=== PATIENT | male | born 1965 | race Caucasian/White ===

== ENCOUNTER 2017-11-20 10:41 | Inpatient (IN) | payer MEDICAID ==
[~2017-11-20] VITALS: Ht 170.2 cm; Wt 71.8 kg
[2017-11-20] MEDS ORDERED: DILTIAZEM HCL 25 MG/5 ML VIAL IV ONE ×2 (10:51→11:15)
[2017-11-20] MEDS ORDERED: SODIUM CHLORIDE 0.9% 1,000 ML IV ONE ×2 (11:17)
[2017-11-20] MEDS ORDERED: LORazepam 2MG/ML-1ML VIAL IV ONE (11:30)
[2017-11-20] MEDS ORDERED: THIAMINE HCL 100 MG/ML 2ML VIAL IV ONE (11:30)
[2017-11-20 11:38] LABS: Basophils # (auto) 0.1 uL; Basophils % (auto) 1.2 % (0.0-2.0); Eosinophils # (auto) 0.1 uL; Eosinophils % (auto) 2.3 % (0.0-7.0); Hematocrit 51.7 % (41.0-53.0); Hemoglobin 17.6 g/dL (13.5-17.5); Lymphocytes # (auto) 0.9 uL; Lymphocytes % (auto) 17.2 % (10.0-50.0); Mean Corpuscular Hemoglobin 33.9 pg (28.0-32.0); Mean Corpuscular Hgb Conc. 34.1 g/dL (32.0-36.0); Mean Corpuscular Volume 99.4 fL (80.0-100.0); Monocytes # (auto) 0.5 uL; Monocytes % (auto) 8.5 % (0.0-12.0); Neutrophils # (auto) 3.9 uL; Neutrophils % (auto) 70.8 % (37.0-80.0); Nucleated Red Blood Cells % 0.1 %; Platelet Count (auto) 300 10^3/uL (140-450); Red Blood Cells 5.21 10^6/uL (4.5-5.90); Red Cell Distribution Width 13.1 % (11.8-14.3); White Blood Cell 5.5 10^3/uL (4.4-10.8)
[2017-11-20 11:53] LABS: Albumin 3.7 g/dL (3.4-5.0); Bilirubin, Total 0.7 mg/dL (0.2-1.0); Magnesium 1.8 mg/dL (1.6-2.6); Potassium 4.3 mmol/L (3.5-5.1); Total Protein 8.5 g/dL (6.4-8.2)
[2017-11-20 14:20] LABS: Amphetamine Screen, Urine POSITIVE (NEGATIVE); Barbiturate Scree,Urine NEGATIVE (NEGATIVE); Benzodiazephine Screen, Urine NEGATIVE (NEGATIVE); Cannabinoid Screen, Urine NEGATIVE (NEGATIVE); Cocaine Screen, Urine NEGATIVE (NEGATIVE); Opiate Scree,Urine NEGATIVE (NEGATIVE); Phencyclidine Screen, Urine NEGATIVE (NEGATIVE)
[2017-11-20] MEDS ORDERED: MORPHINE SULFATE 10 MG/ML INJ 1ML SDV IV PRN (20:30)
[2017-11-20] MEDS ORDERED: NITROGLYCERIN 0.4 MG SL TAB SL PRN (20:30)
[2017-11-20 22:00] VITALS: BP 150/94
[2017-11-20 22:43] VITALS: BP 150/94
[2017-11-21 05:00] VITALS: BP 140/80
[2017-11-21 07:13] LABS: Basophils # (auto) 0.1 uL; Eosinophils # (auto) 0.2 uL; Hemoglobin 15.8 g/dL (13.5-17.5); Lymphocytes # (auto) 1.1 uL; Monocytes # (auto) 0.5 uL; Neutrophils # (auto) 3.3 uL; White Blood Cell 5.3 10^3/uL (4.4-10.8)
[2017-11-21 07:16] LABS: Basophils % (auto) 1.2 % (0.0-2.0); Eosinophils % (auto) 4.3 % (0.0-7.0); Hematocrit 45.8 % (41.0-53.0); Lymphocytes % (auto) 21.1 % (10.0-50.0); Mean Corpuscular Hemoglobin 34.6 pg (28.0-32.0); Mean Corpuscular Hgb Conc. 34.5 g/dL (32.0-36.0); Mean Corpuscular Volume 100.4 fL (80.0-100.0); Monocytes % (auto) 10.4 % (0.0-12.0); Nucleated Red Blood Cells % 0.2 %; Platelet Count (auto) 284 10^3/uL (140-450); Red Blood Cells 4.57 10^6/uL (4.5-5.90)
[2017-11-21 07:31] LABS: Albumin 3.2 g/dL (3.4-5.0); Calcium 8.7 mg/dL (8.5-10.1); Potassium 3.9 mmol/L (3.5-5.1)
[2017-11-21 07:36] LABS: BUN/Creatinine Ratio 21.9; Bilirubin, Total 0.7 mg/dL (0.2-1.0); Total Protein 7.4 g/dL (6.4-8.2)
[2017-11-21 09:00] VITALS: BP 154/103
[2017-11-21 13:00] VITALS: BP 138/106
[2017-11-21 17:00] VITALS: BP 148/82
[2017-11-21 22:00] VITALS: BP 145/99
[2017-11-22 05:00] VITALS: BP 148/97
[2017-11-22 08:13] LABS: Eosinophils # (auto) 0.2 uL; Monocytes # (auto) 0.6 uL; Nucleated Red Blood Cells % 0.1 %
[2017-11-22 08:15] LABS: Basophils # (auto) 0 uL; Eosinophils % (auto) 4.6 % (0.0-7.0); Hematocrit 46.4 % (41.0-53.0); Hemoglobin 15.9 g/dL (13.5-17.5); Lymphocytes # (auto) 1.2 uL; Lymphocytes % (auto) 23.8 % (10.0-50.0); Mean Corpuscular Hemoglobin 34.4 pg (28.0-32.0); Mean Corpuscular Hgb Conc. 34.3 g/dL (32.0-36.0); Mean Corpuscular Volume 100.2 fL (80.0-100.0); Neutrophils % (auto) 59.6 % (37.0-80.0); Platelet Count (auto) 279 10^3/uL (140-450); Red Blood Cells 4.63 10^6/uL (4.5-5.90); White Blood Cell 5.1 10^3/uL (4.4-10.8)
[2017-11-22 08:33] LABS: Albumin 3.1 g/dL (3.4-5.0); Bilirubin, Total 0.7 mg/dL (0.2-1.0); Calcium 8.4 mg/dL (8.5-10.1); Potassium 3.9 mmol/L (3.5-5.1); Total Protein 7.2 g/dL (6.4-8.2)
[2017-11-22 09:00] VITALS: BP 147/95
[2017-11-22] MEDS ORDERED: PROPRANOLOL HCL 20 MG TAB PO SCH (10:00)
[2017-11-22] MEDS ORDERED: PROPRANOLOL HCL 20 MG TAB ONE (10:11)
[2017-11-22 11:35] VITALS: BP 147/95
[2017-11-22 13:00] VITALS: BP 144/104
== END 2017-11-22 13:00 | disposition home or self-care (01) | DRG 812 ==
LOC: ER 10:41 → TELE 10:42 → TELE-WESTW 22:10
PROVIDERS: ADMIT Nurse Practitioner Family; ATTEND Internal Medicine
DX: T43.621A Poisoning by amphetamines, accidental (unintentional), initial encounter (principal); E44.0 Moderate protein-calorie malnutrition; I47.1 Supraventricular tachycardia; E88.09 Other disorders of plasma-protein metabolism, not elsewhere classified; I10 Essential (primary) hypertension; F19.10 Other psychoactive substance abuse, uncomplicated; F17.210 Nicotine dependence, cigarettes, uncomplicated; F15.10 Other stimulant abuse, uncomplicated; Z59.0 Homelessness; Z68.24 Body mass index [BMI] 24.0-24.9, adult
CPT/HCPCS: 36415; 71045; 80053; 80307; 80320; 82962; 83735; 84484; 85025; 93005; 94761; 96361; 96374; 96375

== ENCOUNTER 2018-04-03 01:47 | Emergency (ER) | payer MEDICAID, OTHER ==
[~2018-04-03] VITALS: Ht 167.6 cm; Wt 81.6 kg
[2018-04-03] MEDS ORDERED: ADENOSINE 6 MG/2 ML INJ IV ONE ×4 (01:53→02:15)
[2018-04-03 02:14] LABS: Basophils # (auto) 0.1 uL; Eosinophils # (auto) 0.1 uL; Eosinophils % (auto) 0.5 % (0.0-7.0); Monocytes # (auto) 1.1 uL; Neutrophils # (auto) 7.8 uL
[2018-04-03 02:15] LABS: Basophils % (auto) 0.7 % (0.0-2.0); Hematocrit 46.1 % (41.0-53.0); Lymphocytes # (auto) 1.2 uL; Lymphocytes % (auto) 11.9 % (10.0-50.0); Mean Corpuscular Hemoglobin 34.8 pg (28.0-32.0); Mean Corpuscular Hgb Conc. 34.8 g/dL (32.0-36.0); Mean Corpuscular Volume 100.1 fL (80.0-100.0); Monocytes % (auto) 10.6 % (0.0-12.0); Neutrophils % (auto) 76.3 % (37.0-80.0); Platelet Count (auto) 208 10^3/uL (140-450); Red Blood Cells 4.61 10^6/uL (4.5-5.90); Red Cell Distribution Width 13.7 % (11.8-14.3); White Blood Cell 10.2 10^3/uL (4.4-10.8)
[2018-04-03] MEDS ORDERED: SODIUM CHLORIDE 0.9% 1,000 ML IV ONE (02:30)
[2018-04-03] MEDS ORDERED: DILTIAZEM HCL 25 MG/5 ML VIAL IV ONE ×2 (02:32→02:45)
[2018-04-03 02:35] LABS: INR 0.94 (0.9-1.15); Partial Thromboplastin Time 23.3 sec (23.78-33.04); Prothrombin Time 10.1 sec (9.27-12.13)
[2018-04-03 02:39] LABS: Albumin 3.3 g/dL (3.4-5.0); BUN/Creatinine Ratio 18.9; Calcium 7.8 mg/dL (8.5-10.1); Magnesium 1.7 mg/dL (1.6-2.6); Potassium 3.1 mmol/L (3.5-5.1)
[2018-04-03 02:46] LABS: Total Protein 8.5 g/dL (6.4-8.2)
[2018-04-03 05:30] VITALS: BP 114/76
== END 2018-04-03 06:10 | disposition home or self-care (01) ==
LOC: ER 01:49
DX: I47.1 Supraventricular tachycardia (principal); E87.6 Hypokalemia; I50.9 Heart failure, unspecified; N28.9 Disorder of kidney and ureter, unspecified; F15.10 Other stimulant abuse, uncomplicated; F12.10 Cannabis abuse, uncomplicated; F17.210 Nicotine dependence, cigarettes, uncomplicated; Z59.0 Homelessness
CPT/HCPCS: 36415; 71045; 80053; 83735; 83880; 84443; 84484; 85025; 85610; 85730; 93005; 96374; 96375; 99285; J0153

== ENCOUNTER 2018-08-20 20:32 | Emergency (ER) | payer MEDICAID, OTHER ==
[~2018-08-20] VITALS: Ht 170.2 cm; Wt 81.6 kg
[2018-08-20 20:56] VITALS: BP 169/109
[2018-08-20 23:08] LABS: Urine Bacteria NONE SEEN /hpf (None Seen); Urine Blood 1+ /uL (Negative); Urine Hyaline Cast FEW /lpf (0 - 2); Urine Mucus FEW (None Seen); Urine Specific Gravity 1.015 (1.001-1.035); Urine Sperm PRESENT /hpf (None Seen); Urine WBC 5 /hpf (0 - 3)
[2018-08-20 23:25] LABS: Basophils # (auto) 0 uL; Basophils % (auto) 0.7 % (0.0-2.0); Eosinophils # (auto) 0 uL; Hematocrit 43.5 % (41.0-53.0); Hemoglobin 14.9 g/dL (13.5-17.5); Lymphocytes # (auto) 0.3 uL; Mean Corpuscular Hemoglobin 35.5 pg (28.0-32.0); Mean Corpuscular Hgb Conc. 34.1 g/dL (32.0-36.0); Mean Corpuscular Volume 103.9 fL (80.0-100.0); Monocytes # (auto) 0.4 uL; Monocytes % (auto) 6.9 % (0.0-12.0); Neutrophils # (auto) 4.9 uL; Neutrophils % (auto) 86.4 % (37.0-80.0); Platelet Count (auto) 185 10^3/uL (140-450); Red Blood Cells 4.18 10^6/uL (4.5-5.90); Red Cell Distribution Width 12.4 % (11.8-14.3); White Blood Cell 5.7 10^3/uL (4.4-10.8)
[2018-08-20 23:39] LABS: INR 1.08 (0.9-1.15); Partial Thromboplastin Time 27.6 sec (23.78-33.04); Prothrombin Time 11.5 sec (9.27-12.13)
[2018-08-20 23:42] LABS: Albumin 3.8 g/dL (3.4-5.0); BUN/Creatinine Ratio 18.5; Calcium 8.2 mg/dL (8.5-10.1); Magnesium 1.4 mg/dL (1.6-2.6); Potassium 3.8 mmol/L (3.5-5.1)
[2018-08-20 23:47] LABS: Bilirubin, Total 1.7 mg/dL (0.2-1.0)
== END 2018-08-21 05:15 | disposition left against medical advice (07) ==
LOC: ER 20:32
DX: R11.2 Nausea with vomiting, unspecified (principal); R42 Dizziness and giddiness; Z53.21 Procedure and treatment not carried out due to patient leaving prior to being seen by health care provider
CPT/HCPCS: 36415; 71046; 80053; 81001; 83690; 83735; 83880; 84443; 84484; 85025; 85610; 85730

== ENCOUNTER 2019-06-18 11:40 | Inpatient (IN) | payer SELFPAY ==
[~2019-06-18] VITALS: Ht 167.6 cm; Wt 84.3 kg
[2019-06-18] MEDS ORDERED: DILTIAZEM HCL 25 MG/5 ML VIAL IV ONE ×2 (11:44→12:00)
[2019-06-18] MEDS ORDERED: PROMETHAZINE HCL 25 MG/ML 1ML ONE (11:50)
[2019-06-18] MEDS ORDERED: ADENOSINE 6 MG/2 ML INJ IV ONE ×2 (11:50→11:55)
[2019-06-18] MEDS ORDERED: PROMETHAZINE HCL 25 MG/ML 1ML IV ONE (11:50)
[2019-06-18 12:25] LABS: Basophils # (auto) 0.1 uL; Basophils % (auto) 0.9 % (0.0-2.0); Eosinophils # (auto) 0 uL; Eosinophils % (auto) 0.3 % (0.0-7.0); Hematocrit 47.3 % (41.0-53.0); Hemoglobin 16.6 g/dL (13.5-17.5); Lymphocytes # (auto) 1.3 uL; Lymphocytes % (auto) 17.3 % (10.0-50.0); Mean Corpuscular Hemoglobin 36.2 pg (28.0-32.0); Mean Corpuscular Volume 103.4 fL (80.0-100.0); Monocytes # (auto) 0.7 uL; Monocytes % (auto) 9.3 % (0.0-12.0); Neutrophils # (auto) 5.6 uL; Neutrophils % (auto) 72.2 % (37.0-80.0); Nucleated Red Blood Cells % 0.1 %; Platelet Count (auto) 239 10^3/uL (140-450); Red Blood Cells 4.58 10^6/uL (4.5-5.90); Red Cell Distribution Width 12.6 % (11.8-14.3); White Blood Cell 7.7 10^3/uL (4.4-10.8)
[2019-06-18] MEDS ORDERED: DILTIAZEM 125mg/125ml BAG KIT 125 ML IV ONE (12:30)
[2019-06-18 12:41] LABS: Albumin 3.7 g/dL (3.4-5.0); Anion Gap 14 (5-15); Blood Urea Nitrogen 11 mg/dL (7-18); Calcium 8.9 mg/dL (8.5-10.1); Carbon Dioxide 22 mmol/L (21-32); Chloride 105 mmol/L (98-107); Glucose 115 mg/dL (74-106); Magnesium 1.5 mg/dL (1.6-2.6); Potassium 3.2 mmol/L (3.5-5.1); Sodium 141 mmol/L (136-145)
[2019-06-18] MEDS ORDERED: ASPirin 81 mg TAB PO ONE (12:45)
[2019-06-18] MEDS ORDERED: NITROGLYCERIN 0.4 MG SL TAB SL PRN (12:45)
[2019-06-18] MEDS ORDERED: LORazepam 2MG/ML-1ML VIAL IV PRN (12:45)
[2019-06-18] MEDS ORDERED: IPRATROPIUM BROM 0.5 MG/2.5ML INH SOL NEB PRN (12:45)
[2019-06-18] MEDS ORDERED: HYDROcodone-ACET 5/325MG TAB PO PRN (12:45)
[2019-06-18] MEDS ORDERED: MORPHINE SULF INJ 2 MG/ML SYRINGE 1ML IV PRN ×2 (12:45)
[2019-06-18] MEDS ORDERED: ONDANSETRON HCL 4 MG/2 ML VIAL IV PRN (12:45)
[2019-06-18] MEDS ORDERED: ACETAMINOPHEN 500 MG TAB PO PRN (12:45)
[2019-06-18 12:47] LABS: Alanine Aminotransferase 102 U/L (16-61); Alkaline Phosphatase 96 U/L (45-117); Aspartate Aminotransferase 153 U/L (15-37); BUN/Creatinine Ratio 9.6; Bilirubin, Total 1.1 mg/dL (0.2-1.0); GFR African American 87 mL/min; GFR Non-African American 72 mL/min; Total Protein 9.4 g/dL (6.4-8.2)
[2019-06-18] MEDS: METOPROLOL TARTRATE 25 MG TAB PO SCH ×2 (13:03→21:28)
[2019-06-18] MEDS ORDERED: POTASSIUM EFFERVESENT TAB 25 MEQ PO ONE (13:30)
[2019-06-18] MEDS: FOLIC ACID 1 MG, MULTIPLE VITAMIN 10 ML, MAGNESIUM SULF SDV 50% 8 MEQ, THIAMINE INJ 100... INJ SCH ×5 (13:31)
[2019-06-18 15:54] LABS: Alcohol, Urine < 3.0 mg/dL (0-5); Amphetamine Screen, Urine POSITIVE (NEGATIVE); Barbiturate Scree,Urine NEGATIVE (NEGATIVE); Benzodiazephine Screen, Urine NEGATIVE (NEGATIVE); Cannabinoid Screen, Urine NEGATIVE (NEGATIVE); Cocaine Screen, Urine NEGATIVE (NEGATIVE); Opiate Scree,Urine NEGATIVE (NEGATIVE); Phencyclidine Screen, Urine NEGATIVE (NEGATIVE)
[2019-06-18] MEDS ORDERED: MILK OF MAGNESIA 30ML SUSP PO ONE (16:15)
--- NOTE | 2019-06-18 17:55 | NUR ---
PT ASSESSED FOR PRN MED NEB TX, PT SITTING UPRIGHT AND EDGE OF BED DRINKING WATER WITH NO DISTRESS NOTED. BS DECREASED. PT ON ROOM AIR SPO2 96% HR 92, RR 18. PT NOTIFIED TO HAVE RT PAGED IF SOB OCCURS.
[2019-06-18 18:57] VITALS: BP 129/90
--- NOTE | 2019-06-18 22:00 | NUR ---
OPENING NOTE RECEIVED REPORT FROM DAYSHIFT RN. ASSUMING ROLE OF CARE OF PATIENT AT THIS TIME. PATIENT SHOWING NO SIGN OF DISTRESS, SHORTNESS OF BREATH, AND PATIENT DENIES ANY PAIN AT THIS TIME. PATIENT EDUCATED ON PLAN OF CARE FOR THE NIGHT AND PATIENT VERBALIZED UNDERSTANDING. BED LOWERED, CALL LIGHT WITHIN REACH, AND PATIENT WILL BE ROUNDED ON EVERY HOUR AND NEEDED.
--- NOTE | 2019-06-18 22:00 | NUR ---
IV removal IV TO RIGHT HAND DC'd with clean sterile technique, catheter fully intact. Pressure dressing applied to site. Patient tolerated well.
[2019-06-18 23:24] VITALS: BP 126/89
--- NOTE | 2019-06-19 06:50 | NUR ---
Respiratory note: HR 83, RR 14, SPO2 95% RA, BS CLEAR. PRN MED NEB TX NOT INDICATED AT THIS TIME.NO RESPIRATORY DISTRESS NOTED. PT INFORMED TO HIT CALL BUTTON IF FEELING SOB OR WHEEZING.
[2019-06-19 06:56] LABS: Potassium 3.4 mmol/L (3.5-5.1)
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
[2019-06-19 08:56] VITALS: BP 141/94
[2019-06-19] MEDS: ASPirin 81 mg TAB PO SCH (10:40)
[2019-06-19] MEDS: METOPROLOL TARTRATE 25 MG TAB PO SCH ×2 (10:41→21:19)
[2019-06-19 11:27] LABS: Basophils # (auto) 0 uL; Basophils % (auto) 0.8 % (0.0-2.0); Eosinophils # (auto) 0.1 uL; Eosinophils % (auto) 2.6 % (0.0-7.0); Hematocrit 40.7 % (41.0-53.0); Hemoglobin 14.1 g/dL (13.5-17.5); Lymphocytes # (auto) 1.1 uL; Lymphocytes % (auto) 24.2 % (10.0-50.0); Mean Corpuscular Hemoglobin 35.7 pg (28.0-32.0); Mean Corpuscular Hgb Conc. 34.6 g/dL (32.0-36.0); Mean Corpuscular Volume 103.1 fL (80.0-100.0); Monocytes # (auto) 0.4 uL; Monocytes % (auto) 8.9 % (0.0-12.0); Neutrophils # (auto) 2.9 uL; Neutrophils % (auto) 63.5 % (37.0-80.0); Nucleated Red Blood Cells % 0.1 %; Platelet Count (auto) 178 10^3/uL (140-450); Red Blood Cells 3.95 10^6/uL (4.5-5.90); Red Cell Distribution Width 12.5 % (11.8-14.3); White Blood Cell 4.6 10^3/uL (4.4-10.8)
[2019-06-19] MEDS: FOLIC ACID 1 MG, MULTIPLE VITAMIN 10 ML, MAGNESIUM SULF SDV 50% 8 MEQ, THIAMINE INJ 100... INJ SCH ×5 (12:06)
[2019-06-19 12:30] VITALS: BP 136/96
--- NOTE | 2019-06-19 14:11 | NUR ---
Received referral to see pt f
--- NOTE | 2019-06-19 14:13 | NUR ---
Received referral to see pt as he has a substance abuse issue and he is homeless. Pt was alert and oriented. Pt states he has been homeless for about 5 yrs. Pt has no income but has food stamps. Inquired of pt if he would like group social worker to find a place for him to go post discharge. Pt stated no. He does not want the homeless group home or any other facility. He further stated that he would like to return to his current living condition which is on [address]. Gave pt resources for drug rehabs. Pt signed the homeless waiver and it was placed in his chart. .
[2019-06-19 17:26] VITALS: BP 131/86
--- NOTE | 2019-06-19 19:29 | NUR ---
Respiratory note: NO PRN TX GIVEN AT THIS TIME, NOT INDICATED. PT AWAKE AND ALERT, DENIES ANY NEEDS. SPO2 97% ON R/A, HR 86, RR 16.
--- NOTE | 2019-06-19 20:00 | NUR ---
OPENING NOTE RECEIVED REPORT FROM DAYSHIFT RN. ASSUMING ROLE OF CARE OF PATIENT AT THIS TIME. PATIENT EDUCATED ON PLAN OF CARE FOR THE NIGHT AND PATIENT VERBALIZED UNDERSTANDING. PATIENT SHOWING NO SIGN OF DISTRESS, SHORTNESS OF BREATH, AND PATIENT DENIES ANY PAIN AT THIS TIME. BED LOWERED, CALL LIGHT WITHIN REACH, AND PATIENT WILL BE ROUNDED ON EVERY HOUR AND NEEDED. PATIENT REQUESTING HETAL CRACKERS AND JUICE AND WILL BE PROVIDED WHEN AVAILABLE.
[2019-06-19 22:00] VITALS: BP 122/77
[2019-06-20 04:51] VITALS: BP 137/77
--- NOTE | 2019-06-20 07:30 | NUR ---
OPENING NOTES ASSUMED CARE OF PT. ALERT AND ORIENTED. NO SIGNS OF SOB/DISTRESS NOTED. DENIES ANY PAIN. BED SET TO LOWEST POSITION/LOCKED. BEDSIDE RAILS UP X2. CALL LIGHT WITHIN REACH. INSTRUCTED PT TO CALL FOR ASSISTANCE. DISCUSSED POC. WILL CONTINUE TO MONITOR Q1HR AND PRN.
[2019-06-20 09:00] VITALS: BP 127/87
[2019-06-20] MEDS: METOPROLOL TARTRATE 25 MG TAB PO SCH ×2 (09:38→22:38)
[2019-06-20] MEDS: LISINOPRIL 5 MG TAB PO SCH (09:38)
[2019-06-20] MEDS: ASPirin 81 mg TAB PO SCH (09:38)
[2019-06-20] MEDS: FOLIC ACID 1 MG, MULTIPLE VITAMIN 10 ML, MAGNESIUM SULF SDV 50% 8 MEQ, THIAMINE INJ 100... INJ SCH ×5 (12:41)
[2019-06-20 13:00] VITALS: BP 131/90
[2019-06-20 13:20] LABS: Cholesterol 126 mg/dL (< 200); Triglycerides 109 mg/dL (< 150)
[2019-06-20 13:23] LABS: HDL Cholesterol 40 mg/dL (40-59); LDL Cholesterol 73 mg/dL (< 100)
--- NOTE | 2019-06-20 13:30 | NUR ---
LIDIA VINES states they want to leave the floor Against Medical Advice (AMA) to go outside and smoke. Patient encouraged to stay on floor and not smoke. Dr. Brown notified of patient's wishes. Patient advised of the risks and benefits of leaving AMA. Patient verbalized understanding and signed required AMA form.
--- NOTE | 2019-06-20 14:00 | NUR ---
ASSESSED PT FOR PRN MED NEB BREATHING TX. PT ON RA WITH SPO2 96%, HR 81, RR 15 WITH CLEAR BS. NO, SOB NO RESPIRATORY DISTRESS NOTED. WILL CONTINUE TO MONITOR.
[2019-06-20] MEDS ORDERED: POTASSIUM CHL 20 Meq TABLET PO ONE (15:00)
--- NOTE | 2019-06-20 16:24 | NUR ---
assessment Patient is a 54 year old male who is alert and oriented. Prior to admission patient was home less. Patient informed me he doesnt need any help and wants to return to homeless on discharge. Patient has clothes. Patient refused any other help with clothing. Patient refused placement and shelters. Patient refused resources for homeless and inpatient and outpatient substance abuse facilities. patient will be given a sack lunch on discharge. Addendum: 06/21/19 at 1626 by Ann-Marie ELIAS Amended: Links added.
[2019-06-20 17:03] VITALS: BP 132/89
[2019-06-20 21:30] VITALS: BP 126/85
[2019-06-21 05:00] VITALS: BP 130/84
--- NOTE | 2019-06-21 07:23 | NUR ---
PT W/O ACUTE DISTRESS NOTED, NO COMPLAINTS VOICED, REPORT GIVEN TO DENA GUNDERSON Addendum: 06/21/19 at 24 by Reg 2 RN Amended: Links added.
[2019-06-21 09:00] VITALS: BP 117/90
[2019-06-21] MEDS: LISINOPRIL 5 MG TAB PO SCH (09:32)
[2019-06-21] MEDS: METOPROLOL TARTRATE 25 MG TAB PO SCH (09:32)
[2019-06-21] MEDS: ASPirin 81 mg TAB PO SCH (09:32)
[2019-06-21 11:08] VITALS: BP 117/90
--- NOTE | 2019-06-21 12:40 | NUR ---
Discharge instructions given as ordered. Encourage to follow up with PMD as instructed. All questions and concerns addressed. Patient verbalized understanding. IV removed with catheter intact, pressure dressing applied. Telemetry unit returned to ICU.
--- NOTE | 2019-06-21 13:03 | NUR ---
Patient ambulated with all personal belongings, accompanied by staff and family member. No distress noted at time of departure.
== END 2019-06-21 13:03 | disposition home or self-care (01) | DRG 310 ==
LOC: ER 11:40 → EDUNIT# 11:40 → EDBD 11:40 → TELE 11:41 → TELE-CENTR 20:16
PROVIDERS: ADMIT Nurse Practitioner Acute Care; ATTEND Family Medicine
DX: I47.1 Supraventricular tachycardia (principal); F15.10 Other stimulant abuse, uncomplicated; F17.210 Nicotine dependence, cigarettes, uncomplicated; F10.10 Alcohol abuse, uncomplicated; Z59.0 Homelessness; Z79.899 Other long term (current) drug therapy; Z79.82 Long term (current) use of aspirin; Y90.7 Blood alcohol level of 200-239 mg/100 ml
CPT/HCPCS: 36415; 71045; 80048; 80053; 80061; 80307; 83735; 83880; 84484; 85025; 93306; 96374; 96375; 96376; 99291; G0378; J0153

== ENCOUNTER 2019-08-28 02:09 | Emergency (ER) | payer MEDICAID ==
[~2019-08-28] VITALS: Ht 167.6 cm; Wt 81.6 kg
[2019-08-28] MEDS ORDERED: SODIUM CHLORIDE 0.9% 1,000 ML IV ONE (02:30)
[2019-08-28] MEDS ORDERED: LORazepam 2MG/ML-1ML VIAL IV ONE (02:30)
[2019-08-28 02:53] LABS: Basophils # (auto) 0.1 uL; Eosinophils # (auto) 0.1 uL; Lymphocytes # (auto) 0.9 uL; Mean Corpuscular Volume 104.3 fL (80.0-100.0); Monocytes # (auto) 0.7 uL
[2019-08-28 02:55] LABS: Basophils % (auto) 1.2 % (0.0-2.0); Eosinophils % (auto) 1.6 % (0.0-7.0); Hematocrit 39.3 % (41.0-53.0); Hemoglobin 13.8 g/dL (13.5-17.5); Lymphocytes % (auto) 13.2 % (10.0-50.0); Mean Corpuscular Hemoglobin 36.5 pg (28.0-32.0); Monocytes % (auto) 10.8 % (0.0-12.0); Neutrophils # (auto) 4.9 uL; Neutrophils % (auto) 73.2 % (37.0-80.0); Platelet Count (auto) 220 10^3/uL (140-450); Red Blood Cells 3.77 10^6/uL (4.5-5.90); Red Cell Distribution Width 12.3 % (11.8-14.3); White Blood Cell 6.6 10^3/uL (4.4-10.8)
[2019-08-28 03:05] LABS: Urine Bacteria FEW /hpf (None Seen); Urine Blood Negative /uL (Negative); Urine Hyaline Cast MANY /lpf (0 - 2); Urine Mucus FEW (None Seen); Urine Specific Gravity 1.021 (1.001-1.035); Urine WBC 1 /hpf (0 - 3)
[2019-08-28 03:11] LABS: Albumin 3.1 g/dL (3.4-5.0); BUN/Creatinine Ratio 21.2; Potassium 3.4 mmol/L (3.5-5.1)
[2019-08-28 03:16] LABS: Bilirubin, Total 1.2 mg/dL (0.2-1.0); Total Protein 7.6 g/dL (6.4-8.2)
[2019-08-28 03:18] LABS: Amphetamine Screen, Urine POSITIVE (NEGATIVE); Barbiturate Scree,Urine NEGATIVE (NEGATIVE); Benzodiazephine Screen, Urine NEGATIVE (NEGATIVE); Cannabinoid Screen, Urine NEGATIVE (NEGATIVE); Cocaine Screen, Urine NEGATIVE (NEGATIVE); Opiate Scree,Urine NEGATIVE (NEGATIVE); Phencyclidine Screen, Urine NEGATIVE (NEGATIVE)
[2019-08-28 06:02] VITALS: BP 115/75
== END 2019-08-28 06:04 | disposition home or self-care (01) ==
LOC: EDBD 02:09 → ER 02:16
DX: R00.2 Palpitations (principal); T43.625A Adverse effect of amphetamines, initial encounter; F17.210 Nicotine dependence, cigarettes, uncomplicated; Z59.0 Homelessness; Y92.89 Other specified places as the place of occurrence of the external cause
CPT/HCPCS: 36415; 71045; 80053; 80307; 81001; 83880; 84484; 85025; 93005; 96374; 99284; J2060; J7030

== ENCOUNTER 2019-10-13 02:25 | Emergency (ER) | payer MEDICAID ==
[~2019-10-13] VITALS: Ht 177.8 cm; Wt 90.7 kg
[2019-10-13 03:23] LABS: Basophils # (auto) 0.1 uL; Eosinophils # (auto) 0.1 uL; Lymphocytes # (auto) 0.8 uL; Monocytes # (auto) 0.4 uL; Neutrophils # (auto) 3.9 uL; Nucleated Red Blood Cells % 0.1 %
[2019-10-13 03:25] LABS: Basophils % (auto) 1.2 % (0.0-2.0); Eosinophils % (auto) 1.2 % (0.0-7.0); Hematocrit 44.8 % (41.0-53.0); Hemoglobin 15.5 g/dL (13.5-17.5); Lymphocytes % (auto) 15.7 % (10.0-50.0); Mean Corpuscular Hemoglobin 35.2 pg (28.0-32.0); Mean Corpuscular Hgb Conc. 34.7 g/dL (32.0-36.0); Mean Corpuscular Volume 101.5 fL (80.0-100.0); Monocytes % (auto) 7.1 % (0.0-12.0); Neutrophils % (auto) 74.8 % (37.0-80.0); Platelet Count (auto) 203 10^3/uL (140-450); Red Blood Cells 4.41 10^6/uL (4.5-5.90); White Blood Cell 5.2 10^3/uL (4.4-10.8)
[2019-10-13 03:43] LABS: Albumin 3.1 g/dL (3.4-5.0); BUN/Creatinine Ratio 16.7; Calcium 8.6 mg/dL (8.5-10.1); Potassium 3.2 mmol/L (3.5-5.1)
[2019-10-13 03:53] LABS: Bilirubin, Total 0.8 mg/dL (0.2-1.0); Total Protein 8.5 g/dL (6.4-8.2)
[2019-10-13] MEDS ORDERED: POTASSIUM EFFERVESENT TAB 25 MEQ PO ONE (08:45)
[2019-10-13 09:05] LABS: Urine Bacteria NONE SEEN /hpf (None Seen); Urine Blood TRACE /uL (Negative); Urine Mucus FEW (None Seen); Urine Specific Gravity 1.016 (1.001-1.035); Urine Sperm PRESENT /hpf (None Seen); Urine WBC 5 /hpf (0 - 3)
[2019-10-13 09:09] LABS: Alcohol, Urine < 3.0 mg/dL (0-5); Amphetamine Screen, Urine POSITIVE (NEGATIVE); Barbiturate Scree,Urine NEGATIVE (NEGATIVE); Benzodiazephine Screen, Urine NEGATIVE (NEGATIVE); Cannabinoid Screen, Urine NEGATIVE (NEGATIVE); Cocaine Screen, Urine NEGATIVE (NEGATIVE); Opiate Scree,Urine NEGATIVE (NEGATIVE); Phencyclidine Screen, Urine NEGATIVE (NEGATIVE)
[2019-10-13 10:36] VITALS: BP 162/84
== END 2019-10-13 09:57 | disposition left against medical advice (07) ==
LOC: EDUNIT# 02:25 → EDBD 02:25 → ER 02:29
DX: R07.89 Other chest pain (principal); E87.6 Hypokalemia; F15.10 Other stimulant abuse, uncomplicated; E44.1 Mild protein-calorie malnutrition; Z68.28 Body mass index [BMI] 28.0-28.9, adult
CPT/HCPCS: 36415; 71045; 80053; 80307; 81001; 83880; 84443; 84484; 85025; 93005

== ENCOUNTER 2019-11-25 06:58 | Emergency (ER) | payer MEDICAID ==
[~2019-11-25] VITALS: Ht 167.6 cm; Wt 81.6 kg
[2019-11-25 07:44] LABS: Basophils # (auto) 0.1 uL; Eosinophils # (auto) 0.2 uL; Platelet Count (auto) 243 10^3/uL (140-450)
[2019-11-25 07:46] LABS: Basophils % (auto) 1.2 % (0.0-2.0); Eosinophils % (auto) 5.1 % (0.0-7.0); Hematocrit 44.7 % (41.0-53.0); Hemoglobin 15.7 g/dL (13.5-17.5); Lymphocytes # (auto) 0.8 uL; Lymphocytes % (auto) 20.2 % (10.0-50.0); Mean Corpuscular Hemoglobin 35.4 pg (28.0-32.0); Mean Corpuscular Hgb Conc. 35.1 g/dL (32.0-36.0); Mean Corpuscular Volume 100.7 fL (80.0-100.0); Monocytes # (auto) 0.4 uL; Monocytes % (auto) 8.7 % (0.0-12.0); Neutrophils # (auto) 2.7 uL; Neutrophils % (auto) 64.8 % (37.0-80.0); Nucleated Red Blood Cells % 0.1 %; Red Blood Cells 4.44 10^6/uL (4.5-5.90); Red Cell Distribution Width 12.6 % (11.8-14.3); White Blood Cell 4.2 10^3/uL (4.4-10.8)
[2019-11-25 08:02] LABS: Alanine Aminotransferase 121 U/L (16-61); Albumin 3.2 g/dL (3.4-5.0); Anion Gap 8 (5-15); Aspartate Aminotransferase 123 U/L (15-37); BUN/Creatinine Ratio 16.9; Blood Urea Nitrogen 11 mg/dL (7-18); Calcium 8.5 mg/dL (8.5-10.1); Carbon Dioxide 30 mmol/L (21-32); Chloride 103 mmol/L (98-107); GFR African American 166 mL/min; GFR Non-African American 137 mL/min; Glucose 126 mg/dL (74-106); Potassium 4.1 mmol/L (3.5-5.1); Sodium 141 mmol/L (136-145)
[2019-11-25 08:07] LABS: Alkaline Phosphatase 121 U/L (45-117); Bilirubin, Total 0.4 mg/dL (0.2-1.0); Total Protein 8.7 g/dL (6.4-8.2)
[2019-11-25] MEDS ORDERED: SODIUM CHLORIDE 0.9% 1,000 ML IV ONE (10:04)
[2019-11-25] MEDS ORDERED: LORazepam 2MG/ML-1ML VIAL IV ONE (11:15)
[2019-11-25 11:46] LABS: Urine WBC None Seen /hpf (0 - 3)
[2019-11-25 11:51] LABS: Urine Bacteria NONE SEEN /hpf (None Seen); Urine Blood Negative /uL (Negative)
[2019-11-25 12:21] LABS: Alcohol, Urine < 3.0 mg/dL (0-5); Amphetamine Screen, Urine POSITIVE (NEGATIVE); Barbiturate Scree,Urine NEGATIVE (NEGATIVE); Benzodiazephine Screen, Urine NEGATIVE (NEGATIVE); Cannabinoid Screen, Urine NEGATIVE (NEGATIVE); Cocaine Screen, Urine NEGATIVE (NEGATIVE); Opiate Scree,Urine NEGATIVE (NEGATIVE); Phencyclidine Screen, Urine NEGATIVE (NEGATIVE)
[2019-11-25 16:24] VITALS: BP 142/106
== END 2019-11-25 17:16 | disposition home or self-care (01) ==
LOC: ER 06:58
DX: F15.10 Other stimulant abuse, uncomplicated (principal); I10 Essential (primary) hypertension; F10.10 Alcohol abuse, uncomplicated; D75.89 Other specified diseases of blood and blood-forming organs; R74.8 Abnormal levels of other serum enzymes; E46 Unspecified protein-calorie malnutrition; F17.210 Nicotine dependence, cigarettes, uncomplicated; Z68.29 Body mass index [BMI] 29.0-29.9, adult; Z59.0 Homelessness
CPT/HCPCS: 36415; 71046; 80053; 80307; 81001; 83735; 84443; 84484; 85025; 93005; 96374; 99284; J2060; J7030

== ENCOUNTER 2019-12-06 05:23 | Emergency (ER) | payer MEDICAID ==
[~2019-12-06] VITALS: Ht 167.6 cm; Wt 81.6 kg
[2019-12-06 06:18] VITALS: BP 161/102
== END 2019-12-06 07:20 | disposition left against medical advice (07) ==
LOC: ER 05:23
DX: M54.9 Dorsalgia, unspecified (principal); Z53.21 Procedure and treatment not carried out due to patient leaving prior to being seen by health care provider

== ENCOUNTER 2021-09-22 05:06 | Emergency (ER) | payer MEDICAID ==
[~2021-09-22] VITALS: Ht 167.6 cm; Wt 81.6 kg
[2021-09-22] MEDS ORDERED: ADENOSINE 6 MG/2 ML INJ IV ONE ×5 (05:13→05:27)
[2021-09-22 05:45] LABS: Eosinophils # (auto) 0.2 10 ^3/uL (0-0.8); Hemoglobin 16.5 g/dL (13.5-17.5); Monocytes # (auto) 0.6 10 ^3/uL (0-1.3); Neutrophils # (auto) 3.9 10 ^3/uL (1.6-8.6); Nucleated Red Blood Cells % 0.2 %
[2021-09-22 05:47] LABS: Basophils # (auto) 0.1 10 ^3/uL (0-0.2); Eosinophils % (auto) 2.8 % (0.0-7.0); Hematocrit 48.4 % (41.0-53.0); Lymphocytes # (auto) 1.4 10 ^3/uL (0.4-5.4); Lymphocytes % (auto) 22.7 % (10.0-50.0); Mean Corpuscular Hemoglobin 34.7 pg (28.0-32.0); Mean Corpuscular Hgb Conc. 34.1 g/dL (32.0-36.0); Mean Corpuscular Volume 101.8 fL (80.0-100.0); Monocytes % (auto) 9.6 % (0.0-12.0); Neutrophils % (auto) 63.9 % (37.0-80.0); Red Blood Cells 4.75 10^6/uL (4.5-5.90); Red Cell Distribution Width 12.5 % (11.8-14.3); White Blood Cell 6.1 10^3/uL (4.4-10.8)
[2021-09-22 05:51] LABS: Urine WBC None Seen /hpf (0 - 3)
[2021-09-22 06:03] LABS: Urine Bacteria NONE SEEN /hpf (None Seen); Urine Blood Negative /uL (Negative); Urine Hyaline Cast FEW /lpf (0 - 2); Urine Specific Gravity 1.009 (1.001-1.035)
[2021-09-22 06:08] LABS: Albumin 3.2 g/dL (3.4-5.0); Calcium 8.5 mg/dL (8.5-10.1); Potassium 3.9 mmol/L (3.5-5.1)
[2021-09-22 06:16] LABS: BUN/Creatinine Ratio 16.4; Bilirubin, Total 0.4 mg/dL (0.2-1.0); Total Protein 8.9 g/dL (6.4-8.2)
[2021-09-22 08:06] VITALS: BP 143/95
== END 2021-09-22 08:08 | disposition admitted as inpatient to this hospital (09) ==
LOC: ER 05:06
DX: I47.1 Supraventricular tachycardia (principal); F17.210 Nicotine dependence, cigarettes, uncomplicated; Z59.00 Homelessness unspecified; Z20.822 Contact with and (suspected) exposure to COVID-19
CPT/HCPCS: 36415; 71045; 80053; 81001; 83735; 83880; 84484; 85025; 87426; 93005; 96374; 99285; J0153

== ENCOUNTER 2023-02-25 13:07 | Emergency (ER) | payer SELFPAY ==
[~2023-02-25] VITALS: Ht 167.6 cm; Wt 93.8 kg
[~2023-02-25 13:07] MED LIST: INDO50CA82 PO
[2023-02-25] MEDS ORDERED: METH750T22 PO (17:14)
[2023-02-25] MEDS ORDERED: IBUP800T27 PO (17:14)
[2023-02-25] MEDS ORDERED: KETOROLAC TROMETH 60MG/2ML VIAL IM ONE (17:15)
[2023-02-25 17:25] VITALS: BP 118/93
== END 2023-02-25 17:31 | disposition home or self-care (01) ==
LOC: ER 13:07
DX: S23.41XA Sprain of ribs, initial encounter (principal); F17.210 Nicotine dependence, cigarettes, uncomplicated; F15.90 Other stimulant use, unspecified, uncomplicated; Z79.899 Other long term (current) drug therapy; Z59.00 Homelessness unspecified; W18.39XA Other fall on same level, initial encounter; Y93.89 Activity, other specified; Y92.89 Other specified places as the place of occurrence of the external cause; Y99.8 Other external cause status
CPT/HCPCS: 71101; 96372; 99283; J1885

== ENCOUNTER 2023-05-18 13:01 | Emergency (ER) | payer SELFPAY ==
[~2023-05-18] VITALS: Ht 165.1 cm; Wt 105.0 kg
[~2023-05-18 13:01] MED LIST changes: +IBUP-1456 PO; +METH-1182 PO
[2023-05-18 13:15] VITALS: BP 145/99; RESP 20; O2SAT 100
[2023-05-18 14:08] LABS: Basophils # (auto) 0.1 10 ^3/uL (0-0.2); Eosinophils # (auto) 0 10 ^3/uL (0-0.8); Hematocrit 43.2 % (41.0-53.0); Hemoglobin 14.9 g/dL (13.5-17.5); Lymphocytes # (auto) 0.9 10 ^3/uL (0.4-5.4); Lymphocytes % (auto) 7.6 % (10.0-50.0); Mean Corpuscular Hemoglobin 34.6 pg (28.0-32.0); Mean Corpuscular Hgb Conc. 34.5 g/dL (32.0-36.0); Mean Corpuscular Volume 100.5 fL (80.0-100.0); Monocytes # (auto) 0.8 10 ^3/uL (0-1.3); Monocytes % (auto) 6.8 % (0.0-12.0); Neutrophils # (auto) 9.8 10 ^3/uL (1.6-8.6); Neutrophils % (auto) 84.6 % (37.0-80.0); Nucleated Red Blood Cells % 0.1 %; Red Cell Distribution Width 13.5 % (11.8-14.3); White Blood Cell 11.6 10^3/uL (4.4-10.8)
[2023-05-18] MEDS ORDERED: SODIUM CHLORIDE 0.9% 1,000 ML IV ONE ×2 (14:15→14:30)
[2023-05-18 14:40] VITALS: PULSE 125
[2023-05-18] MEDS ORDERED: MAGNESIUM SULFATE 1GM/100ML 100 ML IV ONE ×2 (15:30)
[2023-05-18] MEDS ORDERED: PIPERACILLIN-TAZOB 3.375GM 100 ML IV ONE (16:00)
[2023-05-18 16:12] LABS: Albumin 3.3 g/dL (3.4-5.0); BUN/Creatinine Ratio 11.3 (10.0-20.0); Calcium 8.2 mg/dL (8.5-10.1); Potassium 4.3 mmol/L (3.5-5.1)
[2023-05-18 16:16] LABS: Bilirubin, Total 0.8 mg/dL (0.2-1.0); Total Protein 7.6 g/dL (6.4-8.2)
[2023-05-18] MEDS ORDERED: IOHEXOL 350 MG/ML 100ML IJ ONE (16:19)
== END 2023-05-18 18:03 | disposition left against medical advice (07) ==
LOC: EDBD 13:01 → ER 13:01
DX: E83.42 Hypomagnesemia (principal); R07.89 Other chest pain; F12.90 Cannabis use, unspecified, uncomplicated; F17.210 Nicotine dependence, cigarettes, uncomplicated; Z79.899 Other long term (current) drug therapy
CPT/HCPCS: 36415; 71045; 80053; 82550; 83605; 83690; 83735; 83880; 84484; 85025; 85379; 93005; 99285; Q9967

== ENCOUNTER 2023-05-19 03:18 | Inpatient (IN) | payer MEDICAID, OTHER ==
[~2023-05-19] VITALS: Ht 167.6 cm; Wt 101.6 kg
[2023-05-19] VITALS (19 sets, daily range): BP systolic 78–164; BP diastolic 51–108; PULSE 108–148; RESP 17–36; TEMP 98.9–102.7; O2SAT 89–100
[2023-05-19] MEDS ORDERED: MORPHINE SULFATE INJ 2 MG/ml SYRG IV ONE (04:00)
[2023-05-19 04:30] LABS: Mean Corpuscular Hemoglobin 35.2 pg (28.0-32.0)
[2023-05-19 04:32] LABS: Basophils # (auto) 0.1 10 ^3/uL (0-0.2); Basophils % (auto) 0.7 % (0.0-2.0); Eosinophils # (auto) 0 10 ^3/uL (0-0.8); Hematocrit 45.2 % (41.0-53.0); Hemoglobin 15.4 g/dL (13.5-17.5); Lymphocytes # (auto) 0.6 10 ^3/uL (0.4-5.4); Mean Corpuscular Hgb Conc. 34.1 g/dL (32.0-36.0); Monocytes # (auto) 0.6 10 ^3/uL (0-1.3); Monocytes % (auto) 6.2 % (0.0-12.0); Neutrophils # (auto) 8.4 10 ^3/uL (1.6-8.6); Neutrophils % (auto) 87.1 % (37.0-80.0); Nucleated Red Blood Cells % 0.1 %; Red Blood Cells 4.39 10^6/uL (4.5-5.90); Red Cell Distribution Width 13.6 % (11.8-14.3); White Blood Cell 9.6 10^3/uL (4.4-10.8)
[2023-05-19 04:43] LABS: Calcium 7.9 mg/dL (8.5-10.1); Magnesium 1.1 mg/dL (1.6-2.6); Potassium 3.7 mmol/L (3.5-5.1)
[2023-05-19 04:47] LABS: BUN/Creatinine Ratio 15.8 (10.0-20.0)
[2023-05-19] MEDS ORDERED: IOHEXOL 350 MG/ML 100ML IJ ONE (05:13)
[2023-05-19] MEDS ORDERED: ASPirin 325 MG TAB PO ONE (06:00)
[2023-05-19] MEDS ORDERED: cefTRIAXone 1GM/50ML D5W 50 ML IV ONE (06:00)
[2023-05-19] MEDS ORDERED: AZITHROMYCIN 500MG/ 250ML 250 ML IV ONE (06:00)
[2023-05-19] MEDS ORDERED: ALBUTEROL SULF 2.5 MG/0.5ML(0.5%) NEB SOLN NEB ONE (06:00)
[2023-05-19] MEDS ORDERED: DexAMETHasone SOD PHOS 10MG/1ML VIAL INJ IV ONE (06:00)
[2023-05-19] MEDS ORDERED: LACTATED RINGER'S 1,000 ML IV ONE (06:15)
[2023-05-19] MEDS: MAGNESIUM SULFATE 1GM/100ML 100 ML IV SCH ×4 (06:38→13:00)
[2023-05-19] MEDS ORDERED: SODIUM CHLORIDE 0.9% 1,000 ML IV SCH (11:15)
[2023-05-19] MEDS ORDERED: MORPHINE SULFATE INJ 2 MG/ml SYRG IV PRN (11:15)
[2023-05-19] MEDS ORDERED: ONDANSETRON HCL 4 MG/2 ML VIAL IV PRN (11:15)
[2023-05-19] MEDS ORDERED: DEXTROSE (50%) 50ML SYRG IV PRN (11:15)
[2023-05-19] MEDS ORDERED: LORazepam 2MG/ML-1ML VIAL IV PRN ×2 (11:15→17:15)
[2023-05-19] MEDS: InsuLIN REG 1unit/0.01ml Soln (100units/ml) SC SCH ×3 (11:30→22:00)
[2023-05-19] MEDS: ACCU-CHEK COMFORT CURVE STRIP VI SCH ×3 (11:30→23:29)
[2023-05-19] MEDS ORDERED: FOLIC ACID 1 MG, MULTIPLE VITAMIN 10 ML, MAGNESIUM SULF SDV 50% 8 MEQ, THIAMINE INJ 100... INJ SCH ×5 (12:00)
[2023-05-19 12:06] LABS: Base Excess -3.9 mmol/L (-2.0-2.0)
[2023-05-19] MEDS: DexAMETHasone SOD PHOS 4 MG/1ML SDV INJ IV SCH ×3 (12:08→23:51)
[2023-05-19 12:27] LABS: COVID19 ANTIGEN SOFIA FIA NEGATIVE (NEGATIVE)
[2023-05-19] MEDS: IPRATROPIUM BROM 0.5 MG/2.5ML INH SOL NEB SCH ×2 (12:44→18:00)
[2023-05-19] MEDS: ALBUTEROL SULF 2.5 MG/0.5ML(0.5%) NEB SOLN NEB SCH ×2 (12:44→18:00)
[2023-05-19] MEDS ORDERED: IPRATROPIUM BROM 0.5 MG/2.5ML INH SOL NEB SCH (14:00)
[2023-05-19 15:22] LABS: INR 1.27 (0.9-1.15); Partial Thromboplastin Time 29.4 SEC (24.5-34.5); Prothrombin Time 13.1 sec (9.3-11.8)
[2023-05-19 16:23] LABS: Urine Bacteria NONE SEEN /hpf (None Seen); Urine Blood Negative /uL (Negative); Urine Clarity Clear (Clear); Urine Color Yellow (Yellow); Urine Hyaline Cast MANY /lpf (0 - 2); Urine Mucus FEW (None Seen); Urine Protein, UAD 2+ (Negative); Urine WBC 3 /hpf (0 - 3); Urine pH 5.5 (5.0-8.0)
[2023-05-19] MEDS ORDERED: LORazepam 2MG/ML-1ML VIAL IV ONE ×2 (16:45→17:15)
[2023-05-19 17:02] LABS: Base Excess -5.6 mmol/L (-2.0-2.0)
[2023-05-19] MEDS ORDERED: ETOMIDATE (2MG/ML) 20ML VIAL IV ONE ×2 (17:46→18:00)
[2023-05-19] MEDS ORDERED: MIDAZOLAM DRIP 50 mg/50mL 50 ML IV ONE (17:46)
[2023-05-19] MEDS ORDERED: SUCCINYLCHOLINE CHLORIDE 20 MG/ML 10ML VIAL IV ONE ×2 (17:47→18:00)
[2023-05-19] MEDS: PROPOFOL 100 ML IV SCH (18:00)
[2023-05-19] MEDS ORDERED: VANCOMYCIN PER PHARMACY 0 MG IV SCH (18:00)
[2023-05-19] MEDS: fentaNYL Drip 2500mCg/250mlNS 250 ML IV SCH (18:12)
[2023-05-19] MEDS: MIDAZOLAM DRIP 50 mg/50mL 50 ML IV SCH ×2 (18:14→23:45)
[2023-05-19] MEDS ORDERED: NOREPINEPHRINE 8 MG/250ML KIT 250 ML IV ONE (19:05)
[2023-05-19] MEDS: NOREPINEPHRINE 8 MG/250ML KIT 250 ML IV SCH (19:15)
[2023-05-19 19:19] LABS: Lactic Acid w/Reflex 4.8 mmol/L (0.4-2.0)
[2023-05-19] MEDS: VANCOMYCIN 1GM/250ML 250 ML IV SCH (20:52)
[2023-05-19] MEDS: SODIUM CHLORIDE 0.9% 1,000 ML IV SCH (20:53)
[2023-05-19] MEDS: ACETAMINOPHEN 650 MG RECT SUPP PR PRN (21:35)
[2023-05-19] MEDS: CEFEPIME 2GM/50ML NS 50 ML IV SCH (23:42)
[2023-05-19] MEDS: ATORVASTATIN 20 MG TAB PO SCH (23:43)
[2023-05-20] VITALS (105 sets, daily range): BP systolic 75–141; BP diastolic 41–89; PULSE 99–128; RESP 13–29; TEMP 99–102.2; O2SAT 88–99
[2023-05-20] MEDS: NOREPINEPHRINE 8 MG/250ML KIT 250 ML IV SCH ×2 (00:59→05:53)
[2023-05-20] MEDS: ACETAMINOPHEN 650 MG RECT SUPP PR PRN ×2 (02:38→17:39)
[2023-05-20] MEDS: MIDAZOLAM DRIP 50 mg/50mL 50 ML IV SCH ×6 (04:10→22:21)
[2023-05-20 04:23] LABS: BUN/Creatinine Ratio 13.8 (10.0-20.0); Calcium 6.9 mg/dL (8.5-10.1); Magnesium 1.9 mg/dL (1.6-2.6)
[2023-05-20 04:33] LABS: Hemoglobin 13.5 g/dL (13.5-17.5)
[2023-05-20 04:35] LABS: Hematocrit 40.3 % (41.0-53.0); Mean Corpuscular Hemoglobin 35.5 pg (28.0-32.0); Mean Corpuscular Hgb Conc. 33.5 g/dL (32.0-36.0); Mean Corpuscular Volume 105.8 fL (80.0-100.0); Red Blood Cells 3.81 10^6/uL (4.5-5.90); Red Cell Distribution Width 13.6 % (11.8-14.3)
[2023-05-20 04:40] LABS: Basophils % (manual) 0 (0.0-2.0); Blast Cells 0; Eosinophils % (manual) 0 (0-7); Promyelocytes % 0; Reactive Lymphocytes 0
[2023-05-20] MEDS: SODIUM CHLORIDE 0.9% 1,000 ML IV SCH (05:51)
[2023-05-20] MEDS: IPRATROPIUM BROM 0.5 MG/2.5ML INH SOL NEB SCH ×3 (06:09→12:00)
[2023-05-20] MEDS: ALBUTEROL SULF 2.5 MG/0.5ML(0.5%) NEB SOLN NEB SCH ×4 (06:09→18:19)
[2023-05-20] MEDS: DexAMETHasone SOD PHOS 4 MG/1ML SDV INJ IV SCH (06:16)
[2023-05-20 06:36] LABS: Base Excess -10.7 mmol/L (-2.0-2.0)
[2023-05-20] MEDS: ACCU-CHEK COMFORT CURVE STRIP VI SCH ×4 (06:41→22:10)
[2023-05-20] MEDS: InsuLIN REG 1unit/0.01ml Soln (100units/ml) SC SCH ×4 (06:44→22:20)
[2023-05-20] MEDS: CEFEPIME 2GM/50ML NS 50 ML IV SCH ×3 (07:04→23:45)
[2023-05-20] MEDS: VANCOMYCIN 1GM/250ML 250 ML IV SCH (08:46)
[2023-05-20] MEDS ORDERED: cefTRIAXone 1GM/50ML D5W 50 ML IV SCH (09:00)
[2023-05-20] MEDS ORDERED: EPINEPHrine HCL 250 ML IV SCH (09:30)
[2023-05-20 09:37] LABS: Band Neutrophils % (manual) 25; Lymphocytes % (manual) 7 (10.0-50.0); Metamyelocytes % 9; Monocytes % (manual) 18 (0-12); Myelocytes % 2
[2023-05-20 09:38] LABS: Macrocytosis Moderate; Platelet Estimate Adequate
[2023-05-20] MEDS ORDERED: LISINOPRIL 5 MG TAB PO SCH (10:00)
[2023-05-20] MEDS ORDERED: AZITHROMYCIN 500MG/ 250ML 250 ML IV SCH (10:00)
[2023-05-20] MEDS: VASOPRESSIN 20 UNITS in SODIUM CHL 0.9% 99 ML IV SCH ×2 (10:13→19:51)
[2023-05-20 11:13] LABS: Calcium 6.9 mg/dL (8.5-10.1); Potassium 4.5 mmol/L (3.5-5.1)
[2023-05-20] MEDS: fentaNYL Drip 2500mCg/250mlNS 250 ML IV SCH (11:13)
[2023-05-20] MEDS: SODIUM BICARBONATE 50ML VIAL 100 ML in D5W 5% 1,000 ML IV SCH ×2 (11:13→22:01)
[2023-05-20 11:17] LABS: BUN/Creatinine Ratio 14.5 (10.0-20.0)
[2023-05-20] MEDS: PHENYLEPHRINE INJ 80 MG in SODIUM CHL 0.9% 242 ML IV SCH ×2 (11:30→15:58)
[2023-05-20] MEDS: EPINEPHrine HCL INJECTION 16 MG in D5W 5% 234 ML IV SCH (11:30)
[2023-05-20] MEDS: ACETYLCYSTEINE 10 %(100MG/ML) SOL 4ML NEB SCH ×2 (12:00→18:19)
[2023-05-20] MEDS: methylPREDNISolone SOD SUCC 40 MG/ML VL IV SCH ×4 (12:03→22:02)
[2023-05-20] MEDS: ASPirin 81 mg TAB PO SCH (12:04)
[2023-05-20] MEDS: THIAMINE 100mg/ml INJ (200mg/2ml VIAL) IV SCH (12:04)
[2023-05-20] MEDS: MULTIPLE VITAMIN TAB PO SCH (12:04)
[2023-05-20] MEDS: LINEZOLID 600MG/300ML 300 ML IV SCH ×2 (12:05→22:02)
[2023-05-20] MEDS ORDERED: HEPARIN SODIUM (PORCINE) 5000 UNITS/ML 1ML VIAL SC ONE (12:15)
[2023-05-20] MEDS ORDERED: DOBUTamine 1000MCG/ML 250 ML IV SCH (12:15)
[2023-05-20] MEDS ORDERED: NOREPINEPHRINE 8 MG/250ML KIT 250 ML IV ONE (12:23)
[2023-05-20] MEDS: FUROSEMIDE 100 MG/10ML VIAL IV SCH ×2 (12:48→16:46)
[2023-05-20] MEDS: NOREPINEPHRINE BITARTRATE 32 MG in SODIUM CHL 0.9% 218 ML IV SCH (14:36)
[2023-05-20 16:50] LABS: Alcohol, Urine < 3.0 mg/dL (0-10); Barbiturate Scree,Urine NEGATIVE (NEGATIVE); Benzodiazephine Screen, Urine POSITIVE (NEGATIVE); Cannabinoid Screen, Urine NEGATIVE (NEGATIVE); Cocaine Screen, Urine NEGATIVE (NEGATIVE); Opiate Scree,Urine POSITIVE (NEGATIVE)
[2023-05-20 16:59] LABS: Amphetamine Screen, Urine NEGATIVE (NEGATIVE); Phencyclidine Screen, Urine NEGATIVE (NEGATIVE)
[2023-05-20] MEDS: PROPOFOL 100 ML IV SCH (18:00)
[2023-05-20] MEDS ORDERED: metOLazone 5 MG TAB PO ONE (18:30)
[2023-05-20] MEDS ORDERED: FUROSEMIDE 100 MG/10ML VIAL IV SCH (18:30)
[2023-05-20 19:35] LABS: Magnesium 2.2 mg/dL (1.6-2.6); Potassium 4.5 mmol/L (3.5-5.1)
[2023-05-20] MEDS: ATORVASTATIN 20 MG TAB PO SCH (22:02)
[2023-05-20] MEDS: HEPARIN SODIUM (PORCINE) 5000 UNITS/ML 1ML VIAL SC SCH (22:20)
[2023-05-21] VITALS (106 sets, daily range): BP systolic 90–130; BP diastolic 51–85; PULSE 98–129; RESP 17–25; TEMP 98.2–99.5; O2SAT 90–100
[2023-05-21] MEDS: IPRATROPIUM BROM 0.5 MG/2.5ML INH SOL NEB SCH ×6 (00:13→23:59)
[2023-05-21] MEDS: ALBUTEROL SULF 2.5 MG/0.5ML(0.5%) NEB SOLN NEB SCH ×5 (00:13→23:59)
[2023-05-21] MEDS: ACETYLCYSTEINE 10 %(100MG/ML) SOL 4ML NEB SCH ×5 (00:14→23:59)
[2023-05-21] MEDS: MIDAZOLAM DRIP 50 mg/50mL 50 ML IV SCH ×6 (02:15→22:03)
[2023-05-21] MEDS: NOREPINEPHRINE BITARTRATE 32 MG in SODIUM CHL 0.9% 218 ML IV SCH ×2 (04:26→20:18)
[2023-05-21 04:47] LABS: BUN/Creatinine Ratio 14.8 (10.0-20.0); Calcium 7.2 mg/dL (8.5-10.1); Potassium 4.5 mmol/L (3.5-5.1)
[2023-05-21 04:55] LABS: Mean Corpuscular Volume 108.2 fL (80.0-100.0)
[2023-05-21 04:56] LABS: Hematocrit 45.2 % (41.0-53.0); Hemoglobin 14.9 g/dL (13.5-17.5); Mean Corpuscular Hemoglobin 35.6 pg (28.0-32.0); Mean Corpuscular Hgb Conc. 32.9 g/dL (32.0-36.0); Red Blood Cells 4.18 10^6/uL (4.5-5.90); Red Cell Distribution Width 14.2 % (11.8-14.3); White Blood Cell 17.7 10^3/uL (4.4-10.8)
[2023-05-21 05:09] LABS: Basophils % (manual) 0 (0.0-2.0); Blast Cells 0; Eosinophils % (manual) 0 (0-7); Promyelocytes % 0; Reactive Lymphocytes 0
[2023-05-21] MEDS: VASOPRESSIN 20 UNITS in SODIUM CHL 0.9% 99 ML IV SCH ×2 (05:56→18:36)
[2023-05-21] MEDS: CEFEPIME 2GM/50ML NS 50 ML IV SCH ×3 (05:56→23:00)
[2023-05-21] MEDS: SODIUM BICARBONATE 50ML VIAL 100 ML in D5W 5% 1,000 ML IV SCH (06:00)
[2023-05-21] MEDS: ACCU-CHEK COMFORT CURVE STRIP VI SCH ×2 (06:07→11:36)
[2023-05-21] MEDS: InsuLIN REG 1unit/0.01ml Soln (100units/ml) SC SCH ×5 (06:08→23:30)
[2023-05-21 07:12] LABS: Base Excess -9.3 mmol/L (-2.0-2.0)
[2023-05-21 07:23] LABS: Band Neutrophils % (manual) 55; Lymphocytes % (manual) 11 (10.0-50.0); Metamyelocytes % 2; Monocytes % (manual) 8 (0-12); Myelocytes % 0
[2023-05-21 07:24] LABS: Anisocytosis Slight; Macrocytosis Slight; Platelet Estimate Adequate; Polychromasia Slight
[2023-05-21 08:16] LABS: Cholesterol 71 mg/dL (< 200); Triglycerides 112 mg/dL (< 150)
[2023-05-21 08:19] LABS: HDL Cholesterol 14 mg/dL (40-59); LDL Cholesterol 35 mg/dL (< 100)
[2023-05-21] MEDS: LINEZOLID 600MG/300ML 300 ML IV SCH ×2 (08:52→21:02)
[2023-05-21] MEDS: FUROSEMIDE INJECTION 100 MG in SODIUM CHL 0.9% 100 ML IV SCH ×5 (08:53→21:13)
[2023-05-21] MEDS: THIAMINE 100mg/ml INJ (200mg/2ml VIAL) IV SCH (08:53)
[2023-05-21] MEDS: methylPREDNISolone SOD SUCC 40 MG/ML VL IV SCH ×3 (08:54→21:12)
[2023-05-21] MEDS: MULTIPLE VITAMIN TAB PO SCH (08:55)
[2023-05-21] MEDS: HEPARIN SODIUM (PORCINE) 5000 UNITS/ML 1ML VIAL SC SCH ×2 (09:12→21:27)
[2023-05-21] MEDS: metOLazone 5 MG TAB PO SCH (09:54)
[2023-05-21] MEDS: ASPirin 81 mg TAB PO SCH (09:54)
[2023-05-21] MEDS: EPINEPHrine HCL INJECTION 16 MG in D5W 5% 234 ML IV SCH (11:30)
[2023-05-21] MEDS: PROPOFOL 100 ML IV SCH (18:00)
[2023-05-21] MEDS: fentaNYL Drip 2500mCg/250mlNS 250 ML IV SCH (18:22)
[2023-05-21] MEDS ORDERED: SODIUM BICARBONATE 50ML VIAL 100 ML in D5W 5% 1,000 ML IV ONE (19:30)
[2023-05-21] MEDS ORDERED: SODIUM BICARBONATE 8.4 % INJ 50ML VIAL IV ONE (19:37)
[2023-05-21 19:59] LABS: BUN/Creatinine Ratio 14.6 (10.0-20.0); Calcium 6.7 mg/dL (8.5-10.1); Potassium 5.2 mmol/L (3.5-5.1)
[2023-05-21] MEDS ORDERED: CLINIMIX PER PHARMACY 0 ML IV SCH (20:00)
[2023-05-21] MEDS: AMINO ACID INFUSION IN D10W 1,000 ML IV NR (20:57)
[2023-05-21] MEDS: ATORVASTATIN 20 MG TAB PO SCH (21:02)
[2023-05-21] MEDS ORDERED: CALCIUM GLUC 1,000mg/50ml-NS 50 ML IV ONE (22:15)
[2023-05-21] MEDS ORDERED: ALBUTEROL SULF 2.5 MG/0.5ML(0.5%) NEB SOLN NEB ONE (22:15)
[2023-05-21] MEDS ORDERED: DEXTROSE (50%) 50ML SYRG IV ONE (22:15)
[2023-05-21] MEDS ORDERED: InsuLIN REG 1unit/0.01ml Soln (100units/ml) IV ONE (22:15)
[2023-05-21] MEDS: SODIUM ZIRCONIUM CYCL 10 GM PAK PO SCH (23:13)
[2023-05-22] VITALS (101 sets, daily range): BP systolic 93–166; BP diastolic 50–115; PULSE 79–110; RESP 14–36; TEMP 98.1–99.1; O2SAT 87–100
[2023-05-22] MEDS ORDERED: DEXTROSE (50%) 50ML SYRG IV SCH
[2023-05-22] MEDS: ACCU-CHEK COMFORT CURVE STRIP VI SCH ×5 (00:29→23:55)
[2023-05-22] MEDS: MIDAZOLAM DRIP 50 mg/50mL 50 ML IV SCH ×8 (00:31→23:53)
[2023-05-22] MEDS: FUROSEMIDE INJECTION 100 MG in SODIUM CHL 0.9% 100 ML IV SCH ×7 (03:03→22:35)
[2023-05-22] MEDS: InsuLIN REG 1unit/0.01ml Soln (100units/ml) SC SCH ×3 (05:38→17:40)
[2023-05-22] MEDS: VASOPRESSIN 20 UNITS in SODIUM CHL 0.9% 99 ML IV SCH ×2 (05:43→16:50)
[2023-05-22] MEDS ORDERED: SODIUM BICARBONATE 50ML VIAL 100 ML in D5W 5% 1,000 ML IV SCH ×2 (06:00→10:00)
[2023-05-22] MEDS: CEFEPIME 2GM/50ML NS 50 ML IV SCH ×2 (06:08→15:20)
[2023-05-22] MEDS: SODIUM ZIRCONIUM CYCL 10 GM PAK PO SCH ×3 (06:08→22:00)
[2023-05-22 06:23] LABS: Hematocrit 36.6 % (41.0-53.0); Hemoglobin 12.4 g/dL (13.5-17.5); Mean Corpuscular Hemoglobin 35.1 pg (28.0-32.0); Mean Corpuscular Hgb Conc. 33.8 g/dL (32.0-36.0); Mean Corpuscular Volume 103.8 fL (80.0-100.0); Red Blood Cells 3.52 10^6/uL (4.5-5.90); Red Cell Distribution Width 13.4 % (11.8-14.3); White Blood Cell 13.2 10^3/uL (4.4-10.8)
[2023-05-22 06:30] LABS: Albumin 1.7 g/dL (3.4-5.0); Basophils % (manual) 0 (0.0-2.0); Blast Cells 0; Calcium 6.4 mg/dL (8.5-10.1); Magnesium 2.3 mg/dL (1.6-2.6); Potassium 4.2 mmol/L (3.5-5.1); Promyelocytes % 0; Reactive Lymphocytes 0
[2023-05-22 06:33] LABS: BUN/Creatinine Ratio 15.6 (10.0-20.0); Bilirubin, Total 0.9 mg/dL (0.2-1.0); Phosphorus 7.8 mg/dL (2.5-4.90); Total Protein 6.6 g/dL (6.4-8.2)
[2023-05-22] MEDS ORDERED: SODIUM BICARBONATE 50ML VIAL 100 ML in SODIUM CHL 0.9% 1,000 ML IV SCH ×2 (06:45→08:00)
[2023-05-22 07:36] LABS: Anisocytosis Slight; Band Neutrophils % (manual) 17; Eosinophils % (manual) 1 (0-7); Lymphocytes % (manual) 3 (10.0-50.0); Macrocytosis Slight; Metamyelocytes % 1; Monocytes % (manual) 2 (0-12); Myelocytes % 1; Platelet Estimate Adequate; Polychromasia Slight
[2023-05-22 07:37] LABS: Base Excess -8.2 mmol/L (-2.0-2.0)
[2023-05-22] MEDS ORDERED: methylPREDNISolone SOD SUCC 125 MG/2 ML VL ONE (10:02)
[2023-05-22] MEDS: THIAMINE 100mg/ml INJ (200mg/2ml VIAL) IV SCH (10:06)
[2023-05-22] MEDS: LINEZOLID 600MG/300ML 300 ML IV SCH ×2 (10:06→22:40)
[2023-05-22] MEDS: methylPREDNISolone SOD SUCC 40 MG/ML VL IV SCH ×2 (10:07→22:43)
[2023-05-22] MEDS: MULTIPLE VITAMIN TAB PO SCH (10:12)
[2023-05-22] MEDS: ASPirin 81 mg TAB PO SCH (10:12)
[2023-05-22] MEDS: metOLazone 5 MG TAB PO SCH (10:12)
[2023-05-22] MEDS ORDERED: SODIUM BICARBONATE 50ML VIAL 100 ML in SOD CHL 0.45% 1,000 ML IV SCH (10:45)
[2023-05-22] MEDS: ACETYLCYSTEINE 10 %(100MG/ML) SOL 4ML NEB SCH (10:46)
[2023-05-22] MEDS: IPRATROPIUM BROM 0.5 MG/2.5ML INH SOL NEB SCH ×4 (10:46→18:27)
[2023-05-22] MEDS: ALBUTEROL SULF 2.5 MG/0.5ML(0.5%) NEB SOLN NEB SCH ×4 (10:46→18:27)
[2023-05-22] MEDS: fentaNYL Drip 2500mCg/250mlNS 250 ML IV SCH ×2 (11:17→22:48)
[2023-05-22] MEDS: EPINEPHrine HCL INJECTION 16 MG in D5W 5% 234 ML IV SCH (11:30)
[2023-05-22] MEDS: PHENYLEPHRINE INJ 80 MG in SODIUM CHL 0.9% 242 ML IV SCH (11:30)
[2023-05-22] MEDS ORDERED: SODIUM CHL 0.9% 1000 ML BAG XX ONE (11:45)
[2023-05-22] MEDS: HEPARIN SODIUM (PORCINE) 5000 UNITS/ML 1ML VIAL SC SCH ×2 (12:17→22:47)
[2023-05-22 13:07] LABS: % Iron Saturation 13.6 % (20-55)
[2023-05-22] MEDS: PROPOFOL 100 ML IV SCH (18:00)
[2023-05-22] MEDS ORDERED: EPOETIN ALFA-EPBX 10,000 UNIT/1ML VIAL SC ONE (21:00)
[2023-05-22] MEDS: AMINO ACID INFUSION IN D10W 1,000 ML IV NR (22:35)
[2023-05-22] MEDS: ATORVASTATIN 20 MG TAB PO SCH (22:46)
[2023-05-23] VITALS (104 sets, daily range): BP systolic 90–131; BP diastolic 51–81; PULSE 71–98; RESP 13–32; TEMP 98.1–99; O2SAT 90–97
[2023-05-23] MEDS: InsuLIN REG 1unit/0.01ml Soln (100units/ml) SC SCH ×5 (00:01→23:29)
[2023-05-23] MEDS: ALBUTEROL SULF 2.5 MG/0.5ML(0.5%) NEB SOLN NEB SCH ×4 (00:17→18:10)
[2023-05-23] MEDS: IPRATROPIUM BROM 0.5 MG/2.5ML INH SOL NEB SCH ×4 (00:17→18:10)
[2023-05-23] MEDS: CEFEPIME 2GM/50ML NS 50 ML IV SCH ×4 (00:50→20:04)
[2023-05-23] MEDS: FUROSEMIDE INJECTION 100 MG in SODIUM CHL 0.9% 100 ML IV SCH ×5 (01:47→15:33)
[2023-05-23] MEDS: MIDAZOLAM DRIP 50 mg/50mL 50 ML IV SCH ×6 (02:45→21:12)
[2023-05-23] MEDS: VASOPRESSIN 20 UNITS in SODIUM CHL 0.9% 99 ML IV SCH ×2 (03:57→15:04)
[2023-05-23 04:09] LABS: Potassium 3.3 mmol/L (3.5-5.1)
[2023-05-23 04:15] LABS: Albumin 1.8 g/dL (3.4-5.0); BUN/Creatinine Ratio 21.4 (10.0-20.0); Bilirubin, Total 0.8 mg/dL (0.2-1.0); Calcium 6.5 mg/dL (8.5-10.1); Magnesium 2.3 mg/dL (1.6-2.6); Phosphorus 5.3 mg/dL (2.5-4.90); Total Protein 6.4 g/dL (6.4-8.2)
[2023-05-23] MEDS: SODIUM ZIRCONIUM CYCL 10 GM PAK PO SCH (06:00)
[2023-05-23] MEDS: ACCU-CHEK COMFORT CURVE STRIP VI SCH ×4 (06:04→23:29)
[2023-05-23] MEDS ORDERED: SODIUM CHL 0.9% 1000 ML BAG XX ONE (07:00)
[2023-05-23 08:27] LABS: Hematocrit 36.7 % (41.0-53.0); Hemoglobin 12.2 g/dL (13.5-17.5); Mean Corpuscular Hemoglobin 34.5 pg (28.0-32.0); Mean Corpuscular Hgb Conc. 33.2 g/dL (32.0-36.0); Mean Corpuscular Volume 103.8 fL (80.0-100.0); Red Blood Cells 3.53 10^6/uL (4.5-5.90); White Blood Cell 14.7 10^3/uL (4.4-10.8)
[2023-05-23 08:31] LABS: Basophils % (manual) 0 (0.0-2.0); Blast Cells 0; Eosinophils % (manual) 0 (0-7); Promyelocytes % 0; Reactive Lymphocytes 0
[2023-05-23] MEDS ORDERED: Nepro With Carb Steady 1 Liter Bottle GT SCH (09:15)
[2023-05-23 09:33] LABS: Band Neutrophils % (manual) 1; Lymphocytes % (manual) 8 (10.0-50.0); Metamyelocytes % 4; Monocytes % (manual) 2 (0-12); Myelocytes % 2
[2023-05-23 09:34] LABS: Platelet Estimate Decreased
[2023-05-23] MEDS: metOLazone 5 MG TAB PO SCH (10:00)
[2023-05-23] MEDS: methylPREDNISolone SOD SUCC 40 MG/ML VL IV SCH ×2 (11:10→21:12)
[2023-05-23] MEDS: ASPirin 81 mg TAB PO SCH (11:10)
[2023-05-23] MEDS: HEPARIN SODIUM (PORCINE) 5000 UNITS/ML 1ML VIAL SC SCH ×2 (11:11→21:13)
[2023-05-23] MEDS: fentaNYL Drip 2500mCg/250mlNS 250 ML IV SCH ×2 (11:13→23:29)
[2023-05-23] MEDS: LINEZOLID 600MG/300ML 300 ML IV SCH (11:19)
[2023-05-23] MEDS: PHENYLEPHRINE INJ 80 MG in SODIUM CHL 0.9% 242 ML IV SCH (11:30)
[2023-05-23] MEDS: EPINEPHrine HCL INJECTION 16 MG in D5W 5% 234 ML IV SCH (11:30)
[2023-05-23 11:40] LABS: Base Excess 0.4 mmol/L (-2.0-2.0)
[2023-05-23] MEDS: ACETYLCYSTEINE 10 %(100MG/ML) SOL 4ML NEB SCH ×2 (11:54→18:10)
[2023-05-23 12:30] LABS: Hepatitis A Ab IgM Negative
[2023-05-23 12:31] LABS: Hepatitis B Core IgM Negative; Hepatitis B Surface Antigen Negative (Negative)
[2023-05-23 12:34] LABS: Hepatitis C Antibody Reactive (Negative)
[2023-05-23 16:14] LABS: BUN/Creatinine Ratio 23.1 (10.0-20.0); Calcium 6.8 mg/dL (8.5-10.1); Potassium 3.5 mmol/L (3.5-5.1)
[2023-05-23] MEDS: NOREPINEPHRINE BITARTRATE 32 MG in SODIUM CHL 0.9% 218 ML IV SCH (17:10)
[2023-05-23] MEDS: PROPOFOL 100 ML IV SCH (18:00)
[2023-05-23] MEDS ORDERED: EPOETIN ALFA-EPBX 10,000 UNIT/1ML VIAL SC ONE (21:00)
[2023-05-23] MEDS: ATORVASTATIN 20 MG TAB PO SCH (21:13)
[2023-05-24] VITALS (105 sets, daily range): BP systolic 92–121; BP diastolic 52–75; PULSE 69–95; RESP 14–31; TEMP 96.6–99.5; O2SAT 89–96
[2023-05-24] MEDS: IPRATROPIUM BROM 0.5 MG/2.5ML INH SOL NEB SCH ×4 (00:14→18:24)
[2023-05-24] MEDS: ACETYLCYSTEINE 10 %(100MG/ML) SOL 4ML NEB SCH ×4 (00:14→18:24)
[2023-05-24] MEDS: ALBUTEROL SULF 2.5 MG/0.5ML(0.5%) NEB SOLN NEB SCH ×4 (00:14→18:24)
[2023-05-24] MEDS: LINEZOLID 600MG/300ML 300 ML IV SCH ×2 (00:23→11:11)
[2023-05-24] MEDS: MIDAZOLAM DRIP 50 mg/50mL 50 ML IV SCH ×5 (01:16→20:30)
[2023-05-24] MEDS: FUROSEMIDE INJECTION 100 MG in SODIUM CHL 0.9% 100 ML IV SCH (01:55)
[2023-05-24] MEDS: VASOPRESSIN 20 UNITS in SODIUM CHL 0.9% 99 ML IV SCH ×2 (02:11→13:18)
[2023-05-24 04:16] LABS: Hemoglobin 11.1 g/dL (13.5-17.5)
[2023-05-24 04:18] LABS: Hematocrit 32.9 % (41.0-53.0); Mean Corpuscular Hemoglobin 34.5 pg (28.0-32.0); Mean Corpuscular Hgb Conc. 33.8 g/dL (32.0-36.0); Mean Corpuscular Volume 101.9 fL (80.0-100.0); Red Blood Cells 3.23 10^6/uL (4.5-5.90); Red Cell Distribution Width 13.6 % (11.8-14.3); White Blood Cell 19.9 10^3/uL (4.4-10.8)
[2023-05-24 04:25] LABS: Band Neutrophils % (manual) 0; Basophils % (manual) 0 (0.0-2.0); Blast Cells 0; Eosinophils % (manual) 0 (0-7); Myelocytes % 0; Promyelocytes % 0; Reactive Lymphocytes 0
[2023-05-24 04:33] LABS: Albumin 1.8 g/dL (3.4-5.0); Calcium 7.2 mg/dL (8.5-10.1); Potassium 3.3 mmol/L (3.5-5.1)
[2023-05-24 04:35] LABS: BUN/Creatinine Ratio 29.9 (10.0-20.0)
[2023-05-24 04:37] LABS: Bilirubin, Total 0.6 mg/dL (0.2-1.0); Total Protein 6.1 g/dL (6.4-8.2)
[2023-05-24] MEDS: CEFEPIME 2GM/50ML NS 50 ML IV SCH (05:12)
[2023-05-24] MEDS: ACCU-CHEK COMFORT CURVE STRIP VI SCH ×3 (05:36→18:23)
[2023-05-24] MEDS: InsuLIN REG 1unit/0.01ml Soln (100units/ml) SC SCH ×3 (05:46→18:25)
[2023-05-24] MEDS ORDERED: ALBUMIN 25% 100 ML IV PRN (06:15)
[2023-05-24] MEDS ORDERED: SODIUM CHL 0.9% 1000 ML BAG XX ONE (07:15)
[2023-05-24 09:10] LABS: Lymphocytes % (manual) 3 (10.0-50.0); Metamyelocytes % 1; Monocytes % (manual) 2 (0-12); Platelet Estimate Decreased
[2023-05-24] MEDS ORDERED: methylPREDNISolone SOD SUCC 125 MG/2 ML VL ONE (11:03)
[2023-05-24] MEDS: ASPirin 81 mg TAB PO SCH (11:11)
[2023-05-24] MEDS: methylPREDNISolone SOD SUCC 40 MG/ML VL IV SCH ×2 (11:11→22:00)
[2023-05-24] MEDS: HEPARIN SODIUM (PORCINE) 5000 UNITS/ML 1ML VIAL SC SCH ×2 (11:12→22:56)
[2023-05-24] MEDS: PHENYLEPHRINE INJ 80 MG in SODIUM CHL 0.9% 242 ML IV SCH (11:30)
[2023-05-24] MEDS: EPINEPHrine HCL INJECTION 16 MG in D5W 5% 234 ML IV SCH (11:30)
[2023-05-24] MEDS: fentaNYL Drip 2500mCg/250mlNS 250 ML IV SCH (12:12)
[2023-05-24] MEDS: NOREPINEPHRINE BITARTRATE 32 MG in SODIUM CHL 0.9% 218 ML IV SCH (12:36)
[2023-05-24] MEDS: PROPOFOL 100 ML IV SCH (18:00)
[2023-05-24] MEDS: ATORVASTATIN 20 MG TAB PO SCH (22:52)
[2023-05-25] VITALS (109 sets, daily range): BP systolic 91–134; BP diastolic 46–81; PULSE 85–105; RESP 21–35; TEMP 98.8–100.6; O2SAT 90–100
[2023-05-25] MEDS: InsuLIN REG 1unit/0.01ml Soln (100units/ml) SC SCH ×5 (00:05→23:24)
[2023-05-25] MEDS: VASOPRESSIN 20 UNITS in SODIUM CHL 0.9% 99 ML IV SCH ×3 (00:06→22:39)
[2023-05-25] MEDS: ACCU-CHEK COMFORT CURVE STRIP VI SCH ×5 (00:06→23:20)
[2023-05-25] MEDS: ACETYLCYSTEINE 10 %(100MG/ML) SOL 4ML NEB SCH ×4 (00:17→18:31)
[2023-05-25] MEDS: ALBUTEROL SULF 2.5 MG/0.5ML(0.5%) NEB SOLN NEB SCH ×4 (00:17→18:31)
[2023-05-25] MEDS: IPRATROPIUM BROM 0.5 MG/2.5ML INH SOL NEB SCH ×4 (00:17→18:31)
[2023-05-25] MEDS: MIDAZOLAM DRIP 50 mg/50mL 50 ML IV SCH ×6 (00:23→20:35)
[2023-05-25] MEDS: fentaNYL Drip 2500mCg/250mlNS 250 ML IV SCH ×2 (00:23→18:00)
[2023-05-25 08:23] LABS: Red Blood Cells 3.58 10^6/uL (4.5-5.90); White Blood Cell 25.6 10^3/uL (4.4-10.8)
[2023-05-25 08:24] LABS: Hematocrit 36.5 % (41.0-53.0); Hemoglobin 12.3 g/dL (13.5-17.5); Mean Corpuscular Hemoglobin 34.4 pg (28.0-32.0); Mean Corpuscular Hgb Conc. 33.8 g/dL (32.0-36.0); Mean Corpuscular Volume 101.9 fL (80.0-100.0)
[2023-05-25 08:40] LABS: Albumin 1.8 g/dL (3.4-5.0); Calcium 7.9 mg/dL (8.5-10.1); Potassium 3.2 mmol/L (3.5-5.1)
[2023-05-25 08:44] LABS: BUN/Creatinine Ratio 43.5 (10.0-20.0); Bilirubin, Total 0.6 mg/dL (0.2-1.0); Total Protein 6.5 g/dL (6.4-8.2)
[2023-05-25] MEDS ORDERED: LIDOCAINE 2% JELLY 11ml (GLYDO) ONE (08:52)
[2023-05-25] MEDS ORDERED: LIDOCAINE 2%HCL (LOCAL ANESTH.) INJ 20ML MDV ONE (08:52)
[2023-05-25] MEDS ORDERED: EPINEPHrine HCL 1 MG/1 ML AMP ONE (08:53)
[2023-05-25] MEDS ORDERED: fentaNYL CITRATE 100 MCG/2 ML VL ONE (08:53)
[2023-05-25] MEDS ORDERED: GLYCOPYRROLATE 0.2 MG/ML 1ML VIAL ONE (08:53)
[2023-05-25] MEDS ORDERED: MIDAZOLAM HCL 2MG/2ML 2ml VIAL (1mg/ml) ONE (08:54)
[2023-05-25 08:55] LABS: Basophils % (manual) 0 (0.0-2.0); Blast Cells 0; Eosinophils % (manual) 0 (0-7); Metamyelocytes % 0; Myelocytes % 0; Promyelocytes % 0; Reactive Lymphocytes 0
[2023-05-25] MEDS ORDERED: cefTRIAXone 1GM/50ML D5W 50 ML IV SCH (09:00)
[2023-05-25] MEDS: PROPOFOL 100 ML IV SCH (09:30)
[2023-05-25 10:44] LABS: Band Neutrophils % (manual) 9; Lymphocytes % (manual) 2 (10.0-50.0)
[2023-05-25 10:45] LABS: Macrocytosis Slight; Monocytes % (manual) 3 (0-12); Platelet Estimate Adequate
[2023-05-25] MEDS: PHENYLEPHRINE INJ 80 MG in SODIUM CHL 0.9% 242 ML IV SCH (11:30)
[2023-05-25] MEDS: EPINEPHrine HCL INJECTION 16 MG in D5W 5% 234 ML IV SCH (11:30)
[2023-05-25] MEDS: NOREPINEPHRINE BITARTRATE 32 MG in SODIUM CHL 0.9% 218 ML IV SCH (11:30)
[2023-05-25] MEDS: PANTOPRAZOLE 40 MG/10 ML VIAL INJ IV SCH (12:15)
[2023-05-25] MEDS: ASPirin 81 mg TAB PO SCH (12:15)
[2023-05-25] MEDS: methylPREDNISolone SOD SUCC 40 MG/ML VL IV SCH ×2 (12:15→21:18)
[2023-05-25] MEDS: HEPARIN SODIUM (PORCINE) 5000 UNITS/ML 1ML VIAL SC SCH ×2 (12:18→21:19)
[2023-05-25] MEDS: ATORVASTATIN 20 MG TAB PO SCH (21:18)
[2023-05-26] VITALS (108 sets, daily range): BP systolic 78–155; BP diastolic 49–93; PULSE 78–109; RESP 18–34; TEMP 98.2–101.1; O2SAT 87–100
[2023-05-26] MEDS: ALBUTEROL SULF 2.5 MG/0.5ML(0.5%) NEB SOLN NEB SCH ×4 (00:34→22:36)
[2023-05-26] MEDS: IPRATROPIUM BROM 0.5 MG/2.5ML INH SOL NEB SCH ×4 (00:34→22:36)
[2023-05-26] MEDS: ACETYLCYSTEINE 10 %(100MG/ML) SOL 4ML NEB SCH ×4 (00:35→22:37)
[2023-05-26] MEDS: MIDAZOLAM DRIP 50 mg/50mL 50 ML IV SCH ×6 (00:42→21:32)
[2023-05-26] MEDS: fentaNYL Drip 2500mCg/250mlNS 250 ML IV SCH ×3 (04:01→21:32)
[2023-05-26 04:03] LABS: Mean Corpuscular Hemoglobin 34.5 pg (28.0-32.0)
[2023-05-26 04:06] LABS: Hematocrit 35.1 % (41.0-53.0); Hemoglobin 11.9 g/dL (13.5-17.5); Mean Corpuscular Hgb Conc. 33.8 g/dL (32.0-36.0); Red Blood Cells 3.44 10^6/uL (4.5-5.90); Red Cell Distribution Width 13.7 % (11.8-14.3); White Blood Cell 26.1 10^3/uL (4.4-10.8)
[2023-05-26 04:27] LABS: Potassium 3.4 mmol/L (3.5-5.1)
[2023-05-26 04:31] LABS: BUN/Creatinine Ratio 56.5 (10.0-20.0); Phosphorus 5.4 mg/dL (2.5-4.90)
[2023-05-26 04:43] LABS: Band Neutrophils % (manual) 0; Basophils % (manual) 0 (0.0-2.0); Blast Cells 0; Metamyelocytes % 0; Promyelocytes % 0; Reactive Lymphocytes 0
[2023-05-26] MEDS: ACCU-CHEK COMFORT CURVE STRIP VI SCH ×4 (05:53→23:57)
[2023-05-26] MEDS: InsuLIN REG 1unit/0.01ml Soln (100units/ml) SC SCH ×3 (05:54→17:52)
[2023-05-26 07:24] LABS: Base Excess 3.6 mmol/L (-2.0-2.0)
[2023-05-26 07:25] LABS: Eosinophils % (manual) 1 (0-7); Lymphocytes % (manual) 5 (10.0-50.0); Monocytes % (manual) 3 (0-12); Myelocytes % 1; Platelet Estimate Adequate
[2023-05-26] MEDS: MEROPENEM 1GM IVPB 100 ML IV SCH ×2 (09:34→18:00)
[2023-05-26] MEDS: ACETAMINOPHEN 650 mg PER 20.3 mL UD GT PRN ×2 (09:34→21:37)
[2023-05-26] MEDS: PANTOPRAZOLE 40 MG/10 ML VIAL INJ IV SCH (09:34)
[2023-05-26] MEDS: ASPirin 81 mg TAB PO SCH (09:34)
[2023-05-26] MEDS: LINEZOLID 600MG/300ML 300 ML IV SCH ×2 (09:35→21:33)
[2023-05-26] MEDS: VASOPRESSIN 20 UNITS in SODIUM CHL 0.9% 99 ML IV SCH ×2 (09:46→20:53)
[2023-05-26] MEDS: HEPARIN SODIUM (PORCINE) 5000 UNITS/ML 1ML VIAL SC SCH ×2 (09:48→21:32)
[2023-05-26] MEDS: methylPREDNISolone SOD SUCC 40 MG/ML VL IV SCH (10:00)
[2023-05-26] MEDS: NOREPINEPHRINE BITARTRATE 32 MG in SODIUM CHL 0.9% 218 ML IV SCH (10:41)
[2023-05-26] MEDS: PHENYLEPHRINE INJ 80 MG in SODIUM CHL 0.9% 242 ML IV SCH (10:53)
[2023-05-26] MEDS: EPINEPHrine HCL INJECTION 16 MG in D5W 5% 234 ML IV SCH (10:53)
[2023-05-26] MEDS ORDERED: FUROSEMIDE 40 MG/4 ML VIAL IV ONE (14:00)
[2023-05-26] MEDS: PROPOFOL 100 ML IV SCH (18:00)
[2023-05-26] MEDS: ATORVASTATIN 20 MG TAB PO SCH (21:33)
[2023-05-26] MEDS: BUDESONIDE (INHALATION) 0.5 MG/2 ML NEB NEB SCH (22:36)
[2023-05-27] VITALS (75 sets, daily range): BP systolic 96–136; BP diastolic 53–83; PULSE 80–102; RESP 7–34; TEMP 97.5–101.3; O2SAT 92–100
[2023-05-27] MEDS: InsuLIN REG 1unit/0.01ml Soln (100units/ml) SC SCH ×4 (00:01→17:15)
[2023-05-27] MEDS: ACETYLCYSTEINE 10 %(100MG/ML) SOL 4ML NEB SCH ×2 (00:26→06:49)
[2023-05-27] MEDS: ALBUTEROL SULF 2.5 MG/0.5ML(0.5%) NEB SOLN NEB SCH ×4 (00:26→18:47)
[2023-05-27] MEDS: IPRATROPIUM BROM 0.5 MG/2.5ML INH SOL NEB SCH ×4 (00:26→18:47)
[2023-05-27] MEDS: MIDAZOLAM DRIP 50 mg/50mL 50 ML IV SCH ×6 (01:15→22:25)
[2023-05-27] MEDS: MEROPENEM 1GM IVPB 100 ML IV SCH ×3 (02:27→16:57)
[2023-05-27 04:16] LABS: Hemoglobin 11.5 g/dL (13.5-17.5)
[2023-05-27 04:20] LABS: Hematocrit 34.3 % (41.0-53.0); Mean Corpuscular Hemoglobin 34.7 pg (28.0-32.0); Mean Corpuscular Hgb Conc. 33.6 g/dL (32.0-36.0); Mean Corpuscular Volume 103.3 fL (80.0-100.0); Red Blood Cells 3.32 10^6/uL (4.5-5.90); Red Cell Distribution Width 13.6 % (11.8-14.3); White Blood Cell 25.8 10^3/uL (4.4-10.8)
[2023-05-27 04:40] LABS: Basophils % (manual) 0 (0.0-2.0); Blast Cells 0; Promyelocytes % 0; Reactive Lymphocytes 0
[2023-05-27 04:45] LABS: Albumin 1.6 g/dL (3.4-5.0); BUN/Creatinine Ratio 61.6 (10.0-20.0); Calcium 8.5 mg/dL (8.5-10.1); Potassium 3.1 mmol/L (3.5-5.1)
[2023-05-27 04:54] LABS: Bilirubin, Total 0.4 mg/dL (0.2-1.0); Total Protein 6.3 g/dL (6.4-8.2)
[2023-05-27] MEDS: ACCU-CHEK COMFORT CURVE STRIP VI SCH ×3 (05:34→16:57)
[2023-05-27] MEDS: fentaNYL Drip 2500mCg/250mlNS 250 ML IV SCH ×3 (05:41→22:26)
[2023-05-27 06:00] LABS: Band Neutrophils % (manual) 4; Eosinophils % (manual) 1 (0-7); Lymphocytes % (manual) 2 (10.0-50.0); Metamyelocytes % 1; Monocytes % (manual) 3 (0-12); Myelocytes % 2
[2023-05-27 06:01] LABS: Macrocytosis Slight; Platelet Estimate Adequate
[2023-05-27] MEDS: BUDESONIDE (INHALATION) 0.5 MG/2 ML NEB NEB SCH ×2 (06:49→18:47)
[2023-05-27 07:53] LABS: Base Excess 4.2 mmol/L (-2.0-2.0)
[2023-05-27] MEDS: VASOPRESSIN 20 UNITS in SODIUM CHL 0.9% 99 ML IV SCH ×2 (08:00→19:07)
[2023-05-27] MEDS: LINEZOLID 600MG/300ML 300 ML IV SCH ×2 (10:00→21:45)
[2023-05-27] MEDS: PANTOPRAZOLE 40 MG/10 ML VIAL INJ IV SCH (10:00)
[2023-05-27] MEDS: ACETAMINOPHEN 650 mg PER 20.3 mL UD GT PRN ×2 (10:00→21:45)
[2023-05-27] MEDS: ASPirin 81 mg TAB PO SCH (10:00)
[2023-05-27] MEDS: HEPARIN SODIUM (PORCINE) 5000 UNITS/ML 1ML VIAL SC SCH ×2 (10:15→21:55)
[2023-05-27] MEDS: PHENYLEPHRINE INJ 80 MG in SODIUM CHL 0.9% 242 ML IV SCH (11:30)
[2023-05-27] MEDS: EPINEPHrine HCL INJECTION 16 MG in D5W 5% 234 ML IV SCH (11:30)
[2023-05-27] MEDS: ALBUMIN 25% 100 ML IV SCH ×2 (11:30→16:59)
[2023-05-27] MEDS: NOREPINEPHRINE BITARTRATE 32 MG in SODIUM CHL 0.9% 218 ML IV SCH (11:30)
[2023-05-27] MEDS: FREE WATER GT SCH ×2 (11:51→17:15)
[2023-05-27] MEDS: POTASSIUM CHL 20MEQ/100ML 100 ML IV SCH ×2 (12:01→14:08)
[2023-05-27] MEDS: PROPOFOL 100 ML IV SCH (18:00)
[2023-05-27] MEDS: ATORVASTATIN 20 MG TAB PO SCH (21:45)
[2023-05-28] VITALS (84 sets, daily range): BP systolic 84–145; BP diastolic 46–95; PULSE 77–101; RESP 18–31; TEMP 98.6–100.8; O2SAT 91–100
[2023-05-28] MEDS: ALBUTEROL SULF 2.5 MG/0.5ML(0.5%) NEB SOLN NEB SCH ×4 (00:04→18:17)
[2023-05-28] MEDS: IPRATROPIUM BROM 0.5 MG/2.5ML INH SOL NEB SCH ×4 (00:04→18:17)
[2023-05-28] MEDS: ACCU-CHEK COMFORT CURVE STRIP VI SCH ×2 (00:22→06:18)
[2023-05-28] MEDS: InsuLIN REG 1unit/0.01ml Soln (100units/ml) SC SCH ×2 (00:26→06:30)
[2023-05-28] MEDS: FREE WATER GT SCH ×4 (00:27→17:51)
[2023-05-28] MEDS: ALBUMIN 25% 100 ML IV SCH (02:30)
[2023-05-28] MEDS: MEROPENEM 1GM IVPB 100 ML IV SCH ×3 (02:30→17:51)
[2023-05-28] MEDS: Nepro With Carb Steady 1 Liter Bottle GT SCH (02:52)
[2023-05-28] MEDS: MIDAZOLAM DRIP 50 mg/50mL 50 ML IV SCH ×6 (02:52→22:06)
[2023-05-28 04:21] LABS: BUN/Creatinine Ratio 71.2 (10.0-20.0); Calcium 8.8 mg/dL (8.5-10.1); Potassium 3.1 mmol/L (3.5-5.1)
[2023-05-28 06:09] LABS: Basophils # (auto) 0.1 10 ^3/uL (0-0.2); Basophils % (auto) 0.3 % (0.0-2.0); Eosinophils # (auto) 0.1 10 ^3/uL (0-0.8); Eosinophils % (auto) 0.5 % (0.0-7.0); Hematocrit 34.6 % (41.0-53.0); Hemoglobin 11.3 g/dL (13.5-17.5); Lymphocytes # (auto) 0.7 10 ^3/uL (0.4-5.4); Lymphocytes % (auto) 3.5 % (10.0-50.0); Mean Corpuscular Hemoglobin 33.9 pg (28.0-32.0); Mean Corpuscular Hgb Conc. 32.6 g/dL (32.0-36.0); Monocytes # (auto) 0.5 10 ^3/uL (0-1.3); Monocytes % (auto) 2.4 % (0.0-12.0); Neutrophils # (auto) 19.6 10 ^3/uL (1.6-8.6); Neutrophils % (auto) 93.3 % (37.0-80.0); Red Blood Cells 3.32 10^6/uL (4.5-5.90); Red Cell Distribution Width 13.7 % (11.8-14.3)
[2023-05-28] MEDS: VASOPRESSIN 20 UNITS in SODIUM CHL 0.9% 99 ML IV SCH ×2 (06:14→11:42)
[2023-05-28] MEDS: fentaNYL Drip 2500mCg/250mlNS 250 ML IV SCH ×3 (06:18→22:08)
[2023-05-28] MEDS: BUDESONIDE (INHALATION) 0.5 MG/2 ML NEB NEB SCH ×2 (07:07→18:17)
[2023-05-28 07:34] LABS: Base Excess -3.5 mmol/L (-2.0-2.0)
[2023-05-28] MEDS ORDERED: POTASSIUM EFFERVESENT TAB 25 MEQ PO ONE (09:15)
[2023-05-28] MEDS: LINEZOLID 600MG/300ML 300 ML IV SCH ×2 (09:51→21:39)
[2023-05-28] MEDS: ASPirin 81 mg TAB PO SCH (09:51)
[2023-05-28] MEDS: PANTOPRAZOLE 40 MG/10 ML VIAL INJ IV SCH (09:51)
[2023-05-28] MEDS: EPINEPHrine HCL INJECTION 16 MG in D5W 5% 234 ML IV SCH (09:52)
[2023-05-28] MEDS: HEPARIN SODIUM (PORCINE) 5000 UNITS/ML 1ML VIAL SC SCH ×2 (09:53→21:49)
[2023-05-28] MEDS: NOREPINEPHRINE BITARTRATE 32 MG in SODIUM CHL 0.9% 218 ML IV SCH (11:30)
[2023-05-28] MEDS: PHENYLEPHRINE INJ 80 MG in SODIUM CHL 0.9% 242 ML IV SCH (11:30)
[2023-05-28] MEDS: PROPOFOL 100 ML IV SCH (11:43)
[2023-05-28] MEDS: ACETAMINOPHEN 650 mg PER 20.3 mL UD GT PRN (14:10)
[2023-05-28] MEDS: ATORVASTATIN 20 MG TAB PO SCH (21:39)
[2023-05-29] VITALS (84 sets, daily range): BP systolic 85–157; BP diastolic 51–92; PULSE 85–103; RESP 15–33; TEMP 97.9–100.9; O2SAT 89–98
[2023-05-29] MEDS: FREE WATER GT SCH ×4 (00:45→17:26)
[2023-05-29] MEDS: ALBUTEROL SULF 2.5 MG/0.5ML(0.5%) NEB SOLN NEB SCH ×4 (00:48→18:56)
[2023-05-29] MEDS: IPRATROPIUM BROM 0.5 MG/2.5ML INH SOL NEB SCH ×4 (00:48→18:56)
[2023-05-29] MEDS: MEROPENEM 1GM IVPB 100 ML IV SCH ×3 (02:25→17:26)
[2023-05-29] MEDS: MIDAZOLAM DRIP 50 mg/50mL 50 ML IV SCH ×6 (02:26→21:27)
[2023-05-29] MEDS: ACETAMINOPHEN 650 mg PER 20.3 mL UD GT PRN ×3 (03:35→20:00)
[2023-05-29] MEDS: Nepro With Carb Steady 1 Liter Bottle GT SCH (03:43)
[2023-05-29] MEDS: VASOPRESSIN 20 UNITS in SODIUM CHL 0.9% 99 ML IV SCH ×2 (04:28→13:21)
[2023-05-29 05:02] LABS: Potassium 3.4 mmol/L (3.5-5.1)
[2023-05-29 05:16] LABS: Albumin 2.2 g/dL (3.4-5.0); BUN/Creatinine Ratio 81.8 (10.0-20.0); Calcium 9.2 mg/dL (8.5-10.1); Magnesium 1.9 mg/dL (1.6-2.6)
[2023-05-29 05:23] LABS: Bilirubin, Total 0.9 mg/dL (0.2-1.0)
[2023-05-29 05:43] LABS: Basophils # (auto) 0 10 ^3/uL (0-0.2); Basophils % (auto) 0.2 % (0.0-2.0); Eosinophils # (auto) 0.2 10 ^3/uL (0-0.8); Hematocrit 35.4 % (41.0-53.0); Hemoglobin 11.8 g/dL (13.5-17.5); Lymphocytes # (auto) 0.8 10 ^3/uL (0.4-5.4); Lymphocytes % (auto) 4.9 % (10.0-50.0); Mean Corpuscular Hemoglobin 34.5 pg (28.0-32.0); Mean Corpuscular Hgb Conc. 33.4 g/dL (32.0-36.0); Mean Corpuscular Volume 103.1 fL (80.0-100.0); Monocytes # (auto) 0.7 10 ^3/uL (0-1.3); Monocytes % (auto) 4.4 % (0.0-12.0); Neutrophils # (auto) 15.2 10 ^3/uL (1.6-8.6); Neutrophils % (auto) 89.5 % (37.0-80.0); Red Blood Cells 3.43 10^6/uL (4.5-5.90); Red Cell Distribution Width 13.7 % (11.8-14.3); White Blood Cell 16.9 10^3/uL (4.4-10.8)
[2023-05-29] MEDS: fentaNYL Drip 2500mCg/250mlNS 250 ML IV SCH ×3 (06:30→23:17)
[2023-05-29 07:07] LABS: Base Excess 9.8 mmol/L (-2.0-2.0)
[2023-05-29] MEDS: BUDESONIDE (INHALATION) 0.5 MG/2 ML NEB NEB SCH ×2 (07:18→18:56)
[2023-05-29] MEDS: EPINEPHrine HCL INJECTION 16 MG in D5W 5% 234 ML IV SCH (08:52)
[2023-05-29] MEDS: NOREPINEPHRINE BITARTRATE 32 MG in SODIUM CHL 0.9% 218 ML IV SCH (08:53)
[2023-05-29] MEDS: PHENYLEPHRINE INJ 80 MG in SODIUM CHL 0.9% 242 ML IV SCH (08:53)
[2023-05-29] MEDS: ASPirin 81 mg TAB PO SCH (10:00)
[2023-05-29] MEDS: LINEZOLID 600MG/300ML 300 ML IV SCH ×2 (10:00→22:45)
[2023-05-29] MEDS: PANTOPRAZOLE 40 MG/10 ML VIAL INJ IV SCH (10:00)
[2023-05-29] MEDS: HEPARIN SODIUM (PORCINE) 5000 UNITS/ML 1ML VIAL SC SCH ×2 (10:02→22:47)
[2023-05-29] MEDS: POTASSIUM CHL 20MEQ/100ML 100 ML IV SCH ×2 (11:33→13:20)
[2023-05-29] MEDS: PROPOFOL 100 ML IV SCH (13:21)
[2023-05-29] MEDS: ATORVASTATIN 20 MG TAB PO SCH (22:45)
[2023-05-30] VITALS (87 sets, daily range): BP systolic 88–157; BP diastolic 50–98; PULSE 87–109; RESP 16–35; TEMP 98.4–101.1; O2SAT 85–100
[2023-05-30] MEDS: MIDAZOLAM DRIP 50 mg/50mL 50 ML IV SCH ×6 (00:15→20:05)
[2023-05-30] MEDS: FREE WATER GT SCH ×4 (00:16→18:00)
[2023-05-30] MEDS: IPRATROPIUM BROM 0.5 MG/2.5ML INH SOL NEB SCH ×5 (00:31→22:08)
[2023-05-30] MEDS: ALBUTEROL SULF 2.5 MG/0.5ML(0.5%) NEB SOLN NEB SCH ×5 (00:31→22:08)
[2023-05-30] MEDS: MEROPENEM 1GM IVPB 100 ML IV SCH ×3 (02:28→18:00)
[2023-05-30] MEDS: VASOPRESSIN 20 UNITS in SODIUM CHL 0.9% 99 ML IV SCH ×2 (02:42→13:49)
[2023-05-30 04:37] LABS: Basophils # (auto) 0.1 10 ^3/uL (0-0.2); Basophils % (auto) 0.5 % (0.0-2.0); Eosinophils # (auto) 0.1 10 ^3/uL (0-0.8); Eosinophils % (auto) 1.1 % (0.0-7.0); Hematocrit 35.5 % (41.0-53.0); Hemoglobin 11.8 g/dL (13.5-17.5); Lymphocytes # (auto) 0.7 10 ^3/uL (0.4-5.4); Lymphocytes % (auto) 5.8 % (10.0-50.0); Mean Corpuscular Hemoglobin 34.1 pg (28.0-32.0); Mean Corpuscular Hgb Conc. 33.2 g/dL (32.0-36.0); Mean Corpuscular Volume 102.9 fL (80.0-100.0); Monocytes # (auto) 0.6 10 ^3/uL (0-1.3); Monocytes % (auto) 5.1 % (0.0-12.0); Neutrophils % (auto) 87.5 % (37.0-80.0); Red Blood Cells 3.45 10^6/uL (4.5-5.90); Red Cell Distribution Width 13.5 % (11.8-14.3); White Blood Cell 12.6 10^3/uL (4.4-10.8)
[2023-05-30 04:56] LABS: Calcium 9.2 mg/dL (8.5-10.1); Magnesium 1.8 mg/dL (1.6-2.6); Potassium 3.5 mmol/L (3.5-5.1)
[2023-05-30 04:58] LABS: BUN/Creatinine Ratio 81.5 (10.0-20.0)
[2023-05-30] MEDS: BUDESONIDE (INHALATION) 0.5 MG/2 ML NEB NEB SCH ×2 (06:55→18:34)
[2023-05-30] MEDS: fentaNYL Drip 2500mCg/250mlNS 250 ML IV SCH ×2 (07:33→15:21)
[2023-05-30 08:24] LABS: Base Excess 9.1 mmol/L (-2.0-2.0)
[2023-05-30] MEDS: LINEZOLID 600MG/300ML 300 ML IV SCH ×2 (10:38→21:29)
[2023-05-30] MEDS: PANTOPRAZOLE 40 MG/10 ML VIAL INJ IV SCH (10:39)
[2023-05-30] MEDS: ACETAMINOPHEN 650 mg PER 20.3 mL UD GT PRN ×2 (10:39→21:29)
[2023-05-30] MEDS: ASPirin 81 mg TAB PO SCH (10:39)
[2023-05-30] MEDS: FUROSEMIDE 20 MG/2 ML VIAL IV SCH (10:42)
[2023-05-30] MEDS: HEPARIN SODIUM (PORCINE) 5000 UNITS/ML 1ML VIAL SC SCH ×2 (10:43→21:32)
[2023-05-30] MEDS: NOREPINEPHRINE BITARTRATE 32 MG in SODIUM CHL 0.9% 218 ML IV SCH (10:44)
[2023-05-30] MEDS ORDERED: MAGNESIUM SULFATE 1GM/100ML 100 ML IV ONE (10:45)
[2023-05-30] MEDS ORDERED: POTASSIUM CHL 20MEQ/100ML 100 ML IV SCH (10:45)
[2023-05-30] MEDS: POTASSIUM CHL 20MEQ/100ML 100 ML IV SCH ×2 (12:08→15:13)
[2023-05-30] MEDS: PROPOFOL 100 ML IV SCH (18:00)
[2023-05-30] MEDS: ATORVASTATIN 20 MG TAB PO SCH (21:29)
[2023-05-30] MEDS: METOPROLOL TARTRATE 25 MG TAB PO SCH (21:30)
[2023-05-31] VITALS (111 sets, daily range): BP systolic 88–154; BP diastolic 50–92; PULSE 84–108; RESP 10–35; TEMP 98.2–101.1; O2SAT 88–100
[2023-05-31] MEDS: IPRATROPIUM BROM 0.5 MG/2.5ML INH SOL NEB SCH ×4 (00:08→18:52)
[2023-05-31] MEDS: ALBUTEROL SULF 2.5 MG/0.5ML(0.5%) NEB SOLN NEB SCH ×4 (00:08→18:53)
[2023-05-31] MEDS: FREE WATER GT SCH ×5 (00:09→23:54)
[2023-05-31] MEDS: MIDAZOLAM DRIP 50 mg/50mL 50 ML IV SCH ×5 (00:24→23:08)
[2023-05-31] MEDS: fentaNYL Drip 2500mCg/250mlNS 250 ML IV SCH ×3 (00:25→15:58)
[2023-05-31] MEDS: VASOPRESSIN 20 UNITS in SODIUM CHL 0.9% 99 ML IV SCH ×3 (00:56→23:10)
[2023-05-31] MEDS: MEROPENEM 1GM IVPB 100 ML IV SCH ×3 (02:00→18:19)
[2023-05-31 04:23] LABS: Basophils # (auto) 0.1 10 ^3/uL (0-0.2); Eosinophils # (auto) 0.1 10 ^3/uL (0-0.8); Monocytes # (auto) 0.6 10 ^3/uL (0-1.3)
[2023-05-31 04:26] LABS: Basophils % (auto) 0.6 % (0.0-2.0); Eosinophils % (auto) 1.3 % (0.0-7.0); Hematocrit 33.1 % (41.0-53.0); Hemoglobin 11.1 g/dL (13.5-17.5); Lymphocytes # (auto) 0.8 10 ^3/uL (0.4-5.4); Lymphocytes % (auto) 6.9 % (10.0-50.0); Mean Corpuscular Hemoglobin 34.1 pg (28.0-32.0); Mean Corpuscular Hgb Conc. 33.4 g/dL (32.0-36.0); Mean Corpuscular Volume 102.1 fL (80.0-100.0); Monocytes % (auto) 5.4 % (0.0-12.0); Neutrophils % (auto) 85.8 % (37.0-80.0); Red Blood Cells 3.25 10^6/uL (4.5-5.90); Red Cell Distribution Width 13.5 % (11.8-14.3); White Blood Cell 11.6 10^3/uL (4.4-10.8)
[2023-05-31 04:49] LABS: Albumin 1.6 g/dL (3.4-5.0); BUN/Creatinine Ratio 78.9 (10.0-20.0); Bilirubin, Total 0.6 mg/dL (0.2-1.0); Calcium 8.4 mg/dL (8.5-10.1); Phosphorus 4.5 mg/dL (2.5-4.90); Total Protein 6.2 g/dL (6.4-8.2)
[2023-05-31] MEDS: BUDESONIDE (INHALATION) 0.5 MG/2 ML NEB NEB SCH ×2 (06:24→18:53)
[2023-05-31] MEDS: ACETAMINOPHEN 650 mg PER 20.3 mL UD GT PRN ×2 (08:44→18:20)
[2023-05-31] MEDS: PANTOPRAZOLE 40 MG/10 ML VIAL INJ IV SCH (10:03)
[2023-05-31] MEDS: FUROSEMIDE 20 MG/2 ML VIAL IV SCH (10:04)
[2023-05-31] MEDS: HEPARIN SODIUM (PORCINE) 5000 UNITS/ML 1ML VIAL SC SCH ×2 (10:05→21:20)
[2023-05-31] MEDS: ASPirin 81 mg TAB PO SCH (10:06)
[2023-05-31] MEDS: METOPROLOL TARTRATE 25 MG TAB PO SCH ×2 (10:06→21:19)
[2023-05-31] MEDS: LINEZOLID 600MG/300ML 300 ML IV SCH ×2 (10:07→21:19)
[2023-05-31] MEDS: NOREPINEPHRINE BITARTRATE 32 MG in SODIUM CHL 0.9% 218 ML IV SCH (11:30)
[2023-05-31] MEDS: ACETYLCYSTEINE 10 %(100MG/ML) SOL 4ML NEB SCH ×2 (11:51→18:53)
[2023-05-31 14:50] LABS: Urine Protein/Creatinine Ratio 1.12
[2023-05-31] MEDS: PROPOFOL 100 ML IV SCH (18:00)
[2023-05-31] MEDS: ATORVASTATIN 20 MG TAB PO SCH (21:19)
[2023-06-01] VITALS (105 sets, daily range): BP systolic 90–153; BP diastolic 52–101; PULSE 88–115; RESP 12–35; TEMP 98.4–101.1; O2SAT 89–100
[2023-06-01] MEDS: ALBUTEROL SULF 2.5 MG/0.5ML(0.5%) NEB SOLN NEB SCH ×4 (00:25→18:32)
[2023-06-01] MEDS: IPRATROPIUM BROM 0.5 MG/2.5ML INH SOL NEB SCH ×4 (00:25→18:32)
[2023-06-01] MEDS: ACETYLCYSTEINE 10 %(100MG/ML) SOL 4ML NEB SCH ×4 (00:25→18:32)
[2023-06-01] MEDS: fentaNYL Drip 2500mCg/250mlNS 250 ML IV SCH ×3 (01:17→16:43)
[2023-06-01] MEDS: MEROPENEM 1GM IVPB 100 ML IV SCH ×3 (01:19→18:04)
[2023-06-01] MEDS: MIDAZOLAM DRIP 50 mg/50mL 50 ML IV SCH ×5 (02:17→23:24)
[2023-06-01 03:53] LABS: Basophils # (auto) 0.1 10 ^3/uL (0-0.2); Hemoglobin 11.7 g/dL (13.5-17.5); Lymphocytes % (auto) 9.1 % (10.0-50.0); Monocytes # (auto) 0.5 10 ^3/uL (0-1.3)
[2023-06-01 03:57] LABS: Basophils % (auto) 1.1 % (0.0-2.0); Eosinophils # (auto) 0.1 10 ^3/uL (0-0.8); Eosinophils % (auto) 1.3 % (0.0-7.0); Hematocrit 34.1 % (41.0-53.0); Mean Corpuscular Hemoglobin 34.9 pg (28.0-32.0); Mean Corpuscular Hgb Conc. 34.3 g/dL (32.0-36.0); Mean Corpuscular Volume 101.5 fL (80.0-100.0); Monocytes % (auto) 4.9 % (0.0-12.0); Neutrophils # (auto) 8.9 10 ^3/uL (1.6-8.6); Neutrophils % (auto) 83.6 % (37.0-80.0); Red Blood Cells 3.35 10^6/uL (4.5-5.90); Red Cell Distribution Width 13.2 % (11.8-14.3); White Blood Cell 10.7 10^3/uL (4.4-10.8)
[2023-06-01 04:23] LABS: BUN/Creatinine Ratio 83.3 (10.0-20.0); Calcium 8.8 mg/dL (8.5-10.1); Magnesium 1.5 mg/dL (1.6-2.6); Phosphorus 5.4 mg/dL (2.5-4.90); Potassium 4.1 mmol/L (3.5-5.1)
[2023-06-01] MEDS: FREE WATER GT SCH ×3 (05:00→18:00)
[2023-06-01] MEDS: ACETAMINOPHEN 650 mg PER 20.3 mL UD GT PRN (06:54)
[2023-06-01] MEDS: BUDESONIDE (INHALATION) 0.5 MG/2 ML NEB NEB SCH ×2 (06:58→18:32)
[2023-06-01 08:00] LABS: Base Excess 8.5 mmol/L (-2.0-2.0)
[2023-06-01] MEDS ORDERED: LIDOCAINE 2% JELLY 11ml (GLYDO) ONE (08:30)
[2023-06-01] MEDS ORDERED: fentaNYL CITRATE 100 MCG/2 ML VL ONE (08:31)
[2023-06-01] MEDS ORDERED: GLYCOPYRROLATE 0.2 MG/ML 1ML VIAL ONE (08:31)
[2023-06-01] MEDS ORDERED: LIDOCAINE 2%HCL (LOCAL ANESTH.) INJ 20ML MDV ONE (08:31)
[2023-06-01] MEDS ORDERED: EPINEPHrine HCL 1 MG/1 ML AMP ONE (08:31)
[2023-06-01] MEDS ORDERED: MIDAZOLAM HCL 2MG/2ML 2ml VIAL (1mg/ml) ONE (08:32)
[2023-06-01] MEDS: PROPOFOL 100 ML IV SCH ×2 (09:42→12:36)
[2023-06-01] MEDS: PANTOPRAZOLE 40 MG/10 ML VIAL INJ IV SCH (09:42)
[2023-06-01] MEDS: LINEZOLID 600MG/300ML 300 ML IV SCH ×2 (09:45→21:30)
[2023-06-01] MEDS: METOPROLOL TARTRATE 25 MG TAB PO SCH ×2 (09:46→21:31)
[2023-06-01] MEDS: HEPARIN SODIUM (PORCINE) 5000 UNITS/ML 1ML VIAL SC SCH ×2 (09:55→21:32)
[2023-06-01] MEDS: ASPirin 81 mg TAB PO SCH (09:55)
[2023-06-01] MEDS ORDERED: NOREPINEPHRINE 8 MG/250ML KIT 0 ML IV ONE (10:09)
[2023-06-01] MEDS: VASOPRESSIN 20 UNITS in SODIUM CHL 0.9% 99 ML IV SCH ×2 (10:17→21:24)
[2023-06-01] MEDS: NOREPINEPHRINE BITARTRATE 32 MG in SODIUM CHL 0.9% 218 ML IV SCH (11:30)
[2023-06-01 12:20] LABS: Base Excess 9.2 mmol/L (-2.0-2.0)
[2023-06-01] MEDS: MAGNESIUM SULFATE 1GM/100ML 100 ML IV SCH ×2 (12:25→13:40)
[2023-06-01] MEDS: CHOLESTYRAMINE 4 GM POWDER GT SCH (12:40)
[2023-06-01] MEDS: ATORVASTATIN 20 MG TAB PO SCH (21:31)
[2023-06-01] MEDS: methylPREDNISolone SOD SUCC 40 MG/ML VL IV SCH (21:43)
[2023-06-02] VITALS (105 sets, daily range): BP systolic 85–136; BP diastolic 51–89; PULSE 93–107; RESP 12–31; TEMP 99–100.8; O2SAT 60–98
[2023-06-02] MEDS: fentaNYL Drip 2500mCg/250mlNS 250 ML IV SCH ×2 (00:35→09:06)
[2023-06-02] MEDS: ACETYLCYSTEINE 10 %(100MG/ML) SOL 4ML NEB SCH ×4 (00:55→18:10)
[2023-06-02] MEDS: IPRATROPIUM BROM 0.5 MG/2.5ML INH SOL NEB SCH ×4 (00:55→18:11)
[2023-06-02] MEDS: ALBUTEROL SULF 2.5 MG/0.5ML(0.5%) NEB SOLN NEB SCH ×4 (00:55→18:11)
[2023-06-02] MEDS: MEROPENEM 1GM IVPB 100 ML IV SCH ×3 (02:48→18:00)
[2023-06-02 04:05] LABS: Basophils # (auto) 0.1 10 ^3/uL (0-0.2); Basophils % (auto) 1.2 % (0.0-2.0); Eosinophils # (auto) 0.1 10 ^3/uL (0-0.8); Hemoglobin 11.6 g/dL (13.5-17.5); Lymphocytes # (auto) 0.9 10 ^3/uL (0.4-5.4); Monocytes # (auto) 0.5 10 ^3/uL (0-1.3); Neutrophils # (auto) 9.5 10 ^3/uL (1.6-8.6); Red Cell Distribution Width 13.2 % (11.8-14.3)
[2023-06-02 04:07] LABS: Eosinophils % (auto) 1.1 % (0.0-7.0); Mean Corpuscular Hemoglobin 34.3 pg (28.0-32.0); Mean Corpuscular Volume 100.9 fL (80.0-100.0); Monocytes % (auto) 4.3 % (0.0-12.0); Neutrophils % (auto) 85.4 % (37.0-80.0); Nucleated Red Blood Cells % 0.1 %; Red Blood Cells 3.37 10^6/uL (4.5-5.90); White Blood Cell 11.1 10^3/uL (4.4-10.8)
[2023-06-02 04:41] LABS: BUN/Creatinine Ratio 61.7 (10.0-20.0); Calcium 8.6 mg/dL (8.5-10.1); Potassium 4.2 mmol/L (3.5-5.1)
[2023-06-02] MEDS: MIDAZOLAM DRIP 50 mg/50mL 50 ML IV SCH ×3 (04:42→21:55)
[2023-06-02] MEDS: FREE WATER GT SCH ×3 (06:00→11:33)
[2023-06-02] MEDS: BUDESONIDE (INHALATION) 0.5 MG/2 ML NEB NEB SCH ×2 (06:15→18:11)
[2023-06-02 07:17] LABS: Base Excess 8.4 mmol/L (-2.0-2.0)
[2023-06-02] MEDS: VASOPRESSIN 20 UNITS in SODIUM CHL 0.9% 99 ML IV SCH ×2 (08:31→19:38)
[2023-06-02] MEDS: LINEZOLID 600MG/300ML 300 ML IV SCH ×2 (08:48→21:56)
[2023-06-02] MEDS: PANTOPRAZOLE 40 MG/10 ML VIAL INJ IV SCH (08:48)
[2023-06-02] MEDS: ASPirin 81 mg TAB PO SCH (08:49)
[2023-06-02] MEDS: METOPROLOL TARTRATE 25 MG TAB PO SCH ×2 (08:49→21:56)
[2023-06-02] MEDS: HEPARIN SODIUM (PORCINE) 5000 UNITS/ML 1ML VIAL SC SCH ×2 (08:50→21:58)
[2023-06-02] MEDS: methylPREDNISolone SOD SUCC 40 MG/ML VL IV SCH (08:50)
[2023-06-02] MEDS: methylPREDNISolone SOD SUCC 125 MG/2 ML VL IV SCH ×2 (09:25→21:55)
[2023-06-02] MEDS: NOREPINEPHRINE BITARTRATE 32 MG in SODIUM CHL 0.9% 218 ML IV SCH (11:30)
[2023-06-02] MEDS: CHOLESTYRAMINE 4 GM POWDER GT SCH (11:30)
[2023-06-02] MEDS: PROPOFOL 100 ML IV SCH (19:25)
[2023-06-02] MEDS: ATORVASTATIN 20 MG TAB PO SCH (21:56)
[2023-06-03] VITALS (106 sets, daily range): BP systolic 84–134; BP diastolic 36–83; PULSE 79–113; RESP 16–29; TEMP 97.7–100; O2SAT 88–99
[2023-06-03] MEDS: ACETYLCYSTEINE 10 %(100MG/ML) SOL 4ML NEB SCH ×4 (00:25→18:09)
[2023-06-03] MEDS: IPRATROPIUM BROM 0.5 MG/2.5ML INH SOL NEB SCH ×4 (00:25→18:09)
[2023-06-03] MEDS: ALBUTEROL SULF 2.5 MG/0.5ML(0.5%) NEB SOLN NEB SCH ×4 (00:25→18:09)
[2023-06-03] MEDS: MEROPENEM 1GM IVPB 100 ML IV SCH ×3 (01:53→18:35)
[2023-06-03 04:26] LABS: Albumin 1.8 g/dL (3.4-5.0); Potassium 4.4 mmol/L (3.5-5.1)
[2023-06-03 04:29] LABS: BUN/Creatinine Ratio 53.9 (10.0-20.0); Calcium 8.5 mg/dL (8.5-10.1); Total Protein 7.1 g/dL (6.4-8.2)
[2023-06-03] MEDS: MIDAZOLAM DRIP 50 mg/50mL 50 ML IV SCH ×4 (04:29→21:53)
[2023-06-03 04:31] LABS: Basophils # (auto) 0 10 ^3/uL (0-0.2); Eosinophils # (auto) 0 10 ^3/uL (0-0.8); Hemoglobin 10.8 g/dL (13.5-17.5); Lymphocytes # (auto) 0.4 10 ^3/uL (0.4-5.4); Mean Corpuscular Hemoglobin 34.5 pg (28.0-32.0); Monocytes # (auto) 0.2 10 ^3/uL (0-1.3); Red Blood Cells 3.13 10^6/uL (4.5-5.90)
[2023-06-03 04:33] LABS: Basophils % (auto) 0.1 % (0.0-2.0); Hematocrit 31.5 % (41.0-53.0); Lymphocytes % (auto) 3.6 % (10.0-50.0); Mean Corpuscular Hgb Conc. 34.3 g/dL (32.0-36.0); Mean Corpuscular Volume 100.6 fL (80.0-100.0); Monocytes % (auto) 1.9 % (0.0-12.0); Neutrophils # (auto) 10.8 10 ^3/uL (1.6-8.6); Neutrophils % (auto) 94.4 % (37.0-80.0); Red Cell Distribution Width 13.2 % (11.8-14.3); White Blood Cell 11.4 10^3/uL (4.4-10.8)
[2023-06-03 04:36] LABS: Bilirubin, Total 0.6 mg/dL (0.2-1.0)
[2023-06-03] MEDS: FREE WATER GT SCH ×4 (05:30→18:35)
[2023-06-03] MEDS: VASOPRESSIN 20 UNITS in SODIUM CHL 0.9% 99 ML IV SCH ×2 (05:31→17:52)
[2023-06-03] MEDS: BUDESONIDE (INHALATION) 0.5 MG/2 ML NEB NEB SCH ×2 (06:41→18:09)
[2023-06-03 07:34] LABS: Base Excess 6.1 mmol/L (-2.0-2.0)
[2023-06-03] MEDS: PANTOPRAZOLE 40 MG/10 ML VIAL INJ IV SCH (10:44)
[2023-06-03] MEDS: METOPROLOL TARTRATE 25 MG TAB PO SCH ×2 (10:45→21:53)
[2023-06-03] MEDS: LINEZOLID 600MG/300ML 300 ML IV SCH ×2 (10:45→21:52)
[2023-06-03] MEDS: methylPREDNISolone SOD SUCC 125 MG/2 ML VL IV SCH ×2 (10:45→21:53)
[2023-06-03] MEDS: ASPirin 81 mg TAB PO SCH (10:45)
[2023-06-03] MEDS: CHOLESTYRAMINE 4 GM POWDER GT SCH (10:46)
[2023-06-03] MEDS: HEPARIN SODIUM (PORCINE) 5000 UNITS/ML 1ML VIAL SC SCH ×2 (10:48→21:54)
[2023-06-03] MEDS: NOREPINEPHRINE BITARTRATE 32 MG in SODIUM CHL 0.9% 218 ML IV SCH (11:30)
[2023-06-03] MEDS: Nepro With Carb Steady 1 Liter Bottle GT SCH (16:17)
[2023-06-03] MEDS: fentaNYL Drip 2500mCg/250mlNS 250 ML IV SCH ×2 (18:00→20:13)
[2023-06-03] MEDS: PROPOFOL 100 ML IV SCH (18:00)
[2023-06-03] MEDS: ATORVASTATIN 20 MG TAB PO SCH (21:52)
[2023-06-04] VITALS (103 sets, daily range): BP systolic 77–150; BP diastolic 46–89; PULSE 77–124; RESP 15–33; TEMP 97.2–98.8; O2SAT 92–100
[2023-06-04] MEDS: FREE WATER GT SCH ×4 (00:14→17:16)
[2023-06-04] MEDS: IPRATROPIUM BROM 0.5 MG/2.5ML INH SOL NEB SCH ×4 (00:19→18:18)
[2023-06-04] MEDS: ACETYLCYSTEINE 10 %(100MG/ML) SOL 4ML NEB SCH ×4 (00:19→18:18)
[2023-06-04] MEDS: ALBUTEROL SULF 2.5 MG/0.5ML(0.5%) NEB SOLN NEB SCH ×4 (00:19→18:18)
[2023-06-04] MEDS: MEROPENEM 1GM IVPB 100 ML IV SCH ×3 (02:17→18:02)
[2023-06-04 04:43] LABS: Albumin 1.9 g/dL (3.4-5.0); Calcium 8.4 mg/dL (8.5-10.1)
[2023-06-04 04:45] LABS: Bilirubin, Total 0.4 mg/dL (0.2-1.0); Total Protein 7.3 g/dL (6.4-8.2)
[2023-06-04] MEDS: VASOPRESSIN 20 UNITS in SODIUM CHL 0.9% 99 ML IV SCH ×2 (04:59→16:06)
[2023-06-04] MEDS: MIDAZOLAM DRIP 50 mg/50mL 50 ML IV SCH ×5 (05:21→22:20)
[2023-06-04] MEDS: BUDESONIDE (INHALATION) 0.5 MG/2 ML NEB NEB SCH ×2 (06:37→18:18)
[2023-06-04 07:16] LABS: Basophils # (auto) 0 10 ^3/uL (0-0.2); Basophils % (auto) 0.1 % (0.0-2.0); Eosinophils # (auto) 0 10 ^3/uL (0-0.8); Hematocrit 31.5 % (41.0-53.0); Hemoglobin 10.7 g/dL (13.5-17.5); Monocytes # (auto) 0.2 10 ^3/uL (0-1.3); Neutrophils # (auto) 10.9 10 ^3/uL (1.6-8.6); White Blood Cell 11.4 10^3/uL (4.4-10.8)
[2023-06-04 07:18] LABS: Lymphocytes # (auto) 0.4 10 ^3/uL (0.4-5.4); Lymphocytes % (auto) 3.2 % (10.0-50.0); Mean Corpuscular Hemoglobin 34.2 pg (28.0-32.0); Mean Corpuscular Hgb Conc. 33.9 g/dL (32.0-36.0); Mean Corpuscular Volume 100.9 fL (80.0-100.0); Monocytes % (auto) 1.6 % (0.0-12.0); Neutrophils % (auto) 95.1 % (37.0-80.0); Red Blood Cells 3.12 10^6/uL (4.5-5.90); Red Cell Distribution Width 13.1 % (11.8-14.3)
[2023-06-04 07:47] LABS: Base Excess 8.7 mmol/L (-2.0-2.0)
[2023-06-04] MEDS: LINEZOLID 600MG/300ML 300 ML IV SCH ×2 (09:25→22:05)
[2023-06-04] MEDS: PANTOPRAZOLE 40 MG/10 ML VIAL INJ IV SCH (09:25)
[2023-06-04] MEDS: methylPREDNISolone SOD SUCC 125 MG/2 ML VL IV SCH ×2 (09:27→22:05)
[2023-06-04] MEDS: ASPirin 81 mg TAB PO SCH (09:34)
[2023-06-04] MEDS: HEPARIN SODIUM (PORCINE) 5000 UNITS/ML 1ML VIAL SC SCH ×2 (09:44→22:07)
[2023-06-04] MEDS: fentaNYL Drip 2500mCg/250mlNS 250 ML IV SCH (11:02)
[2023-06-04] MEDS: METOPROLOL TARTRATE 25 MG TAB PO SCH ×2 (11:04→22:07)
[2023-06-04] MEDS: NOREPINEPHRINE BITARTRATE 32 MG in SODIUM CHL 0.9% 218 ML IV SCH (11:30)
[2023-06-04] MEDS: CHOLESTYRAMINE 4 GM POWDER GT SCH (13:29)
[2023-06-04] MEDS: PROPOFOL 100 ML IV SCH (18:00)
[2023-06-04] MEDS: ATORVASTATIN 20 MG TAB PO SCH (22:06)
[2023-06-05] VITALS (103 sets, daily range): BP systolic 97–158; BP diastolic 57–93; PULSE 57–108; RESP 10–25; TEMP 96.8–99; O2SAT 93–100
[2023-06-05] MEDS: ACETYLCYSTEINE 10 %(100MG/ML) SOL 4ML NEB SCH ×4 (00:04→18:47)
[2023-06-05] MEDS: ALBUTEROL SULF 2.5 MG/0.5ML(0.5%) NEB SOLN NEB SCH ×4 (00:04→18:46)
[2023-06-05] MEDS: IPRATROPIUM BROM 0.5 MG/2.5ML INH SOL NEB SCH ×4 (00:04→18:46)
[2023-06-05] MEDS: fentaNYL Drip 2500mCg/250mlNS 250 ML IV SCH ×3 (01:11→21:48)
[2023-06-05] MEDS: MEROPENEM 1GM IVPB 100 ML IV SCH ×3 (02:01→18:34)
[2023-06-05] MEDS: VASOPRESSIN 20 UNITS in SODIUM CHL 0.9% 99 ML IV SCH ×2 (03:13→14:13)
[2023-06-05] MEDS: MIDAZOLAM DRIP 50 mg/50mL 50 ML IV SCH ×5 (03:15→22:42)
[2023-06-05 03:52] LABS: Basophils # (auto) 0 10 ^3/uL (0-0.2); Eosinophils # (auto) 0 10 ^3/uL (0-0.8); Lymphocytes # (auto) 0.4 10 ^3/uL (0.4-5.4); Lymphocytes % (auto) 3.6 % (10.0-50.0); Red Cell Distribution Width 13.3 % (11.8-14.3)
[2023-06-05 03:54] LABS: Mean Corpuscular Hemoglobin 35.1 pg (28.0-32.0); Mean Corpuscular Hgb Conc. 34.6 g/dL (32.0-36.0); Mean Corpuscular Volume 101.6 fL (80.0-100.0); Monocytes # (auto) 0.2 10 ^3/uL (0-1.3); Neutrophils % (auto) 94.4 % (37.0-80.0); Red Blood Cells 3.14 10^6/uL (4.5-5.90); White Blood Cell 10.5 10^3/uL (4.4-10.8)
[2023-06-05 03:59] LABS: Potassium 4.3 mmol/L (3.5-5.1)
[2023-06-05 04:02] LABS: BUN/Creatinine Ratio 62.2 (10.0-20.0); Calcium 8.6 mg/dL (8.5-10.1)
[2023-06-05] MEDS: FREE WATER GT SCH ×4 (06:43→18:00)
[2023-06-05] MEDS: HEPARIN SODIUM (PORCINE) 5000 UNITS/ML 1ML VIAL SC SCH ×2 (10:21→21:41)
[2023-06-05] MEDS: PANTOPRAZOLE 40 MG/10 ML VIAL INJ IV SCH (10:22)
[2023-06-05] MEDS: methylPREDNISolone SOD SUCC 125 MG/2 ML VL IV SCH ×2 (10:27→21:39)
[2023-06-05] MEDS: METOPROLOL TARTRATE 25 MG TAB PO SCH ×2 (10:31→21:40)
[2023-06-05] MEDS: LINEZOLID 600MG/300ML 300 ML IV SCH ×2 (10:31→21:40)
[2023-06-05] MEDS: ASPirin 81 mg TAB PO SCH (10:31)
[2023-06-05] MEDS: BUDESONIDE (INHALATION) 0.5 MG/2 ML NEB NEB SCH ×2 (10:39→18:47)
[2023-06-05] MEDS: CHOLESTYRAMINE 4 GM POWDER GT SCH (10:52)
[2023-06-05 10:58] LABS: Base Excess 6.6 mmol/L (-2.0-2.0)
[2023-06-05] MEDS: NOREPINEPHRINE BITARTRATE 32 MG in SODIUM CHL 0.9% 218 ML IV SCH (11:30)
[2023-06-05] MEDS: Nepro With Carb Steady 1 Liter Bottle GT SCH (12:49)
[2023-06-05] MEDS: PROPOFOL 100 ML IV SCH (18:00)
[2023-06-05] MEDS: ATORVASTATIN 20 MG TAB PO SCH (21:40)
[2023-06-06] VITALS (103 sets, daily range): BP systolic 104–169; BP diastolic 68–102; PULSE 56–129; RESP 14–24; TEMP 97.3–98.8; O2SAT 91–100
[2023-06-06] MEDS: IPRATROPIUM BROM 0.5 MG/2.5ML INH SOL NEB SCH ×4 (00:27→18:22)
[2023-06-06] MEDS: ALBUTEROL SULF 2.5 MG/0.5ML(0.5%) NEB SOLN NEB SCH ×4 (00:28→18:21)
[2023-06-06] MEDS: ACETYLCYSTEINE 10 %(100MG/ML) SOL 4ML NEB SCH ×4 (00:28→18:22)
[2023-06-06] MEDS: VASOPRESSIN 20 UNITS in SODIUM CHL 0.9% 99 ML IV SCH ×3 (01:27→23:41)
[2023-06-06] MEDS: MEROPENEM 1GM IVPB 100 ML IV SCH ×3 (01:45→18:07)
[2023-06-06] MEDS: MIDAZOLAM DRIP 50 mg/50mL 50 ML IV SCH ×5 (03:38→20:48)
[2023-06-06 04:13] LABS: Basophils # (auto) 0 10 ^3/uL (0-0.2); Eosinophils # (auto) 0 10 ^3/uL (0-0.8); Hemoglobin 10.6 g/dL (13.5-17.5); Monocytes # (auto) 0.2 10 ^3/uL (0-1.3)
[2023-06-06 04:14] LABS: Hematocrit 31.4 % (41.0-53.0); Lymphocytes # (auto) 0.3 10 ^3/uL (0.4-5.4); Lymphocytes % (auto) 3.4 % (10.0-50.0); Mean Corpuscular Hemoglobin 34.6 pg (28.0-32.0); Mean Corpuscular Hgb Conc. 33.9 g/dL (32.0-36.0); Mean Corpuscular Volume 102.1 fL (80.0-100.0); Monocytes % (auto) 2.8 % (0.0-12.0); Neutrophils % (auto) 93.8 % (37.0-80.0); Red Blood Cells 3.08 10^6/uL (4.5-5.90); Red Cell Distribution Width 12.9 % (11.8-14.3); White Blood Cell 7.5 10^3/uL (4.4-10.8)
[2023-06-06 04:26] LABS: Albumin 1.9 g/dL (3.4-5.0); Calcium 8.3 mg/dL (8.5-10.1); Potassium 4.4 mmol/L (3.5-5.1)
[2023-06-06 04:31] LABS: BUN/Creatinine Ratio 58.3 (10.0-20.0); Bilirubin, Total 0.4 mg/dL (0.2-1.0); Total Protein 6.5 g/dL (6.4-8.2)
[2023-06-06] MEDS: BUDESONIDE (INHALATION) 0.5 MG/2 ML NEB NEB SCH ×2 (06:07→22:45)
[2023-06-06] MEDS: FREE WATER GT SCH ×4 (06:14→18:02)
[2023-06-06 08:16] LABS: INR 1.16 (0.9-1.15); Partial Thromboplastin Time 25.1 SEC (24.5-34.5); Prothrombin Time 12.1 sec (9.3-11.8)
[2023-06-06 09:09] LABS: Base Excess 4.2 mmol/L (-2.0-2.0)
[2023-06-06] MEDS: methylPREDNISolone SOD SUCC 125 MG/2 ML VL IV SCH ×2 (11:03→22:12)
[2023-06-06] MEDS: PANTOPRAZOLE 40 MG/10 ML VIAL INJ IV SCH (11:03)
[2023-06-06] MEDS: METOPROLOL TARTRATE 25 MG TAB PO SCH ×2 (11:04→22:13)
[2023-06-06] MEDS: LINEZOLID 600MG/300ML 300 ML IV SCH ×2 (11:04→22:13)
[2023-06-06] MEDS: NOREPINEPHRINE BITARTRATE 32 MG in SODIUM CHL 0.9% 218 ML IV SCH (11:30)
[2023-06-06] MEDS: CHOLESTYRAMINE 4 GM POWDER GT SCH (12:03)
[2023-06-06] MEDS: HEPARIN SODIUM (PORCINE) 5000 UNITS/ML 1ML VIAL SC SCH ×2 (13:03→22:17)
[2023-06-06] MEDS: ASPirin 81 mg TAB PO SCH (13:07)
[2023-06-06] MEDS: fentaNYL Drip 2500mCg/250mlNS 250 ML IV SCH ×2 (15:06→23:34)
[2023-06-06] MEDS: PROPOFOL 100 ML IV SCH (18:00)
[2023-06-06 20:33] LABS: Body Fluid Polymorphonuclear 36 % (0-25); Body Fluid Red Blood Cells 4738 CUMM (0-2000); Body Fluid White Blood Cells 250 CUMM (0-200)
[2023-06-06] MEDS: ATORVASTATIN 20 MG TAB PO SCH (22:13)
[2023-06-07] VITALS (104 sets, daily range): BP systolic 97–237; BP diastolic 63–220; PULSE 59–101; RESP 11–33; TEMP 98.1–99.9; O2SAT 89–100
[2023-06-07] MEDS: FREE WATER GT SCH ×3 (00:16→12:00)
[2023-06-07] MEDS: MIDAZOLAM DRIP 50 mg/50mL 50 ML IV SCH ×3 (00:16→08:03)
[2023-06-07] MEDS: ALBUTEROL SULF 2.5 MG/0.5ML(0.5%) NEB SOLN NEB SCH ×4 (00:30→18:52)
[2023-06-07] MEDS: ACETYLCYSTEINE 10 %(100MG/ML) SOL 4ML NEB SCH ×4 (00:30→18:52)
[2023-06-07] MEDS: IPRATROPIUM BROM 0.5 MG/2.5ML INH SOL NEB SCH ×4 (00:30→18:52)
[2023-06-07] MEDS: MEROPENEM 1GM IVPB 100 ML IV SCH (02:00)
[2023-06-07 05:07] LABS: Basophils # (auto) 0 10 ^3/uL (0-0.2); Eosinophils # (auto) 0 10 ^3/uL (0-0.8); Hematocrit 31.8 % (41.0-53.0); Hemoglobin 10.8 g/dL (13.5-17.5); Lymphocytes # (auto) 0.3 10 ^3/uL (0.4-5.4); Lymphocytes % (auto) 4.1 % (10.0-50.0); Mean Corpuscular Hemoglobin 34.5 pg (28.0-32.0); Monocytes # (auto) 0.2 10 ^3/uL (0-1.3); Red Cell Distribution Width 12.9 % (11.8-14.3); White Blood Cell 7.5 10^3/uL (4.4-10.8)
[2023-06-07 05:10] LABS: Mean Corpuscular Hgb Conc. 33.9 g/dL (32.0-36.0); Mean Corpuscular Volume 101.7 fL (80.0-100.0); Monocytes % (auto) 2.1 % (0.0-12.0); Neutrophils % (auto) 93.8 % (37.0-80.0); Red Blood Cells 3.13 10^6/uL (4.5-5.90)
[2023-06-07 05:24] LABS: Calcium 8.2 mg/dL (8.5-10.1); Potassium 4.8 mmol/L (3.5-5.1)
[2023-06-07] MEDS: BUDESONIDE (INHALATION) 0.5 MG/2 ML NEB NEB SCH ×2 (06:19→18:52)
[2023-06-07 07:11] LABS: Base Excess 2.1 mmol/L (-2.0-2.0)
[2023-06-07] MEDS: fentaNYL Drip 2500mCg/250mlNS 250 ML IV SCH (08:03)
[2023-06-07] MEDS: PANTOPRAZOLE 40 MG/10 ML VIAL INJ IV SCH (10:20)
[2023-06-07] MEDS: ASPirin 81 mg TAB PO SCH (10:20)
[2023-06-07] MEDS: methylPREDNISolone SOD SUCC 125 MG/2 ML VL IV SCH ×2 (10:20→22:17)
[2023-06-07] MEDS: METOPROLOL TARTRATE 25 MG TAB PO SCH ×2 (10:20→22:17)
[2023-06-07] MEDS: HEPARIN SODIUM (PORCINE) 5000 UNITS/ML 1ML VIAL SC SCH ×2 (10:21→22:28)
[2023-06-07] MEDS: CHOLESTYRAMINE 4 GM POWDER GT SCH (10:32)
[2023-06-07] MEDS: VASOPRESSIN 20 UNITS in SODIUM CHL 0.9% 99 ML IV SCH (10:35)
[2023-06-07] MEDS: NOREPINEPHRINE BITARTRATE 32 MG in SODIUM CHL 0.9% 218 ML IV SCH (11:30)
[2023-06-07] MEDS ORDERED: LABETALOL HCL 5 MG/ML 4ML SYRINGE IV ONE ×2 (11:45→12:45)
[2023-06-07 12:11] LABS: Base Excess 1.2 mmol/L (-2.0-2.0)
[2023-06-07 14:06] LABS: Protein, Body Fluid 3.2 g/dL (.)
[2023-06-07] MEDS: LORazepam 2MG/ML-1ML VIAL IV PRN (16:50)
[2023-06-07] MEDS: hydrALAZINE HCL 20 MG/ML VL IV PRN (16:51)
[2023-06-07] MEDS: LABETALOL HCL 5 MG/ML 4ML SYRINGE IV PRN (18:54)
[2023-06-07] MEDS: ATORVASTATIN 20 MG TAB PO SCH (22:17)
[2023-06-08] VITALS (89 sets, daily range): BP systolic 122–165; BP diastolic 75–114; PULSE 76–116; RESP 10–42; TEMP 98.2–99.8; O2SAT 86–100
[2023-06-08] MEDS: ALBUTEROL SULF 2.5 MG/0.5ML(0.5%) NEB SOLN NEB SCH ×4 (00:27→18:00)
[2023-06-08] MEDS: ACETYLCYSTEINE 10 %(100MG/ML) SOL 4ML NEB SCH ×4 (00:27→18:00)
[2023-06-08] MEDS: IPRATROPIUM BROM 0.5 MG/2.5ML INH SOL NEB SCH ×4 (00:27→18:00)
[2023-06-08] MEDS: LORazepam 2MG/ML-1ML VIAL IV PRN ×3 (00:52→17:57)
[2023-06-08] MEDS: hydrALAZINE HCL 20 MG/ML VL IV PRN ×3 (00:52→16:38)
[2023-06-08 03:48] LABS: Basophils # (auto) 0 10 ^3/uL (0-0.2); Basophils % (auto) 0.1 % (0.0-2.0); Eosinophils # (auto) 0 10 ^3/uL (0-0.8); Hematocrit 34.6 % (41.0-53.0); Hemoglobin 11.9 g/dL (13.5-17.5); Lymphocytes # (auto) 0.4 10 ^3/uL (0.4-5.4); Lymphocytes % (auto) 2.7 % (10.0-50.0); Mean Corpuscular Hgb Conc. 34.3 g/dL (32.0-36.0); Mean Corpuscular Volume 99.1 fL (80.0-100.0); Monocytes # (auto) 0.6 10 ^3/uL (0-1.3); Monocytes % (auto) 4.1 % (0.0-12.0); Neutrophils # (auto) 13.9 10 ^3/uL (1.6-8.6); Neutrophils % (auto) 93.1 % (37.0-80.0); Red Blood Cells 3.49 10^6/uL (4.5-5.90); White Blood Cell 14.9 10^3/uL (4.4-10.8)
[2023-06-08 04:00] LABS: BUN/Creatinine Ratio 43.3 (10.0-20.0); Calcium 8.4 mg/dL (8.5-10.1); Potassium 4.2 mmol/L (3.5-5.1)
[2023-06-08] MEDS: ACETAMINOPHEN 650 mg PER 20.3 mL UD GT PRN (05:19)
[2023-06-08] MEDS: BUDESONIDE (INHALATION) 0.5 MG/2 ML NEB NEB SCH (06:31)
[2023-06-08] MEDS: cefTRIAXone 1GM/50ML D5W 50 ML IV SCH (08:41)
[2023-06-08] MEDS: PANTOPRAZOLE 40 MG/10 ML VIAL INJ IV SCH (09:50)
[2023-06-08] MEDS: METOPROLOL TARTRATE 25 MG TAB PO SCH (09:51)
[2023-06-08] MEDS: methylPREDNISolone SOD SUCC 125 MG/2 ML VL IV SCH (09:51)
[2023-06-08] MEDS: HEPARIN SODIUM (PORCINE) 5000 UNITS/ML 1ML VIAL SC SCH ×2 (09:51→22:59)
[2023-06-08] MEDS: ASPirin 81 mg TAB PO SCH (09:51)
[2023-06-08] MEDS: NOREPINEPHRINE BITARTRATE 32 MG in SODIUM CHL 0.9% 218 ML IV SCH (11:30)
[2023-06-08] MEDS: LABETALOL HCL 5 MG/ML 4ML SYRINGE IV PRN (12:19)
[2023-06-08] MEDS: METOPROLOL TARTRATE 50 MG TAB PO SCH (22:59)
[2023-06-08] MEDS: ATORVASTATIN 20 MG TAB PO SCH (23:00)
[2023-06-09] VITALS (15 sets, daily range): BP systolic 124–144; BP diastolic 77–89; PULSE 77–111; RESP 18–26; TEMP 98.1–99; O2SAT 91–99
[2023-06-09] MEDS: BUDESONIDE (INHALATION) 0.5 MG/2 ML NEB NEB SCH ×3 (00:37→18:46)
[2023-06-09] MEDS: IPRATROPIUM BROM 0.5 MG/2.5ML INH SOL NEB SCH ×4 (00:37→18:46)
[2023-06-09] MEDS: ALBUTEROL SULF 2.5 MG/0.5ML(0.5%) NEB SOLN NEB SCH ×4 (00:37→18:46)
[2023-06-09] MEDS: ACETYLCYSTEINE 10 %(100MG/ML) SOL 4ML NEB SCH ×2 (00:38→06:08)
[2023-06-09] MEDS: LORazepam 2MG/ML-1ML VIAL IV PRN ×2 (01:46→23:34)
[2023-06-09 06:25] LABS: Basophils # (auto) 0 10 ^3/uL (0-0.2); Hemoglobin 11.5 g/dL (13.5-17.5)
[2023-06-09 06:27] LABS: Basophils % (auto) 0.1 % (0.0-2.0); Eosinophils # (auto) 0.1 10 ^3/uL (0-0.8); Eosinophils % (auto) 0.8 % (0.0-7.0); Hematocrit 31.8 % (41.0-53.0); Lymphocytes # (auto) 1.3 10 ^3/uL (0.4-5.4); Lymphocytes % (auto) 13.2 % (10.0-50.0); Mean Corpuscular Hemoglobin 35.4 pg (28.0-32.0); Mean Corpuscular Hgb Conc. 36.1 g/dL (32.0-36.0); Mean Corpuscular Volume 98.3 fL (80.0-100.0); Monocytes # (auto) 0.7 10 ^3/uL (0-1.3); Monocytes % (auto) 7.5 % (0.0-12.0); Neutrophils # (auto) 7.8 10 ^3/uL (1.6-8.6); Neutrophils % (auto) 78.4 % (37.0-80.0); Red Blood Cells 3.24 10^6/uL (4.5-5.90); Red Cell Distribution Width 13.2 % (11.8-14.3)
[2023-06-09 06:30] LABS: BUN/Creatinine Ratio 39.2 (10.0-20.0); Calcium 8.9 mg/dL (8.5-10.1); Potassium 3.9 mmol/L (3.5-5.1)
[2023-06-09] MEDS: PANTOPRAZOLE 40 MG/10 ML VIAL INJ IV SCH (09:55)
[2023-06-09] MEDS: methylPREDNISolone SOD SUCC 125 MG/2 ML VL IV SCH (09:55)
[2023-06-09] MEDS: METOPROLOL TARTRATE 50 MG TAB PO SCH ×2 (09:56→22:42)
[2023-06-09] MEDS: ASPirin 81 mg TAB PO SCH (09:56)
[2023-06-09] MEDS: HEPARIN SODIUM (PORCINE) 5000 UNITS/ML 1ML VIAL SC SCH ×2 (09:57→22:48)
[2023-06-09] MEDS: cefTRIAXone 1GM/50ML D5W 50 ML IV SCH (09:57)
[2023-06-09] MEDS: ATORVASTATIN 20 MG TAB PO SCH (22:41)
[2023-06-10] VITALS (15 sets, daily range): BP systolic 149–155; BP diastolic 75–77; PULSE 92–101; RESP 16–20; TEMP 97.9–98.5; O2SAT 90–100
[2023-06-10] MEDS: ALBUTEROL SULF 2.5 MG/0.5ML(0.5%) NEB SOLN NEB SCH ×4 (00:44→18:42)
[2023-06-10] MEDS: IPRATROPIUM BROM 0.5 MG/2.5ML INH SOL NEB SCH ×4 (00:44→18:42)
[2023-06-10] MEDS: BUDESONIDE (INHALATION) 0.5 MG/2 ML NEB NEB SCH ×2 (06:40→18:42)
[2023-06-10] MEDS: ASPirin 81 mg TAB PO SCH (10:00)
[2023-06-10] MEDS: PANTOPRAZOLE 40 MG/10 ML VIAL INJ IV SCH (10:00)
[2023-06-10] MEDS: HEPARIN SODIUM (PORCINE) 5000 UNITS/ML 1ML VIAL SC SCH ×2 (10:00→22:50)
[2023-06-10] MEDS: methylPREDNISolone SOD SUCC 125 MG/2 ML VL IV SCH (10:00)
[2023-06-10] MEDS: METOPROLOL TARTRATE 50 MG TAB PO SCH ×2 (10:00→22:51)
[2023-06-10] MEDS ORDERED: LORazepam 2MG/ML-1ML VIAL IV PRN (11:00)
[2023-06-10] MEDS: LORazepam 2MG/ML-1ML VIAL IV PRN (16:39)
[2023-06-10] MEDS: MORPHINE SULFATE INJ 2 MG/ml SYRG IV PRN (22:51)
[2023-06-10] MEDS: ATORVASTATIN 20 MG TAB PO SCH (22:51)
[2023-06-11] VITALS (9 sets, daily range): BP systolic 116; BP diastolic 66; PULSE 89–111; RESP 18–19; TEMP 98; O2SAT 91–99
[2023-06-11] MEDS: ALBUTEROL SULF 2.5 MG/0.5ML(0.5%) NEB SOLN NEB SCH ×4 (00:05→18:45)
[2023-06-11] MEDS: IPRATROPIUM BROM 0.5 MG/2.5ML INH SOL NEB SCH ×4 (00:05→18:45)
[2023-06-11] MEDS: HYDROcodone-ACET 5/325MG TAB PO PRN (02:22)
[2023-06-11 05:00] LABS: Basophils # (auto) 0 10 ^3/uL (0-0.2); Eosinophils # (auto) 0.1 10 ^3/uL (0-0.8); Lymphocytes # (auto) 1.1 10 ^3/uL (0.4-5.4)
[2023-06-11 05:03] LABS: Basophils % (auto) 0.5 % (0.0-2.0); Eosinophils % (auto) 1.6 % (0.0-7.0); Mean Corpuscular Hemoglobin 34.8 pg (28.0-32.0); Mean Corpuscular Hgb Conc. 34.2 g/dL (32.0-36.0); Mean Corpuscular Volume 101.5 fL (80.0-100.0); Monocytes % (auto) 12.9 % (0.0-12.0); Neutrophils # (auto) 5.6 10 ^3/uL (1.6-8.6); Nucleated Red Blood Cells % 0.1 %; Red Blood Cells 3.15 10^6/uL (4.5-5.90); Red Cell Distribution Width 13.5 % (11.8-14.3); White Blood Cell 7.9 10^3/uL (4.4-10.8)
[2023-06-11 05:22] LABS: Potassium 3.8 mmol/L (3.5-5.1)
[2023-06-11 05:26] LABS: Calcium 8.2 mg/dL (8.5-10.1)
[2023-06-11] MEDS: ASPirin 81 mg TAB PO SCH (10:06)
[2023-06-11] MEDS: PANTOPRAZOLE 40 MG/10 ML VIAL INJ IV SCH (10:06)
[2023-06-11] MEDS: methylPREDNISolone SOD SUCC 125 MG/2 ML VL IV SCH (10:06)
[2023-06-11] MEDS: METOPROLOL TARTRATE 50 MG TAB PO SCH ×2 (10:07→22:22)
[2023-06-11] MEDS: HEPARIN SODIUM (PORCINE) 5000 UNITS/ML 1ML VIAL SC SCH ×2 (10:11→22:31)
[2023-06-11] MEDS: BUDESONIDE (INHALATION) 0.5 MG/2 ML NEB NEB SCH ×2 (11:28→18:45)
[2023-06-11 11:49] LABS: Albumin 2.7 g/dL (3.4-5.0); Bilirubin, Direct 0.8 mg/dL (0-0.2)
[2023-06-11 11:52] LABS: Bilirubin, Total 1.7 mg/dL (0.2-1.0); Total Protein 6.3 g/dL (6.4-8.2)
[2023-06-11] MEDS: HALOPERIDOL LACTATE 5 MG/ML INJ VIAL IM PRN (14:59)
[2023-06-11] MEDS: ATORVASTATIN 20 MG TAB PO SCH (22:21)
[2023-06-11] MEDS: MORPHINE SULFATE INJ 2 MG/ml SYRG IV PRN (22:23)
[2023-06-12] VITALS (10 sets, daily range): BP systolic 97–119; BP diastolic 46–75; PULSE 87–108; RESP 16–20; TEMP 98.4–98.9; O2SAT 91–99
[2023-06-12] MEDS: HYDROcodone-ACET 5/325MG TAB PO PRN ×3 (02:42→22:21)
[2023-06-12] MEDS: IPRATROPIUM BROM 0.5 MG/2.5ML INH SOL NEB SCH ×3 (07:30→23:05)
[2023-06-12] MEDS: ALBUTEROL SULF 2.5 MG/0.5ML(0.5%) NEB SOLN NEB SCH ×3 (07:30→23:05)
[2023-06-12] MEDS: METOPROLOL TARTRATE 50 MG TAB PO SCH ×2 (09:44→22:20)
[2023-06-12] MEDS: methylPREDNISolone SOD SUCC 125 MG/2 ML VL IV SCH (09:44)
[2023-06-12] MEDS: ASPirin 81 mg TAB PO SCH (09:44)
[2023-06-12] MEDS: PANTOPRAZOLE 40 MG/10 ML VIAL INJ IV SCH (09:44)
[2023-06-12] MEDS: HEPARIN SODIUM (PORCINE) 5000 UNITS/ML 1ML VIAL SC SCH ×2 (09:46→22:19)
[2023-06-12] MEDS: ATORVASTATIN 20 MG TAB PO SCH (22:20)
[2023-06-12] MEDS: BUDESONIDE (INHALATION) 0.5 MG/2 ML NEB NEB SCH ×2 (23:05→23:06)
[2023-06-13] VITALS (12 sets, daily range): BP systolic 89–125; BP diastolic 50–79; PULSE 78–102; RESP 18–20; TEMP 98.3–98.7; O2SAT 93–99
[2023-06-13] MEDS: HALOPERIDOL LACTATE 5 MG/ML INJ VIAL IM PRN (00:54)
[2023-06-13] MEDS: HYDROcodone-ACET 5/325MG TAB PO PRN ×2 (06:54→20:00)
[2023-06-13] MEDS: BUDESONIDE (INHALATION) 0.5 MG/2 ML NEB NEB SCH ×2 (06:59→18:56)
[2023-06-13] MEDS: IPRATROPIUM BROM 0.5 MG/2.5ML INH SOL NEB SCH ×4 (06:59→18:56)
[2023-06-13] MEDS: ALBUTEROL SULF 2.5 MG/0.5ML(0.5%) NEB SOLN NEB SCH ×4 (06:59→18:56)
[2023-06-13] MEDS: ASPirin 81 mg TAB PO SCH (10:21)
[2023-06-13] MEDS: methylPREDNISolone SOD SUCC 125 MG/2 ML VL IV SCH (10:22)
[2023-06-13] MEDS: METOPROLOL TARTRATE 50 MG TAB PO SCH ×2 (10:22→21:39)
[2023-06-13] MEDS: PANTOPRAZOLE 40 MG/10 ML VIAL INJ IV SCH (10:23)
[2023-06-13] MEDS: HEPARIN SODIUM (PORCINE) 5000 UNITS/ML 1ML VIAL SC SCH ×2 (10:25→21:41)
[2023-06-13] MEDS ORDERED: IOHEXOL 300 MG/ML 100ML BOTTLE IJ ONE (12:00)
[2023-06-13] MEDS: MORPHINE SULFATE INJ 2 MG/ml SYRG IV PRN (21:40)
[2023-06-13] MEDS: ATORVASTATIN 20 MG TAB PO SCH (21:43)
[2023-06-14] VITALS (9 sets, daily range): BP systolic 134; BP diastolic 87; PULSE 80–88; RESP 1–20; O2SAT 94–100
[2023-06-14] MEDS: IPRATROPIUM BROM 0.5 MG/2.5ML INH SOL NEB SCH ×4 (00:19→12:55)
[2023-06-14] MEDS: ALBUTEROL SULF 2.5 MG/0.5ML(0.5%) NEB SOLN NEB SCH ×4 (00:19→12:55)
[2023-06-14] MEDS: BUDESONIDE (INHALATION) 0.5 MG/2 ML NEB NEB SCH (07:45)
[2023-06-14] MEDS: methylPREDNISolone SOD SUCC 125 MG/2 ML VL IV SCH (09:12)
[2023-06-14] MEDS: PANTOPRAZOLE 40 MG/10 ML VIAL INJ IV SCH (09:14)
[2023-06-14] MEDS: METOPROLOL TARTRATE 50 MG TAB PO SCH (09:15)
[2023-06-14] MEDS: HEPARIN SODIUM (PORCINE) 5000 UNITS/ML 1ML VIAL SC SCH (09:16)
[2023-06-14] MEDS: ASPirin 81 mg TAB PO SCH (09:30)
[2023-06-14] MEDS ORDERED: ATO40T PO (13:44)
[2023-06-14] MEDS ORDERED: METO1TAB77 PO (13:44)
[2023-06-14] MEDS ORDERED: ASPI1TAB20 PO (13:44)
[2023-06-14] MEDS ORDERED: METH4PAK PO ×2 (13:44)
== END 2023-06-14 16:00 | disposition home or self-care (01) | DRG 720 ==
LOC: ER 03:18 → EDSEX 03:18 → EDBD 03:18 → TELE 11:20 → ICU WEST 21:39 → TELE-WESTW 06-08 21:00 → WEST WING 06-09 20:56
PROVIDERS: ADMIT Internal Medicine; ATTEND Internal Medicine Geriatric Medicine
PROC: 5A1955Z Respiratory Ventilation, Greater than 96 Consecutive Hours (ICD-10-PCS; principal; 2023-05-19)
PROC: 0BH17EZ Insertion of Endotracheal Airway into Trachea, Via Natural or Artificial Opening (ICD-10-PCS; 2023-05-19)
PROC: 06HY33Z Insertion of Infusion Device into Lower Vein, Percutaneous Approach (ICD-10-PCS; 2023-05-19)
PROC: 05HM33Z Insertion of Infusion Device into Right Internal Jugular Vein, Percutaneous Approach (ICD-10-PCS; 2023-05-22)
PROC: 5A1D70Z Performance of Urinary Filtration, Intermittent, Less than 6 Hours Per Day (ICD-10-PCS; 2023-05-22)
PROC: 03HY32Z Insertion of Monitoring Device into Upper Artery, Percutaneous Approach (ICD-10-PCS; 2023-05-23)
PROC: 5A1D70Z Performance of Urinary Filtration, Intermittent, Less than 6 Hours Per Day (ICD-10-PCS; 2023-05-23)
PROC: 5A1D70Z Performance of Urinary Filtration, Intermittent, Less than 6 Hours Per Day (ICD-10-PCS; 2023-05-24)
PROC: 02HV33Z Insertion of Infusion Device into Superior Vena Cava, Percutaneous Approach (ICD-10-PCS; 2023-05-25)
PROC: 0B948ZZ Drainage of Right Upper Lobe Bronchus, Via Natural or Artificial Opening Endoscopic (ICD-10-PCS; 2023-05-25)
PROC: 0B9G8ZZ Drainage of Left Upper Lung Lobe, Via Natural or Artificial Opening Endoscopic (ICD-10-PCS; 2023-05-25)
PROC: 0B948ZZ Drainage of Right Upper Lobe Bronchus, Via Natural or Artificial Opening Endoscopic (ICD-10-PCS; 2023-06-01)
PROC: 0B9G8ZZ Drainage of Left Upper Lung Lobe, Via Natural or Artificial Opening Endoscopic (ICD-10-PCS; 2023-06-01)
PROC: 0W993ZZ Drainage of Right Pleural Cavity, Percutaneous Approach (ICD-10-PCS; 2023-06-06)
DX: A41.9 Sepsis, unspecified organism (principal); N17.0 Acute kidney failure with tubular necrosis; J96.01 Acute respiratory failure with hypoxia; J96.02 Acute respiratory failure with hypercapnia; R65.21 Severe sepsis with septic shock; J15.0 Pneumonia due to Klebsiella pneumoniae; S22.41XA Multiple fractures of ribs, right side, initial encounter for closed fracture; E88.09 Other disorders of plasma-protein metabolism, not elsewhere classified; I21.A1 Myocardial infarction type 2; J44.0 Chronic obstructive pulmonary disease with (acute) lower respiratory infection; Z20.822 Contact with and (suspected) exposure to COVID-19; J93.9 Pneumothorax, unspecified; E87.20 Acidosis, unspecified; E87.6 Hypokalemia; E83.42 Hypomagnesemia; F15.10 Other stimulant abuse, uncomplicated; F10.10 Alcohol abuse, uncomplicated; B19.20 Unspecified viral hepatitis C without hepatic coma; W18.39XA Other fall on same level, initial encounter; I25.10 Atherosclerotic heart disease of native coronary artery without angina pectoris; M10.9 Gout, unspecified; I35.0 Nonrheumatic aortic (valve) stenosis; E66.9 Obesity, unspecified; Z68.36 Body mass index [BMI] 36.0-36.9, adult; Y93.89 Activity, other specified; Y92.89 Other specified places as the place of occurrence of the external cause; Y99.8 Other external cause status
CPT/HCPCS: 31500; 31623; 36415; 36556; 36600; 71045; 71250; 71275; 74177; 76604; 76705; 76775; 76942; 80048; 80053; 80061; 80074; 80076; 80307; 80320; 81001; 82570; 82728; 82805; 82962; 83036; 83540; 83550; 83605; 83735; 83880; 83930; 83986; 84100; 84132; 84156; 84300; 84443; 84484; 85007; 85025; 85027; 85610; 85730; 87040; 87070; 87077; 87081; 87086; 87186; 87205; 87426; 89051; 90935; 92610; 93005; 93306; 94003; 94640; 94668; 96365; 96367; 96375; 97110; 97116; 97163; C9113; G0378; J0171; J0330; J0692; J0696; J1100; J1642; J1815; J2185; J2250; J2405; J2704; J3480; J3490; J7060; P9047

== ENCOUNTER 2023-06-16 16:55 | Inpatient (IN) | payer MEDICAID ==
[~2023-06-16] VITALS: Ht 182.9 cm; Wt 88.9 kg
[~2023-06-16 16:55] MED LIST changes: +ASPI1TAB20 PO; +ATO40T PO; -IBUP-1456 PO; -INDO50CA82 PO; -METH-1182 PO; +METH4PAK PO; +METO1TAB77 PO
[2023-06-16] MEDS ORDERED: BUDESONIDE (INHALATION) 0.5 MG/2 ML NEB NEB ONE (17:45)
[2023-06-16 18:08] LABS: Basophils # (auto) 0.1 10 ^3/uL (0-0.2); Eosinophils # (auto) 0.1 10 ^3/uL (0-0.8); Mean Corpuscular Volume 100.3 fL (80.0-100.0)
[2023-06-16 18:11] LABS: Basophils % (auto) 0.9 % (0.0-2.0); Eosinophils % (auto) 0.9 % (0.0-7.0); Hematocrit 35.2 % (41.0-53.0); Hemoglobin 11.6 g/dL (13.5-17.5); Lymphocytes # (auto) 1.9 10 ^3/uL (0.4-5.4); Lymphocytes % (auto) 16.2 % (10.0-50.0); Mean Corpuscular Hgb Conc. 32.9 g/dL (32.0-36.0); Monocytes % (auto) 8.3 % (0.0-12.0); Neutrophils # (auto) 8.5 10 ^3/uL (1.6-8.6); Neutrophils % (auto) 73.7 % (37.0-80.0); Nucleated Red Blood Cells % 0.1 %; Red Blood Cells 3.51 10^6/uL (4.5-5.90); Red Cell Distribution Width 13.3 % (11.8-14.3); White Blood Cell 11.6 10^3/uL (4.4-10.8)
[2023-06-16 18:26] LABS: Albumin 2.8 g/dL (3.4-5.0); Potassium 3.5 mmol/L (3.5-5.1)
[2023-06-16 18:28] LABS: BUN/Creatinine Ratio 23.6 (10.0-20.0)
[2023-06-16 18:30] LABS: Bilirubin, Total 0.5 mg/dL (0.2-1.0); Total Protein 6.4 g/dL (6.4-8.2)
[2023-06-16 18:38] LABS: Lactic Acid w/Reflex 3.3 mmol/L (0.4-2.0)
[2023-06-16 18:44] LABS: INR 1.16 (0.9-1.15); Partial Thromboplastin Time 24.7 SEC (24.5-34.5); Prothrombin Time 12.1 sec (9.3-11.8)
[2023-06-16] MEDS ORDERED: PIPERACILLIN-TAZOB 3.375GM 100 ML IV ONE (20:15)
[2023-06-16 20:55] VITALS: PULSE 121; RESP 22; O2SAT 94
[2023-06-16] MEDS ORDERED: IOHEXOL 350 MG/ML 100ML IJ ONE (21:11)
[2023-06-16] MEDS ORDERED: NITROGLYCERIN 0.4 MG SL TAB SL PRN (21:15)
[2023-06-16] MEDS ORDERED: cefTRIAXone 1GM/50ML D5W 50 ML IV ONE (21:15)
[2023-06-16] MEDS ORDERED: AZITHROMYCIN 500MG/ 250ML 250 ML IV ONE (21:15)
[2023-06-16] MEDS ORDERED: MORPHINE SULFATE INJ 2 MG/ml SYRG IV PRN (21:15)
[2023-06-16] MEDS ORDERED: ALBUTEROL SULF 2.5 MG/0.5ML(0.5%) NEB SOLN NEB PRN (21:15)
[2023-06-16] MEDS ORDERED: HYDROcodone-ACET 5/325MG TAB PO PRN (21:15)
[2023-06-16] MEDS ORDERED: ACETAMINOPHEN 325 MG TAB PO PRN (21:15)
[2023-06-16] MEDS: SODIUM CHLORIDE 0.9% 1,000 ML IV SCH (21:54)
[2023-06-16] MEDS ORDERED: HYDROcodone-ACET 5/325MG TAB PO ONE (22:00)
[2023-06-16] MEDS ORDERED: ATORVASTATIN 20 MG TAB PO SCH (22:00)
[2023-06-16] MEDS: METOPROLOL TARTRATE 50 MG TAB PO SCH (22:10)
[2023-06-16] MEDS: IPRATROPIUM BROM 0.5 MG/2.5ML INH SOL NEB SCH (22:24)
[2023-06-16] MEDS: ALBUTEROL SULF 2.5 MG/0.5ML(0.5%) NEB SOLN NEB SCH (22:24)
[2023-06-16 22:25] VITALS: PULSE 118; RESP 20; O2SAT 94
[2023-06-16 22:32] VITALS: PULSE 109; RESP 20; O2SAT 95
[2023-06-16 23:03] VITALS: BP 116/72; PULSE 109; RESP 20; TEMP 97.7; O2SAT 94
[2023-06-17] VITALS (9 sets, daily range): PULSE 89–119; RESP 15–20; O2SAT 93–98
[2023-06-17] MEDS: ALBUTEROL SULF 2.5 MG/0.5ML(0.5%) NEB SOLN NEB SCH ×6 (02:00→22:00)
[2023-06-17] MEDS: IPRATROPIUM BROM 0.5 MG/2.5ML INH SOL NEB SCH ×6 (02:45→22:00)
[2023-06-17] MEDS: MORPHINE SULFATE INJ 2 MG/ml SYRG IV PRN ×4 (03:03→19:29)
[2023-06-17 04:52] LABS: Basophils # (auto) 0.1 10 ^3/uL (0-0.2); Basophils % (auto) 0.6 % (0.0-2.0); Eosinophils # (auto) 0.1 10 ^3/uL (0-0.8); Hemoglobin 10.7 g/dL (13.5-17.5); Red Cell Distribution Width 13.5 % (11.8-14.3)
[2023-06-17 04:53] LABS: Eosinophils % (auto) 0.6 % (0.0-7.0); Hematocrit 31.3 % (41.0-53.0); Lymphocytes % (auto) 17.6 % (10.0-50.0); Mean Corpuscular Hemoglobin 34.1 pg (28.0-32.0); Mean Corpuscular Hgb Conc. 34.1 g/dL (32.0-36.0); Mean Corpuscular Volume 99.9 fL (80.0-100.0); Monocytes % (auto) 8.8 % (0.0-12.0); Neutrophils # (auto) 8.4 10 ^3/uL (1.6-8.6); Neutrophils % (auto) 72.4 % (37.0-80.0); Red Blood Cells 3.13 10^6/uL (4.5-5.90); White Blood Cell 11.6 10^3/uL (4.4-10.8)
[2023-06-17 05:14] LABS: Calcium 7.4 mg/dL (8.5-10.1); Potassium 3.4 mmol/L (3.5-5.1)
[2023-06-17 05:16] LABS: Albumin 2.6 g/dL (3.4-5.0)
[2023-06-17 05:20] LABS: Bilirubin, Total 0.5 mg/dL (0.2-1.0); Total Protein 6.3 g/dL (6.4-8.2)
[2023-06-17 08:17] LABS: Alcohol, Urine < 3.0 mg/dL (0-10); Amphetamine Screen, Urine NEGATIVE (NEGATIVE); Barbiturate Scree,Urine NEGATIVE (NEGATIVE); Benzodiazephine Screen, Urine NEGATIVE (NEGATIVE); Cannabinoid Screen, Urine NEGATIVE (NEGATIVE); Cocaine Screen, Urine NEGATIVE (NEGATIVE); Opiate Scree,Urine POSITIVE (NEGATIVE); Phencyclidine Screen, Urine NEGATIVE (NEGATIVE)
[2023-06-17 08:18] LABS: COVID19 ANTIGEN SOFIA FIA NEGATIVE (NEGATIVE)
[2023-06-17 08:29] LABS: Urine Bacteria NONE SEEN /hpf (None Seen); Urine Blood Negative /uL (Negative); Urine Clarity Clear (Clear); Urine Color Yellow (Yellow); Urine Protein, UAD TRACE (Negative); Urine Specific Gravity 1.026 (1.001-1.035); Urine Urobilinogen Normal (Negative); Urine WBC <1 /hpf (0 - 3)
[2023-06-17] MEDS: cefTRIAXone 1GM/50ML D5W 50 ML IV SCH (09:04)
[2023-06-17] MEDS: METOPROLOL TARTRATE 50 MG TAB PO SCH ×2 (09:04→23:39)
[2023-06-17] MEDS: ASPirin-EC 81 mg tab PO SCH (09:04)
[2023-06-17] MEDS: ENOXAPARIN SOD 40 MG/0.4 ML SYRINGE SC SCH (09:08)
[2023-06-17] MEDS: AZITHROMYCIN 500MG/ 250ML 250 ML IV SCH (10:02)
[2023-06-17] MEDS: SODIUM CHLORIDE 0.9% 1,000 ML IV SCH (13:27)
[2023-06-17] MEDS ORDERED: ONDANSETRON HCL 4 MG/2 ML VIAL IV PRN (15:30)
[2023-06-17] MEDS ORDERED: diphenhdrAMINE HCL 50 MG/1 ML VL IV ONE (17:30)
[2023-06-17] MEDS ORDERED: OXYCODONE W/ ACETAMINOPHEN 5/325MG TABLET PO ONE (20:30)
[2023-06-17] MEDS: IBUPROFEN 600 MG TAB PO PRN (23:39)
[2023-06-18] VITALS (10 sets, daily range): BP systolic 98–131; BP diastolic 60–85; PULSE 83–113; RESP 14–20; TEMP 97.6–99.5; O2SAT 91–97
[2023-06-18] MEDS: IPRATROPIUM BROM 0.5 MG/2.5ML INH SOL NEB SCH ×2 (02:00→07:30)
[2023-06-18] MEDS: ALBUTEROL SULF 2.5 MG/0.5ML(0.5%) NEB SOLN NEB SCH ×2 (02:00→07:30)
[2023-06-18] MEDS: MORPHINE SULFATE INJ 2 MG/ml SYRG IV PRN (04:21)
[2023-06-18] MEDS: SODIUM CHLORIDE 0.9% 1,000 ML IV SCH (06:10)
[2023-06-18] MEDS ORDERED: POTASSIUM CHL 20 Meq TABLET PO ONE (11:30)
[2023-06-18] MEDS ORDERED: TAMSULOSIN HYDROCHLORIDE 0.4 MG CAP PO ONE (11:30)
[2023-06-18] MEDS ORDERED: diphenhdrAMINE HCL 50 MG/1 ML VL IV PRN (11:30)
[2023-06-18] MEDS: AZITHROMYCIN 500MG/ 250ML 250 ML IV SCH (11:58)
[2023-06-18] MEDS: cefTRIAXone 1GM/50ML D5W 50 ML IV SCH (11:58)
[2023-06-18] MEDS: ENOXAPARIN SOD 40 MG/0.4 ML SYRINGE SC SCH (11:59)
[2023-06-18] MEDS: METOPROLOL TARTRATE 50 MG TAB PO SCH ×2 (12:00→21:21)
[2023-06-18] MEDS: ASPirin-EC 81 mg tab PO SCH (12:02)
[2023-06-18] MEDS: HYDROcodone-ACET 5/325MG TAB PO PRN ×2 (12:03→19:56)
[2023-06-18] MEDS: ALPRAZolam 0.5 MG TAB PO PRN (12:04)
[2023-06-18 12:07] LABS: Basophils # (auto) 0.1 10 ^3/uL (0-0.2); Eosinophils # (auto) 0.1 10 ^3/uL (0-0.8); Eosinophils % (auto) 0.7 % (0.0-7.0); Hematocrit 30.7 % (41.0-53.0); Hemoglobin 10.4 g/dL (13.5-17.5); Lymphocytes # (auto) 1.4 10 ^3/uL (0.4-5.4); Mean Corpuscular Hemoglobin 34.2 pg (28.0-32.0); Mean Corpuscular Volume 100.6 fL (80.0-100.0); Monocytes # (auto) 1.1 10 ^3/uL (0-1.3); Monocytes % (auto) 7.9 % (0.0-12.0); Neutrophils # (auto) 11.2 10 ^3/uL (1.6-8.6); Neutrophils % (auto) 80.4 % (37.0-80.0); Nucleated Red Blood Cells % 0.1 %; Red Blood Cells 3.05 10^6/uL (4.5-5.90); Red Cell Distribution Width 13.8 % (11.8-14.3); White Blood Cell 13.8 10^3/uL (4.4-10.8)
[2023-06-18 12:43] LABS: Albumin 2.3 g/dL (3.4-5.0); Calcium 7.2 mg/dL (8.5-10.1); Potassium 3.9 mmol/L (3.5-5.1)
[2023-06-18 12:47] LABS: BUN/Creatinine Ratio 28.8 (10.0-20.0); Bilirubin, Total 0.6 mg/dL (0.2-1.0); Total Protein 6.1 g/dL (6.4-8.2)
[2023-06-18] MEDS: IBUPROFEN 600 MG TAB PO PRN (17:04)
[2023-06-18] MEDS: TAMSULOSIN HYDROCHLORIDE 0.4 MG CAP PO SCH (18:00)
[2023-06-18] MEDS: MELATONIN 5 MG TAB PO SCH (21:19)
[2023-06-19] VITALS (10 sets, daily range): BP systolic 101–125; BP diastolic 66–83; PULSE 65–97; RESP 14–20; TEMP 97.7–98.4; O2SAT 92–97
[2023-06-19] MEDS: HYDROcodone-ACET 5/325MG TAB PO PRN ×6 (00:09→23:44)
[2023-06-19] MEDS: IBUPROFEN 600 MG TAB PO PRN ×3 (00:09→16:47)
[2023-06-19] MEDS: cefTRIAXone 1GM/50ML D5W 50 ML IV SCH (08:40)
[2023-06-19] MEDS: ASPirin-EC 81 mg tab PO SCH (08:41)
[2023-06-19] MEDS: METOPROLOL TARTRATE 50 MG TAB PO SCH ×2 (08:41→21:18)
[2023-06-19] MEDS: ENOXAPARIN SOD 40 MG/0.4 ML SYRINGE SC SCH (08:42)
[2023-06-19] MEDS: AZITHROMYCIN 500MG/ 250ML 250 ML IV SCH (09:58)
[2023-06-19] MEDS: TAMSULOSIN HYDROCHLORIDE 0.4 MG CAP PO SCH (16:47)
[2023-06-19] MEDS: ALPRAZolam 0.5 MG TAB PO PRN (21:14)
[2023-06-19] MEDS: MELATONIN 5 MG TAB PO SCH (21:19)
[2023-06-20] VITALS (8 sets, daily range): BP systolic 112–153; BP diastolic 67–90; PULSE 95–120; RESP 16–20; TEMP 97.4–99.1; O2SAT 94–99
[2023-06-20] MEDS: HYDROcodone-ACET 5/325MG TAB PO PRN ×4 (07:44→20:17)
[2023-06-20] MEDS: ALPRAZolam 0.5 MG TAB PO PRN ×2 (07:47→22:04)
[2023-06-20] MEDS: cefTRIAXone 1GM/50ML D5W 50 ML IV SCH (08:29)
[2023-06-20] MEDS: METOPROLOL TARTRATE 50 MG TAB PO SCH ×2 (08:29→22:09)
[2023-06-20] MEDS: ASPirin-EC 81 mg tab PO SCH (10:09)
[2023-06-20] MEDS: ENOXAPARIN SOD 40 MG/0.4 ML SYRINGE SC SCH (10:10)
[2023-06-20] MEDS: AZITHROMYCIN 500MG/ 250ML 250 ML IV SCH (10:10)
[2023-06-20] MEDS: TAMSULOSIN HYDROCHLORIDE 0.4 MG CAP PO SCH (18:08)
[2023-06-20] MEDS: MELATONIN 5 MG TAB PO SCH (22:04)
[2023-06-21] VITALS (8 sets, daily range): BP systolic 98–120; BP diastolic 63–78; PULSE 80–104; RESP 19–20; TEMP 97.4–98.5; O2SAT 18–96
[2023-06-21] MEDS: HYDROcodone-ACET 5/325MG TAB PO PRN ×4 (00:16→13:18)
[2023-06-21] MEDS: cefTRIAXone 1GM/50ML D5W 50 ML IV SCH (08:29)
[2023-06-21] MEDS: ASPirin-EC 81 mg tab PO SCH (10:20)
[2023-06-21] MEDS: AZITHROMYCIN 500MG/ 250ML 250 ML IV SCH (10:20)
[2023-06-21] MEDS: ENOXAPARIN SOD 40 MG/0.4 ML SYRINGE SC SCH (10:21)
[2023-06-21] MEDS: METOPROLOL TARTRATE 50 MG TAB PO SCH (10:21)
[2023-06-21] MEDS ORDERED: HYDR-4902 PO (13:16)
== END 2023-06-21 15:30 | disposition home or self-care (01) | DRG 720 ==
LOC: EDSEX 16:55 → ER 16:55 → EDBD 16:55 → TELE 21:06 → TELE-WESTW 06-17 22:30 → TELE-E-ADS 06-18 18:55
PROVIDERS: ADMIT Nurse Practitioner Family; ATTEND Nurse Practitioner Acute Care
DX: A41.50 Gram-negative sepsis, unspecified (principal); J96.01 Acute respiratory failure with hypoxia; J15.6 Pneumonia due to other Gram-negative bacteria; E44.0 Moderate protein-calorie malnutrition; K74.60 Unspecified cirrhosis of liver; F17.210 Nicotine dependence, cigarettes, uncomplicated; R74.8 Abnormal levels of other serum enzymes; Z20.822 Contact with and (suspected) exposure to COVID-19; I35.0 Nonrheumatic aortic (valve) stenosis; F15.10 Other stimulant abuse, uncomplicated; F12.10 Cannabis abuse, uncomplicated; Z87.11 Personal history of peptic ulcer disease; Z59.00 Homelessness unspecified; Z87.01 Personal history of pneumonia (recurrent); Z76.5 Malingerer [conscious simulation]; Z68.26 Body mass index [BMI] 26.0-26.9, adult
CPT/HCPCS: 36415; 71045; 71275; 80053; 80307; 81001; 83605; 83880; 84484; 85025; 85379; 85610; 85730; 87040; 87081; 87426; 93005; 93970; 94640; 96365; 97110; 97116; 97163; 97530; G0378; J0696; J2405

== ENCOUNTER 2023-06-28 00:04 | Emergency (ER) | payer MEDICAID ==
[~2023-06-28] VITALS: Ht 167.6 cm; Wt 89.5 kg
[~2023-06-28 00:04] MED LIST changes: +HYDR-4902 PO; -METH4PAK PO
[2023-06-28 01:35] LABS: Basophils # (auto) 0.1 10 ^3/uL (0-0.2); Basophils % (auto) 1.4 % (0.0-2.0); Eosinophils # (auto) 0.2 10 ^3/uL (0-0.8); Eosinophils % (auto) 2.8 % (0.0-7.0); Hematocrit 29.9 % (41.0-53.0); Hemoglobin 10.2 g/dL (13.5-17.5); Lymphocytes # (auto) 1.9 10 ^3/uL (0.4-5.4); Lymphocytes % (auto) 22.8 % (10.0-50.0); Mean Corpuscular Hgb Conc. 34.2 g/dL (32.0-36.0); Mean Corpuscular Volume 99.6 fL (80.0-100.0); Monocytes # (auto) 0.6 10 ^3/uL (0-1.3); Monocytes % (auto) 7.1 % (0.0-12.0); Neutrophils # (auto) 5.4 10 ^3/uL (1.6-8.6); Neutrophils % (auto) 65.9 % (37.0-80.0); Red Cell Distribution Width 13.6 % (11.8-14.3); White Blood Cell 8.1 10^3/uL (4.4-10.8)
[2023-06-28 01:50] LABS: Alanine Aminotransferase 62 U/L (7-40); Albumin 3.8 g/dL (3.2-4.8); Alkaline Phosphatase 165 U/L (46-116); Anion Gap 9.4 (5-15); Aspartate Aminotransferase 56 U/L (13-40); BUN/Creatinine Ratio 15.8 (10.0-20.0); Blood Urea Nitrogen 9 mg/dL (9-23); Calcium 8.5 mg/dL (8.7-10.4); Carbon Dioxide 23.6 mmol/L (20-30); Chloride 110 mmol/L (98-107); Glucose 126 mg/dL (74-106); Potassium 3.8 mmol/L (3.5-5.1); Sodium 143 mmol/L (136-145)
[2023-06-28 01:51] LABS: Bilirubin, Total 0.5 mg/dL (0.2-1.0); Total Protein 7.1 g/dL (5.7-8.2)
[2023-06-28 04:02] VITALS: BP 132/85; PULSE 114; RESP 18; TEMP 98.3; O2SAT 97
== END 2023-06-28 04:09 | disposition home or self-care (01) ==
LOC: ER 00:04
DX: I89.0 Lymphedema, not elsewhere classified (principal); F17.210 Nicotine dependence, cigarettes, uncomplicated; F15.90 Other stimulant use, unspecified, uncomplicated; Z79.899 Other long term (current) drug therapy; Z79.84 Long term (current) use of oral hypoglycemic drugs; Z59.00 Homelessness unspecified
CPT/HCPCS: 36415; 80053; 83880; 84484; 85025; 93005

== ENCOUNTER 2023-09-03 05:17 | Emergency (ER) | payer MEDICAID ==
[~2023-09-03] VITALS: Ht 167.6 cm; Wt 90.0 kg
[2023-09-03 06:51] VITALS: BP 146/88; PULSE 115; RESP 25; O2SAT 93
[2023-09-03 07:45] LABS: Basophils # (auto) 0.1 10 ^3/uL (0-0.2); Basophils % (auto) 1.1 % (0.0-2.0); Eosinophils # (auto) 0.3 10 ^3/uL (0-0.8); Eosinophils % (auto) 3.6 % (0.0-7.0); Hematocrit 35.6 % (41.0-53.0); Hemoglobin 12.1 g/dL (13.5-17.5); Lymphocytes # (auto) 1.7 10 ^3/uL (0.4-5.4); Lymphocytes % (auto) 22.8 % (10.0-50.0); Mean Corpuscular Hemoglobin 32.1 pg (28.0-32.0); Mean Corpuscular Volume 94.4 fL (80.0-100.0); Neutrophils # (auto) 4.5 10 ^3/uL (1.6-8.6); Neutrophils % (auto) 59.5 % (37.0-80.0); Red Blood Cells 3.77 10^6/uL (4.5-5.90); White Blood Cell 7.6 10^3/uL (4.4-10.8)
[2023-09-03 08:02] LABS: INR 1.12 (0.9-1.15); Prothrombin Time 11.7 sec (9.3-11.8)
[2023-09-03 08:51] LABS: Alanine Aminotransferase 65 U/L (7-40); Albumin 3.5 g/dL (3.2-4.8); Alkaline Phosphatase 87 U/L (46-116); Anion Gap 4 (5-15); Aspartate Aminotransferase 53 U/L (13-40); BUN/Creatinine Ratio 19.4 (10.0-20.0); Bilirubin, Total 0.4 mg/dL (0.2-1.0); Blood Urea Nitrogen 13 mg/dL (9-23); Calcium 8.7 mg/dL (8.5-10.1); Carbon Dioxide 29 mmol/L (20-30); Chloride 106 mmol/L (98-107); Glucose 120 mg/dL (74-106); Potassium 4.2 mmol/L (3.5-5.1); Sodium 139 mmol/L (136-145); Total Protein 6.7 g/dL (5.7-8.2)
[2023-09-03] MEDS ORDERED: KETOROLAC TROMETH 60MG/2ML VIAL IM ONE (09:00)
[2023-09-03] MEDS ORDERED: methylPREDNISolone SOD SUCC 125 MG/2 ML VL IM ONE (09:00)
[2023-09-03] MEDS ORDERED: FURO1TAB31 PO (09:53)
[2023-09-03] MEDS ORDERED: INDO50CA82 PO (09:53)
[2023-09-03] MEDS ORDERED: COLC1CAP PO (09:53)
== END 2023-09-03 10:00 | disposition home or self-care (01) ==
LOC: EDBD 05:17 → EDUNIT# 05:17 → ER 05:17
DX: M10.9 Gout, unspecified (principal); R60.0 Localized edema; F17.210 Nicotine dependence, cigarettes, uncomplicated; Z79.82 Long term (current) use of aspirin; Z79.899 Other long term (current) drug therapy
CPT/HCPCS: 36415; 80053; 83880; 84550; 85025; 85610; 93971; 96372; 99285; J1885; J2930

== ENCOUNTER 2023-09-10 21:36 | Inpatient (IN) | payer MEDICAID ==
[~2023-09-10] VITALS: Ht 167.6 cm; Wt 90.0 kg
[~2023-09-10 21:36] MED LIST changes: +COLC1CAP PO; +FURO1TAB31 PO; +INDO50CA82 PO
[2023-09-10 22:16] LABS: Basophils # (auto) 0.1 10 ^3/uL (0-0.2); Basophils % (auto) 0.5 % (0.0-2.0); Eosinophils # (auto) 0 10 ^3/uL (0-0.8); Eosinophils % (auto) 0.3 % (0.0-7.0); Hemoglobin 14.1 g/dL (13.5-17.5); Lymphocytes # (auto) 1.2 10 ^3/uL (0.4-5.4); Lymphocytes % (auto) 6.7 % (10.0-50.0); Mean Corpuscular Hemoglobin 32.1 pg (28.0-32.0); Mean Corpuscular Hgb Conc. 33.7 g/dL (32.0-36.0); Mean Corpuscular Volume 95.2 fL (80.0-100.0); Monocytes % (auto) 5.9 % (0.0-12.0); Neutrophils # (auto) 15.3 10 ^3/uL (1.6-8.6); Neutrophils % (auto) 86.6 % (37.0-80.0); Nucleated Red Blood Cells % 0.1 %; Red Blood Cells 4.41 10^6/uL (4.5-5.90); Red Cell Distribution Width 13.2 % (11.8-14.3); White Blood Cell 17.7 10^3/uL (4.4-10.8)
[2023-09-10] MEDS ORDERED: KETOROLAC TROMETH 60MG/2ML VIAL IM ONE (22:30)
[2023-09-10 22:33] LABS: INR 1.09 (0.9-1.15); Partial Thromboplastin Time 29.6 SEC (24.5-34.5); Prothrombin Time 11.4 sec (9.3-11.8)
[2023-09-10 22:34] LABS: Alanine Aminotransferase 48 U/L (7-40); Albumin 4.4 g/dL (3.2-4.8); Alkaline Phosphatase 96 U/L (46-116); Anion Gap 11 (5-15); Aspartate Aminotransferase 82 U/L (13-40); BUN/Creatinine Ratio 23.8 (10.0-20.0); Bilirubin, Total 0.7 mg/dL (0.2-1.0); Blood Urea Nitrogen 19 mg/dL (9-23); Calcium 9.1 mg/dL (8.7-10.4); Carbon Dioxide 25 mmol/L (20-30); Chloride 101 mmol/L (98-107); Glucose 98 mg/dL (74-106); Magnesium 1.8 mg/dL (1.6-2.6); Potassium 4.1 mmol/L (3.5-5.1); Sodium 137 mmol/L (136-145); Total Protein 8.2 g/dL (5.7-8.2)
[2023-09-11] MEDS ORDERED: COLCHICINE 0.6 MG CAP PO ONE ×2 (01:00)
[2023-09-11] MEDS ORDERED: PIPERACILLIN-TAZOB 3.375GM 100 ML IV ONE (01:00)
[2023-09-11] MEDS ORDERED: dilTIAZem 25 MG/5 ML VIAL IV ONE (01:15)
[2023-09-11 03:15] VITALS: O2SAT 92
[2023-09-11] MEDS: FOLIC ACID 1 MG, MULTIPLE VITAMIN 10 ML, MAGNESIUM SULF SDV 50% 8 MEQ, THIAMINE INJ 100... INJ SCH ×10 (04:10→12:00)
[2023-09-11] MEDS ORDERED: MORPHINE SULFATE 4 MG/ML SYR/VIAL IV ONE (04:30)
[2023-09-11] MEDS ORDERED: HYDROcodone-ACET 5/325MG TAB PO PRN (05:45)
[2023-09-11] MEDS ORDERED: ACETAMINOPHEN 325 MG TAB PO PRN (05:45)
[2023-09-11] MEDS ORDERED: hydrALAZINE HCL 20 MG/ML VL IV PRN (05:45)
[2023-09-11] MEDS ORDERED: DOCUSATE SOD 100 MG CAP PO PRN (05:45)
[2023-09-11] MEDS ORDERED: NITROGLYCERIN 0.4 MG SL TAB SL PRN (06:15)
[2023-09-11] MEDS ORDERED: MORPHINE SULFATE INJ 2 MG/ml SYRG IV PRN (06:15)
[2023-09-11] MEDS ORDERED: IBUPROFEN 600 MG TAB PO PRN (06:15)
[2023-09-11] MEDS: SODIUM CHLORIDE 0.9% 1,000 ML IV SCH ×2 (06:42→22:36)
[2023-09-11 06:47] LABS: Basophils # (auto) 0.1 10 ^3/uL (0-0.2); Basophils % (auto) 0.5 % (0.0-2.0); Eosinophils # (auto) 0 10 ^3/uL (0-0.8); Eosinophils % (auto) 0.2 % (0.0-7.0); Hemoglobin 12.6 g/dL (13.5-17.5); Lymphocytes # (auto) 1.7 10 ^3/uL (0.4-5.4); Lymphocytes % (auto) 9.1 % (10.0-50.0); Mean Corpuscular Hemoglobin 31.4 pg (28.0-32.0); Mean Corpuscular Hgb Conc. 33.3 g/dL (32.0-36.0); Mean Corpuscular Volume 94.4 fL (80.0-100.0); Monocytes # (auto) 1.1 10 ^3/uL (0-1.3); Neutrophils % (auto) 84.2 % (37.0-80.0); Nucleated Red Blood Cells % 0.1 %; Red Blood Cells 4.02 10^6/uL (4.5-5.90)
[2023-09-11 06:48] LABS: Amphetamine Screen, Urine Pos (NEGATIVE); Barbiturate Scree,Urine Neg (NEGATIVE); Benzodiazephine Screen, Urine Neg (NEGATIVE); Cocaine Screen, Urine Neg (NEGATIVE); Opiate Scree,Urine Neg (NEGATIVE)
[2023-09-11 06:49] LABS: Cannabinoid Screen, Urine Neg (NEGATIVE); Phencyclidine Screen, Urine Neg (NEGATIVE)
[2023-09-11 06:53] LABS: Alanine Aminotransferase 47 U/L (7-40); Albumin 3.8 g/dL (3.2-4.8); Alkaline Phosphatase 77 U/L (46-116); Anion Gap 6 (5-15); Aspartate Aminotransferase 56 U/L (13-40); BUN/Creatinine Ratio 24.1 (10.0-20.0); Bilirubin, Total 0.9 mg/dL (0.2-1.0); Blood Urea Nitrogen 21 mg/dL (9-23); Calcium 8.7 mg/dL (8.5-10.1); Carbon Dioxide 28 mmol/L (20-30); Chloride 103 mmol/L (98-107); Glucose 159 mg/dL (74-106); Potassium 3.6 mmol/L (3.5-5.1); Sodium 137 mmol/L (136-145)
[2023-09-11 07:42] VITALS: PULSE 115; RESP 18; O2SAT 93
[2023-09-11] MEDS: METOPROLOL TARTRATE 50 MG TAB PO SCH ×2 (09:30→22:24)
[2023-09-11] MEDS: MULTIPLE VITAMIN TAB PO SCH (09:30)
[2023-09-11] MEDS: ASPirin 81 mg TAB PO SCH (09:30)
[2023-09-11] MEDS: THIAMINE HCL 100 MG TAB PO SCH (09:30)
[2023-09-11] MEDS ORDERED: COLCHICINE 0.6 MG CAP PO SCH (10:00)
[2023-09-11 11:33] LABS: Urine Bacteria NONE SEEN /hpf (None Seen); Urine Blood Negative /uL (Negative); Urine Clarity Clear (Clear); Urine Color Yellow (Yellow); Urine Protein, UAD 2+ (Negative); Urine Specific Gravity 1.026 (1.001-1.035); Urine WBC <1 /hpf (0 - 3)
[2023-09-11] MEDS: ONDANSETRON HCL 4 MG/2 ML VIAL IV PRN ×2 (15:03→21:41)
[2023-09-11] MEDS: PIPERACILLIN-TAZOB 3.375GM 100 ML IV SCH ×2 (15:04→22:24)
[2023-09-11 17:44] LABS: Erythrocyte Sedimentation Rate 25 mm/hr (0-20)
[2023-09-11] MEDS: PANTOPRAZOLE 40 MG TAB PO SCH (18:37)
[2023-09-11 20:00] VITALS: PULSE 89; RESP 20; O2SAT 94
[2023-09-11] MEDS: MORPHINE SULFATE INJ 2 MG/ml SYRG IV PRN (21:42)
[2023-09-11] MEDS ORDERED: ATORVASTATIN 20 MG TAB PO SCH (22:00)
[2023-09-12] MEDS: MORPHINE SULFATE INJ 2 MG/ml SYRG IV PRN ×2 (03:31→12:14)
[2023-09-12] MEDS: PIPERACILLIN-TAZOB 3.375GM 100 ML IV SCH ×2 (05:39→14:45)
[2023-09-12 06:18] LABS: Basophils # (auto) 0.1 10 ^3/uL (0-0.2); Basophils % (auto) 0.7 % (0.0-2.0); Eosinophils # (auto) 0.3 10 ^3/uL (0-0.8); Eosinophils % (auto) 2.6 % (0.0-7.0); Hematocrit 39.2 % (41.0-53.0); Hemoglobin 13.1 g/dL (13.5-17.5); Lymphocytes # (auto) 1.8 10 ^3/uL (0.4-5.4); Lymphocytes % (auto) 18.1 % (10.0-50.0); Mean Corpuscular Hemoglobin 32.6 pg (28.0-32.0); Mean Corpuscular Hgb Conc. 33.5 g/dL (32.0-36.0); Mean Corpuscular Volume 97.4 fL (80.0-100.0); Monocytes # (auto) 0.9 10 ^3/uL (0-1.3); Monocytes % (auto) 8.9 % (0.0-12.0); Neutrophils % (auto) 69.7 % (37.0-80.0); Red Blood Cells 4.02 10^6/uL (4.5-5.90); Red Cell Distribution Width 13.4 % (11.8-14.3)
[2023-09-12 06:49] LABS: Alanine Aminotransferase 32 U/L (7-40); Albumin 3.8 g/dL (3.2-4.8); Alkaline Phosphatase 87 U/L (46-116); Anion Gap 4 (5-15); Aspartate Aminotransferase 46 U/L (13-40); BUN/Creatinine Ratio 14.1 (10.0-20.0); Bilirubin, Total 0.6 mg/dL (0.2-1.0); Blood Urea Nitrogen 13 mg/dL (9-23); Calcium 8.7 mg/dL (8.7-10.4); Carbon Dioxide 29 mmol/L (20-30); Chloride 107 mmol/L (98-107); Glucose 99 mg/dL (74-106); Potassium 4.3 mmol/L (3.5-5.1); Sodium 140 mmol/L (136-145); Total Protein 7.1 g/dL (5.7-8.2)
[2023-09-12 07:20] VITALS: RESP 20; O2SAT 94
[2023-09-12] MEDS ORDERED: ALLOPURINOL 300 MG TAB PO SCH (10:00)
[2023-09-12] MEDS ORDERED: COLCHICINE 0.6 MG CAP PO SCH (10:00)
[2023-09-12] MEDS: THIAMINE HCL 100 MG TAB PO SCH (10:23)
[2023-09-12] MEDS: PANTOPRAZOLE 40 MG TAB PO SCH (10:23)
[2023-09-12] MEDS: METOPROLOL TARTRATE 50 MG TAB PO SCH (10:23)
[2023-09-12] MEDS: ASPirin 81 mg TAB PO SCH (10:23)
[2023-09-12] MEDS: MULTIPLE VITAMIN TAB PO SCH (10:23)
[2023-09-12 11:11] VITALS: BP 116/82; PULSE 64; RESP 17; TEMP 98.2; O2SAT 95
[2023-09-12 11:15] VITALS: BP 116/82; PULSE 64; RESP 17; TEMP 98.2; O2SAT 95
[2023-09-12] MEDS ORDERED: LEVO500T91 PO (12:31)
[2023-09-12 13:26] VITALS: BP 120/80; PULSE 67; RESP 17; TEMP 98.3; O2SAT 97
[2023-09-12] MEDS: FOLIC ACID 1 MG, MULTIPLE VITAMIN 10 ML, MAGNESIUM SULF SDV 50% 8 MEQ, THIAMINE INJ 100... INJ SCH ×5 (13:31)
[2023-09-12] MEDS: SODIUM CHLORIDE 0.9% 1,000 ML IV SCH (15:00)
[2023-09-12 15:27] VITALS: BP 120/80; PULSE 67; RESP 16; TEMP 98.3; O2SAT 97
[2023-09-12 16:28] VITALS: BP 117/81; PULSE 74; RESP 16; TEMP 98.1; O2SAT 98
== END 2023-09-12 16:39 | disposition home or self-care (01) | DRG 812 ==
LOC: ER 21:36 → EDBD 21:36 → TELE 09-11 06:14 → TELE-WESTW 09-12 10:55
PROVIDERS: ADMIT Internal Medicine
DX: T43.651A Poisoning by methamphetamines accidental (unintentional), initial encounter (principal); G92.9 Unspecified toxic encephalopathy; R65.10 Systemic inflammatory response syndrome (SIRS) of non-infectious origin without acute organ dysfunction; T51.91XA Toxic effect of unspecified alcohol, accidental (unintentional), initial encounter; D72.829 Elevated white blood cell count, unspecified; M10.9 Gout, unspecified; F10.10 Alcohol abuse, uncomplicated; R79.89 Other specified abnormal findings of blood chemistry; F15.10 Other stimulant abuse, uncomplicated; I48.91 Unspecified atrial fibrillation; F17.210 Nicotine dependence, cigarettes, uncomplicated; E66.01 Morbid (severe) obesity due to excess calories; R74.01 Elevation of levels of liver transaminase levels; Z68.32 Body mass index [BMI] 32.0-32.9, adult; Z87.11 Personal history of peptic ulcer disease; Y92.89 Other specified places as the place of occurrence of the external cause; N39.0 Urinary tract infection, site not specified
CPT/HCPCS: 36415; 71045; 76705; 80053; 80307; 80320; 81001; 83735; 83880; 84484; 84550; 85025; 85379; 85610; 85652; 85730; 87040; 93005; G0378; J2405; J2543

== ENCOUNTER 2023-12-15 04:59 | Emergency (ER) | payer MEDICAID ==
[~2023-12-15] VITALS: Ht 167.6 cm; Wt 93.2 kg
[~2023-12-15 04:59] MED LIST changes: +LEVO500T91 PO
[2023-12-15 05:19] VITALS: BP 169/97; RESP 18; O2SAT 95
[2023-12-15 05:22] VITALS: PULSE 113
== END 2023-12-15 07:24 | disposition left against medical advice (07) ==
LOC: ER 04:59
DX: R06.02 Shortness of breath (principal); R07.89 Other chest pain; Z53.21 Procedure and treatment not carried out due to patient leaving prior to being seen by health care provider
CPT/HCPCS: 71045; 93005

== ENCOUNTER 2023-12-18 14:07 | Emergency (ER) | payer MEDICAID ==
[~2023-12-18] VITALS: Ht 167.6 cm; Wt 81.8 kg
[2023-12-18 16:03] VITALS: TEMP 98.1; O2SAT 96
[2023-12-18 16:25] LABS: Basophils # (auto) 0.1 10 ^3/uL (0-0.2); Basophils % (auto) 0.9 % (0.0-2.0); Eosinophils # (auto) 0.1 10 ^3/uL (0-0.8); Eosinophils % (auto) 0.9 % (0.0-7.0); Hematocrit 42.3 % (41.0-53.0); Hemoglobin 14.1 g/dL (13.5-17.5); Lymphocytes # (auto) 1.6 10 ^3/uL (0.4-5.4); Lymphocytes % (auto) 18.8 % (10.0-50.0); Mean Corpuscular Hemoglobin 32.6 pg (28.0-32.0); Mean Corpuscular Hgb Conc. 33.4 g/dL (32.0-36.0); Mean Corpuscular Volume 97.4 fL (80.0-100.0); Monocytes # (auto) 1.2 10 ^3/uL (0-1.3); Monocytes % (auto) 13.9 % (0.0-12.0); Neutrophils # (auto) 5.7 10 ^3/uL (1.6-8.6); Neutrophils % (auto) 65.5 % (37.0-80.0); Nucleated Red Blood Cells % 0.2 %; Red Blood Cells 4.34 10^6/uL (4.5-5.90); Red Cell Distribution Width 14.6 % (11.8-14.3); White Blood Cell 8.7 10^3/uL (4.4-10.8)
[2023-12-18 16:28] VITALS: BP 121/96; PULSE 123; RESP 18
[2023-12-18] MEDS: HYDROmorphone HCL 2 MG/ML VL/or syr IM ONE (16:28)
[2023-12-18 16:40] LABS: Alanine Aminotransferase 46 U/L (7-40); Albumin 4.2 g/dL (3.2-4.8); Alkaline Phosphatase 96 U/L (46-116); Anion Gap 7 (5-15); Aspartate Aminotransferase 45 U/L (13-40); BUN/Creatinine Ratio 13.1 (10.0-20.0); Bilirubin, Total 1.3 mg/dL (0.2-1.0); Blood Urea Nitrogen 16 mg/dL (9-23); Calcium 9.2 mg/dL (8.7-10.4); Carbon Dioxide 26 mmol/L (20-30); Chloride 100 mmol/L (98-107); Glucose 100 mg/dL (74-106); Potassium 3.6 mmol/L (3.5-5.1); Sodium 133 mmol/L (136-145); Total Protein 8.3 g/dL (5.7-8.2); Uric Acid 11.5 mg/dL (3.7-9.2)
[2023-12-18 17:34] LABS: Erythrocyte Sedimentation Rate 46 mm/hr (0-20)
== END 2023-12-18 17:30 | disposition left against medical advice (07) ==
LOC: ER 14:07 → EDBD 14:07 → ER 17:30
DX: M25.562 Pain in left knee (principal); M25.572 Pain in left ankle and joints of left foot; Z53.21 Procedure and treatment not carried out due to patient leaving prior to being seen by health care provider; W11.XXXA Fall on and from ladder, initial encounter; Y93.89 Activity, other specified; Y92.89 Other specified places as the place of occurrence of the external cause; Y99.8 Other external cause status
CPT/HCPCS: 36415; 73564; 73600; 80053; 83880; 84550; 85025; 85652; 87040; 96372; 99281; J1170

== ENCOUNTER 2024-08-23 00:33 | Emergency (ER) | payer MEDICAID ==
[~2024-08-23] VITALS: Ht 167.6 cm; Wt 75.0 kg
[~2024-08-23 00:33] MED LIST changes: -ATO40T PO; +ATOR-507 PO; +DICL75TA2 PO; +OLME40TA76 PO
[2024-08-23 00:44] VITALS: BP 115/77; PULSE 123; RESP 18; O2SAT 97
[2024-08-23] MEDS ORDERED: ACET500T58 PO (04:22)
== END 2024-08-23 05:22 | disposition left against medical advice (07) ==
LOC: ER 00:33
DX: S70.02XA Contusion of left hip, initial encounter (principal); S80.02XA Contusion of left knee, initial encounter; S40.022A Contusion of left upper arm, initial encounter; I10 Essential (primary) hypertension; M10.9 Gout, unspecified; E78.5 Hyperlipidemia, unspecified; F15.90 Other stimulant use, unspecified, uncomplicated; Z86.73 Personal history of transient ischemic attack (TIA), and cerebral infarction without residual deficits; Z98.890 Other specified postprocedural states; Z87.891 Personal history of nicotine dependence; Z79.82 Long term (current) use of aspirin; Z79.899 Other long term (current) drug therapy; W01.0XXA Fall on same level from slipping, tripping and stumbling without subsequent striking against object, initial encounter; Y93.89 Activity, other specified; Y92.89 Other specified places as the place of occurrence of the external cause; Y99.8 Other external cause status
CPT/HCPCS: 73030; 73502; 73562

== ENCOUNTER 2024-08-28 08:33 | Emergency (ER) | payer MEDICAID ==
[~2024-08-28] VITALS: Ht 167.6 cm; Wt 85.0 kg
[~2024-08-28 08:33] MED LIST changes: +ACET500T58 PO
[2024-08-28 10:26] VITALS: BP 113/80; PULSE 115; RESP 18; TEMP 97.4; O2SAT 95
[2024-08-28] MEDS ORDERED: IBUP-1454 PO (10:52)
[2024-08-28] MEDS ORDERED: AZIT-43 PO (10:52)
== END 2024-08-28 11:20 | disposition home or self-care (01) ==
LOC: ER 08:33
DX: R07.81 Pleurodynia (principal); F12.90 Cannabis use, unspecified, uncomplicated; F15.90 Other stimulant use, unspecified, uncomplicated; E78.5 Hyperlipidemia, unspecified; I10 Essential (primary) hypertension; Z79.84 Long term (current) use of oral hypoglycemic drugs; Z86.73 Personal history of transient ischemic attack (TIA), and cerebral infarction without residual deficits; Z79.899 Other long term (current) drug therapy; Z98.890 Other specified postprocedural states
CPT/HCPCS: 71101

== ENCOUNTER 2024-09-20 05:24 | Inpatient (IN) | payer MEDICAID ==
[~2024-09-20] VITALS: Ht 167.6 cm; Wt 84.0 kg
[2024-09-20] VITALS (8 sets, daily range): BP systolic 124–147; BP diastolic 83–99; PULSE 92–118; RESP 17–21; TEMP 98.4–99.4; O2SAT 92–98
[~2024-09-20 05:24] MED LIST changes: +AZIT-43 PO; +IBUP-1454 PO
--- NOTE | 2024-09-20 05:37 | ECG ---
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
--- NOTE | 2024-09-20 06:32 | ED.PDOC ---
SOB-HPI HPI Comments 59y F M who presents to the ED via EMS for chief complaint of shortness of breath. Pt states he became short of breath earlier this AM while attempting to walk to bathroom and called EMS to the scene. EMS states pt while attempting to ambulate from couch to ED [place] had 02 saturation of 86% and brought to the ED. Pt now in the ED, has 02 saturation of 91% on room air. Pt denies any associated pain or recent illness. Pt states he has had these symptoms in the past and states he was prescribed an inhaler in the past but states he has never taken his symptoms. Pt in the ED placed on 2 L via nc and has noted 02 sat of 97% with no current respiratory distress. Pt otherwise denies any other symptoms at this time. 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 Source: Patient, Emergency Med Personnel Mode of Arrival: EMS Brought in by: EMS Past Medical History PAST MEDICAL HISTORY: CVA, Gout, High Lipids, HTN, PUD Surgical History: Hernia Repair Family History Family History: Unknown Social History Smoker: Quit Less Than 1 Year, Cigarettes Alcohol: Occasionally Drugs: Marijuana, Methamphetamine Lives In: Home Constitutional: denies: chills, diaphoresis, fatigue, fever, malaise, sweats, weakness, others EENTM: denies: blurred vision, double vision, ear bleeding, ear discharge, ear drainage, ear pain, ear ringing, eye pain, eye redness, hearing loss, mouth pain, mouth swelling, nasal discharge, nose bleeding, nose congestion, nose pain, photophobia, tearing, throat pain, throat swelling, voice changes, others Respiratory: reports: SOB at rest, shortness of breath, SOB with excertion; denies: cough, hemoptysis, orthopnea, stridor, wheezing, others Cardiovascular: denies: chest pain, dizzy spells, diaphoresis, Dyspnea on exertion, edema, irregular heart beat, left arm pain, lightheadedness, palpitations, PND, syncope, others Gastrointestinal: denies: abdomen distended, abdominal pain, blood streaked bowels, constipated, diarrhea, dysphagia, difficulty swallowing, hematemesis, melena, nausea, poor appetite, poor fluid intake, rectal bleeding, rectal pain, vomiting, others Genitourinary: denies: burning, dysuria, flank pain, frequency, hematuria, incontinence, penile discharge, penile sore, pain, testicle pain, testicle swelling, urgency, others Neurological: denies: dizziness, fainting, headache, left sided numbness, left sided weakness, numbness, paresthesia, pre-existing deficit, right sided numbness, right sided weakness, seizure, speech problems, tingling, tremors, weakness, others Musculoskeletal: denies: back pain, gout, joint pain, joint swelling, muscle pain, muscle stiffness, neck pain, others Integumetry: denies: bruises, change in color, change in hair/nails, dryness, laceration, lesions, lumps, rash, wounds, others Allergic/Immunocompromised: denies: Difficulty Healing, Frequent Infections, Hives, Itching, others Hematologic/Lymphatic: denies: anemia, blood clots, easy bleeding, easy bruising, swollen glands, others Endocrine: denies: excessive hunger, excessive sweating, excessive thirst, excessive urination, flushing, intolerance to cold, intolerance to heat, unexplained weight gain, unexplained weight loss, others Psychiatric: denies: anxiety, bipolar disorder, depression, hopeless, panic disorder, schizophrenia, sleepless, suicidal, others All Other Systems: Reviewed and Negative Physical Exam General Appearance: Mild Distress HEENT: Normal ENT Inspection, Pharynx Normal, TMs Normal Neck: Full Range of Motion, Non-Tender, Normal, Normal Inspection Respiratory: Other (pt tachypneic) Cardiovascular: Tachycardia Breast Exam: Deferred Gastrointestinal: No Organomegaly, Non Tender, No Pulsatile Mass, Normal Bowel Sounds, Soft Genitalia: Deferred Pelvic: Deferred Rectal: Deferred Extremities: No calf tenderness, Normal capillary refill, Normal inspection, Normal range of motion, Non-tender, No pedal edema Neurologic: Other (Left-sided weakness) Cerebellar Function: NOT DONE Reflexes: NOT DONE Skin: Dry, Normal Color, Warm Lymphatic: No Adenopathy Was a procedure done? Was a procedure done?: No Differential Dx Differential Diagnosis: Bronchitis, CHF, COPD, Myocardial infarction, Pneumonia, Pulmonary Embolism, Respiratory Distress X-Ray, Labs, Meds, VS Vital Signs Date Time Temp Pulse Resp B/P (MAP) Pulse Ox O2 Delivery O2 Flow Rate FiO2 09/20/24 06:12 97 Nasal Cannula* 2 28 09/20/24 06:12 102 17 155/104 (121) 97 09/20/24 06:12 102 17 97 Nasal Cannula* 2 28 09/20/24 05:30 109 09/20/24 05:30 98.0 108 24 144/83 (103) 91 Lab Test 09/20/24 07:17 09/20/24 06:17 09/20/24 06:00 Range/Units Troponin I High Sensitivity 42 40 </=54 ng/L White Blood Count 6.2 4.4-10.8 10^3/uL Red Blood Count 4.11 L 4.5-5.90 10^6/uL Hemoglobin 14.1 13.5-17.5 g/dL Hematocrit 41.1 41.0-53.0 % Mean Corpuscular Volume 100.0 80.0-100.0 fL Mean Corpuscular Hemoglobin 34.2 H 28.0-32.0 pg Mean Corpuscular Hemoglobin Concent 34.2 32.0-36.0 g/dL Red Cell Distribution Width 14.4 H 11.8-14.3 % Platelet Count 248 140-450 10^3/uL Mean Platelet Volume 7.6 6.9-10.8 fL Neutrophils (%) (Auto) 60.1 37.0-80.0 % Lymphocytes (%) (Auto) 19.4 10.0-50.0 % Monocytes (%) (Auto) 12.1 H 0.0-12.0 % Eosinophils (%) (Auto) 7.3 H 0.0-7.0 % Basophils (%) (Auto) 1.1 0.0-2.0 % Neutrophils # (Auto) 3.7 1.6-8.6 10 ^3/uL Lymphocytes # (Auto) 1.2 0.4-5.4 10 ^3/uL Monocytes # (Auto) 0.7 0-1.3 10 ^3/uL Eosinophils # (Auto) 0.5 0-0.8 10 ^3/uL Basophils # (Auto) 0.1 0-0.2 10 ^3/uL Nucleated Red Blood Cells 0.0 % Sodium Level 143 136-145 mmol/L Potassium Level 3.7 3.5-5.1 mmol/L Chloride Level 108 H 98-107 mmol/L Carbon Dioxide Level 29 20-31 mmol/L Anion Gap 6 5-15 Blood Urea Nitrogen 11 9-23 mg/dL Creatinine 0.64 L 0.700-1.30 mg/dL Glomerular Filtration Rate Calc 110 >90 mL/min BUN/Creatinine Ratio 17.2 10.0-20.0 Serum Glucose 114 H 74-106 mg/dL Calcium Level 9.2 8.7-10.4 mg/dL B-Type Natriuretic Peptide 692.24 0-100 pg/mL Influenza Type A Antigen Negative Negative Influenza Type B Antigen Negative Negative SARS-CoV-2 Antigen (Rapid) Negative NEGATIVE [facility] [id number] [place] [id number] Ph: [phone] DIAGNOSTIC IMAGING Diagnostic Imaging Report : [id number] Signed PATIENT: LIDIA VINES ACCT: [id number] UNIT: [id number] : 1965 LOC: ER ROOM / BED: / AGE / SEX: 59 / M ADM STATUS: REG ER SERVICE 0534 ORDERING PHYSICIAN: DAVIE PLATA MD PROCEDURE(s): CXRP - CHEST PORTABLE REASON: sob ORDER NUMBER(s): [id number], ACCESSION NUMBER(s): [id number] CHEST RADIOGRAPH Indication: sob Technique: Single frontal view of the chest was obtained Comparison: XY CHEST PORTABLE on DOS: 12/15/23 FINDINGS: Lines and Tubes: None Lungs: Bilateral interstitial prominence. No focal consolidation. Pleura: No effusion. No pneumothorax. Cardiomediastinal contours: Magnified by portable supine technique. Bones: No acute osseous abnormality. IMPRESSION: 1. Pulmonary vascular congestion. ATED BY: SAUL BLACKWELL MD DICTATED DATE/TIME: 09/20/24638 SIGNED BY: SAUL BLACKWELL MD SIGNED DATE/TIME: 09/20/24638 CC: Time of 1ST Reevaluation: 07:00 Reevaluation 1ST: Unchanged Patient Education/Counseling: Diagnosis, Treatment Family Education/Counseling: No Family Present Departure 1 Departure Time of Disposition: 09:18 (Patient presented with acute shortness of breath concerning for acute on chronic COPD Exacerbation, Pneumonia, ACS, CHF, Pneumothorax. Less likely PE, Dissection. Data: 1. I ordered and reviewed the result of at least 3 labs including a CBC, BMP, and Troponin. 2. I independently interpreted the following tests: Chest X-ray shows vascular congestion .Risk:This patient has a high risk of morbidity due to further diagnostic testing or treatment and may suffer from respiratory or cardiac etiology . Workup reveals a likely CHF exacerbation and patient should be admitted for further workup. and possible expert consultation.) Impression: Primary Impression: Acute dyspnea Additional Impressions: Volume overload Qualified Codes: E87.70 - Fluid overload, unspecified Systolic and diastolic CHF, acute Disposition: ADMITTED INPATIENT Admit to: Med Surg Condition: Serious Critical Care Note Critical Care Time?: Yes Critical care comment: Acute shortness of breath Authorized and Performed by: Vimal Bullock MD Total critical care time: Approximately 38 minutes Due to a high probability of clinically significant, life threatening deterioration, the patient required my highest level of preparedness to in tervene emergently and I personally spent this critical care time directly and personally managing the patient. This critical care time included obtaining a history; examining the patient; pulse oximetry; ordering and review of studies; arranging urgent treatment with development of a management plan; evaluation of patient's response to treatment; frequent reassessment; and, discussions with other providers. This critical care time was performed to assess and manage the high probability of imminent, life-threatening deterioration that could result in multi-organ failure. It was exclusive of separately billable procedures and treating other patients and teaching time. Please see my other sections and the rest of the note for further information on patient assessment and treatment. Stability Stability form required: No Heart Score Heart Score: Heart Score Response (Comments) Value History Moderate Suspicious 1 EKG Repolarization Disturb 1 Age 45-64 1 Risk Factors 1 or 2 risk factors 1 Troponin 1-2 x's Normal limit 1 Total 5 I personally scribed for VIMAL BULLOCK MD ([email or web address]) on 09/20/24 at 06:32. Electronically submitted by Kory Bradley (Dynamic [employer]). I personally scribed for VIMAL BULLOCK MD ([email or web address]) on 09/20/24 at 07:06. Electronically submitted by Kory Bradley (Dynamic Signal). VIMAL BULLOCK MD Sep 20, 2024 06:32
--- NOTE | 2024-09-20 06:42 | ECG ---
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
--- NOTE | 2024-09-20 06:42 | DVH ---
CHEST RADIOGRAPH Indication: sob Technique: Single frontal view of the chest was obtained Comparison: XY CHEST PORTABLE on DOS: 12/15/23 FINDINGS: Lines and Tubes: None Lungs: Bilateral interstitial prominence. No focal consolidation. Pleura: No effusion. No pneumothorax. Cardiomediastinal contours: Magnified by portable supine technique. Bones: No acute osseous abnormality. IMPRESSION: 1. Pulmonary vascular congestion.
[2024-09-20 06:56] LABS: Anion Gap 6 (5-15); Carbon Dioxide 29 mmol/L (20-31); Chloride 108 mmol/L (98-107); Potassium 3.7 mmol/L (3.5-5.1); Sodium 143 mmol/L (136-145)
[2024-09-20 06:57] LABS: Basophils # (auto) 0.1 10 ^3/uL (0-0.2); Calcium 9.2 mg/dL (8.7-10.4); Eosinophils # (auto) 0.5 10 ^3/uL (0-0.8); Hematocrit 41.1 % (41.0-53.0); Hemoglobin 14.1 g/dL (13.5-17.5); Monocytes # (auto) 0.7 10 ^3/uL (0-1.3); Red Blood Cells 4.11 10^6/uL (4.5-5.90)
[2024-09-20 07:00] LABS: Basophils % (auto) 1.1 % (0.0-2.0); Eosinophils % (auto) 7.3 % (0.0-7.0); Lymphocytes # (auto) 1.2 10 ^3/uL (0.4-5.4); Lymphocytes % (auto) 19.4 % (10.0-50.0); Mean Corpuscular Hemoglobin 34.2 pg (28.0-32.0); Mean Corpuscular Hgb Conc. 34.2 g/dL (32.0-36.0); Monocytes % (auto) 12.1 % (0.0-12.0); Neutrophils # (auto) 3.7 10 ^3/uL (1.6-8.6); Neutrophils % (auto) 60.1 % (37.0-80.0); Platelet Count (auto) 248 10^3/uL (140-450); Red Cell Distribution Width 14.4 % (11.8-14.3); White Blood Cell 6.2 10^3/uL (4.4-10.8)
[2024-09-20 07:02] LABS: BUN/Creatinine Ratio 17.2 (10.0-20.0); Blood Urea Nitrogen 11 mg/dL (9-23); Glucose 114 mg/dL (74-106)
[2024-09-20 07:09] LABS: Rapid Influenza A Negative (Negative); Rapid Influenza B Negative (Negative)
[2024-09-20 07:10] LABS: COVID19 ANTIGEN SOFIA FIA NEGATIVE (NEGATIVE)
[2024-09-20 09:58] LABS: Urine Bacteria None Seen /hpf (None Seen)
[2024-09-20 10:32] LABS: Urine Blood Negative /uL (Negative); Urine Clarity Clear (Clear); Urine Color Light-Yellow (Yellow); Urine Protein, UAD 1+ (Negative); Urine Specific Gravity 1.011 (1.001-1.035); Urine Urobilinogen Normal (Negative); Urine WBC <1 /hpf (0 - 3)
[2024-09-20 10:40] LABS: Amphetamine Screen, Urine Pos (NEGATIVE)
[2024-09-20 10:41] LABS: Barbiturate Scree,Urine Neg (NEGATIVE); Benzodiazephine Screen, Urine Neg (NEGATIVE)
[2024-09-20 10:42] LABS: Cocaine Screen, Urine Neg (NEGATIVE); Opiate Scree,Urine Neg (NEGATIVE)
[2024-09-20 10:43] LABS: Cannabinoid Screen, Urine Neg (NEGATIVE); Phencyclidine Screen, Urine Neg (NEGATIVE)
[2024-09-20] MEDS ORDERED: ACETAMINOPHEN 325 MG TAB PO PRN (11:45)
[2024-09-20] MEDS ORDERED: TEMAZEPAM 15 MG CAP PO PRN (11:45)
[2024-09-20] MEDS ORDERED: DEXTROSE (50%) 50ML SYRG IV PRN (11:45)
[2024-09-20] MEDS ORDERED: LORazepam 0.5 MG TAB PO PRN (11:45)
[2024-09-20] MEDS ORDERED: MORPHINE SULFATE INJ 2 MG/ml SYRG IV PRN (11:45)
[2024-09-20] MEDS ORDERED: NITROGLYCERIN 0.4 MG SL TAB SL PRN (11:45)
[2024-09-20] MEDS ORDERED: guaiFENesin-CODEINE Liq 5 ML UD PO PRN (11:45)
[2024-09-20] MEDS ORDERED: ALBUTEROL SULF 2.5 MG/0.5ML(0.5%) NEB SOLN NEB PRN (11:45)
[2024-09-20] MEDS ORDERED: IPRATROPIUM BROM 0.5 MG/2.5ML INH SOL NEB PRN (11:45)
[2024-09-20] MEDS ORDERED: ONDANSETRON HCL 4 MG/2 ML VIAL IV PRN (11:45)
[2024-09-20] MEDS ORDERED: MAALOX PLUS or MAALOX 30 ML PO PRN (11:45)
[2024-09-20] MEDS ORDERED: DOCUSATE SOD 100 MG CAP PO PRN (11:45)
[2024-09-20] MEDS: ACCU-CHEK COMFORT CURVE STRIP VI SCH (12:00)
[2024-09-20] MEDS: InsuLIN REG 1unit/0.01ml Soln (100units/ml) SC SCH (12:00)
--- NOTE | 2024-09-20 12:22 | DVHHP2 ---
History of Present Illness Reason for Visit: shortness of breath History of Present Illness 59 yo obese patient unconfirmed medical history but a drug and etoh abuse history comes to the ed with complaints weakness and shortness of breath patient denies any acute chest pain but has hypoxic during the ed evaluations with concerns that the patient may have possible heart failure unconfirmed patient recommended for admission Cardiovascular: HTN Endocrine: Diabetes Review of Systems Constitutional: No: Fever, Chills, Sweats, Weakness, Malaise, Other Eyes: No: Pain, Vision change, Conjunctivae inflammation, Eyelid inflammation, Other, Redness ENT: No: Ear pain, Ear discharge, Nose pain, Nose discharge, Nose congestion, Mouth pain, Mouth swelling, Throat pain, Throat swelling, Other Respiratory: Cough, Shortness of breath; No: Dry, SOB with excertion, Wheezing, Hemoptysis, Pleuritic Pain, Sputum, Wheezing, Other Cardiovascular: No: Chest Pain, Palpitations, Orthopnea, Paroxysmal Noc. Dyspnea, Edema, Lt Headedness, Other Gastrointestinal: No: Nausea, Vomiting, Abdominal Pain, Diarrhea, Constipation, Melena, Hematochezia, Other Genitourinary: No Dysuria, No Frequency, No Incontinence, No Hematuria, No Retention, No Other Musculoskeletal: No: other, neck pain, shoulder pain, arm pain, back pain, hand pain, leg pain, foot pain Skin: No: Rash, Lesions, Jaundice, Bruising, Other Neurological: No: Weakness, Numbness, Incoordination, Change in speech, Confusion, Seizures, Other Allergies: Coded Allergies: NO KNOWN ALLERGIES (Verified , 12/18/23) Exam Vital Signs Vital Signs Date Time Temp Pulse Resp B/P (MAP) Pulse Ox O2 Delivery O2 Flow Rate FiO2 09/20/24 10:00 98.2 111 20 155/113 (127) 96 98.2 09/20/24 09:37 Nasal Cannula* 2 28 General Appearance: Alert, Oriented X3 HEENT: Atraumatic, PERRLA Respiratory: Clear to auscultation (mild rhonci ), Normal air movement Cardiovascular: Regular rate, Normal S1, Normal S2 Abdominal: Normal bowel sounds, Soft, No tenderness Extremities: No clubbing, No cyanosis Skin: No breakdown Neuro: Normal gait, Normal speech Psych/Mental Status: Mood NL Labs/Xrays Labs Test 09/20/24 09:30 09/20/24 09:00 09/20/24 06:17 09/20/24 06:00 Range/Units Urine Color Light-yellow Yellow Urine Clarity Clear Clear Urine pH 6.0 5.0-9.0 Urine Specific [place] 1.011 1.001-1.035 Urine Protein 1+ H Negative Urine Ketones Negative Negative Urine Blood Negative Negative /uL Urine Nitrite Negative Negative Urine Bilirubin Negative Negative Urine Urobilinogen Normal Negative mg/dL Urine Leukocyte Esterase Negative Negative /uL Urine RBC 1 0 - 3 /hpf Urine WBC <1 0 - 3 /hpf Urine Squamous Epithelial Cells None seen <5 /hpf Urine Bacteria None seen None Seen /hpf Urine Glucose Normal Normal mg/dL Urine Opiates Screen Neg NEGATIVE Urine Fentanyl Screen Neg NEGATIVE Urine Barbiturates Screen Neg NEGATIVE Urine Phencyclidine Screen Neg NEGATIVE Urine Amphetamines Screen Pos NEGATIVE Urine Benzodiazepines Screen Neg NEGATIVE Urine Cocaine Screen Neg NEGATIVE Urine Cannabinoids Screen Neg NEGATIVE Troponin I High Sensitivity 46 </=54 ng/L White Blood Count 6.2 4.4-10.8 10^3/uL Red Blood Count 4.11 L 4.5-5.90 10^6/uL Hemoglobin 14.1 13.5-17.5 g/dL Hematocrit 41.1 41.0-53.0 % Mean Corpuscular Volume 100.0 80.0-100.0 fL Mean Corpuscular Hemoglobin 34.2 H 28.0-32.0 pg Mean Corpuscular Hemoglobin Concent 34.2 32.0-36.0 g/dL Red Cell Distribution Width 14.4 H 11.8-14.3 % Platelet Count 248 140-450 10^3/uL Mean Platelet Volume 7.6 6.9-10.8 fL Neutrophils (%) (Auto) 60.1 37.0-80.0 % Lymphocytes (%) (Auto) 19.4 10.0-50.0 % Monocytes (%) (Auto) 12.1 H 0.0-12.0 % Eosinophils (%) (Auto) 7.3 H 0.0-7.0 % Basophils (%) (Auto) 1.1 0.0-2.0 % Neutrophils # (Auto) 3.7 1.6-8.6 10 ^3/uL Lymphocytes # (Auto) 1.2 0.4-5.4 10 ^3/uL Monocytes # (Auto) 0.7 0-1.3 10 ^3/uL Eosinophils # (Auto) 0.5 0-0.8 10 ^3/uL Basophils # (Auto) 0.1 0-0.2 10 ^3/uL Nucleated Red Blood Cells 0.0 % Sodium Level 143 136-145 mmol/L Potassium Level 3.7 3.5-5.1 mmol/L Chloride Level 108 H 98-107 mmol/L Carbon Dioxide Level 29 20-31 mmol/L Anion Gap 6 5-15 Blood Urea Nitrogen 11 9-23 mg/dL Creatinine 0.64 L 0.700-1.30 mg/dL Glomerular Filtration Rate Calc 110 >90 mL/min BUN/Creatinine Ratio 17.2 10.0-20.0 Serum Glucose 114 H 74-106 mg/dL Calcium Level 9.2 8.7-10.4 mg/dL B-Type Natriuretic Peptide 692.24 0-100 pg/mL Influenza Type A Antigen Negative Negative Influenza Type B Antigen Negative Negative SARS-CoV-2 Antigen (Rapid) Negative NEGATIVE Assessment/Plan Assessment/Plan Admit Med/Surg Shortness of Breath Suspected Acute diastolic CHF unconfirmed history history of drug use ETOH use diastolic more suspected Hypoxic in the ED echo r/u CHF BNP ordered diuretics to manage fluids morbid obesity = 30 DM unconfirmed history hyperglycemia noted sliding scale while in patient Plan discussed with: Patient My Orders Orders - STEVE GILLIS MD Procedure Category Date Status Time Albuterol Medneb PHA 09/20/24 Logged (Ventolin Medneb) 11:45 Ipratropium Medneb PHA 09/20/24 Logged (Atrovent Medneb) 11:45 Med Neb Initial RT 09/20/24 Logged Treatment 11:45 Guaifenesin-Codeine PHA 09/20/24 Logged Liquid (Robitussin/C 11:45 Glucose Blood PHA 09/20/24 Logged (Accu-Chek Comfort 12:00 Insulin R (Human) PHA 09/20/24 Logged (Insulin R) 12:00 Dextrose 50% Syringe PHA 09/20/24 Logged 11:45 B-Type Natriuretic LAB 09/20/24 Logged Peptide 11:45 Furosemide Injection PHA 09/20/24 Logged (Lasix Injection) 11:45 Admit ADMIT 09/20/24 Transmitted 11:45 Code Status CODE 09/20/24 Transmitted 11:45 Vital Signs [facility] 09/20/24 In Process 11:45 Review Orders With [facility] 09/20/24 In Process Adm. 11:45 Consistent DIET 09/20/24 Transmitted Carb(Ccho)Diabetes Lunch Lorazepam Tablet PHA 09/20/24 Logged (Ativan Tablet) 11:45 Alum & Mag PHA 09/20/24 Logged Hydrox-Simethicone 11:45 Docusate Sodium PHA 09/20/24 Logged Capsule (Colace 11:45 Acetaminophen Tablet PHA 09/20/24 Logged (Tylenol Tablet) 11:45 Temazepam (Restoril) PHA 09/20/24 Logged 11:45 Notify Md Of Changes [facility] 09/20/24 In Process From Base 11:45 Advance Directive [facility] 09/20/24 In Process 11:45 Echo 2d Mode Cardiac US 09/20/24 Logged DOP 11:45 Basic Metabolic Panel LAB 09/21/24 Verified 04:00 Complete Blood Count LAB 09/21/24 Verified 04:00 Patient Condition ORDERS 09/20/24 Transmitted 11:45 Allergies [facility] 09/20/24 In Process 11:45 Hydrocodone-Acet PHA 09/20/24 Logged 5/325mg Tab ([place] 11:45 Ondansetron Hcl PHA 09/20/24 Logged (Zofran) 11:45 Morphine Sulfate PHA 09/20/24 Logged Injection 11:45 Notify Md Of Changes [facility] 09/20/24 In Process From Base 11:45 Oxygen By Nasal RT 09/20/24 Transmitted Cannula 11:45 Morphine Sulfate PHA 09/20/24 Logged Injection 11:45 Nitroglycerin PHA 09/20/24 Logged Sublingual (Ntrostat 11:45 Problem List: (1) Alcohol intoxication (2) Acute bronchitis (3) Drug abuse (4) Anxiety (5) Pulmonary vascular congestion (6) Generalized weakness (7) Hypertension (8) Volume overload (9) Systolic and diastolic CHF, acute Date of Service: Sep 20, 2024 Billing Provider: STEVE GILLIS MD Common Visit Codes: [id number] INP/OBS CARE (HIGH) STEVE GILLIS MD Sep 20, 2024 12:22
[2024-09-20] MEDS: FUROSEMIDE 40 MG/4 ML VIAL IV SCH (12:43)
[2024-09-20] MEDS: IOHEXOL 350 MG/ML 100ML IJ ONE (15:49)
--- NOTE | 2024-09-20 16:54 | DVH ---
CTA CHEST INDICATION: pe r/o TECHNIQUE: Multidetector CTA of the chest was performed of the chest with 100 cc of intravenous contr ast. PULMONARY ANGIOGRAPHY PROTOCOL was utilized using a bolus-tracking technique centered on the antonio n pulmonary artery. Axial, coronal and sagittal multiplanar and MIP reformats were performed. Radiation Dose Information: CT Dose: CTDI volume is 29.6 mGy. Dose-length product is 889.55 mGy*cm The dose indicators for CT are the volume Computed Tomography (CT) Dose Index (CTDIvol) and the Dose Length Product (DLP), and are measured in units of mGy and mGy-cm, respectively. These indicators are not patient dose, but values generated from the CT scanner acquisition factors. The report includes radiation exposure data for exposures received during this examination. Comparison: None. Findings: Pulmonary artery: There is no evidence of a pulmonary arterial filling defect to suggest pulmonary e mbolism. The main pulmonary artery is mildly prominent in size measuring 3.5 cm in diameter. Lungs/Pleura: Evaluation of the lungs is limited secondary to respiratory motion. There is a moderat e size left pleural effusion with atelectasis versus airspace disease in the left lower lobe. There i s small right pleural effusion with likely mild atelectasis in the right lung base. There is no obvio us suspicious appearing pulmonary nodule or mass. There is pleural-parenchymal scarring in the lung a pices. There is no evidence of pneumothorax. Cardiomediastinal: The heart size is is in the upper limits of normal. There are multivessel coronary artery calcifications. Lymph Nodes: There is no evidence of thoracic lymphadenopathy. Musculoskeletal: No acute osseous abnormality. Upper abdomen: There is small hiatal hernia. The remaining visualized solid abdominal structures ap pear within normal limits. IMPRESSION: 1. There is no evidence of a pulmonary arterial filling defect to suggest pulmonary embolism. 2. There is a moderate size left pleural effusion with atelectasis versus airspace disease in the lef t lower lobe. 3. Small right pleural effusion with likely atelectasis in the right lung base. 4. Main pulmonary artery is mildly prominent size suggestive of pulmonary arterial hypertension. 5. Small hiatal hernia. HS:Y
[2024-09-21] VITALS (9 sets, daily range): BP systolic 128–155; BP diastolic 88–108; PULSE 89–122; RESP 17–20; TEMP 97.7–99.3; O2SAT 90–97
[2024-09-21] MEDS ORDERED: TAMS0.4C39 PO (10:35)
[2024-09-21] MEDS ORDERED: CLOP75TA70 PO (10:35)
[2024-09-21] MEDS ORDERED: ALLO300T2 PO (10:35)
[2024-09-21 10:38] LABS: Chloride 104 mmol/L (98-107); Potassium 3.7 mmol/L (3.5-5.1); Sodium 141 mmol/L (136-145)
[2024-09-21 10:39] LABS: Anion Gap 5 (5-15); Calcium 9.5 mg/dL (8.7-10.4); Carbon Dioxide 32 mmol/L (20-31)
[2024-09-21 10:44] LABS: BUN/Creatinine Ratio 20.3 (10.0-20.0); Blood Urea Nitrogen 13 mg/dL (9-23); Glucose 121 mg/dL (74-106)
[2024-09-21 11:14] LABS: Basophils # (auto) 0.1 10 ^3/uL (0-0.2); Basophils % (auto) 1.2 % (0.0-2.0); Eosinophils # (auto) 0.5 10 ^3/uL (0-0.8); Hematocrit 45.1 % (41.0-53.0); Hemoglobin 15.9 g/dL (13.5-17.5); Lymphocytes # (auto) 1.1 10 ^3/uL (0.4-5.4); Lymphocytes % (auto) 17.6 % (10.0-50.0); Mean Corpuscular Hemoglobin 34.7 pg (28.0-32.0); Mean Corpuscular Hgb Conc. 35.3 g/dL (32.0-36.0); Mean Corpuscular Volume 98.4 fL (80.0-100.0); Monocytes # (auto) 0.8 10 ^3/uL (0-1.3); Monocytes % (auto) 11.7 % (0.0-12.0); Neutrophils % (auto) 61.5 % (37.0-80.0); Nucleated Red Blood Cells % 0.2 %; Platelet Count (auto) 272 10^3/uL (140-450); Red Blood Cells 4.59 10^6/uL (4.5-5.90); Red Cell Distribution Width 14.3 % (11.8-14.3); White Blood Cell 6.5 10^3/uL (4.4-10.8)
--- NOTE | 2024-09-21 21:35 | DVHPN2 ---
Subjective 09/21-patient is sitting at bedside, endorses that he has no trouble laying flat. He appears to be feeling more comfortable sitting upright at bedside. He appears to be anxious and keeps moving his leg. Has +1 and rales up to upper lobes patient is severely wheezing he has history of smoking, meds, remote history of IVDU, alcohol current. He lives with his brother in his friend, high risk for noncompliance. Reviewed: H&P Changes from previous H/P or p: No Changes General: Per HPI Objective Vitals Vital Signs Date Time Temp Pulse Resp B/P (MAP) Pulse Ox O2 Delivery O2 Flow Rate FiO2 09/21/24 17:27 97.8 89 18 128/93 (105) 96 97.8 09/21/24 08:10 Room Air* 0 21 Intake/Output Intake and Output 09/21/24 07:00 Intake Total 500 ml Balance 500 ml Intake Oral 500 ml # Voids 1 Exam GEN: Healthy appearing, well-developed, mild distress, he was very anxious. HEENT: NC/AT; MMM. CV: Systolic murmur 1 to 2/6 LUNGS: Rales up to upper lobes, freezing scored in the upper lobes. Diminished breath sounds any middle and lower lobes bilaterally. ABD: Soft, NT/ND, NBS, no masses or organomegaly. EXT: skin Warm, well perfused. no rashes. Patient has edema +1 bilaterally NEURO: Ambulating with no limitations. No focal deficits. Medications Current Medications Medications Dose Ordered Sig/Carl Route Start Time Stop Time Status Last Admin Dose Admin Albuterol 2.5 mg Q4HWA PRN NEB 09/20/24 11:45 Ipratropium [place] 0.5 mg Q4HR PRN NEB 09/20/24 11:45 Guaifenesin/ Codeine Phosphate 10 ml Q6HPRN PRN PO 09/20/24 11:45 Diagnostic Test (Pha) 1 strip IQ4HR 09/20/24 12:00 09/21/24 20:00 1 STRIP Insulin Human Regular IQ4HR SC 09/20/24 12:00 09/20/24 21:17 2 UNITS Dextrose 50 ml UD PRN IV 09/20/24 11:45 Furosemide 40 mg BID IV 09/20/24 11:45 09/21/24 13:34 40 MG Lorazepam 0.5 mg Q6HP PRN PO 09/20/24 11:45 Al Hydrox/Mg Hydrox/Simethicone 30 ml Q6HP PRN PO 09/20/24 11:45 Docusate Sodium 100 mg BIDPRN PRN PO 09/20/24 11:45 Acetaminophen 650 mg Q6HP PRN PO 09/20/24 11:45 Temazepam 15 mg QHSP PRN PO 09/20/24 11:45 Acetaminophen/ Hydrocodone Bitart 1 tab Q4HP PRN PO 09/20/24 11:45 Ondansetron HCl 4 mg Q4HP PRN IV 09/20/24 11:45 Hold Morphine Sulfate 2 mg Q4HPRN PRN IV 09/20/24 11:45 Morphine Sulfate 2 mg Q30M PRN IV 09/20/24 11:45 Nitroglycerin 0.4 mg Q5MINP PRN SL 09/20/24 11:45 Laboratory Results Laboratory Tests 09/21/24 10:10 Chemistry Test 09/21/24 10:10 Calcium Level 9.5 mg/dL (8.7-10.4) Urinalysis Test 09/20/24 09:30 Urine Color Light-yellow (Yellow) Urine Clarity Clear (Clear) Urine pH 6.0 (5.0-9.0) Urine Specific [place] 1.011 (1.001-1.035) Urine Protein 1+ (Negative) H Urine Ketones Negative (Negative) Urine Blood Negative /uL (Negative) Urine Nitrite Negative (Negative) Urine Bilirubin Negative (Negative) Urine Urobilinogen Normal mg/dL (Negative) Urine Leukocyte Esterase Negative /uL (Negative) Urine RBC 1 /hpf (0 - 3) Urine WBC <1 /hpf (0 - 3) Urine Squamous Epithelial Cells None seen /hpf (<5) Urine Bacteria None seen /hpf (None Seen) Urine Glucose Normal mg/dL (Normal) Labs and/or images reviewed: Labs reviewed by me, Image(s) reviewed by me Assessment/Plan Assessment/Plan 09/21-patient is sitting at bedside, endorses that he has no trouble laying flat. He appears to be feeling more comfortable sitting upright at bedside. He appears to be anxious and keeps moving his leg. Has +1 and rales up to upper lobes patient is severely wheezing he has history of smoking, meds, remote history of IVDU, alcohol current. He lives with his brother in his friend, high risk for noncompliance. Edema CHF Pitting pitting edema LEs Rales BNP elevated Volume overload -Patient presenting with shortness of breath, dyspnea on exertion, NYHA 3 worsening HART -CT a chest: No PE found, concern for pulmonary hypertension, and hiatal hernia. Chest x-ray with pulmonary vascular congestion -physical exam consistent with volume overload (taco rubs and/1 bilateral lobes.) Started patient IV diuresis Echo pending Cardiac diet History of smoking Diffuse wheezing COPD likely --Given history, diffuse wheezing, this is likely COPD on top of CHF exacerbation - start with p.r.n. as -we will give azithromycin as prophylactic for pneumonitis Will hold off steroids with now cassette patient is likely volume overload. We will start steroids if patient continues to wheeze. Eosinophilia Diet cardiac DVT prophylaxis Lovenox GI prophylaxis patient tolerating diet Med tele Plan discussed with: Patient Date of Service: Sep 21, 2024 Billing Provider: JOVANNA AMBROSE MD Common Visit Codes: [id number] INP/OBS CARE(HIGH) JOVANNA AMBROSE MD Sep 21, 2024 21:35
[2024-09-22] VITALS (7 sets, daily range): BP systolic 91–133; BP diastolic 48–97; PULSE 66–108; RESP 17–20; TEMP 97.6–98.1; O2SAT 90–95
--- NOTE | 2024-09-22 02:59 | DVHSR ---
APPROVED REPORT EXAM: Two-dimensional and M-mode echocardiogram with Doppler and color Doppler. Blood Pressure: 140/108 mmHg INDICATION Heart Failure RISK FACTORS Height: 5'6", Weight: 184 DIMENSIONS LVDd4.1 (3.8-5.7cm)LA (2D)5.5 (1.9-4.0cm)Aortic Root (2.0-3.7cm) LVDs3.0 (2.5-4.0cm)LA (MM) (1.9-4.0cm)Aortic Cusp Exc (1.5-2.0cm) EF (%) 54.0 (55-70%)Rt. Atrium3.8 (1.9-4.0cm)Asc. Aorta cm IVSd1.6 (0.7-1.1cm)RV (D) (1.8-2.4cm) Mitral Valve MitralMitral Stenosis E wave1.45m/sMV Mean GR.4mmHg A wave1.11m/sMV Peak GR.8mmHg E/A ratio1.32D MVAcm2 DECEL [id number] 1/2 Timems Aortic Valve Aortic ValveAortic Stenosis V10.74m/[place] Mean GR.30mmHg V23.41m/[place] Peak GR.47mmHg LVOT Diameter2.0 (1.8-2.4cm)Doppler AVA0.68cm2 Conclusion CRITICAL AORTIC STENOSIS PEAK AORTIC GRADIENT IS 70 MM FOF HG AND MEAN GRADIENT IS 45 MM OF HG AORTIC VALVE AREA IS 0.68 CM SQUARE MODERATE DEGREE LVH AND MODERATE DEGREE LV DIASTOLIC DYSFUNCTION LV EJECTION FRACTION IS 55%
[2024-09-22 10:50] LABS: Basophils # (auto) 0 10 ^3/uL (0-0.2); Basophils % (auto) 0.2 % (0.0-2.0); Eosinophils # (auto) 0.5 10 ^3/uL (0-0.8); Hematocrit 47.2 % (41.0-53.0); Hemoglobin 16.2 g/dL (13.5-17.5); Lymphocytes # (auto) 1.3 10 ^3/uL (0.4-5.4); Lymphocytes % (auto) 20.2 % (10.0-50.0); Mean Corpuscular Hemoglobin 33.9 pg (28.0-32.0); Mean Corpuscular Hgb Conc. 34.4 g/dL (32.0-36.0); Mean Corpuscular Volume 98.6 fL (80.0-100.0); Monocytes # (auto) 0.8 10 ^3/uL (0-1.3); Monocytes % (auto) 12.4 % (0.0-12.0); Neutrophils # (auto) 3.9 10 ^3/uL (1.6-8.6); Neutrophils % (auto) 59.2 % (37.0-80.0); Nucleated Red Blood Cells % 0.1 %; Platelet Count (auto) 308 10^3/uL (140-450); Red Blood Cells 4.79 10^6/uL (4.5-5.90); White Blood Cell 6.6 10^3/uL (4.4-10.8)
[2024-09-22 11:06] LABS: Alanine Aminotransferase 31 U/L (7-40); Albumin 3.9 g/dL (3.2-4.8); Alkaline Phosphatase 94 U/L (46-116); Anion Gap 7 (5-15); Aspartate Aminotransferase 43 U/L (13-40); BUN/Creatinine Ratio 22.6 (10.0-20.0); Blood Urea Nitrogen 19 mg/dL (9-23); Calcium 9.6 mg/dL (8.7-10.4); Carbon Dioxide 32 mmol/L (20-31); Chloride 102 mmol/L (98-107); Glucose 105 mg/dL (74-106); Potassium 3.7 mmol/L (3.5-5.1); Sodium 141 mmol/L (136-145)
[2024-09-22 11:07] LABS: Bilirubin, Total 0.6 mg/dL (0.2-1.0); Total Protein 7.6 g/dL (5.7-8.2)
[2024-09-22] MEDS: MORPHINE SULFATE INJ 2 MG/ml SYRG IV PRN (20:37)
--- NOTE | 2024-09-22 21:24 | DVHPN2 ---
Subjective 09/21-patient is sitting at bedside, endorses that he has no trouble laying flat. He appears to be feeling more comfortable sitting upright at bedside. He appears to be anxious and keeps moving his leg. Has +1 and rales up to upper lobes patient is severely wheezing he has history of smoking, meds, remote history of IVDU, alcohol current. He lives with his brother in his friend, high risk for noncompliance. - 09/22- patient is feeling better, ambulating but still has some residual shortness of breath. On exam he has rales in lower lobes. Needs 1 more day of diuresis. Reviewed: H&P Changes from previous H/P or p: No Changes General: Per HPI Objective Vitals Vital Signs Date Time Temp Pulse Resp B/P (MAP) Pulse Ox O2 Delivery O2 Flow Rate FiO2 09/22/24 20:37 102 18 114/75 09/22/24 18:44 94 Room Air 09/22/24 18:44 0 N/A 09/22/24 16:00 97.9 97.9 Intake/Output Intake and Output 09/22/24 07:00 Intake Total 1650 ml Balance 1650 ml Intake Oral 1650 ml # Voids 6 # Bowel Movements 2 Exam GEN: Healthy appearing, well-developed, NAD HEENT: NC/AT; MMM. CV: Systolic murmur 2-3/6 LUNGS: Rales to lower lobes with wheezing. ABD: Soft, NT/ND, NBS, no masses or organomegaly. EXT: skin Warm, well perfused. no rashes. Patient has edema +1 bilaterally NEURO: Ambulating with no limitations. No focal deficits. Medications Current Medications Medications Dose Ordered Sig/Carl Route Start Time Stop Time Status Last Admin Dose Admin Albuterol 2.5 mg Q4HWA PRN NEB 09/20/24 11:45 Ipratropium [place] 0.5 mg Q4HR PRN NEB 09/20/24 11:45 Guaifenesin/ Codeine Phosphate 10 ml Q6HPRN PRN PO 09/20/24 11:45 Diagnostic Test (Pha) 1 strip IQ4HR 09/20/24 12:00 09/22/24 20:33 1 STRIP Insulin Human Regular IQ4HR SC 09/20/24 12:00 09/22/24 20:35 2 UNITS Dextrose 50 ml UD PRN IV 09/20/24 11:45 Lorazepam 0.5 mg Q6HP PRN PO 09/20/24 11:45 Al Hydrox/Mg Hydrox/Simethicone 30 ml Q6HP PRN PO 09/20/24 11:45 Docusate Sodium 100 mg BIDPRN PRN PO 09/20/24 11:45 Acetaminophen 650 mg Q6HP PRN PO 09/20/24 11:45 Temazepam 15 mg QHSP PRN PO 09/20/24 11:45 Acetaminophen/ Hydrocodone Bitart 1 tab Q4HP PRN PO 09/20/24 11:45 Ondansetron HCl 4 mg Q4HP PRN IV 09/20/24 11:45 Hold Morphine Sulfate 2 mg Q4HPRN PRN IV 09/20/24 11:45 09/22/24 20:37 2 MG Morphine Sulfate 2 mg Q30M PRN IV 09/20/24 11:45 Nitroglycerin 0.4 mg Q5MINP PRN SL 09/20/24 11:45 Laboratory Results Laboratory Tests 09/22/24 10:30 Chemistry Test 09/22/24 10:30 Albumin 3.9 g/dL (3.2-4.8) Calcium Level 9.6 mg/dL (8.7-10.4) Total Protein 7.6 g/dL (5.7-8.2) LFT Test 09/22/24 10:30 Alanine Aminotransferase (ALT) 31 U/L (7-40) Alkaline Phosphatase 94 U/L (46-116) Aspartate Amino Transferase (AST) 43 U/L (13-40) H Total Bilirubin 0.6 mg/dL (0.2-1.0) Urinalysis Test 09/20/24 09:30 Urine Color Light-yellow (Yellow) Urine Clarity Clear (Clear) Urine pH 6.0 (5.0-9.0) Urine Specific [place] 1.011 (1.001-1.035) Urine Protein 1+ (Negative) H Urine Ketones Negative (Negative) Urine Blood Negative /uL (Negative) Urine Nitrite Negative (Negative) Urine Bilirubin Negative (Negative) Urine Urobilinogen Normal mg/dL (Negative) Urine Leukocyte Esterase Negative /uL (Negative) Urine RBC 1 /hpf (0 - 3) Urine WBC <1 /hpf (0 - 3) Urine Squamous Epithelial Cells None seen /hpf (<5) Urine Bacteria None seen /hpf (None Seen) Urine Glucose Normal mg/dL (Normal) Labs and/or images reviewed: Labs reviewed by me, Image(s) reviewed by me Assessment/Plan Assessment/Plan Updates - 09/21-patient is sitting at bedside, endorses that he has no trouble laying flat. He appears to be feeling more comfortable sitting upright at bedside. He appears to be anxious and keeps moving his leg. Has +1 and rales up to upper lobes patient is severely wheezing he has history of smoking, meds, remote history of IVDU, alcohol current. He lives with his brother in his friend, high risk for noncompliance. - 09/22- patient is feeling better, ambulating but still has some residual shortness of breath. On exam he has rales in lower lobes. Needs 1 more day of diuresis. CHF HFpEF critical aortic stenosis Lower extremity Pitting edema Rales BNP elevated Volume overload -Patient presenting with shortness of breath, dyspnea on exertion, NYHA 3 worsening HART -CT a chest: No PE found, concern for pulmonary hypertension, and hiatal hernia. Chest x-ray with pulmonary vascular congestion -physical exam consistent with volume overload (rales up to middle lobes bilaterally) - echo 09/22 shows EF 55%, critical aortic stenosis (peak gradient 70, mean gradient 45, AV area 0.68 centimeter sq), moderate LVH, moderate LVDD. - Started patient IV diuresis 40 lasix bid. will stop at euvolemia. - Cardiac diet - cardiology consulted for critical History of smoking Diffuse wheezing COPD likely --Given history, diffuse wheezing, this is likely COPD on top of CHF exacerbation - start with p.r.n. as -we will give azithromycin as prophylactic for pneumonitis - Will hold off steroids with now cassette patient is likely volume overload. We will start steroids if patient continues to wheeze. Eosinophilia- afebrile. no acute inpatient intervention needed. work-up outpatient. Diet cardiac DVT prophylaxis Lovenox GI prophylaxis patient tolerating diet Med tele Plan discussed with: Patient My Orders Orders - JOVANNA AMBROSE MD Procedure Category Date Status Time Filling Room Operator ORDERS 09/22/24 Transmitted 09:18 Transfer Orders XFER 09/22/24 Transmitted 09:37 Date of Service: Sep 22, 2024 Billing Provider: JOVANNA AMBROSE MD Common Visit Codes: [id number] INP/OBS CARE(HIGH) JOVANNA AMBROSE MD Sep 22, 2024 21:24
[2024-09-23] VITALS (10 sets, daily range): BP systolic 115–134; BP diastolic 78–95; PULSE 81–112; RESP 16–20; TEMP 97.2–98.3; O2SAT 90–100
[2024-09-23] MEDS: HYDROcodone-ACET 5/325MG TAB PO PRN (03:30)
[2024-09-23 06:29] LABS: Basophils # (auto) 0.1 10 ^3/uL (0-0.2); Neutrophils # (auto) 4.4 10 ^3/uL (1.6-8.6); Nucleated Red Blood Cells % 0.1 %; Platelet Count (auto) 285 10^3/uL (140-450)
[2024-09-23 06:32] LABS: Basophils % (auto) 1.1 % (0.0-2.0); Eosinophils # (auto) 0.4 10 ^3/uL (0-0.8); Eosinophils % (auto) 5.7 % (0.0-7.0); Hematocrit 43.5 % (41.0-53.0); Lymphocytes # (auto) 1.7 10 ^3/uL (0.4-5.4); Lymphocytes % (auto) 22.7 % (10.0-50.0); Mean Corpuscular Hemoglobin 33.9 pg (28.0-32.0); Mean Corpuscular Hgb Conc. 34.5 g/dL (32.0-36.0); Mean Corpuscular Volume 98.2 fL (80.0-100.0); Monocytes % (auto) 12.6 % (0.0-12.0); Neutrophils % (auto) 57.9 % (37.0-80.0); Red Blood Cells 4.43 10^6/uL (4.5-5.90); Red Cell Distribution Width 13.6 % (11.8-14.3); White Blood Cell 7.6 10^3/uL (4.4-10.8)
[2024-09-23 06:41] LABS: Alanine Aminotransferase 30 U/L (7-40); Alkaline Phosphatase 87 U/L (46-116); Anion Gap 6 (5-15); BUN/Creatinine Ratio 26.9 (10.0-20.0); Blood Urea Nitrogen 21 mg/dL (9-23); Calcium 9.5 mg/dL (8.7-10.4); Carbon Dioxide 30 mmol/L (20-31); Chloride 102 mmol/L (98-107); Glucose 109 mg/dL (74-106); Potassium 3.8 mmol/L (3.5-5.1); Sodium 138 mmol/L (136-145)
[2024-09-23 06:43] LABS: Albumin 3.7 g/dL (3.2-4.8); Aspartate Aminotransferase 40 U/L (13-40); Bilirubin, Total 0.8 mg/dL (0.2-1.0); Total Protein 7.1 g/dL (5.7-8.2)
--- NOTE | 2024-09-23 13:00 | DVHINCON2 ---
Date Seen: Sep 23, 2024 Referring Physician MD Samuel Reason for Consultation Critical aortic stenosis History of Present Illness This is a 59-year-old male patient who presents to the emergency room with chief complaint of worsening shortness of breath for one day. He came to the emergency room for further evaluation. Initial twelve lead electrocardiogram reveals sinus tachycardia with PACs. Cardiology has been consulted after a transthoracic echocardiogram has revealed critical aortic stenosis. Patient denies any syncopal episodes, chest pain, or dizziness. 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 The patient reports he does not follow up with a classified ad taker in the outpatient setting Past Medical History Past medical history reviewed. No other significant than mentioned above. Past Surgical History Denies all previous surgeries Family History: Patient reports no known family medical history. Family History Family history reviewed. Social History Patient has a 35 pack-year history, smokes half pack day Patient reports amphetamine use, toxicology screen positive for amphetamines on this admission Patient admits to daily vodka and beer Allergies: Coded Allergies: NO KNOWN ALLERGIES (Verified , 12/18/23) Home Meds Active Scripts Ibuprofen (Ibuprofen) 600 Mg Tab, 1 TAB PO TID for 10 Days, #30 TAB 0 Refills Prov:BRIAN CODY NP 08/28/24 Azithromycin (Azithromycin) 250 Mg Tab, 250 MG PO DAILY MDD 500 for 5 Days, #6 TAB 0 Refills 2 TABLETS ORALLY ON DAY ONE, THEN 1 TABLET ORALLY DAILY FOR 4 DAYS Prov:BRIAN CODY NP 08/28/24 Acetaminophen (Acetaminophen) 500 Mg Tab, 500 MG PO Q4HPRN, #30 TAB 0 Refills Prov:KENYA SAMUEL 08/23/24 Diclofenac Sodium (Diclofenac Sodium) 75 Mg Tab, 75 MG PO BID PRN for 5 Days, #10 TAB Prov:PINEDA JOAQUIN MD 01/28/24 Olmesartan Medoxomil (Olmesartan Medoxomil) 40 Mg Tab, 40 MG PO DAILY for 30 Days, #30 TAB Prov:PINEDA JOAQUIN MD 01/28/24 Levofloxacin Hemihydrate (LEVAQUIN 500 MG) 500 Mg Tab, 1 TAB PO DAILY, #5 TAB Prov:PARISH OSORIO RESIDENT 09/12/23 Aspirin (Aspir-81) 81 Mg Tab, 1 TAB PO DAILY, #90 TAB 1 Refill Prov:BLAKE HORN MD 06/14/23 Atorvastatin Calcium (Lipitor) 40 Mg Tab, 1 TAB PO DAILY, #30 TAB 5 Refills Prov:BLAKE HORN MD 06/14/23 Reported Medications Clopidogrel Bisulfate (CLOPIDOGREL) 75 Mg Tab, 75 MG PO DAILY, TAB 09/21/24 Tamsulosin Hcl (Tamsulosin Hcl) 0.4 Mg Cap, 0.4 MG PO QPM for 31 Days, #31 MG 09/21/24 Allopurinol (Allopurinol) 300 Mg Tab, 300 MG PO DAILY for 31 Days, #31 MG 09/21/24 Home Meds Home medications reviewed. Review of Systems Constitutional: No symptom reported Ears, Nose, & Throat: No symptom reported Eyes: No symptom reported Neurological: No symptoms reported Pulmonary/Respiratory: Shortness of breath Cardiovascular: No symptom reported Gastrointestinal: No symptom reported Genitourinary: No symptom reported Musculoskeletal: No symptom reported Skin: No symptom reported Psychiatric: No symptom reported Endocrine: No symptom reported Hematologic/Lymphatic: No symptom reported Vital Signs Vital Signs Date Time Temp Pulse Resp B/P (MAP) Pulse Ox O2 Delivery O2 Flow Rate FiO2 09/23/24 10:01 97.7 81 20 133/78 (96) 93 97.7 09/23/24 08:05 Nasal Cannula* 2 28 Physical Exam General Appearance: Cooperative. Unkempt, obese Pulmonary/Respiratory: Clear, bilateral breaths sounds. Cardiovascular/Chest: Regular rate and rhythm. Crescendo decrescendo. Systolic murmur grade V/ Peripheral Pulses: 2+ Radial (R). 2+ Radial (L). 2+ Pedal (R). 2+ Pedal (L) Abdominal Exam: Normal bowel sounds. Ankle Exam: Negative ankle edema Lower extremities: Negative lower extremity edema Neuro/Mental Status: A/OX4, coherent. Thoughts/Psych: Normal thought pattern. Appropriate mood and affect. Good judgment and insight. Appearance: No acute distress. Skin Exam: Normal inspection. Normal color. Warm and dry. Labs/Diagnostic Data Labs Test 09/23/24 09:42 09/23/24 06:07 09/20/24 14:26 09/20/24 09:30 Range/Units POC Glucose 145 H 70-106 mg/dl White Blood Count 7.6 4.4-10.8 10^3/uL Red Blood Count 4.43 L 4.5-5.90 10^6/uL Hemoglobin 15.0 13.5-17.5 g/dL Hematocrit 43.5 41.0-53.0 % Mean Corpuscular Volume 98.2 80.0-100.0 fL Mean Corpuscular Hemoglobin 33.9 H 28.0-32.0 pg Mean Corpuscular Hemoglobin Concent 34.5 32.0-36.0 g/dL Red Cell Distribution Width 13.6 11.8-14.3 % Platelet Count 285 140-450 10^3/uL Mean Platelet Volume 7.1 6.9-10.8 fL Neutrophils (%) (Auto) 57.9 37.0-80.0 % Lymphocytes (%) (Auto) 22.7 10.0-50.0 % Monocytes (%) (Auto) 12.6 H 0.0-12.0 % Eosinophils (%) (Auto) 5.7 0.0-7.0 % Basophils (%) (Auto) 1.1 0.0-2.0 % Neutrophils # (Auto) 4.4 1.6-8.6 10 ^3/uL Lymphocytes # (Auto) 1.7 0.4-5.4 10 ^3/uL Monocytes # (Auto) 1.0 0-1.3 10 ^3/uL Eosinophils # (Auto) 0.4 0-0.8 10 ^3/uL Basophils # (Auto) 0.1 0-0.2 10 ^3/uL Nucleated Red Blood Cells 0.1 % Sodium Level 138 136-145 mmol/L Potassium Level 3.8 3.5-5.1 mmol/L Chloride Level 102 98-107 mmol/L Carbon Dioxide Level 30 20-31 mmol/L Anion Gap 6 5-15 Blood Urea Nitrogen 21 9-23 mg/dL Creatinine 0.78 0.700-1.30 mg/dL Glomerular Filtration Rate Calc 104 >90 mL/min BUN/Creatinine Ratio 26.9 H 10.0-20.0 Serum Glucose 109 H 74-106 mg/dL Calcium Level 9.5 8.7-10.4 mg/dL Total Bilirubin 0.8 0.2-1.0 mg/dL Aspartate Amino Transferase (AST) 40 13-40 U/L Alanine Aminotransferase (ALT) 30 7-40 U/L Alkaline Phosphatase 87 46-116 U/L Total Protein 7.1 5.7-8.2 g/dL Albumin 3.7 3.2-4.8 g/dL D-Dimer, Quantitative 2.91 H 0.0-0.49 mg/L FEU Urine Color Light-yellow Yellow Urine Clarity Clear Clear Urine pH 6.0 5.0-9.0 Urine Specific [place] 1.011 1.001-1.035 Urine Protein 1+ H Negative Urine Ketones Negative Negative Urine Blood Negative Negative /uL Urine Nitrite Negative Negative Urine Bilirubin Negative Negative Urine Urobilinogen Normal Negative mg/dL Urine Leukocyte Esterase Negative Negative /uL Urine RBC 1 0 - 3 /hpf Urine WBC <1 0 - 3 /hpf Urine Squamous Epithelial Cells None seen <5 /hpf Urine Bacteria None seen None Seen /hpf Urine Glucose Normal Normal mg/dL Urine Opiates Screen Neg NEGATIVE Urine Fentanyl Screen Neg NEGATIVE Urine Barbiturates Screen Neg NEGATIVE Urine Phencyclidine Screen Neg NEGATIVE Urine Amphetamines Screen Pos NEGATIVE Urine Benzodiazepines Screen Neg NEGATIVE Urine Cocaine Screen Neg NEGATIVE Urine Cannabinoids Screen Neg NEGATIVE Test 09/20/24 09:00 09/20/24 06:17 09/20/24 06:00 Range/Units Troponin I High Sensitivity 46 </=54 ng/L B-Type Natriuretic Peptide 692.24 0-100 pg/mL Influenza Type A Antigen Negative Negative Influenza Type B Antigen Negative Negative SARS-CoV-2 Antigen (Rapid) Negative NEGATIVE Assessment Critical aortic valve stenosis Acute on chronic decompensated HFpEF, NYHA class III History of SVT History of CVA with left-sided deficit Alcohol abuse Tobacco use Methamphetamine abuse Obesity Plan/Recommendation We will continue with the following plan/recommendations (Dr. Bell): Transthoracic echocardiogram reveals EF 55% with aortic valve area of 0.68 cm2, peak aortic gradient of 70 mmHg and mean gradient of 45 mmHg. Cardiology has been consulted for critical aortic valve stenosis. Patient seen and examined at bedside with . recommends that the patient go to higher level of care for aortic valve replacement. Patient states he would like to discuss things with his family. Patient opted to follow up with classified ad taker in the outpatient setting and be referred then. Long discussion may between patient in cardiology team regarding cessation of drug use. Thank you for a llowing us to care for this patient. Please call with any questions or concerns. Critical care time spent: 42 minutes This medical document was created using an electronic medical record system with voice recognition software and computerized dictation system. Although this document has been carefully reviewed, there might still be some phonetic and typographical errors. Occasional wrong-word or ``sound-alike substitutions may have occurred due to the inherent limitations of voice recognition software. These areas are purely typographical due to imperfections of the software programs and do not reflect any compromise in the patient's medical care. Please read the chart carefully and recognize, using context, where these substitutions have occurred. Plan discussed with: Patient NYHA Physical activity limitations: Class3(Marked) ordinary (activity causes symtoms) Date of Service: Sep 23, 2024 Billing Provider: LEATHA VILLANUEVA Cardiology Common Codes: [id number] INP/OBS CARE (High) Cardiology Consultation Codes: [id number] CONSULT <45MIN LEATHA VILLANUEVA Sep 23, 2024 13:00
--- NOTE | 2024-09-23 16:03 | DVHPN2 ---
Subjective 09/21-patient is sitting at bedside, endorses that he has no trouble laying flat. He appears to be feeling more comfortable sitting upright at bedside. He appears to be anxious and keeps moving his leg. Has +1 and rales up to upper lobes patient is severely wheezing he has history of smoking, meds, remote history of IVDU, alcohol current. He lives with his brother in his friend, high risk for noncompliance. - 09/22- patient is feeling better, ambulating but still has some residual shortness of breath. On exam he has rales in lower lobes. Needs 1 more day of diuresis. - 09/23 patient appears stable approaching euvolemia. We will hold off further diuresis as patient is critical . Cardiology consult for evaluation of critical today. Reviewed: H&P Changes from previous H/P or p: No Changes General: Per HPI Objective Vitals Vital Signs Date Time Temp Pulse Resp B/P (MAP) Pulse Ox O2 Delivery O2 Flow Rate FiO2 09/23/24 13:00 97.2 89 17 126/91 (103) 90 97.2 09/23/24 08:05 Nasal Cannula* 2 28 Intake/Output Intake and Output 09/23/24 07:00 Intake Total 1390 ml Output Total 860 ml Balance 530 ml Intake Oral 1390 ml Output Urine Total 860 ml Exam GEN: Healthy appearing, well-developed, NAD HEENT: NC/AT; MMM. CV: Systolic murmur 2-3/6 LUNGS: Rales to lower lobes with wheezing. ABD: Soft, NT/ND, NBS, no masses or organomegaly. EXT: skin Warm, well perfused. no rashes. Patient has edema +1 bilaterally NEURO: Ambulating with no limitations. No focal deficits. Medications Current Medications Medications Dose Ordered Sig/Carl Route Start Time Stop Time Status Last Admin Dose Admin Guaifenesin/ Codeine Phosphate 10 ml Q6HPRN PRN PO 09/20/24 11:45 Diagnostic Test (Pha) 1 strip IQ4HR 09/20/24 12:00 09/23/24 12:55 1 STRIP Insulin Human Regular IQ4HR SC 09/20/24 12:00 09/23/24 13:01 2 UNITS Dextrose 50 ml UD PRN IV 09/20/24 11:45 Lorazepam 0.5 mg Q6HP PRN PO 09/20/24 11:45 Al Hydrox/Mg Hydrox/Simethicone 30 ml Q6HP PRN PO 09/20/24 11:45 Docusate Sodium 100 mg BIDPRN PRN PO 09/20/24 11:45 Acetaminophen 650 mg Q6HP PRN PO 09/20/24 11:45 Temazepam 15 mg QHSP PRN PO 09/20/24 11:45 Acetaminophen/ Hydrocodone Bitart 1 tab Q4HP PRN PO 09/20/24 11:45 09/23/24 09:48 1 TAB Ondansetron HCl 4 mg Q4HP PRN IV 09/20/24 11:45 Hold Morphine Sulfate 2 mg Q4HPRN PRN IV 09/20/24 11:45 09/22/24 20:37 2 MG Morphine Sulfate 2 mg Q30M PRN IV 09/20/24 11:45 Nitroglycerin 0.4 mg Q5MINP PRN SL 09/20/24 11:45 Laboratory Results Laboratory Tests 09/23/24 06:07 Chemistry Test 09/23/24 06:07 Albumin 3.7 g/dL (3.2-4.8) Calcium Level 9.5 mg/dL (8.7-10.4) Total Protein 7.1 g/dL (5.7-8.2) LFT Test 09/23/24 06:07 Alanine Aminotransferase (ALT) 30 U/L (7-40) Alkaline Phosphatase 87 U/L (46-116) Aspartate Amino Transferase (AST) 40 U/L (13-40) Total Bilirubin 0.8 mg/dL (0.2-1.0) Urinalysis Test 09/20/24 09:30 Urine Color Light-yellow (Yellow) Urine Clarity Clear (Clear) Urine pH 6.0 (5.0-9.0) Urine Specific [place] 1.011 (1.001-1.035) Urine Protein 1+ (Negative) H Urine Ketones Negative (Negative) Urine Blood Negative /uL (Negative) Urine Nitrite Negative (Negative) Urine Bilirubin Negative (Negative) Urine Urobilinogen Normal mg/dL (Negative) Urine Leukocyte Esterase Negative /uL (Negative) Urine RBC 1 /hpf (0 - 3) Urine WBC <1 /hpf (0 - 3) Urine Squamous Epithelial Cells None seen /hpf (<5) Urine Bacteria None seen /hpf (None Seen) Urine Glucose Normal mg/dL (Normal) Labs and/or images reviewed: Labs reviewed by me, Image(s) reviewed by me Assessment/Plan Assessment/Plan Updates - 09/23 patient appears stable approaching euvolemia. We will hold off further diuresis as patient is critical . Cardiology consult for evaluation of critical today. CHF HFpEF critical aortic stenosis Lower extremity Pitting edema Rales BNP elevated Volume overload -Patient presenting with shortness of breath, dyspnea on exertion, NYHA 3 worsening HART -CT a chest: No PE found, concern for pulmonary hypertension, and hiatal hernia. Chest x-ray with pulmonary vascular congestion -physical exam consistent with volume overload (rales up to middle lobes bilaterally) - echo 09/22 shows EF 55%, critical aortic stenosis (peak gradient 70, mean gradient 45, AV area 0.68 centimeter sq), moderate LVH, moderate LVDD. - hold patient IV diuresis 40 lasix bid. will stop as pt near euvolemia. - Cardiac diet - cardiology consulted for critical . History of smoking Diffuse wheezing COPD likely --Given history, diffuse wheezing, this is likely COPD on top of CHF exacerbation - start with p.r.n. as -we will give azithromycin as prophylactic for pneumonitis - Will hold off steroids as pt likely volume overload. We will start steroids if patient continues to wheeze. Eosinophilia- afebrile. no acute inpatient intervention needed. work-up outpatient. Diet cardiac DVT prophylaxis Lovenox GI prophylaxis patient tolerating diet Med tele Plan discussed with: Patient My Orders Orders - JOVANNA AMBROSE MD Procedure Category Date Status Time * Cardiology Consult CONS 09/22/24 Transmitted 21:14 Date of Service: Sep 23, 2024 Billing Provider: JOVANNA AMBROSE MD Common Visit Codes: [id number] INP/OBS CARE(HIGH) JOVANNA AMBROSE MD Sep 23, 2024 16:03
--- NOTE | 2024-09-23 20:34 | DVHINCON2 ---
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 Cardiology has been consulted after a transthoracic echocardiogram has revealed critical aortic stenosis. Patient reports he does not follow up with a prosthetic technician in the outpatient setting. D- dimer 2.91,GLUC 136. Initial twelve lead electrocardiogram reveals sinus tachycardia with PACs. Chest x-ray showed pulmonary vascular congestion. CTA Chest revealed there is a moderate size left pleural effusion with atelectasis versus airspace disease in the left lower lobe. Small right pleural effusion with likely atelectasis in the right lung base. Main pulmonary artery is mildly prominent size suggestive of pulmonary arterial hypertension. Small hiatal hernia. Family History: Patient reports no known family medical history. Allergies: Coded Allergies: NO KNOWN ALLERGIES (Verified , 12/18/23) Home Meds Active Scripts Ibuprofen (Ibuprofen) 600 Mg Tab, 1 TAB PO TID for 10 Days, #30 TAB 0 Refills Prov:BRIAN CODY INDUSTRIAL LABORER 08/28/24 Azithromycin (Azithromycin) 250 Mg Tab, 250 MG PO DAILY MDD 500 for 5 Days, #6 TAB 0 Refills 2 TABLETS ORALLY ON DAY ONE, THEN 1 TABLET ORALLY DAILY FOR 4 DAYS Prov:BRIAN CODY NP 08/28/24 Acetaminophen (Acetaminophen) 500 Mg Tab, 500 MG PO Q4HPRN, #30 TAB 0 Refills Prov:KENYA SAMUEL 08/23/24 Diclofenac Sodium (Diclofenac Sodium) 75 Mg Tab, 75 MG PO BID PRN for 5 Days, #10 TAB Prov:PINEDA JOAQUIN MD 01/28/24 Olmesartan Medoxomil (Olmesartan Medoxomil) 40 Mg Tab, 40 MG PO DAILY for 30 Days, #30 TAB Prov:PINEDA JOAQUIN MD 01/28/24 Levofloxacin Hemihydrate (LEVAQUIN 500 MG) 500 Mg Tab, 1 TAB PO DAILY, #5 TAB Prov:PARISH OSORIO RESIDENT 09/12/23 Aspirin (Aspir-81) 81 Mg Tab, 1 TAB PO DAILY, #90 TAB 1 Refill Prov:BLAKE HORN MD 06/14/23 Atorvastatin Calcium (Lipitor) 40 Mg Tab, 1 TAB PO DAILY, #30 TAB 5 Refills Prov:BLAKE HORN MD 06/14/23 Reported Medications Clopidogrel Bisulfate (CLOPIDOGREL) 75 Mg Tab, 75 MG PO DAILY, TAB 09/21/24 Tamsulosin Hcl (Tamsulosin Hcl) 0.4 Mg Cap, 0.4 MG PO QPM for 31 Days, #31 MG 09/21/24 Allopurinol (Allopurinol) 300 Mg Tab, 300 MG PO DAILY for 31 Days, #31 MG 09/21/24 Review of Systems Constitutional: No symptom reported Ears, Nose, & Throat: No symptom reported Eyes: No symptom reported Neurological: No symptoms reported Pulmonary/Respiratory: Shortness of breath Cardiovascular: No symptom reported Gastrointestinal: No symptom reported Genitourinary: No symptom reported Musculoskeletal: No symptom reported Skin: No symptom reported Psychiatric: No symptom reported Endocrine: No symptom reported Hematologic/Lymphatic: No symptom reported Vital Signs Vital Signs Date Time Temp Pulse Resp B/P (MAP) Pulse Ox O2 Delivery O2 Flow Rate FiO2 09/23/24 16:48 98.3 85 16 132/91 (105) 97 98.3 09/23/24 08:05 Nasal Cannula* 2 28 Physical Exam GENERAL: Awake, alert, oriented. LUNGS: Clear CARDIOVASCULAR: Crescendo decrescendo. Systolic murmur grade V/. ABDOMEN: Soft. Labs/Diagnostic Data Labs Test 09/23/24 12:56 09/23/24 06:07 09/20/24 14:26 09/20/24 09:30 Range/Units POC Glucose 136 H 70-106 mg/dl White Blood Count 7.6 4.4-10.8 10^3/uL Red Blood Count 4.43 L 4.5-5.90 10^6/uL Hemoglobin 15.0 13.5-17.5 g/dL Hematocrit 43.5 41.0-53.0 % Mean Corpuscular Volume 98.2 80.0-100.0 fL Mean Corpuscular Hemoglobin 33.9 H 28.0-32.0 pg Mean Corpuscular Hemoglobin Concent 34.5 32.0-36.0 g/dL Red Cell Distribution Width 13.6 11.8-14.3 % Platelet Count 285 140-450 10^3/uL Mean Platelet Volume 7.1 6.9-10.8 fL Neutrophils (%) (Auto) 57.9 37.0-80.0 % Lymphocytes (%) (Auto) 22.7 10.0-50.0 % Monocytes (%) (Auto) 12.6 H 0.0-12.0 % Eosinophils (%) (Auto) 5.7 0.0-7.0 % Basophils (%) (Auto) 1.1 0.0-2.0 % Neutrophils # (Auto) 4.4 1.6-8.6 10 ^3/uL Lymphocytes # (Auto) 1.7 0.4-5.4 10 ^3/uL Monocytes # (Auto) 1.0 0-1.3 10 ^3/uL Eosinophils # (Auto) 0.4 0-0.8 10 ^3/uL Basophils # (Auto) 0.1 0-0.2 10 ^3/uL Nucleated Red Blood Cells 0.1 % Sodium Level 138 136-145 mmol/L Potassium Level 3.8 3.5-5.1 mmol/L Chloride Level 102 98-107 mmol/L Carbon Dioxide Level 30 20-31 mmol/L Anion Gap 6 5-15 Blood Urea Nitrogen 21 9-23 mg/dL Creatinine 0.78 0.700-1.30 mg/dL Glomerular Filtration Rate Calc 104 >90 mL/min BUN/Creatinine Ratio 26.9 H 10.0-20.0 Serum Glucose 109 H 74-106 mg/dL Calcium Level 9.5 8.7-10.4 mg/dL Total Bilirubin 0.8 0.2-1.0 mg/dL Aspartate Amino Transferase (AST) 40 13-40 U/L Alanine Aminotransferase (ALT) 30 7-40 U/L Alkaline Phosphatase 87 46-116 U/L Total Protein 7.1 5.7-8.2 g/dL Albumin 3.7 3.2-4.8 g/dL D-Dimer, Quantitative 2.91 H 0.0-0.49 mg/L FEU Urine Color Light-yellow Yellow Urine Clarity Clear Clear Urine pH 6.0 5.0-9.0 Urine Specific [place] 1.011 1.001-1.035 Urine Protein 1+ H Negative Urine Ketones Negative Negative Urine Blood Negative Negative /uL Urine Nitrite Negative Negative Urine Bilirubin Negative Negative Urine Urobilinogen Normal Negative mg/dL Urine Leukocyte Esterase Negative Negative /uL Urine RBC 1 0 - 3 /hpf Urine WBC <1 0 - 3 /hpf Urine Squamous Epithelial Cells None seen <5 /hpf Urine Bacteria None seen None Seen /hpf Urine Glucose Normal Normal mg/dL Urine Opiates Screen Neg NEGATIVE Urine Fentanyl Screen Neg NEGATIVE Urine Barbiturates Screen Neg NEGATIVE Urine Phencyclidine Screen Neg NEGATIVE Urine Amphetamines Screen Pos NEGATIVE Urine Benzodiazepines Screen Neg NEGATIVE Urine Cocaine Screen Neg NEGATIVE Urine Cannabinoids Screen Neg NEGATIVE Test 09/20/24 09:00 09/20/24 06:17 09/20/24 06:00 Range/Units Troponin I High Sensitivity 46 </=54 ng/L B-Type Natriuretic Peptide 692.24 0-100 pg/mL Influenza Type A Antigen Negative Negative Influenza Type B Antigen Negative Negative SARS-CoV-2 Antigen (Rapid) Negative NEGATIVE Assessment Critical aortic valve stenosis. Acute on chronic decompensated HFpEF, NYHA class III. History of SVT. History of CVA with left-sided deficit. Alcohol abuse. Tobacco use. Methamphetamine abuse. Obesity. Plan/Recommendation I agree with your ongoing assessment and care of plan. Patient was seen by Fatmata Lopez NP on my behalf, her and I discussed the plan with the patient. Transthoracic echocardiogram reveals EF 55% with aortic valve area of 0.68 cm2, peak aortic gradient of 70 mmHg and mean gradient of 45 mmHg. Cardiology has been consulted for critical aortic valve stenosis. P Transfer patient go to higher level of care for aortic valve replacement. Patient states he would like to discuss things with his family. Patient opted to follow up with prosthetic technician in the outpatient setting and be referred then. Long discussion may between patient in cardiology team regarding cessation of drug use. Additional plan as per the hospital course. Plan discussed with: Patient Date of Service: Sep 23, 2024 Billing Provider: NINA HAND MD Cardiology Common Codes: [id number] INP/OBS CARE (High) Cardiology Consultation Codes: [id number] CONSULT <45MIN NINA HAND MD Sep 23, 2024 16:56
[2024-09-24] VITALS (8 sets, daily range): BP systolic 102–135; BP diastolic 72–98; PULSE 64–94; RESP 16–19; TEMP 97.6–98.7; O2SAT 92–97
[2024-09-24 07:03] LABS: Basophils # (auto) 0.1 10 ^3/uL (0-0.2); Eosinophils # (auto) 0.4 10 ^3/uL (0-0.8); Mean Corpuscular Hemoglobin 34.5 pg (28.0-32.0); White Blood Cell 5.9 10^3/uL (4.4-10.8)
[2024-09-24 07:06] LABS: Basophils % (auto) 1.6 % (0.0-2.0); Eosinophils % (auto) 7.3 % (0.0-7.0); Hematocrit 43.1 % (41.0-53.0); Lymphocytes # (auto) 1.6 10 ^3/uL (0.4-5.4); Lymphocytes % (auto) 26.4 % (10.0-50.0); Mean Corpuscular Hgb Conc. 34.7 g/dL (32.0-36.0); Mean Corpuscular Volume 99.2 fL (80.0-100.0); Monocytes # (auto) 0.7 10 ^3/uL (0-1.3); Monocytes % (auto) 12.7 % (0.0-12.0); Neutrophils # (auto) 3.1 10 ^3/uL (1.6-8.6); Nucleated Red Blood Cells % 0.1 %; Platelet Count (auto) 289 10^3/uL (140-450); Red Blood Cells 4.35 10^6/uL (4.5-5.90); Red Cell Distribution Width 13.9 % (11.8-14.3)
[2024-09-24 07:15] LABS: Alanine Aminotransferase 39 U/L (7-40); Albumin 3.8 g/dL (3.2-4.8); Alkaline Phosphatase 90 U/L (46-116); Anion Gap 6 (5-15); Aspartate Aminotransferase 55 U/L (13-40); BUN/Creatinine Ratio 26.3 (10.0-20.0); Bilirubin, Total 0.7 mg/dL (0.2-1.0); Blood Urea Nitrogen 20 mg/dL (9-23); Calcium 9.4 mg/dL (8.7-10.4); Carbon Dioxide 30 mmol/L (20-31); Chloride 106 mmol/L (98-107); Glucose 97 mg/dL (74-106); Potassium 4.1 mmol/L (3.5-5.1); Sodium 142 mmol/L (136-145)
--- NOTE | 2024-09-24 16:48 | DVHDS2 ---
Discharge Summary Date of Admission Sep 20, 2024 at 11:45 Date of Discharge: Sep 24, 2024 Labs/Diagnostic Data: Laboratory Results Test 09/24/24 11:38 09/24/24 06:12 09/20/24 14:26 09/20/24 09:30 POC Glucose 109 mg/dl (70-106) White Blood Count 5.9 10^3/uL (4.4-10.8) Red Blood Count 4.35 10^6/uL (4.5-5.90) Hemoglobin 15.0 g/dL (13.5-17.5) Hematocrit 43.1 % (41.0-53.0) Mean Corpuscular Volume 99.2 fL (80.0-100.0) Mean Corpuscular Hemoglobin 34.5 pg (28.0-32.0) Mean Corpuscular Hemoglobin Concent 34.7 g/dL (32.0-36.0) Red Cell Distribution Width 13.9 % (11.8-14.3) Platelet Count 289 10^3/uL (140-450) Mean Platelet Volume 7.3 fL (6.9-10.8) Neutrophils (%) (Auto) 52.0 % (37.0-80.0) Lymphocytes (%) (Auto) 26.4 % (10.0-50.0) Monocytes (%) (Auto) 12.7 % (0.0-12.0) Eosinophils (%) (Auto) 7.3 % (0.0-7.0) Basophils (%) (Auto) 1.6 % (0.0-2.0) Neutrophils # (Auto) 3.1 10 ^3/uL (1.6-8.6) Lymphocytes # (Auto) 1.6 10 ^3/uL (0.4-5.4) Monocytes # (Auto) 0.7 10 ^3/uL (0-1.3) Eosinophils # (Auto) 0.4 10 ^3/uL (0-0.8) Basophils # (Auto) 0.1 10 ^3/uL (0-0.2) Nucleated Red Blood Cells 0.1 % Sodium Level 142 mmol/L (136-145) Potassium Level 4.1 mmol/L (3.5-5.1) Chloride Level 106 mmol/L (98-107) Carbon Dioxide Level 30 mmol/L (20-31) Anion Gap 6 (5-15) Blood Urea Nitrogen 20 mg/dL (9-23) Creatinine 0.76 mg/dL (0.700-1.30) Glomerular Filtration Rate Calc 105 mL/min (>90) BUN/Creatinine Ratio 26.3 (10.0-20.0) Serum Glucose 97 mg/dL (74-106) Calcium Level 9.4 mg/dL (8.7-10.4) Total Bilirubin 0.7 mg/dL (0.2-1.0) Aspartate Amino Transferase (AST) 55 U/L (13-40) Alanine Aminotransferase (ALT) 39 U/L (7-40) Alkaline Phosphatase 90 U/L (46-116) Total Protein 7.0 g/dL (5.7-8.2) Albumin 3.8 g/dL (3.2-4.8) D-Dimer, Quantitative 2.91 mg/L FEU (0.0-0.49) Urine Color Light-yellow (Yellow) Urine Clarity Clear (Clear) Urine pH 6.0 (5.0-9.0) Urine Specific [place] 1.011 (1.001-1.035) Urine Protein 1+ (Negative) Urine Ketones Negative (Negative) Urine Blood Negative /uL (Negative) Urine Nitrite Negative (Negative) Urine Bilirubin Negative (Negative) Urine Urobilinogen Normal mg/dL (Negative) Urine Leukocyte Esterase Negative /uL (Negative) Urine RBC 1 /hpf (0 - 3) Urine WBC <1 /hpf (0 - 3) Urine Squamous Epithelial Cells None seen /hpf (<5) Urine Bacteria None seen /hpf (None Seen) Urine Glucose Normal mg/dL (Normal) Urine Opiates Screen Neg (NEGATIVE) Urine Fentanyl Screen Neg (NEGATIVE) Urine Barbiturates Screen Neg (NEGATIVE) Urine Phencyclidine Screen Neg (NEGATIVE) Urine Amphetamines Screen Pos (NEGATIVE) Urine Benzodiazepines Screen Neg (NEGATIVE) Urine Cocaine Screen Neg (NEGATIVE) Urine Cannabinoids Screen Neg (NEGATIVE) Test 09/20/24 09:00 09/20/24 06:17 09/20/24 06:00 Troponin I High Sensitivity 46 ng/L (</=54) B-Type Natriuretic Peptide 692.24 pg/mL (0-100) Influenza Type A Antigen Negative (Negative) Influenza Type B Antigen Negative (Negative) SARS-CoV-2 Antigen (Rapid) Negative (NEGATIVE) Other Laboratory Tests 09/24/24 06:12 Brief Hx & Hospital Course: 59-year-old male patient with Significant past medical history includes congestive heart failure, severe aortic stenosis without repair, SVT, 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 He came to the emergency room for further evaluation. Patient endorses that he has been having this symptoms that had been worsening over time and prior to presentation he started having symptoms while at rest. Denies any chest pain, abdominal pain, nausea vomiting, diarrhea, constipation, urinary symptoms, syncope/presyncope. Patient presenting with shortness of breath, dyspnea on exertion, NYHA 3 worsening HART. CTA chest with No PE found, buit has concern for pulmonary hypertension, and hiatal hernia. Chest x-ray with pulmonary vascular congestion. physical exam consistent with volume overload (rales up to middle lobes bilaterally). Diuresis was started with Lasix 40 b.i.d. and patient received euvolemia by day 2. echo 09/22 shows EF 55%, critical aortic stenosis (peak gradient 70, mean gradient 45, AV area 0.68 centimeter sq), moderate LVH, moderate LVDD. Cardiology is consulted for critical and a diuresis is stopped. Cardiology recommends that the patient go to higher level of care for aortic valve replacement. Patient initially hesitant but later convinced during family meeting and is now amenable. Social consult placed for placement for HL to evaluate for critical and possible TAVR Diagnosis: critical , HFpEF, pulmonary hypertension, eosinophilia, alcohol dependence, methamphetamine abuse Discharge plan - transfer to [facility] for critical management and TAVR evaluation. - patient euvolemic, further iv diuresis held - maintain Oxygen SpO2 >92. continue - out of etoh withdrawal window. ciwa 0. stop ciwa protocol. Condition at Discharge: Fair Final Diagnosis/Problems List critical , HFpEF Discharge Disposition: Acute Care Facility Discharge Instruct/Medications Diet: Cardiac 2g Na,low cholest Activity: No Restrictions, As Tolerated Discharge Statement: "Patient was advised to return to the ER or call 911 if any headaches, dizziness, shortness of breath, chest pain, abdominal pain, bleeding, fevers, or worsening of medical condition. Patient was counseled about treatment plan, medications, possible side effects, patientverbalized understanding. All questions were answered to the best of my ability. This discharge took greater then 30 minutes in planning, reviewing documentation, counseling the patient, and discussing with other team members." ASSESSMENT ASSESSMENT Assessment critical , HFpEF Date of Service: Sep 24, 2024 Billing Provider: JOVANNA AMBROSE MD Common Visit Codes: [id number] INP/OBS CARE(HIGH), 03258-AKP/OBS DISCH DAY >30min JOVANNA AMBROSE MD Sep 24, 2024 16:48
--- NOTE | 2024-09-24 19:15 | DVHPN2 ---
Progress Note - Dictate Date Seen: Sep 24, 2024 Medical Necessity Reason Pt with a Central, PICC or Fol: No Subjective Patient was seen and evaluated in follow up. No overnight events. Anjana is on 2 LPM NC. Patient denies any cardiac symptoms. Patient is cardiac stable for discharge. vital signs Vital Sign Date Time Temp Pulse Resp B/P (MAP) Pulse Ox O2 Delivery O2 Flow Rate FiO2 09/24/24 16:39 97.6 89 17 128/92 (104) 95 97.6 09/24/24 08:00 Nasal Cannula* 2 28 Total Intake and Output 09/23/24 09/23/24 09/24/24 15:00 23:00 07:00 Intake Total 360 ml 550 ml Balance 360 ml 550 ml medications Current Medications Medications Dose Ordered Sig/Carl Route Start Time Stop Time Status Last Admin Dose Admin Guaifenesin/ Codeine Phosphate 10 ml Q6HPRN PRN PO 09/20/24 11:45 Lorazepam 0.5 mg Q6HP PRN PO 09/20/24 11:45 Al Hydrox/Mg Hydrox/Simethicone 30 ml Q6HP PRN PO 09/20/24 11:45 Docusate Sodium 100 mg BIDPRN PRN PO 09/20/24 11:45 Acetaminophen 650 mg Q6HP PRN PO 09/20/24 11:45 Temazepam 15 mg QHSP PRN PO 09/20/24 11:45 Acetaminophen/ Hydrocodone Bitart 1 tab Q4HP PRN PO 09/20/24 11:45 09/24/24 14:48 1 TAB Ondansetron HCl 4 mg Q4HP PRN IV 09/20/24 11:45 Hold Morphine Sulfate 2 mg Q4HPRN PRN IV 09/20/24 11:45 09/22/24 20:37 2 MG Morphine Sulfate 2 mg Q30M PRN IV 09/20/24 11:45 Nitroglycerin 0.4 mg Q5MINP PRN SL 09/20/24 11:45 objective GENERAL: Awake, alert, oriented. LUNGS: Clear CARDIOVASCULAR: Crescendo decrescendo. Systolic murmur grade V/. ABDOMEN: Soft. laboratory and microbiology Laboratory Tests 09/24/24 06:12 Test 09/24/24 06:12 Range/Units Serum Glucose 97 74-106 mg/dL Problem List Critical aortic valve stenosis. Acute on chronic decompensated HFpEF, NYHA class III. History of SVT. History of CVA with left-sided deficit. Alcohol abuse. Tobacco use. Methamphetamine abuse. Obesity. Assessment/Plan Continued all current supportive medical care. Morphine and [place] for pain management. Nitro SL. Outpatient cardiology follow up. Additional plan as per the hospital course. Plan discussed with: Patient NINA HAND MD Sep 24, 2024 19:14
[2024-09-25] VITALS (7 sets, daily range): BP systolic 136–151; BP diastolic 84–99; PULSE 74–89; RESP 13–19; TEMP 97.1–99; O2SAT 90–99
[2024-09-25 06:15] LABS: Basophils # (auto) 0.1 10 ^3/uL (0-0.2); Basophils % (auto) 2.2 % (0.0-2.0); Eosinophils # (auto) 0.5 10 ^3/uL (0-0.8); Eosinophils % (auto) 9.6 % (0.0-7.0); Hematocrit 43.3 % (41.0-53.0); Hemoglobin 14.9 g/dL (13.5-17.5); Lymphocytes # (auto) 1.8 10 ^3/uL (0.4-5.4); Lymphocytes % (auto) 32.2 % (10.0-50.0); Mean Corpuscular Hgb Conc. 34.3 g/dL (32.0-36.0); Mean Corpuscular Volume 98.9 fL (80.0-100.0); Monocytes # (auto) 0.7 10 ^3/uL (0-1.3); Monocytes % (auto) 11.9 % (0.0-12.0); Neutrophils # (auto) 2.4 10 ^3/uL (1.6-8.6); Neutrophils % (auto) 44.1 % (37.0-80.0); Nucleated Red Blood Cells % 0.4 %; Platelet Count (auto) 283 10^3/uL (140-450); Red Blood Cells 4.38 10^6/uL (4.5-5.90); Red Cell Distribution Width 14.1 % (11.8-14.3); White Blood Cell 5.5 10^3/uL (4.4-10.8)
[2024-09-25 06:32] LABS: Alanine Aminotransferase 34 U/L (7-40); Albumin 3.9 g/dL (3.2-4.8); Alkaline Phosphatase 88 U/L (46-116); Anion Gap 7 (5-15); Aspartate Aminotransferase 45 U/L (13-40); BUN/Creatinine Ratio 31.9 (10.0-20.0); Blood Urea Nitrogen 22 mg/dL (9-23); Calcium 9.7 mg/dL (8.7-10.4); Carbon Dioxide 27 mmol/L (20-31); Chloride 107 mmol/L (98-107); Glucose 90 mg/dL (74-106); Potassium 4.1 mmol/L (3.5-5.1); Sodium 141 mmol/L (136-145)
[2024-09-25 06:33] LABS: Bilirubin, Total 0.7 mg/dL (0.2-1.0); Total Protein 7.1 g/dL (5.7-8.2)
[2024-09-25] MEDS ORDERED: FURO1TAB33 PO (13:45)
--- NOTE | 2024-09-25 13:47 | DVHDS2 ---
Discharge Summary Date of Admission Sep 20, 2024 at 11:45 Date of Discharge: Sep 25, 2024 Labs/Diagnostic Data: Laboratory Results Test 09/25/24 05:34 09/24/24 11:38 09/20/24 14:26 09/20/24 09:30 White Blood Count 5.5 10^3/uL (4.4-10.8) Red Blood Count 4.38 10^6/uL (4.5-5.90) Hemoglobin 14.9 g/dL (13.5-17.5) Hematocrit 43.3 % (41.0-53.0) Mean Corpuscular Volume 98.9 fL (80.0-100.0) Mean Corpuscular Hemoglobin 34.0 pg (28.0-32.0) Mean Corpuscular Hemoglobin Concent 34.3 g/dL (32.0-36.0) Red Cell Distribution Width 14.1 % (11.8-14.3) Platelet Count 283 10^3/uL (140-450) Mean Platelet Volume 7.2 fL (6.9-10.8) Neutrophils (%) (Auto) 44.1 % (37.0-80.0) Lymphocytes (%) (Auto) 32.2 % (10.0-50.0) Monocytes (%) (Auto) 11.9 % (0.0-12.0) Eosinophils (%) (Auto) 9.6 % (0.0-7.0) Basophils (%) (Auto) 2.2 % (0.0-2.0) Neutrophils # (Auto) 2.4 10 ^3/uL (1.6-8.6) Lymphocytes # (Auto) 1.8 10 ^3/uL (0.4-5.4) Monocytes # (Auto) 0.7 10 ^3/uL (0-1.3) Eosinophils # (Auto) 0.5 10 ^3/uL (0-0.8) Basophils # (Auto) 0.1 10 ^3/uL (0-0.2) Nucleated Red Blood Cells 0.4 % Sodium Level 141 mmol/L (136-145) Potassium Level 4.1 mmol/L (3.5-5.1) Chloride Level 107 mmol/L (98-107) Carbon Dioxide Level 27 mmol/L (20-31) Anion Gap 7 (5-15) Blood Urea Nitrogen 22 mg/dL (9-23) Creatinine 0.69 mg/dL (0.700-1.30) Glomerular Filtration Rate Calc 108 mL/min (>90) BUN/Creatinine Ratio 31.9 (10.0-20.0) Serum Glucose 90 mg/dL (74-106) Hemoglobin A1c 5.0 % A1C (<5.7) Calcium Level 9.7 mg/dL (8.7-10.4) Total Bilirubin 0.7 mg/dL (0.2-1.0) Aspartate Amino Transferase (AST) 45 U/L (13-40) Alanine Aminotransferase (ALT) 34 U/L (7-40) Alkaline Phosphatase 88 U/L (46-116) Total Protein 7.1 g/dL (5.7-8.2) Albumin 3.9 g/dL (3.2-4.8) POC Glucose 109 mg/dl (70-106) D-Dimer, Quantitative 2.91 mg/L FEU (0.0-0.49) Urine Color Light-yellow (Yellow) Urine Clarity Clear (Clear) Urine pH 6.0 (5.0-9.0) Urine Specific [place] 1.011 (1.001-1.035) Urine Protein 1+ (Negative) Urine Ketones Negative (Negative) Urine Blood Negative /uL (Negative) Urine Nitrite Negative (Negative) Urine Bilirubin Negative (Negative) Urine Urobilinogen Normal mg/dL (Negative) Urine Leukocyte Esterase Negative /uL (Negative) Urine RBC 1 /hpf (0 - 3) Urine WBC <1 /hpf (0 - 3) Urine Squamous Epithelial Cells None seen /hpf (<5) Urine Bacteria None seen /hpf (None Seen) Urine Glucose Normal mg/dL (Normal) Urine Opiates Screen Neg (NEGATIVE) Urine Fentanyl Screen Neg (NEGATIVE) Urine Barbiturates Screen Neg (NEGATIVE) Urine Phencyclidine Screen Neg (NEGATIVE) Urine Amphetamines Screen Pos (NEGATIVE) Urine Benzodiazepines Screen Neg (NEGATIVE) Urine Cocaine Screen Neg (NEGATIVE) Urine Cannabinoids Screen Neg (NEGATIVE) Test 09/20/24 09:00 09/20/24 06:17 09/20/24 06:00 Troponin I High Sensitivity 46 ng/L (</=54) B-Type Natriuretic Peptide 692.24 pg/mL (0-100) Influenza Type A Antigen Negative (Negative) Influenza Type B Antigen Negative (Negative) SARS-CoV-2 Antigen (Rapid) Negative (NEGATIVE) Other Laboratory Tests 09/25/24 05:34 Brief Hx & Hospital Course: 59-year-old male patient with Significant past medical history includes congestive heart failure, severe aortic stenosis without repair, SVT, 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 He came to the emergency room for further evaluation. Patient endorses that he has been having this symptoms that had been worsening over time and prior to presentation he started having symptoms while at rest. Denies any chest pain, abdominal pain, nausea vomiting, diarrhea, constipation, urinary symptoms, syncope/presyncope. Patient presenting with shortness of breath, dyspnea on exertion, NYHA 3 worsening HART. CTA chest with No PE found, buit has concern for pulmonary hypertension, and hiatal hernia. Chest x-ray with pulmonary vascular congestion. physical exam consistent with volume overload (rales up to middle lobes bilaterally). Diuresis was started with Lasix 40 b.i.d. and patient received euvolemia by day 2. echo 09/22 shows EF 55%, critical aortic stenosis (peak gradient 70, mean gradient 45, AV area 0.68 centimeter sq), moderate LVH, moderate LVDD. Cardiology is consulted for critical and a diuresis is stopped. Cardiology recommends that the patient go to higher level of care for aortic valve replacement. Patient initially hesitant but later convinced during family meeting and is now amenable. Social consult placed for placement for OC to evaluate for critical and possible TAVR. Experts at [facility] evaluated the case and recommend outpatient follow-up and as per expert opinion at and the [facility] patient is stable in current condition. Vital signs are stable and Plan made for close follow-up outpatient as below. Diagnosis: critical , HFpEF, pulmonary hypertension, eosinophilia, alcohol dependence, methamphetamine abuse Discharge plan - transfer not needed per [facility] evaluation. will keep close follow-up with Dr Sadaf Bell cardiology. - continue lasix 20mg daily as needed for leg swelling. uptitrate outpatient as needed. - dc clinic f/u to recheck bmp/mg/phos and titrate lasix as needed. - continue other home medications not listed above. Visitation and planning required 35 minutes Condition at Discharge: Fair Final Diagnosis/Problems List critical , HFpEF Discharge Disposition: Home Discharge Instruct/Medications Diet: Cardiac 2g Na,low cholest Activity: No Restrictions, As Tolerated Discharge Statement: "Patient was advised to return to the ER or call 911 if any headaches, dizziness, shortness of breath, chest pain, abdominal pain, bleeding, fevers, or worsening of medical condition. Patient was counseled about treatment plan, medications, possible side effects, patientverbalized understanding. All questions were answered to the best of my ability. This discharge took greater then 30 minutes in planning, reviewing documentation, counseling the patient, and discussing with other team members." ASSESSMENT ASSESSMENT Assessment critical , HFpEF Date of Service: Sep 25, 2024 Billing Provider: JOVANNA AMBROSE MD Common Visit Codes: 56057-ZIP/OBS DISCH DAY >30min JOVANNA AMBROSE MD Sep 25, 2024 13:47
--- NOTE | 2024-09-25 23:11 | DVHPN2 ---
Progress Note - Dictate Date Seen: Sep 25, 2024 Medical Necessity Reason Pt with a Central, PICC or Fol: No Subjective Patient was seen and evaluated in follow up. Patient has no new complaints at this time. Patient denies any cardiac symptoms. Patient is cardiac stable for discharge. vital signs Vital Sign Date Time Temp Pulse Resp B/P (MAP) Pulse Ox O2 Delivery O2 Flow Rate FiO2 09/25/24 17:00 97.5 84 18 151/95 (113) 99 97.5 09/25/24 07:30 Room Air* 0 21 Total Intake and Output 09/24/24 09/24/24 09/25/24 15:00 23:00 07:00 Intake Total 600 ml 700 ml Balance 600 ml 700 ml objective GENERAL: Awake, alert, oriented. LUNGS: Clear CARDIOVASCULAR: Crescendo decrescendo. Systolic murmur grade V/. ABDOMEN: Soft. laboratory and microbiology Laboratory Tests 09/25/24 05:34 Test 09/25/24 05:34 Range/Units Serum Glucose 90 74-106 mg/dL Problem List Critical aortic valve stenosis. Acute on chronic decompensated HFpEF, NYHA class III. History of SVT. History of CVA with left-sided deficit. Alcohol abuse. Tobacco use. Methamphetamine abuse. Obesity. Assessment/Plan Continued all current supportive medical care. Morphine and [place] for pain management. Nitro SL. Outpatient cardiology follow up. Additional plan as per the hospital course. Plan discussed with: Patient NINA HAND MD Sep 25, 2024 23:11
== END 2024-09-25 17:20 | disposition home or self-care (01) | DRG 200 ==
LOC: ER 05:24 → EDBD 05:24 → OVERFLOW 11:45 → EAST 17:22 → TELE-E-ADS 09-22 10:43 → TELE-WESTW 09-23 01:51
PROVIDERS: ADMIT Hospitalist; ATTEND Student in an Organized Health Care Education/Training Program
DX: I35.0 Nonrheumatic aortic (valve) stenosis (principal); I50.33 Acute on chronic diastolic (congestive) heart failure; D72.10 Eosinophilia, unspecified; I27.20 Pulmonary hypertension, unspecified; I11.0 Hypertensive heart disease with heart failure; Z20.822 Contact with and (suspected) exposure to COVID-19; E11.65 Type 2 diabetes mellitus with hyperglycemia; E66.01 Morbid (severe) obesity due to excess calories; F15.10 Other stimulant abuse, uncomplicated; K44.9 Diaphragmatic hernia without obstruction or gangrene; M10.9 Gout, unspecified; F10.20 Alcohol dependence, uncomplicated; Z95.2 Presence of prosthetic heart valve; Z68.29 Body mass index [BMI] 29.0-29.9, adult; Z87.891 Personal history of nicotine dependence; Z87.11 Personal history of peptic ulcer disease; I69.30 Unspecified sequelae of cerebral infarction; Y90.9 Presence of alcohol in blood, level not specified
CPT/HCPCS: 36415; 71045; 71275; 80048; 80053; 80307; 81001; 82962; 83036; 83880; 84484; 85025; 85379; 87426; 87804; 93005; 93306; 99291; G0378; J1815

== ENCOUNTER 2024-11-09 18:04 | Emergency (ER) | payer MEDICAID ==
[~2024-11-09] VITALS: Ht 167.6 cm; Wt 88.9 kg
[~2024-11-09 18:04] MED LIST changes: -ACET500T58 PO; +ALLO300T2 PO; -AZIT-43 PO; -COLC1CAP PO; -DICL75TA2 PO; -FURO1TAB31 PO; -HYDR-4902 PO; -IBUP-1454 PO; -INDO50CA82 PO; -LEVO500T91 PO; -METO1TAB77 PO; -OLME40TA76 PO; +TAMS0.4C39 PO
[2024-11-09] MEDS ORDERED: ONDANSETRON HCL 4 MG/2 ML VIAL IM ONE (18:45)
--- NOTE | 2024-11-09 19:18 | ED.PDOC ---
SOB-HPI HPI Comments 59-year-old male who came to ER due to shortness of breath. Patient is a very poor informant, coming in intoxicated with alcohol. Per records, he does have a history of hypertension, alcohol and substance abuse. Patient coming in complaining of shortness a breath and chest pains. No further information could be taken from him due to his intoxicated status. Blood pressure was 118/91 mmHg and saturating at 96% room air Chief Complaint: Shortness of Breath Time Seen by MD: 19:17 Primary Care Provider: NONE Reviewed notes: Nurses Notes Information Source: Patient Mode of Arrival: Ambulatory Severity: Moderate Timing: Hours Duration: Since onset Context: With Light Exertion PE Risk Factors: None History of: None Prehospital treatment: None Modifying Factors: Nothing Associated Signs and Symptoms: Chest Pain Quality: Squeezing Past Medical History PAST MEDICAL HISTORY: CVA, Gout, High Lipids, HTN, PUD Surgical History: Hernia Repair Family History Family History: Reviewed,noncontributory to illness Social History Smoker: Quit Less Than 1 Year, Cigarettes Alcohol: Heavy Drugs: Marijuana, Methamphetamine Lives In: Home Constitutional: denies: chills, diaphoresis, fatigue, fever, malaise, sweats, weakness, others EENTM: denies: blurred vision, double vision, ear bleeding, ear discharge, ear drainage, ear pain, ear ringing, eye pain, eye redness, hearing loss, mouth pain, mouth swelling, nasal discharge, nose bleeding, nose congestion, nose pain, photophobia, tearing, throat pain, throat swelling, voice changes, others Respiratory: reports: SOB at rest, shortness of breath; denies: cough, hemoptysis, orthopnea, SOB with excertion, stridor, wheezing, others Cardiovascular: reports: chest pain; denies: dizzy spells, diaphoresis, Dyspnea on exertion, edema, irregular heart beat, left arm pain, lightheadedness, palpitations, PND, syncope, others Gastrointestinal: denies: abdomen distended, abdominal pain, blood streaked bowels, constipated, diarrhea, dysphagia, difficulty swallowing, hematemesis, melena, nausea, poor appetite, poor fluid intake, rectal bleeding, rectal pain, vomiting, others Genitourinary: denies: burning, dysuria, flank pain, frequency, hematuria, incontinence, penile discharge, penile sore, pain, testicle pain, testicle swelling, urgency, others Neurological: denies: dizziness, fainting, headache, left sided numbness, left sided weakness, numbness, paresthesia, pre-existing deficit, right sided numbness, right sided weakness, seizure, speech problems, tingling, tremors, weakness, others Musculoskeletal: denies: back pain, gout, joint pain, joint swelling, muscle pain, muscle stiffness, neck pain, others Integumetry: denies: bruises, change in color, change in hair/nails, dryness, laceration, lesions, lumps, rash, wounds, others Allergic/Immunocompromised: denies: Difficulty Healing, Frequent Infections, Hives, Itching, others Hematologic/Lymphatic: denies: anemia, blood clots, easy bleeding, easy bruising, swollen glands, others Endocrine: denies: excessive hunger, excessive sweating, excessive thirst, excessive urination, flushing, intolerance to cold, intolerance to heat, unexplained weight gain, unexplained weight loss, others Psychiatric: denies: anxiety, bipolar disorder, depression, hopeless, panic disorder, schizophrenia, sleepless, suicidal, others Unable to Obtain due to: Altered Mental Status (Due to alcohol intoxication) Physical Exam General Appearance: Moderate Distress ([id number] distress due to chest pain and shortness of breath concerns. Patient does not look toxic but rather, highly intoxicated.), Obese HEENT: Normal ENT Inspection, Pharynx Normal, TMs Normal Neck: Full Range of Motion, Non-Tender, Normal, Normal Inspection Respiratory: Chest Non-Tender, Lungs Clear, No Accessory Muscle Use, No Respir atory Distress, Normal Breath Sounds Cardiovascular: No Edema, No JVD, No Murmur, No Gallop, Normal Peripheral Pulses, Regular Rate/Rhythm Breast Exam: Deferred Gastrointestinal: No Organomegaly, Non Tender, No Pulsatile Mass, Normal Bowel Sounds, Soft Genitalia: Deferred Pelvic: Deferred Rectal: Deferred Extremities: No calf tenderness, Normal capillary refill, Normal inspection, Normal range of motion, Non-tender, No pedal edema Musculoskeletal : Apperance: Normal Neurologic: Alert, No Motor Deficits, No Sensory Deficits Cerebellar Function: Normal Reflexes: Normal Skin: Dry, Normal Color, Warm Lymphatic: No Adenopathy Was a procedure done? Was a procedure done?: No Differential Dx Differential Diagnosis: Bronchitis, CHF, COPD, Hyperventilation, Myocardial infarction, Pneumonia, Other (Alcohol intoxication) X-Ray, Labs, Meds, VS Vital Signs Date Time Temp Pulse Resp B/P (MAP) Pulse Ox O2 Delivery O2 Flow Rate FiO2 11/09/24 19:45 107 21 93 Room Air* 0 21 11/09/24 19:44 98.3 107 21 124/85 (98) 93 98.3 11/09/24 18:21 109 11/09/24 18:18 98.4 112 25 118/91 (100) 96 Lab Test 11/09/24 19:31 11/09/24 18:27 Range/Units Troponin I High Sensitivity 30 28 </=54 ng/L White Blood Count 8.2 4.4-10.8 10^3/uL Red Blood Count 4.10 L 4.5-5.90 10^6/uL Hemoglobin 13.7 13.5-17.5 g/dL Hematocrit 40.8 L 41.0-53.0 % Mean Corpuscular Volume 99.6 80.0-100.0 fL Mean Corpuscular Hemoglobin 33.4 H 28.0-32.0 pg Mean Corpuscular Hemoglobin Concent 33.5 32.0-36.0 g/dL Red Cell Distribution Width 14.7 H 11.8-14.3 % Platelet Count 239 140-450 10^3/uL Mean Platelet Volume 7.1 6.9-10.8 fL Neutrophils (%) (Auto) 62.5 37.0-80.0 % Lymphocytes (%) (Auto) 26.0 10.0-50.0 % Monocytes (%) (Auto) 8.5 0.0-12.0 % Eosinophils (%) (Auto) 2.5 0.0-7.0 % Basophils (%) (Auto) 0.5 0.0-2.0 % Neutrophils # (Auto) 5.2 1.6-8.6 10 ^3/uL Lymphocytes # (Auto) 2.1 0.4-5.4 10 ^3/uL Monocytes # (Auto) 0.7 0-1.3 10 ^3/uL Eosinophils # (Auto) 0.2 0-0.8 10 ^3/uL Basophils # (Auto) 0 0-0.2 10 ^3/uL Nucleated Red Blood Cells 0.1 % Sodium Level 143 136-145 mmol/L Potassium Level 4.0 3.5-5.1 mmol/L Chloride Level 110 H 98-107 mmol/L Carbon Dioxide Level 23 20-31 mmol/L Anion Gap 10 5-15 Blood Urea Nitrogen 16 9-23 mg/dL Creatinine 0.69 L 0.700-1.30 mg/dL Glomerular Filtration Rate Calc 108 >90 mL/min BUN/Creatinine Ratio 23.2 H 10.0-20.0 Serum Glucose 108 H 74-106 mg/dL Calcium Level 8.9 8.7-10.4 mg/dL Total Bilirubin 0.4 0.2-1.0 mg/dL Aspartate Amino Transferase (AST) 54 H 13-40 U/L Alanine Aminotransferase (ALT) 41 H 7-40 U/L Alkaline Phosphatase 103 46-116 U/L Total Protein 6.7 5.7-8.2 g/dL Albumin 4.0 3.2-4.8 g/dL Plasma/Serum Blood Alcohol 326.2 H <10 mg/dL Current Medications Medications (Trade) Dose Ordered Sig/Carl Route Start Time Stop Time Status Last Admin Sodium Chloride 1,000 ml @ 1,000 mls/hr Q1H ONCE IV 11/09/24 18:45 11/09/24 19:44 DC 11/09/24 19:48 Ketorolac Tromethamine (Toradol Injection) 30 mg ONCE ONCE IV 11/09/24 20:00 11/09/24 20:01 DC 11/09/24 20:04 Ondansetron HCl (Zofran) 4 mg ONCE ONCE IV 11/09/24 20:15 11/09/24 20:32 DC 11/09/24 20:33 X-Ray, Labs, Meds, VS Comment All studies performed the ED were evaluated by me personally. Imaging studies were unremarkable for any acute intrapulmonary concerns or consolidation. Laboratories were relatively unremarkable for any serum concerns, but patient has blood alcohol content was 0.32. Patient received fluids and medication prior to discharge. Advised patient to follow up with a alcohol cessation programs such as AA to stave off any future cardiac events as I have concerns the patient may be progressing towards takotsubo cardiomyopathy due to alcohol abuse. Time of 1ST Reevaluation: 21:36 Reevaluation 1ST: Improved Consultation: PCP, Cardiology Patient Education/Counseling: Diagnosis, Treatment Family Education/Counseling: Diagnosis, Treatment, No Family Present Departure 1 Departure Time of Disposition: 21:36 Impression: Primary Impression: Alcohol intoxication Additional Impression: Chest pain Disposition: HOME / SELF CARE / HOMELESS Condition: Stable Additional Instructions: Advised patient follow up with his primary care provider for Cardiology referral and evaluation. Patient should cease alcohol use immediately and follow up with a support programs such as alcoholics anonymous. Discharged With: Self, Friend Critical Care Note Critical Care Time?: No Stability Stability form required: No Heart Score Heart Score: Heart Score Response (Comments) Value History Slightly Suspicious 0 EKG Normal 0 Age 45-64 1 Risk Factors No known risk factors 0 Troponin Normal limit 0 Total 1 I personally scribed for COLT NAVARRETE PAC ([email or web address]) on 11/09/24 at 19:18. Electronically submitted by López Cassidy ([facility]). COLT NAVARRETE PAC Nov 09, 2024 19:18
[2024-11-09 19:20] LABS: Basophils # (auto) 0 10 ^3/uL (0-0.2); Basophils % (auto) 0.5 % (0.0-2.0); Eosinophils # (auto) 0.2 10 ^3/uL (0-0.8); Eosinophils % (auto) 2.5 % (0.0-7.0); Hematocrit 40.8 % (41.0-53.0); Hemoglobin 13.7 g/dL (13.5-17.5); Lymphocytes # (auto) 2.1 10 ^3/uL (0.4-5.4); Mean Corpuscular Hemoglobin 33.4 pg (28.0-32.0); Mean Corpuscular Hgb Conc. 33.5 g/dL (32.0-36.0); Mean Corpuscular Volume 99.6 fL (80.0-100.0); Monocytes # (auto) 0.7 10 ^3/uL (0-1.3); Monocytes % (auto) 8.5 % (0.0-12.0); Neutrophils # (auto) 5.2 10 ^3/uL (1.6-8.6); Neutrophils % (auto) 62.5 % (37.0-80.0); Nucleated Red Blood Cells % 0.1 %; Platelet Count (auto) 239 10^3/uL (140-450); Red Cell Distribution Width 14.7 % (11.8-14.3); White Blood Cell 8.2 10^3/uL (4.4-10.8)
--- NOTE | 2024-11-09 19:22 | DVH ---
CHEST RADIOGRAPH Indication: Chest pain Technique: Single frontal view of the chest was obtained COMPARISON: XY CHEST PORTABLE on DOS: 09/20/24, XY CHEST PORTABLE on DOS: 12/15/23, XY CHEST PORTABLE on DOS: 09/10/23, XY CHEST PORTABLE on DOS: 06/21/23, XY CHEST PORTABLE on DOS: 06/16/23 FINDINGS: Lines and Tubes: None Lungs: Questionable mild interstitial pulmonary edema. Pleura: No effusion. No pneumothorax. Cardiomediastinal contours: Unremarkable Bones: Multiple chronic appearing right-sided rib deformities are noted. IMPRESSION: 1. Questionable mild interstitial pulmonary edema
[2024-11-09 19:40] LABS: Alkaline Phosphatase 103 U/L (46-116); Anion Gap 10 (5-15); BUN/Creatinine Ratio 23.2 (10.0-20.0); Blood Urea Nitrogen 16 mg/dL (9-23); Calcium 8.9 mg/dL (8.7-10.4); Carbon Dioxide 23 mmol/L (20-31); Sodium 143 mmol/L (136-145)
[2024-11-09 19:41] LABS: Bilirubin, Total 0.4 mg/dL (0.2-1.0); Total Protein 6.7 g/dL (5.7-8.2)
[2024-11-09 19:45] VITALS: PULSE 107; RESP 21; O2SAT 93
[2024-11-09] MEDS: SODIUM CHLORIDE 0.9% 1,000 ML IV ONE (19:48)
[2024-11-09 19:49] LABS: Alanine Aminotransferase 41 U/L (7-40); Aspartate Aminotransferase 54 U/L (13-40); Chloride 110 mmol/L (98-107); Glucose 108 mg/dL (74-106)
[2024-11-09] MEDS: KETOROLAC TROMETH 30 MG/ML 1ML VIAL IV ONE (20:04)
[2024-11-09] MEDS: ONDANSETRON HCL 4 MG/2 ML VIAL IV ONE (20:33)
[2024-11-09 22:11] VITALS: BP 112/70; TEMP 97.7
[2024-11-09 22:18] VITALS: PULSE 103; RESP 18; O2SAT 93
--- NOTE | 2024-11-12 11:02 | ECG ---
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
--- NOTE | 2024-11-12 14:26 | ECG ---
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
--- NOTE | 2024-11-12 14:27 | ECG ---
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
== END 2024-11-09 22:19 | disposition home or self-care (01) ==
LOC: ER 18:04
DX: F10.129 Alcohol abuse with intoxication, unspecified (principal); R07.9 Chest pain, unspecified; M10.9 Gout, unspecified; E78.5 Hyperlipidemia, unspecified; R06.02 Shortness of breath; I10 Essential (primary) hypertension; Y90.8 Blood alcohol level of 240 mg/100 ml or more; Z86.73 Personal history of transient ischemic attack (TIA), and cerebral infarction without residual deficits
CPT/HCPCS: 36415; 71045; 80053; 80320; 84484; 85025; 93005; 96361; 96374; 96375; 99285; J1885; J2405; J7030

== ENCOUNTER 2024-11-10 07:33 | Inpatient (IN) | payer MEDICAID ==
[2024-11-10] VITALS (25 sets, daily range): BP systolic 79–101; BP diastolic 56–71; PULSE 74–169; RESP 18–24; TEMP 97–102.7; O2SAT 84–100
[~2024-11-10] VITALS: Ht 172.7 cm; Wt 85.4 kg
[2024-11-10] MEDS: PIPERACILLIN-TAZOB 3.375GM 100 ML IV SCH
[2024-11-10] MEDS: IPRATROPIUM BROM 0.5 MG/2.5ML INH SOL ONE (07:53)
[2024-11-10] MEDS: ALBUTEROL SULF 2.5 MG/0.5ML(0.5%) NEB SOLN ONE (07:53)
--- NOTE | 2024-11-10 07:54 | ED.PDOC ---
History of Present Illness HPI Comments 59 y/o M, with a Hx of CHF, CVA, gout, HLD, HTN, PUD, and polysubstance abuse, is BIBA for c/o shortness of breath that began 1x hour prior to ED arrival, today. Per EMS report, patient was stated to have been seen at and [facility] from [facility] ED, earlier, and was placed on oxygen en route. Patient endorses no recent strenuous activities, sick contact, travel, substance use, or other relevant or pertinent additional history at time of assessment. He denies having any chest pain, palpitations, fever, cough, chills, or other associated symptoms or modifiers at this time. Chief Complaint: Shortness of Breath Time Seen by MD: 07:40 Primary Care Provider: NONE Reviewed Notes: Nurses Notes, Bi Developer Notes, Medications, Allergies Allergies: Coded Allergies: NO KNOWN ALLERGIES (Unverified , 12/18/23) Home Meds Active Scripts Aspirin (Aspir-81) 81 Mg Tab, 1 TAB PO DAILY, #90 TAB 1 Refill Prov:BLAKE HORN MD 06/14/23 Atorvastatin Calcium (Lipitor) 40 Mg Tab, 1 TAB PO DAILY, #30 TAB 5 Refills Prov:BLAKE HORN MD 06/14/23 Reported Medications Tamsulosin Hcl (Tamsulosin Hcl) 0.4 Mg Cap, 0.4 MG PO QPM for 31 Days, #31 MG 09/21/24 Allopurinol (Allopurinol) 300 Mg Tab, 300 MG PO DAILY for 31 Days, #31 MG 09/21/24 Information Source: Patient, Emergency Med Personnel Mode of Arrival: EMS Severity: Moderate Timing: Hours Duration: Since onset Prehospital treatment: 12 Lead EKG, Bulk Station Operator, Oxygen Past Medical History PAST MEDICAL HISTORY: CHF (w/Lasix use ), CVA, Gout, High Lipids, HTN, PUD Surgical History: Hernia Repair Family History Family History: Reviewed,noncontributory to illness Social History Smoker: Quit Less Than 1 Year, Cigarettes Alcohol: Heavy Drugs: Marijuana, Methamphetamine Lives In: Home Respiratory: reports: shortness of breath All Other Systems: Reviewed and Negative (negative unless otherwise stated above or in HPI) Physical Exam General Appearance: No Apparent Distress, Normal HEENT: Normal ENT Inspection, Pharynx Normal, TMs Normal Neck: Full Range of Motion, Non-Tender, Normal, Normal Inspection Respiratory: Accessory Muscle Use, Wheezing, Other (decrease sentences, tachypneic) Cardiovascular: No Edema, No JVD, No Murmur, No Gallop, Normal Peripheral Pulses, Tachycardia Breast Exam: Deferred Gastrointestinal: No Organomegaly, Non Tender, No Pulsatile Mass, Normal Bowel Sounds, Soft Genitalia: Deferred Pelvic: Deferred Rectal: Deferred Extremities: No calf tenderness, Normal capillary refill, Normal inspection, Normal range of motion, Non-tender, No pedal edema Musculoskeletal : Apperance: Normal Neurologic: Alert, exhibit builder II-XII nml as Tested, No Motor Deficits, Normal Affect, Normal Mood, No Sensory Deficits Cerebellar Function: Normal Reflexes: Normal Skin: Dry, Normal Color, Warm Lymphatic: No Adenopathy Was a procedure done? Was a procedure done?: Yes Sedation Sedation?: No Intubation Indication: Respiratory Insufficiency Prep: Preoxygenation Pretreated with: Nothing Medicated with: Other (20 mg etomidate and 70mg rocuronium) Intubation Approach: Orotracheal (7.5) Intubation size: cm (7.5 tube, 24 cm at the lips) Informed consent obtained: Yes Risks/benefits/alt described: Yes EKG EKG : Pulse Rate (adult): 145 [place]: Normal Cardiac Rhythm: ST Block: None Hypertrophy: None ST: Normal Differential Dx Considerations may include: viral syndrome, URI, PNA, pleural effusions, substance abuse, covid19, b ronchitis, PR, PE X-Ray, Labs, Meds, VS Vital Signs Date Time Temp Pulse Resp B/P (MAP) Pulse Ox O2 Delivery O2 Flow Rate FiO2 11/10/24 11:25 132 18 124/79 (94) 92 100 11/10/24 10:46 142/87 11/10/24 09:55 174 18 213/140 (164) 84 100 11/10/24 09:42 153 18 170/107 (128) 95 11/10/24 09:42 170/107 11/10/24 09:37 145 25 119/73 (88) 92 11/10/24 09:35 124/78 11/10/24 09:35 142 34 124/78 (93) 97 11/10/24 09:26 146 36 116/78 (91) 93 11/10/24 09:05 158 11/10/24 08:27 143 149/94 (112) 98 11/10/24 08:25 26 93 Simple Mask* 7 60 11/10/24 08:15 143 43 149/94 (112) 83 11/10/24 07:58 162 20 89 Nasal Cannula* 4 36 11/10/24 07:54 145 11/10/24 07:43 98.0 98 26 159/89 (112) 96 11/10/24 07:43 145 Lab Test 11/10/24 12:11 11/10/24 11:49 11/10/24 11:00 11/10/24 10:02 Range/Units Erythrocyte Sedimentation Rate 17 0-20 mm/hr C-Reactive Protein High Sensitivity 1.38 H <1.0 mg/dL Lipase 58 H 12-53 U/L Troponin I High Sensitivity 127 *H </=54 ng/L Blood Gas Specimen Type Arterial Blood Gas Sample Site Left radial Blood Gas Patient Temperature 37.0 Arterial Blood Date Drawn [id number] Arterial Blood pH 7.041 *L 7.350-7.450 Arterial Blood Partial Pressure CO2 77.6 *H 35.0-48.0 mmHg Arterial Blood Partial Pressure O2 64.8 L 83.0-108.0 mmHg Arterial Blood HCO3 20.6 L 21.0-28.0 mmol/L Arterial Blood Oxygen Saturation 84.6 *L 94.0-98.0 % Arterial Blood Base Excess -11.7 L -2.0-3.0 mmol/L Arterial Blood Oxyhemoglobin 83.1 L 94.0-98.0 % Arterial Blood Carboxyhemoglobin 1.2 0.5-1.5 % Arterial Blood Methemoglobin 0.6 0.0-1.5 % Rudolph Test Modified Blood Gas Total Hemoglobin 15.60 13.5-17.5 g/dL Blood Gas Set Respiration Rate 18.0 Blood Gas Modality Vent - ac Blood Gas Spontaneous Rate 26 FiO2 % 100.0 Blood Gas Tidal Volume 500.0 Blood Gas PEEP or CPAP 10.0 Blood Gas Critical Value Read Back Yes Blood Gas Notified Whom Dr. montelongo Blood Gas Notified Time [id number] Blood Gas Notified By Lactic Acid Level 2.0 0.4-2.0 mmol/L Test 11/10/24 09:57 11/10/24 09:00 11/10/24 08:53 11/10/24 08:22 Range/Units Influenza Type A Antigen Negative Negative Influenza Type B Antigen Negative Negative Group A Streptococcus Rapid Negative Urine Color Yellow Yellow Urine Clarity Clear Clear Urine pH 5.5 5.0-9.0 Urine Specific [place] 1.019 1.001-1.035 Urine Protein 2+ H Negative Urine Ketones Negative Negative Urine Blood Trace H Negative /uL Urine Nitrite Negative Negative Urine Bilirubin Negative Negative Urine Urobilinogen Normal Negative mg/dL Urine Leukocyte Esterase Negative Negative /uL Urine RBC 1 0 - 3 /hpf Urine WBC 1 0 - 3 /hpf Urine Squamous Epithelial Cells None seen <5 /hpf Urine Bacteria None seen None Seen /hpf Urine Glucose Normal Normal mg/dL Urine Opiates Screen Neg NEGATIVE Urine Fentanyl Screen Neg NEGATIVE Urine Barbiturates Screen Neg NEGATIVE Urine Phencyclidine Screen Neg NEGATIVE Urine Amphetamines Screen Neg NEGATIVE Urine Benzodiazepines Screen Neg NEGATIVE Urine Cocaine Screen Neg NEGATIVE Urine Cannabinoids Screen Neg NEGATIVE Troponin I High Sensitivity 45 </=54 ng/L Blood Gas Specimen Type Arterial Blood Gas Sample Site Right radial Blood Gas Patient Temperature 37.0 Arterial Blood Date Drawn [id number] Arterial Blood pH 7.210 *L 7.350-7.450 Arterial Blood Partial Pressure CO2 51.2 H 35.0-48.0 mmHg Arterial Blood Partial Pressure O2 72.8 L 83.0-108.0 mmHg Arterial Blood HCO3 20.0 L 21.0-28.0 mmol/L Arterial Blood Oxygen Saturation 90.6 L 94.0-98.0 % Arterial Blood Base Excess -8.1 L -2.0-3.0 mmol/L Arterial Blood Oxyhemoglobin 88.5 L 94.0-98.0 % Arterial Blood Carboxyhemoglobin 1.6 H 0.5-1.5 % Arterial Blood Methemoglobin 0.7 0.0-1.5 % Rudolph Test Positive Blood Gas Total Hemoglobin 14.90 13.5-17.5 g/dL Blood Gas Modality Mask - simple FiO2 % 55.0 Blood Gas Critical Value Read Back yes Blood Gas Notified Whom dr. montelongo Blood Gas Notified Time [id number] Blood Gas Notified By byron molina access tech Test 11/10/24 08:00 11/10/24 07:51 11/10/24 07:48 11/10/24 00:00 Range/Units Plasma/Serum Blood Alcohol 129.5 H <10 mg/dL White Blood Count 10.3 # 4.4-10.8 10^3/uL Red Blood Count 4.35 L 4.5-5.90 10^6/uL Hemoglobin 14.8 13.5-17.5 g/dL Hematocrit 43.6 41.0-53.0 % Mean Corpuscular Volume 100.3 H 80.0-100.0 fL Mean Corpuscular Hemoglobin 34.0 H 28.0-32.0 pg Mean Corpuscular Hemoglobin Concent 33.9 32.0-36.0 g/dL Red Cell Distribution Width 14.8 H 11.8-14.3 % Platelet Count 242 140-450 10^3/uL Mean Platelet Volume 7.1 6.9-10.8 fL Neutrophils (%) (Auto) 84.9 H 37.0-80.0 % Lymphocytes (%) (Auto) 11.1 10.0-50.0 % Monocytes (%) (Auto) 2.0 0.0-12.0 % Eosinophils (%) (Auto) 1.4 0.0-7.0 % Basophils (%) (Auto) 0.6 0.0-2.0 % Neutrophils # (Auto) 8.8 H 1.6-8.6 10 ^3/uL Lymphocytes # (Auto) 1.1 0.4-5.4 10 ^3/uL Monocytes # (Auto) 0.2 0-1.3 10 ^3/uL Eosinophils # (Auto) 0.1 0-0.8 10 ^3/uL Basophils # (Auto) 0.1 0-0.2 10 ^3/uL Nucleated Red Blood Cells 0.0 % Prothrombin Time 10.4 9.3-11.8 sec Prothrombin Time INR 0.98 0.9-1.15 Activated Partial Thromboplast Time 26.0 24.5-34.5 SEC Lactic Acid Level 2.3 *H 0.4-2.0 mmol/L Troponin I High Sensitivity 31 </=54 ng/L Sodium Level 144 136-145 mmol/L Potassium Level 4.4 3.5-5.1 mmol/L Chloride Level 114 H 98-107 mmol/L Carbon Dioxide Level 20 20-31 mmol/L Anion Gap 10 5-15 Blood Urea Nitrogen 13 9-23 mg/dL Creatinine 0.77 0.700-1.30 mg/dL Glomerular Filtration Rate Calc 104 >90 mL/min BUN/Creatinine Ratio 16.9 10.0-20.0 Serum Glucose 119 H 74-106 mg/dL Calcium Level 8.7 8.7-10.4 mg/dL Total Bilirubin 0.3 0.2-1.0 mg/dL Aspartate Amino Transferase (AST) 59 H 13-40 U/L Alanine Aminotransferase (ALT) 40 7-40 U/L Alkaline Phosphatase 106 46-116 U/L Total Protein 7.5 5.7-8.2 g/dL Albumin 4.2 3.2-4.8 g/dL SARS-CoV-2 Antigen (Rapid) Negative NEGATIVE Current Medications Medications (Trade) Dose Ordered Sig/Carl Route Start Time Stop Time Status Last Admin Sodium Chloride 1,000 ml @ 1,000 mls/hr Q1H ONCE IV 11/10/24 08:00 11/10/24 08:59 DC 11/10/24 08:07 Methylprednisolone Sodium Succinate (Solu Medrol) 80 mg ONCE ONCE IV 11/10/24 08:00 11/10/24 08:01 DC 11/10/24 08:23 Ipratropium [place] (Atrovent Medneb) 1 mg ONCE ONCE HHN 11/10/24 08:00 11/10/24 08:01 DC 11/10/24 07:58 Lorazepam (Ativan Inj) 1 mg ONCE ONCE IM 11/10/24 08:00 11/10/24 08:02 DC 11/10/24 08:24 Levalbuterol HCl (Xopenex Medneb) 1.25 mg ONCE ONCE NEB 11/10/24 08:15 11/10/24 08:16 DC 11/10/24 08:04 Lorazepam (Ativan Inj) 1 mg ONCE ONCE IV 11/10/24 09:00 11/10/24 09:01 DC 11/10/24 09:14 Propofol 100 ml @ 2.454 mls/ hr Q24H IV 11/10/24 09:45 11/10/24 09:42 Fentanyl Citrate 250 ml @ 2.5 mls/hr Q24H IV 11/10/24 09:45 11/10/24 10:46 Acetaminophen 100 ml @ 400 mls/hr ONCE ONCE IV 11/10/24 10:00 11/10/24 10:14 DC 11/10/24 10:36 Rocuronium [place] 70 mg ONCE ONCE IV 11/10/24 10:15 11/10/24 10:17 DC 11/10/24 09:35 Etomidate 20 mg ONCE ONCE IV 11/10/24 10:15 11/10/24 10:17 DC 11/10/24 09:35 Sodium Chloride 1,500 ml @ 1,000 mls/hr Q1H30M ONCE IV 11/10/24 11:00 11/10/24 12:29 DC 11/10/24 11:00 [place] [id number] Ph: [phone] DIAGNOSTIC IMAGING Diagnostic Imaging Report : [id number] Signed PATIENT: LIDIA VINES ACCT: [id number] UNIT: [id number] : 1965 LOC: ER ROOM / BED: / AGE / SEX: 59 / M ADM STATUS: REG ER SERVICE [id number] ORDERING PHYSICIAN: RAVEN MONTELONGO MD PROCEDURE(s): CXRP - CHEST PORTABLE REASON: sob ORDER NUMBER(s): [id number], ACCESSION NUMBER(s): [id number] CLINICAL INFORMATION: 59 years old, Male; shortness of breath. TECHNIQUE: Single AP portable chest radiograph was obtained. COMPARISON: XY CHEST PORTABLE on DOS: 11/09/24, XY CHEST PORTABLE on DOS: 09/20/24, XY CHEST PORTABLE on DOS: 12/15/23 FINDINGS: Worsening bilateral interstitial opacities and new ill-defined airspace opacities bilaterally, may be due to pulmonary edema or multifocal pneumonia in the appropriate clinical setting. No other significant interval change. IMPRESSION: Worsening bilateral interstitial opacities and new ill-defined airspace opacities bilaterally, may be due to pulmonary edema or multifocal pneumonia in the appropriate clinical setting. Correlate with clinical findings. ATED BY: JIAN AKINS DO DICTATED DATE/TIME: 11/10/24815 SIGNED BY: JIAN AKINS DO SIGNED DATE/TIME: 11/10/24815 CC: X-Ray, Labs, Meds, VS Comment Patient presented to emergency room in significant respiratory distress. Despite treatment, patient to continue to deteriorate. Became more and more agitated. And despite being tachypneic, he started to retain CO2. Chest x-ray shows multilobar infiltrate. Subsequently decision was made to intubate the patient. He was intubated per rapid sequence intubation. He was treated per sepsis protocol. Time of 1ST Reevaluation: 08:10 Reevaluation 1ST: Unchanged Patient Education/Counseling: Diagnosis, Treatment Family Education/Counseling: No Family Present Departure 1 Departure Time of Disposition: 16:47 Impression: Primary Impression: Acute hypoxemic respiratory failure Additional Impressions: Severe sepsis with acute organ dysfunction Bacterial pneumonia Aspiration pneumonitis Disposition: 09 ADMITTED INPATIENT Admit to: ICU Condition: Critical Critical Care Note Critical Care Time?: Yes (45 min-critical care time only) Critical care comment: CRITICAL CARE TIME: 95 minutes Treatments/Evaluations: Close monitoring and treatment of unstable vital signs, cardiorespiratory, and neurologic status, while maintaining tight balance of fluid, respiratory, and cardiac interventions. This time includes discussing the case with the patient and the patients family. This time does not include all procedures stated elsewhere in this record. This time also includes reviewing old records, labs and radiological studies. This time includes examining and re- examining the patient. Additionally, this time also includes arranging care with admitting and consulting physicians. Stability Stability form required: No Heart Score Heart Score: Heart Score Response (Comments) Value History Moderate Suspicious 1 EKG Normal 0 Age 45-64 1 Risk Factors >3 or Hx ASHD 2 Troponin Normal limit 0 Total 4 I personally scribed for RAVEN MONTELONGO MD ([facility] on 11/10/24 at 07:54. Electronically submitted by To Tee ([email or web address]). I personally scribed for RAVEN MONTELONGO MD ([facility] on 11/10/24 at 08:44. Electronically submitted by To Tee ([email or web address]). I personally scribed for RAVEN MONTELONGO MD ([facility]) on 11/10/24 at 09:40. Electronically submitted by oT Tee ([email or web address]). RAVEN MONTELNOGO MD Nov 10, 2024 07:54
[2024-11-10] MEDS: IPRATROPIUM BROM 0.5 MG/2.5ML INH SOL HHN ONE (07:58)
[2024-11-10] MEDS: ALBUTEROL SULF 2.5 MG/0.5ML(0.5%) NEB SOLN HHN ONE (07:58)
[2024-11-10] MEDS: LEVALBUTEROL HCL 1.25 MG/3 ML NEB NEB ONE (08:04)
[2024-11-10] MEDS: SODIUM CHLORIDE 0.9% 1,000 ML IV ONE (08:07)
--- NOTE | 2024-11-10 08:18 | DVH ---
CLINICAL INFORMATION: 59 years old, Male; shortness of breath. TECHNIQUE: Single AP portable chest radiograph was obtained. COMPARISON: XY CHEST PORTABLE on DOS: 11/09/24, XY CHEST PORTABLE on DOS: 09/20/24, XY CHEST PORTABLE on DOS: 12/15/23 FINDINGS: Worsening bilateral interstitial opacities and new ill-defined airspace opacities bilaterally, may be due to pulmonary edema or multifocal pneumonia in the appropriate clinical setting. No other signifi cant interval change. IMPRESSION: Worsening bilateral interstitial opacities and new ill-defined airspace opacities bilaterally, may be due to pulmonary edema or multifocal pneumonia in the appropriate clinical setting. Correlate with clinical findings.
[2024-11-10] MEDS: methylPREDNISolone SOD SUCC 125 MG/2 ML VL IV ONE (08:23)
[2024-11-10] MEDS: LORazepam 2MG/ML-1ML VIAL IM ONE ×2 (08:24→09:15)
[2024-11-10] MEDS: LEVALBUTEROL HCL 1.25 MG/3 ML NEB ONE (08:30)
[2024-11-10 08:36] LABS: Basophils # (auto) 0.1 10 ^3/uL (0-0.2); Eosinophils # (auto) 0.1 10 ^3/uL (0-0.8); Hematocrit 43.6 % (41.0-53.0); Lymphocytes # (auto) 1.1 10 ^3/uL (0.4-5.4); Monocytes # (auto) 0.2 10 ^3/uL (0-1.3)
[2024-11-10 08:39] LABS: Base Excess -8.1 mmol/L (-2.0-3.0)
[2024-11-10 08:42] LABS: Basophils % (auto) 0.6 % (0.0-2.0); Eosinophils % (auto) 1.4 % (0.0-7.0); Hemoglobin 14.8 g/dL (13.5-17.5); Lymphocytes % (auto) 11.1 % (10.0-50.0); Mean Corpuscular Hgb Conc. 33.9 g/dL (32.0-36.0); Mean Corpuscular Volume 100.3 fL (80.0-100.0); Neutrophils # (auto) 8.8 10 ^3/uL (1.6-8.6); Neutrophils % (auto) 84.9 % (37.0-80.0); Platelet Count (auto) 242 10^3/uL (140-450); Red Blood Cells 4.35 10^6/uL (4.5-5.90); Red Cell Distribution Width 14.8 % (11.8-14.3); White Blood Cell 10.3 10^3/uL (4.4-10.8)
[2024-11-10 08:54] LABS: INR 0.98 (0.9-1.15); Prothrombin Time 10.4 sec (9.3-11.8)
[2024-11-10] MEDS: LORazepam 2MG/ML-1ML VIAL IV ONE (09:14)
[2024-11-10] MEDS: LORazepam 2MG/ML-1ML VIAL ONE (09:17)
[2024-11-10 09:27] LABS: Urine Bacteria None Seen /hpf (None Seen)
[2024-11-10] MEDS: ROCURONIUM 10MG/ML 10ML VIAL IV ONE ×2 (09:35→10:14)
[2024-11-10] MEDS: ETOMIDATE (2MG/ML) 20ML VIAL IV ONE ×2 (09:35→10:14)
[2024-11-10] MEDS: PROPOFOL 100 ML IV SCH ×2 (09:42→10:15)
[2024-11-10] MEDS ORDERED: ALBUTEROL SULF 2.5 MG/0.5ML(0.5%) NEB SOLN NEB PRN (09:45)
[2024-11-10] MEDS ORDERED: PROPOFOL 100 ML IV SCH (09:45)
[2024-11-10 09:48] LABS: Urine Blood TRACE /uL (Negative); Urine Clarity Clear (Clear); Urine Color Yellow (Yellow); Urine Protein, UAD 2+ (Negative); Urine Specific Gravity 1.019 (1.001-1.035); Urine Squamous Epithelial Cell None Seen /hpf (<5); Urine Urobilinogen Normal (Negative); Urine WBC 1 /hpf (0 - 3); Urine pH 5.5 (5.0-9.0)
[2024-11-10 09:56] LABS: Lactic Acid w/Reflex 2.3 mmol/L (0.4-2.0)
[2024-11-10] MEDS: IPRATROPIUM BROM 0.5 MG/2.5ML INH SOL NEB SCH ×2 (10:00→15:27)
[2024-11-10] MEDS: PIPERACILLIN-TAZO 4.5GM 100 ML IV SCH (10:15)
[2024-11-10 10:26] LABS: Amphetamine Screen, Urine Neg (NEGATIVE); Barbiturate Scree,Urine Neg (NEGATIVE); Benzodiazephine Screen, Urine Neg (NEGATIVE); Cannabinoid Screen, Urine Neg (NEGATIVE); Cocaine Screen, Urine Neg (NEGATIVE); Opiate Scree,Urine Neg (NEGATIVE); Phencyclidine Screen, Urine Neg (NEGATIVE)
[2024-11-10] MEDS: ACETAMINOPHEN IV 100 ML IV ONE (10:36)
--- NOTE | 2024-11-10 10:39 | DVH ---
CLINICAL INFORMATION: 59 years old, Male; POST INTUBATION. TECHNIQUE: Single AP portable chest radiograph was obtained. COMPARISON: XY CHEST PORTABLE on DOS: 11/10/24, XY CHEST PORTABLE on DOS: 11/09/24, XY CHEST PORTABLE o n DOS: 09/20/24 FINDINGS: Distal tip of the endotracheal tube is poorly visualized, but appears to be approximately 5.1 cm abov e the level of the noman. Enteric tube reaches the stomach and descends below the [id number] of t he exam. Bilateral airspace opacities have increased compared to the examination from earlier the rober e , suspected pulmonary edema. No pneumothorax visualized. No other significant interval change. IMPRESSION: 1. Endotracheal tube and enteric tube as described above. 2. Bilateral airspace opacities have increased, likely pulmonary edema.
[2024-11-10] MEDS: fentaNYL Drip 2500mCg/250mlNS 250 ML IV SCH (10:46)
[2024-11-10] MEDS: SODIUM CHLORIDE 0.9% 1,500 ML IV ONE (11:00)
[2024-11-10 11:07] LABS: Base Excess -11.7 mmol/L (-2.0-3.0)
[2024-11-10] MEDS ORDERED: LEVALBUTEROL HCL 1.25 MG/3 ML NEB NEB SCH (12:00)
[2024-11-10] MEDS ORDERED: ONDANSETRON HCL 4 MG/2 ML VIAL IV PRN (12:15)
[2024-11-10] MEDS ORDERED: VANCOMYCIN PER PHARMACY 0 MG IV SCH (12:15)
[2024-11-10] MEDS ORDERED: NITROGLYCERIN 0.4 MG SL TAB SL PRN (12:15)
[2024-11-10] MEDS ORDERED: MORPHINE SULFATE INJ 2 MG/ml SYRG IV PRN (12:15)
[2024-11-10 12:19] LABS: Rapid Influenza A Negative (Negative); Rapid Influenza B Negative (Negative)
[2024-11-10 12:20] LABS: COVID19 ANTIGEN SOFIA FIA NEGATIVE (NEGATIVE)
[2024-11-10 12:23] LABS: Rapid Strep A Screen-Throat Negative
--- NOTE | 2024-11-10 12:47 | DVHHP2 ---
History of Present Illness Reason for Visit: SOB History of Present Illness Moiz Ochoa is a 59-year-old male with past medical history of hypertension, hyperlipidemia, CHF, CVA with no reported deficits, gout, PUD, pneumonia, and hernia repair who presents to the ED with shortness of Breath. Upon examination patient is intubated and on the vent. Patient's social history of polysubstance abuse, meth, smoker, marijuana, and ETOH abuse. Patient drank about 1/2 gallon of alcohol per day, patient reported to nurse when he came into ED yesterday. Cardiovascular: CHF, HTN, hyperipidemia [employer]: CVA GI: Peptic Ulcer disease Rheumatologic: Gout Past Surgical History: Hernia Repair Smoke: <1 pack per day Drugs: Marijuana, Other (Methamphetamine) Lives: with Family Domestic Violence: Neg Review of Systems Respiratory: Shortness of breath Allergies: Coded Allergies: NO KNOWN ALLERGIES (Unverified , 12/18/23) Medications Current Medications Medications Dose Ordered Sig/Carl Route Start Time Stop Time Status Last Admin Dose Admin Piperacillin Sod/ Tazobactam Sod 100 ml @ 25 mls/hr Q8HR IV 11/10/24 14:00 11/10/24 10:15 25 MLS/HR Propofol 100 ml @ 2.454 mls/ hr Q24H IV 11/10/24 09:30 Albuterol 2.5 mg Q3HP PRN NEB 11/10/24 09:45 Ipratropium [place] 0.5 mg Q4HR NEB 11/10/24 10:00 Propofol 100 ml @ 2.454 mls/ hr Q24H IV 11/10/24 09:45 UNV Propofol 100 ml @ 2.454 mls/ hr Q24H IV 11/10/24 09:45 11/10/24 09:42 2.454 MLS/HR Fentanyl Citrate 250 ml @ 2.5 mls/hr Q24H IV 11/10/24 09:45 11/10/24 10:46 2.5 MLS/HR Exam Vital Signs Vital Signs Date Time Temp Pulse Resp B/P (MAP) Pulse Ox O2 Delivery O2 Flow Rate FiO2 11/10/24 12:13 102.7 133 18 84 100 102.7 11/10/24 11:25 124/79 (94) 11/10/24 08:25 Simple Mask* 7 Cardiovascular: Normal S1, Normal S2, No murmurs Abdominal: Soft Extremities: No cyanosis, Normal pulses Skin: No significant lesion Labs/Xrays Labs Test 11/10/24 11:49 11/10/24 11:00 11/10/24 10:02 11/10/24 09:57 Range/Units Blood Gas Specimen Type Arterial Blood Gas Sample Site Left radial Blood Gas Patient Temperature 37.0 Arterial Blood Date Drawn [id number] Arterial Blood pH 7.041 *L 7.350-7.450 Arterial Blood Partial Pressure CO2 77.6 *H 35.0-48.0 mmHg Arterial Blood Partial Pressure O2 64.8 L 83.0-108.0 mmHg Arterial Blood HCO3 20.6 L 21.0-28.0 mmol/L Arterial Blood Oxygen Saturation 84.6 *L 94.0-98.0 % Arterial Blood Base Excess -11.7 L -2.0-3.0 mmol/L Arterial Blood Oxyhemoglobin 83.1 L 94.0-98.0 % Arterial Blood Carboxyhemoglobin 1.2 0.5-1.5 % Arterial Blood Methemoglobin 0.6 0.0-1.5 % Rudolph Test Modified Blood Gas Total Hemoglobin 15.60 13.5-17.5 g/dL Blood Gas Set Respiration Rate 18.0 Blood Gas Modality Vent - ac Blood Gas Spontaneous Rate 26 FiO2 % 100.0 Blood Gas Tidal Volume 500.0 Blood Gas PEEP or CPAP 10.0 Blood Gas Critical Value Read Back Yes Blood Gas Notified Whom Dr. montelongo Blood Gas Notified Time [id number] Blood Gas Notified By Lactic Acid Level 2.0 0.4-2.0 mmol/L Influenza Type A Antigen Negative Negative Influenza Type B Antigen Negative Negative Group A Streptococcus Rapid Negative Test 11/10/24 09:00 11/10/24 08:00 11/10/24 07:51 11/10/24 00:00 Range/Units Urine Color Yellow Yellow Urine Clarity Clear Clear Urine pH 5.5 5.0-9.0 Urine Specific [place] 1.019 1.001-1.035 Urine Protein 2+ H Negative Urine Ketones Negative Negative Urine Blood Trace H Negative /uL Urine Nitrite Negative Negative Urine Bilirubin Negative Negative Urine Urobilinogen Normal Negative mg/dL Urine Leukocyte Esterase Negative Negative /uL Urine RBC 1 0 - 3 /hpf Urine WBC 1 0 - 3 /hpf Urine Squamous Epithelial Cells None seen <5 /hpf Urine Bacteria None seen None Seen /hpf Urine Glucose Normal Normal mg/dL Urine Opiates Screen Neg NEGATIVE Urine Fentanyl Screen Neg NEGATIVE Urine Barbiturates Screen Neg NEGATIVE Urine Phencyclidine Screen Neg NEGATIVE Urine Amphetamines Screen Neg NEGATIVE Urine Benzodiazepines Screen Neg NEGATIVE Urine Cocaine Screen Neg NEGATIVE Urine Cannabinoids Screen Neg NEGATIVE Plasma/Serum Blood Alcohol 129.5 H <10 mg/dL White Blood Count 10.3 # 4.4-10.8 10^3/uL Red Blood Count 4.35 L 4.5-5.90 10^6/uL Hemoglobin 14.8 13.5-17.5 g/dL Hematocrit 43.6 41.0-53.0 % Mean Corpuscular Volume 100.3 H 80.0-100.0 fL Mean Corpuscular Hemoglobin 34.0 H 28.0-32.0 pg Mean Corpuscular Hemoglobin Concent 33.9 32.0-36.0 g/dL Red Cell Distribution Width 14.8 H 11.8-14.3 % Platelet Count 242 140-450 10^3/uL Mean Platelet Volume 7.1 6.9-10.8 fL Neutrophils (%) (Auto) 84.9 H 37.0-80.0 % Lymphocytes (%) (Auto) 11.1 10.0-50.0 % Monocytes (%) (Auto) 2.0 0.0-12.0 % Eosinophils (%) (Auto) 1.4 0.0-7.0 % Basophils (%) (Auto) 0.6 0.0-2.0 % Neutrophils # (Auto) 8.8 H 1.6-8.6 10 ^3/uL Lymphocytes # (Auto) 1.1 0.4-5.4 10 ^3/uL Monocytes # (Auto) 0.2 0-1.3 10 ^3/uL Eosinophils # (Auto) 0.1 0-0.8 10 ^3/uL Basophils # (Auto) 0.1 0-0.2 10 ^3/uL Nucleated Red Blood Cells 0.0 % Prothrombin Time 10.4 9.3-11.8 sec Prothrombin Time INR 0.98 0.9-1.15 Activated Partial Thromboplast Time 26.0 24.5-34.5 SEC SARS-CoV-2 Antigen (Rapid) Negative NEGATIVE CLINICAL INFORMATION: 59 years old, Male; POST INTUBATION. TECHNIQUE: Single AP portable chest radiograph was obtained. COMPARISON: XY CHEST PORTABLE on DOS: 11/10/24, XY CHEST PORTABLE on DOS: 11/09/24, XY CHEST PORTABLE on DOS: 09/20/24 FINDINGS: Distal tip of the endotracheal tube is poorly visualized, but appears to be approximately 5.1 cm above the level of the noman. Enteric tube reaches the stomach and descends below the [id number] of the exam. Bilateral airspace opacities have increased compared to the examination from earlier the same day, suspected pulmonary edema. No pneumothorax visualized. No other significant interval change. IMPRESSION: 1. Endotracheal tube and enteric tube as described above. 2. Bilateral airspace opacities have increased, likely pulmonary edema. CLINICAL INFORMATION: 59 years old, Male; shortness of breath. TECHNIQUE: Single AP portable chest radiograph was obtained. COMPARISON: XY CHEST PORTABLE on DOS: 11/09/24, XY CHEST PORTABLE on DOS: 09/20/24, XY CHEST PORTABLE on DOS: 12/15/23 FINDINGS: Worsening bilateral interstitial opacities and new ill-defined airspace opacities bilaterally, may be due to pulmonary edema or multifocal pneumonia in the appropriate clinical setting. No other significant interval change. IMPRESSION: Worsening bilateral interstitial opacities and new ill-defined airspace opacities bilaterally, may be due to pulmonary edema or multifocal pneumonia in the appropriate clinical setting. Correlate with clinical findings. Assessment/Plan Assessment/Plan Assessment/Plan: Acute respiratory failure likely CHF exacerbation due to suspected sepsis Proteinuria Respiratory acidosis Intubated on vent ABG UA Respiratory treatments NS given in ER Solu-Medrol given ER Ativan given ER Propofol Fentanyl IV antibiotics-vancomycin and Zosyn Chest x-ray Respiratory culture Rapid strep Influenza COVID CT head NG tube ordered in ER EKG Troponin Lactic Blood cultures PT/PTT UDS ETOH positive Protonix Procal Chest x-ray a.m. Labs A.m. labs CRP ESR Echo ordered Last echo on 05/19/2023 EF 55% IV diuretics Lipase LFTs IV fluids UDS Richey cath in ED cards consult - troponin's elevated pressor - levo Pulmonary consult MRI brain Chronic Hypertension Continue home meds Chronic hyperlipidemia continue home meds History of CVA Monitor History of gout Continue home meds Chronic PUD Continue home meds FEN/PPX NPO Ivf DVT ppx lovenox PUD ppx - Protonix Discussed plan of care with nurse Home medications reconciled Admit to ICU Plan discussed with: Other My Orders Orders - MARCEL HEARD DOBIE MAN Procedure Category Date Status Time Albuterol Medneb PHA 11/10/24 Transmitted (Ventolin Medneb) 14:00 Ipratropium Medneb PHA 11/10/24 Transmitted (Atrovent Medneb) 14:00 Echo 2d Mode Cardiac US 11/10/24 Transmitted DOP 12:11 Vancomycin Per PHA 11/10/24 Transmitted Pharmacy 12:15 Zosyn Extended PHA 11/10/24 Transmitted Infusion 14:00 Furosemide Injection PHA 11/10/24 Transmitted (Lasix Injection) 18:00 Lipase LAB 11/10/24 Transmitted 12:11 C-Reactive Protein LAB 11/10/24 Transmitted 12:11 Erythrocyte LAB 11/10/24 Transmitted Sedimentation Rate 12:11 Admit ADMIT 11/10/24 Transmitted 12:11 Allergies ELYSIA 11/10/24 Transmitted 12:11 Code Status CODE 11/10/24 Transmitted 12:11 0.9% Ns 1000 Ml PHA 11/10/24 Transmitted 12:15 Ondansetron Hcl PHA 11/10/24 Transmitted (Zofran) 12:15 Enoxaparin Sodium PHA 11/11/24 Transmitted (Lovenox) 10:00 Complete Blood Count LAB 11/11/24 Verified 04:00 Comprehensive LAB 11/11/24 Verified Metabolic Panel 04:00 Npo (Nothing By DIET 11/10/24 Transmitted Mouth) Diet Lunch Nitroglycerin PHA 11/10/24 Transmitted Sublingual (Ntrostat 12:15 Morphine Sulfate PHA 11/10/24 Transmitted Injection 12:15 Stat Ekg For Chest [facility] 11/10/24 Transmitted Pain 12:11 Notify Md Of Changes [facility] 11/10/24 Transmitted From Base 12:11 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
[2024-11-10 12:51] LABS: Base Excess -9.9 mmol/L (-2.0-3.0)
[2024-11-10] MEDS: PANTOPRAZOLE 40 MG/10 ML VIAL INJ IV ONE (13:02)
[2024-11-10] MEDS: SODIUM CHLORIDE 0.9% 1,000 ML IV SCH (13:03)
[2024-11-10] MEDS: NOREPINEPHRINE 8 MG/250ML KIT 250 ML IV ONE (13:08)
[2024-11-10 13:10] LABS: Alanine Aminotransferase 40 U/L (7-40); Albumin 4.2 g/dL (3.2-4.8); Alkaline Phosphatase 106 U/L (46-116); Anion Gap 10 (5-15); BUN/Creatinine Ratio 16.9 (10.0-20.0); Blood Urea Nitrogen 13 mg/dL (9-23); Calcium 8.7 mg/dL (8.7-10.4); Carbon Dioxide 20 mmol/L (20-31); Potassium 4.4 mmol/L (3.5-5.1); Sodium 144 mmol/L (136-145)
[2024-11-10] MEDS: NOREPINEPHRINE 8 MG/250ML KIT 250 ML IV SCH (13:10)
[2024-11-10 13:11] LABS: Bilirubin, Total 0.3 mg/dL (0.2-1.0); Total Protein 7.5 g/dL (5.7-8.2)
[2024-11-10 13:14] LABS: Aspartate Aminotransferase 59 U/L (13-40); Chloride 114 mmol/L (98-107); Glucose 119 mg/dL (74-106)
[2024-11-10 13:51] LABS: CRP High Sensitivity 1.38 mg/dL (<1.0)
[2024-11-10 14:02] LABS: Erythrocyte Sedimentation Rate 17 mm/hr (0-20)
[2024-11-10] MEDS: ALBUTEROL SULF 2.5 MG/0.5ML(0.5%) NEB SOLN NEB SCH (15:27)
[2024-11-10] MEDS: VANCOMYCIN 1GM/250ML KIT 250 ML IV SCH (16:02)
--- NOTE | 2024-11-10 16:18 | DVH ---
EXAM: CT HEAD WITHOUT CONTRAST INDICATION: trauma TECHNIQUE: CT of the head without intravenous contrast. Radiation Dose Information: CT Dose: CTDI volume is 66.6 mGy. Dose-length product is 1067.28 mGy*cm The dose indicators for CT are the volume Computed Tomography (CT) Dose Index (CTDIvol) and the Dose Length Product (DLP), and are measured in units of mGy and mGy-cm, respectively. These indicators are not patient dose, but values generated from the CT scanner acquisition factors. The report includes radiation exposure data for exposures received during this examination. COMPARISON: CT CHEST WITHOUT CONTRAST on DOS: 06/04/23 FINDINGS: There is no evidence of acute intracranial hemorrhage, extra-axial collection, mass effect, midline s hift, herniation or hydrocephalus. Tubes are noted in the nose on the right and left. There are 3 round low-density areas in the deep white matter of the right temporal and parietal lobe 1 measures 7 mm in the other measures 16 mm. Possibility of metastatic disease is raised. Ischemic di sease in the in the deep white matter can not be entirely excluded. The ventricles, sulci and cisterns are age appropriate. The kenyon-white differentiation is intact. Patchy periventricular and subcortical white matter hypoattenuation is nonspecific but may be related to small vessel ischemic disease. The visualized paranasal sinuses and mastoid air cells are clear. Soft tissue swelling over the right frontal skull IMPRESSION: 1. 3 round areas of decreased attenuation in the deep white matter of the right parietal lobe. May re present deep white matter ischemia or neoplasm. Consider MRI or contrast CT for further evaluation. 2. Soft tissue swelling over the right frontal skull. No underlying fracture or intracranial hemorrha ge. 3. Tubes in the right and left nostrils. CRITICAL FINDINGS Critical Result: 3 LOW-DENSITY AREAS IN THE DEEP WHITE MATTER Findings discussed with , at 11/10/2024 04:02 PM, and acknowledged receipt and understanding of the findings. ..
[2024-11-10] MEDS: FUROSEMIDE 40 MG/4 ML VIAL IV SCH (18:27)
[2024-11-10 18:49] LABS: Base Excess -6.9 mmol/L (-2.0-3.0)
--- NOTE | 2024-11-10 20:50 | ECG ---
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
[2024-11-10] MEDS: IOHEXOL 350 MG/ML 100ML IJ ONE (22:26)
--- NOTE | 2024-11-10 23:03 | DVH ---
EXAM: CT HEAD CONTRAST ONLY INDICATION: BRAIN LESIONS TECHNIQUE: CT of the head without intravenous contrast. Radiation Dose : 1. Head: CT Dose: CTDI volume is 35 mGy. Dose-length product is 709 mGy*cm The dose indicators for CT are the volume Computed Tomography (CT) Dose Index (CTDIvol) and the Dose Length Product (DLP), and are measured in units of mGy and mGy-cm, respectively. These indicators are not patient dose, but values generated from the CT scanner acquisition factors. The report includes radiation exposure data for exposures received during this examination. COMPARISON: CT HEAD WITHOUT CONTRAST on DOS: 11/10/24 FINDINGS: No acute intracranial hemorrhage. No acute infarct. 3 stable hypoattenuated lesions in the deep white matter of the right parietal lobe. The ventricles, sulci and cisterns are age appropriate. The kenyon-white differentiation is intact. Patchy periventricular and subcortical white matter hypoatt enuation is nonspecific but may be related to small vessel ischemic disease. The visualized paranasal sinuses and mastoid air cells are clear. The surrounding soft tissues and osseous structures are unremarkable. IMPRESSION: 1. 3 stable hypoattenuated lesion in the deep white matter of the right parietal lobe are unchanged. Recommend MRI brain for further characterization 2. Chronic microvascular ischemic changes. Radiation optimization: All CT scans at this facility use at least one of these dose optimization lety hniques: automated exposure control mA and/or kV adjustment per patient size (includes targeted exam s where dose is matched to clinical indication) or iterative reconstruction.
--- NOTE | 2024-11-10 23:43 | DVHINCON2 ---
Date of service: Nov 10, 2024 Referring Physician ANGELA Flores Reason for Consultation Acute hypoxic/hypercarbic respiratory failure requiring mechanical ventilator History of Present Illness A 59-year-old man with past medical history of hypertension, hyperlipidemia, CHF, CVA with no reported deficits, gout, PUD, and pneumonia who presents to the ED with c/o shortness of breath. Patient is a smoker with polysubstance abuse (meth, marijuana), and ETOH abuse. Patient subsequently required intubation and mechanical ventilation and was admitted for further care. Pulmonary consultation is requested for evaluation and management due to the above findings. Review of Systems: 14-point review of systems negative unless otherwise noted above. Past Medical History: Hypertension, hyperlipidemia, CHF, CVA with no reported deficits, gout, PUD, pneumonia Past Surgical History: Hernia Repair Medications: Reviewed. Allergies: No known drug allergies. Family History: No family history of premature CAD. No family history of lung disorders. Social History: Smoker, <1 pack per day. Positive ETOH abuse. Drugs: Marijuana, Other (Methamphetamine) Family History: Patient reports no known family medical history. Allergies: Coded Allergies: NO KNOWN ALLERGIES (Unverified , 12/18/23) Home Meds Active Scripts Aspirin (Aspir-81) 81 Mg Tab, 1 TAB PO DAILY, #90 TAB 1 Refill Prov:BLAKE HORN MD 06/14/23 Atorvastatin Calcium (Lipitor) 40 Mg Tab, 1 TAB PO DAILY, #30 TAB 5 Refills Prov:BLAKE OHRN MD 06/14/23 Reported Medications Tamsulosin Hcl (Tamsulosin Hcl) 0.4 Mg Cap, 0.4 MG PO QPM for 31 Days, #31 MG 09/21/24 Allopurinol (Allopurinol) 300 Mg Tab, 300 MG PO DAILY for 31 Days, #31 MG 09/21/24 Current Medications Current Medications Medications (Trade) Dose Ordered Sig/Carl Route PRN Reason Start Time Stop Time Status Last Admin Piperacillin Sod/ Tazobactam Sod 100 ml @ 25 mls/hr Q8HR IV 11/10/24 14:00 11/10/24 16:01 DC 11/10/24 10:15 Levalbuterol HCl (Xopenex Medneb) 1.25 mg Q6HR NEB 11/10/24 12:00 11/10/24 08:30 DC Propofol 100 ml @ 2.454 mls/ hr Q24H IV 11/10/24 09:30 11/10/24 13:02 DC Albuterol (Ventolin Medneb) 2.5 mg Q3HP PRN NEB SHORTNESS OF BREATH 11/10/24 09:45 Ipratropium [place] (Atrovent Medneb) 0.5 mg Q4HR NEB 11/10/24 10:00 11/10/24 12:59 DC Propofol 100 ml @ 2.454 mls/ hr Q24H IV 11/10/24 09:45 UNV Propofol 100 ml @ 2.454 mls/ hr Q24H IV 11/10/24 09:45 11/10/24 21:14 Fentanyl Citrate 250 ml @ 2.5 mls/hr Q24H IV 11/10/24 09:45 11/10/24 10:46 Albuterol (Ventolin Medneb) 2.5 mg Q4HR NEB 11/10/24 14:00 11/10/24 22:21 Ipratropium [place] (Atrovent Medneb) 0.5 mg Q4HR NEB 11/10/24 14:00 11/10/24 22:22 Vancomycin HCl 0 ml @ 0 mls/hr UD IV 11/10/24 12:15 Piperacillin Sod/ Tazobactam Sod 100 ml @ 25 mls/hr Q8HR IV 11/10/24 18:00 11/10/24 18:27 Furosemide (Lasix Injection) 40 mg BIDD IV 11/10/24 18:00 11/10/24 18:27 Sodium Chloride 1,000 ml @ 100 mls/hr Q10H IV 11/10/24 12:15 11/10/24 13:03 Ondansetron HCl (Zofran) 4 mg Q4HP PRN IV NAUSEA / VOMITING 11/10/24 12:15 Enoxaparin Sodium (Lovenox) 40 mg DAILY SC 11/11/24 10:00 Nitroglycerin (Ntrostat Sublingual) 0.4 mg Q5MINP PRN SL FOR CHEST PAIN 11/10/24 12:15 Morphine Sulfate 2 mg Q30M PRN IV FOR CHEST PAIN 11/10/24 12:15 Pantoprazole Sodium (Protonix) 40 mg DAILY IV 11/11/24 10:00 Norepinephrine Bitartrate 250 ml @ 3.75 mls/hr Q24H IV 11/10/24 13:30 11/10/24 13:10 Vancomycin HCl 250 ml @ 250 mls/hr Q1H IV 11/10/24 14:45 11/10/24 16:44 DC 11/10/24 17:09 Vancomycin HCl 250 ml @ 250 mls/hr Q12H IV 11/11/24 04:00 Vital Signs Vital Signs Date Time Temp Pulse Resp B/P (MAP) Pulse Ox O2 Delivery O2 Flow Rate FiO2 11/10/24 23:15 97.3 79 24 94/64 (74) 98 97.3 11/10/24 22:15 50 11/10/24 22:00 Mechanical Ventilator+ 11/10/24 08:25 7 Physical Exam Gen.: Patient lying in bed in medical ICU. Sedated, intubated on mechanical ventilator. Head: Normocephalic, atraumatic. Eyes: PERRLA. Ears: Normal external anatomy. Throat: Endotracheal tube and orogastric tube in place. Neck: Supple, trachea midline. Chest: Transmitted breath sounds bilaterally. Decreased air entry bilaterally. No wheezing. Bibasilar crackles. Cardiovascular: Positive S1, positive S2. Regular rate and rhythm. Abdomen: Positive bowel sounds in all 4 quadrants. Soft, nontender, nondistended. : Richey in place. Normal external genitalia. Rectal: Deferred. Skin: Warm, dry. Intact. Extremities: 2+ radial pulses bilaterally. No lower extremity edema. Neuro: Sedated. Labs/Diagnostic Data Labs Test 11/10/24 22:33 11/10/24 18:36 11/10/24 12:11 11/10/24 11:49 Range/Units POC Glucose 178 H 70-106 mg/dl Blood Gas Specimen Type Arterial Blood Gas Sample Site Right radial Blood Gas Patient Temperature 37.0 Arterial Blood Date Drawn [id number] Arterial Blood pH 7.319 L 7.350-7.450 Arterial Blood Partial Pressure CO2 36.7 35.0-48.0 mmHg Arterial Blood Partial Pressure O2 312.1 *H 83.0-108.0 mmHg Arterial Blood HCO3 18.4 L 21.0-28.0 mmol/L Arterial Blood Oxygen Saturation 99.7 H 94.0-98.0 % Arterial Blood Base Excess -6.9 L -2.0-3.0 mmol/L Arterial Blood Oxyhemoglobin 98.7 H 94.0-98.0 % Arterial Blood Carboxyhemoglobin 0.3 L 0.5-1.5 % Arterial Blood Methemoglobin 0.7 0.0-1.5 % Rudolph Test Yes Blood Gas Total Hemoglobin 14.10 13.5-17.5 g/dL Blood Gas Set Respiration Rate 24.0 Blood Gas Modality Vent - ac Blood Gas Spontaneous Rate 24 FiO2 % 100.0 Blood Gas Tidal Volume 600.0 Blood Gas PEEP or CPAP 12.0 Blood Gas Critical Value Read Back yes Blood Gas Notified Whom Dr. link Blood Gas Notified Time [id number] Blood Gas Notified By Erythrocyte Sedimentation Rate 17 0-20 mm/hr C-Reactive Protein High Sensitivity 1.38 H <1.0 mg/dL Lipase 58 H 12-53 U/L Troponin I High Sensitivity 127 *H </=54 ng/L Test 11/10/24 10:02 11/10/24 09:57 11/10/24 09:00 11/10/24 08:00 Range/Units Lactic Acid Level 2.0 0.4-2.0 mmol/L Influenza Type A Antigen Negative Negative Influenza Type B Antigen Negative Negative Group A Streptococcus Rapid Negative Urine Color Yellow Yellow Urine Clarity Clear Clear Urine pH 5.5 5.0-9.0 Urine Specific [place] 1.019 1.001-1.035 Urine Protein 2+ H Negative Urine Ketones Negative Negative Urine Blood Trace H Negative /uL Urine Nitrite Negative Negative Urine Bilirubin Negative Negative Urine Urobilinogen Normal Negative mg/dL Urine Leukocyte Esterase Negative Negative /uL Urine RBC 1 0 - 3 /hpf Urine WBC 1 0 - 3 /hpf Urine Squamous Epithelial Cells None seen <5 /hpf Urine Bacteria None seen None Seen /hpf Urine Glucose Normal Normal mg/dL Urine Opiates Screen Neg NEGATIVE Urine Fentanyl Screen Neg NEGATIVE Urine Barbiturates Screen Neg NEGATIVE Urine Phencyclidine Screen Neg NEGATIVE Urine Amphetamines Screen Neg NEGATIVE Urine Benzodiazepines Screen Neg NEGATIVE Urine Cocaine Screen Neg NEGATIVE Urine Cannabinoids Screen Neg NEGATIVE Plasma/Serum Blood Alcohol 129.5 H <10 mg/dL Test 11/10/24 07:51 11/10/24 07:48 11/10/24 00:00 Range/Units White Blood Count 10.3 # 4.4-10.8 10^3/uL Red Blood Count 4.35 L 4.5-5.90 10^6/uL Hemoglobin 14.8 13.5-17.5 g/dL Hematocrit 43.6 41.0-53.0 % Mean Corpuscular Volume 100.3 H 80.0-100.0 fL Mean Corpuscular Hemoglobin 34.0 H 28.0-32.0 pg Mean Corpuscular Hemoglobin Concent 33.9 32.0-36.0 g/dL Red Cell Distribution Width 14.8 H 11.8-14.3 % Platelet Count 242 140-450 10^3/uL Mean Platelet Volume 7.1 6.9-10.8 fL Neutrophils (%) (Auto) 84.9 H 37.0-80.0 % Lymphocytes (%) (Auto) 11.1 10.0-50.0 % Monocytes (%) (Auto) 2.0 0.0-12.0 % Eosinophils (%) (Auto) 1.4 0.0-7.0 % Basophils (%) (Auto) 0.6 0.0-2.0 % Neutrophils # (Auto) 8.8 H 1.6-8.6 10 ^3/uL Lymphocytes # (Auto) 1.1 0.4-5.4 10 ^3/uL Monocytes # (Auto) 0.2 0-1.3 10 ^3/uL Eosinophils # (Auto) 0.1 0-0.8 10 ^3/uL Basophils # (Auto) 0.1 0-0.2 10 ^3/uL Nucleated Red Blood Cells 0.0 % Prothrombin Time 10.4 9.3-11.8 sec Prothrombin Time INR 0.98 0.9-1.15 Activated Partial Thromboplast Time 26.0 24.5-34.5 SEC Sodium Level 144 136-145 mmol/L Potassium Level 4.4 3.5-5.1 mmol/L Chloride Level 114 H 98-107 mmol/L Carbon Dioxide Level 20 20-31 mmol/L Anion Gap 10 5-15 Blood Urea Nitrogen 13 9-23 mg/dL Creatinine 0.77 0.700-1.30 mg/dL Glomerular Filtration Rate Calc 104 >90 mL/min BUN/Creatinine Ratio 16.9 10.0-20.0 Serum Glucose 119 H 74-106 mg/dL Calcium Level 8.7 8.7-10.4 mg/dL Total Bilirubin 0.3 0.2-1.0 mg/dL Aspartate Amino Transferase (AST) 59 H 13-40 U/L Alanine Aminotransferase (ALT) 40 7-40 U/L Alkaline Phosphatase 106 46-116 U/L Total Protein 7.5 5.7-8.2 g/dL Albumin 4.2 3.2-4.8 g/dL SARS-CoV-2 Antigen (Rapid) Negative NEGATIVE Assessment Impression: Acute hypercarbic respiratory failure Acute hypoxic respiratory failure On mechanical ventilator Metabolic acidosis Elevated troponin Alcohol abuse Pulmonary edema Shock Nicotine dependence Marijuana, Methamphetamine use Plan: s/p intubation on mechanical ventilator. CXR at 1018 hours - image and report reviewed. Devices in place. Bilateral airspace opacities increased from prior, likely pulmonary edema. ABG reviewed, notable for acidemia. On AC mode; RR 24, VT 600, PEEP 12, FiO2 90% Titrate FIO2 to keep O2 saturation above 90%. VAP bundle. Daily ABG and CXR while intubated Sedate for ventilator synchrony - On Propofol and Fentanyl Continue bronchodilators. IV steroids Continue antibiotics. F/u cultures. On pressors for hemodynamic support Levophed 2 mcg/min Titrate to keep mean arterial pressure greater than 65 mmHg. Monitor renal function Monitor electrolytes. Supplement as necessary. Monitor ins and outs. Maintain euvolemia. GI prophylaxis. DVT prophylaxis. Prognosis: Poor given patient's multiple co-morbidities. Condition: Critical Rest of plan per hospitalist and other consultants. A total of 35 minutes of critical care time was spent reviewing the patient record, examining the patient, making a diagnostic and therapeutic plan, discussing this plan with the medical personnel, following up on diagnostic studies and following the patient for clinical stability excluding any and all procedures. At least 50% of this time was spent in direct, [id number] contact. Thank you, AMADOR De Oliveira, for allowing me to participate in this patient's care. Further recommendations will depend on the patient's clinical course. Please do not hesitate to contact me if you have any questions or concerns. This medical document was created using an electronic medical record system with [employer] system. Although these documentations are being carefully reviewed, there may still be some phonetic and typographical changes. The errors are purely typographical, due to imperfection on the software program, and do not reflect any compromise in the patient's medical care. Plan discussed with: Other (RN Olegario/AMADOR De Oliveira/) AMMY LINK MD Nov 10, 2024 23:43
[2024-11-11] VITALS (105 sets, daily range): BP systolic 73–121; BP diastolic 45–79; PULSE 75–97; RESP 21–24; TEMP 97–99; O2SAT 97–100
[2024-11-11] MEDS: VANCOMYCIN 1GM/250ML KIT 250 ML IV SCH (04:02)
[2024-11-11 04:34] LABS: Basophils # (auto) 0 10 ^3/uL (0-0.2); Basophils % (auto) 0.1 % (0.0-2.0); Eosinophils # (auto) 0 10 ^3/uL (0-0.8); Hematocrit 37.5 % (41.0-53.0); Hemoglobin 12.5 g/dL (13.5-17.5); Lymphocytes # (auto) 0.4 10 ^3/uL (0.4-5.4); Lymphocytes % (auto) 2.2 % (10.0-50.0); Mean Corpuscular Hemoglobin 33.4 pg (28.0-32.0); Mean Corpuscular Hgb Conc. 33.3 g/dL (32.0-36.0); Mean Corpuscular Volume 100.3 fL (80.0-100.0); Monocytes # (auto) 0.8 10 ^3/uL (0-1.3); Neutrophils # (auto) 18.9 10 ^3/uL (1.6-8.6); Neutrophils % (auto) 93.7 % (37.0-80.0); Platelet Count (auto) 236 10^3/uL (140-450); Red Blood Cells 3.74 10^6/uL (4.5-5.90); White Blood Cell 20.1 10^3/uL (4.4-10.8)
[2024-11-11 04:53] LABS: Alanine Aminotransferase 27 U/L (7-40); Albumin 3.4 g/dL (3.2-4.8); Alkaline Phosphatase 65 U/L (46-116); Anion Gap 9 (5-15); Aspartate Aminotransferase 27 U/L (13-40); BUN/Creatinine Ratio 21.4 (10.0-20.0); Bilirubin, Total 0.5 mg/dL (0.2-1.0); Blood Urea Nitrogen 22 mg/dL (9-23); Carbon Dioxide 21 mmol/L (20-31); Potassium 4.2 mmol/L (3.5-5.1); Sodium 142 mmol/L (136-145); Total Protein 6.2 g/dL (5.7-8.2)
[2024-11-11 05:26] LABS: Calcium 8.6 mg/dL (8.7-10.4); Chloride 112 mmol/L (98-107); Glucose 178 mg/dL (74-106)
--- NOTE | 2024-11-11 05:44 | DVH ---
CHEST RADIOGRAPH Indication: intubated Technique: Single AP portable chest radiograph was obtained. Comparison: XY CHEST XRAY 1 VIEW on DOS: 11/10/24, XY CHEST PORTABLE on DOS: 11/10/24, XY CHEST PORTABL E on DOS: 11/09/24, XY CHEST PORTABLE on DOS: 09/20/24, XY CHEST PORTABLE on DOS: 12/15/23, XY CHEST XR AY 1 VIEW on DOS: 11/10/24 FINDINGS: Distal tip of the endotracheal tube is poorly visualized, but appears to be approximately 5.1 cm abov e the level of the noman. Enteric tube reaches the stomach and descends below the [id number] of t he exam. Bilateral airspace opacities have increased compared to the examination from earlier the rober day, suspected pulmonary edema. No pneumothorax visualized. No other significant interval change. IMPRESSION: 1. No change.
[2024-11-11 06:47] LABS: Base Excess -3.8 mmol/L (-2.0-3.0)
[2024-11-11] MEDS: ENOXAPARIN SOD 40 MG/0.4 ML SYRINGE SC SCH (09:56)
[2024-11-11] MEDS: PANTOPRAZOLE 40 MG/10 ML VIAL INJ IV SCH (09:56)
[2024-11-11] MEDS: MAGNESIUM SULFATE 1GM/100ML 100 ML IV SCH (11:51)
--- NOTE | 2024-11-11 12:25 | DVHSR ---
APPROVED REPORT EXAM: LIMITED Two-dimensional and M-mode echocardiogram with Doppler and color Doppler. Blood Pressure: 111/75 mmHg INDICATION SOB Limited repeat to eval EF and RISK FACTORS Height: 5'8", Weight: 180 DIMENSIONS LVDd4.6 (3.8-5.7cm)LA (2D) (1.9-4.0cm)Aortic Root (2.0-3.7cm) LVDs3.2 (2.5-4.0cm)LA (MM) (1.9-4.0cm)Aortic Cusp Exc (1.5-2.0cm) EF (%) 60.0 (55-70%)Rt. Atrium (1.9-4.0cm)Asc. Aorta cm IVSd1.3 (0.7-1.1cm)RV (D) (1.8-2.4cm) PWd1.3 (0.7-1.1cm) Mitral Valve MitralMitral Stenosis E wave1.43m/sMV Mean GR.5mmHg A wave1.33m/sMV Peak GR.10mmHg E/A ratio1.12D MVAcm2 DECEL [id number] 1/2 [id number] IVRTmsDop MVA2.91cm2 Aortic Valve Aortic ValveAortic Stenosis V10.89m/[place] Mean GR.37mmHg V23.80m/[place] Peak GR.58mmHg LVOT Diameter2.0 (1.8-2.4cm)Doppler AVA0.74cm2 Tricuspid Valve TR Velocity3.26m/s [id number] Other Information Quality : Technically LimitedRhythm : Technically limited study due to body habitus and on vent. Conclusion 1. MODERATE DEGREE LVH AND MODERATE DEGREE LV DIASTOLIC DYSFUNCTION LV EJECTION FRACTION IS 65% 2. VERY HEAVILY CALCIFIED AORTIC LEAFLETS WITH REMARKABLE DECREASED EXCURSION 3. PEAK GRADIENT ACROSS AORTIC VALVE IS 58 MM OF HG AND MEAN GRADIENT IS 37 MM OF HG 4.IT IS CRITICAL AORTIC STENOSIS AORTIC VALVE AREA IS ONLY 0.7 CM SQUARE 5. VERY HEAVILY CALCIFIED MITRAL ANNULUS AND POSTERIOR MITRAL LEAFLET NO MITRAL STENOSIS 6. SEVERE PULMONARY HYPERTENSION RVSP IS 57 MM OF HG AND IS VERY HIGH 7. SLIGHTLY DILATED RV BUT NORMAL FUNCTION 8. NO EFFUSION
--- NOTE | 2024-11-11 16:14 | DVHINCON2 ---
Date Seen: Nov 11, 2024 Referring Physician Alvino Reason for Consultation Elevated Troponin History of Present Illness 59-year-old male with PMH for HTN, HLD, CVA with no reported episodes, PUD, ETOH abuse, previous substance abuse with marijuana and amphetamines, HFpEF and severe aortic stenosis presents to the hospital with shortness of breath. Per chart review Patient was becoming more tachypneic in the ER with CXR showing multilobar infiltrates and patient was subsequently intubated. Currently intubated on vasopressor support. Patient found to have troponins trending 31, 45, 127, 232, 149. Lactate 2.3. WBC initially 10.3 now up to 20.1. UDS negative. Serum alcohol 129. COVID and influenza a/B negative. CXR showing worsening bilateral interstitial opacities with new ill-defined airspace opacities bilaterally. May reflect pulmonary edema or multifocal pneumonia. EKG reviewed negative for acute ischemic changes. Past Medical History As stated above Family History: Patient reports no known family medical history. Family History No significant family cardiac history noted Social History History of alcohol abuse, polysubstance abuse with amphetamines and marijuana. Allergies: Coded Allergies: NO KNOWN ALLERGIES (Unverified , 12/18/23) Home Meds Active Scripts Aspirin (Aspir-81) 81 Mg Tab, 1 TAB PO DAILY, #90 TAB 1 Refill Prov:BLAKE HORN MD 06/14/23 Atorvastatin Calcium (Lipitor) 40 Mg Tab, 1 TAB PO DAILY, #30 TAB 5 Refills Prov:BLAKE HORN MD 06/14/23 Reported Medications Tamsulosin Hcl (Tamsulosin Hcl) 0.4 Mg Cap, 0.4 MG PO QPM for 31 Days, #31 MG 09/21/24 Allopurinol (Allopurinol) 300 Mg Tab, 300 MG PO DAILY for 31 Days, #31 MG 09/21/24 Current Medications Current Medications Medications (Trade) Dose Ordered Sig/Carl Route PRN Reason Start Time Stop Time Status Last Admin Piperacillin Sod/ Tazobactam Sod 100 ml @ 25 mls/hr Q8HR IV 11/10/24 18:00 11/11/24 13:36 Furosemide (Lasix Injection) 40 mg BIDD IV 11/10/24 18:00 11/11/24 06:03 Enoxaparin Sodium (Lovenox) 40 mg DAILY SC 11/11/24 10:00 11/11/24 09:56 Pantoprazole Sodium (Protonix) 40 mg DAILY IV 11/11/24 10:00 11/11/24 09:56 Vancomycin HCl 250 ml @ 250 mls/hr Q12H IV 11/11/24 04:00 11/11/24 04:02 Magnesium Sulfate/ Dextrose 100 ml @ 100 mls/hr Q1HR IV 11/11/24 12:00 11/11/24 15:25 DC 11/11/24 13:15 Thiamine HCl 200 mg DAILY IV 11/12/24 10:00 Magnesium Sulfate/ Dextrose 100 ml @ 100 mls/hr 1000,1100 IV 11/12/24 10:00 11/13/24 11:59 Review of Systems Currently intubated and sedated. Vital Signs Vital Signs Date Time Temp Pulse Resp B/P (MAP) Pulse Ox O2 Delivery O2 Flow Rate FiO2 11/11/24 15:00 99.0 83 24 100/63 (75) 100 99.0 11/11/24 14:45 40 11/11/24 14:05 Mechanical Ventilator+ 11/10/24 08:25 7 Physical Exam General appearance: Ill-appearing, in no acute distress. HEENT: Exam shows: Normocephalic, atraumatic, PERRLA, EOMI Neck: Supple, no bruits Chest: Equal chest excursion bilaterally. Breath sounds rhonchi. Heart: Rhythm: Regular rate; no murmur or gallop Abdomen: Exam shows: Soft, nontender, nondistended Musculoskeletal: No clubbing, no cyanosis, no lower extremity edema Dermatology: Skin warm, moist. Neurological: Exam shows: Intubated and sedated Available prior records, labs, EKG, rhythm strips reviewed and interpreted Labs/Diagnostic Data Labs Test 11/11/24 07:46 11/11/24 06:36 11/11/24 03:50 11/10/24 22:33 Range/Units Troponin I High Sensitivity 149 *H </=54 ng/L Blood Gas Specimen Type Arterial Blood Gas Sample Site Left radial Blood Gas Patient Temperature 37.0 Arterial Blood Date Drawn [id number] Arterial Blood pH 7.358 7.350-7.450 Arterial Blood Partial Pressure CO2 38.7 35.0-48.0 mmHg Arterial Blood Partial Pressure O2 134.1 H 83.0-108.0 mmHg Arterial Blood HCO3 21.3 21.0-28.0 mmol/L Arterial Blood Oxygen Saturation 98.7 H 94.0-98.0 % Arterial Blood Base Excess -3.8 L -2.0-3.0 mmol/L Arterial Blood Oxyhemoglobin 97.6 94.0-98.0 % Arterial Blood Carboxyhemoglobin 0.4 L 0.5-1.5 % Arterial Blood Methemoglobin 0.7 0.0-1.5 % Rudolph Test Modified Blood Gas Total Hemoglobin 13.90 13.5-17.5 g/dL Blood Gas Set Respiration Rate 24.0 Blood Gas Modality Vent - ac Blood Gas Spontaneous Rate 24 FiO2 % 50.0 Blood Gas Tidal Volume 600.0 Blood Gas PEEP or CPAP 10.0 White Blood Count 20.1 #H 4.4-10.8 10^3/uL Red Blood Count 3.74 L 4.5-5.90 10^6/uL Hemoglobin 12.5 #L 13.5-17.5 g/dL Hematocrit 37.5 #L 41.0-53.0 % Mean Corpuscular Volume 100.3 H 80.0-100.0 fL Mean Corpuscular Hemoglobin 33.4 H 28.0-32.0 pg Mean Corpuscular Hemoglobin Concent 33.3 32.0-36.0 g/dL Red Cell Distribution Width 15.0 H 11.8-14.3 % Platelet Count 236 140-450 10^3/uL Mean Platelet Volume 7.6 6.9-10.8 fL Neutrophils (%) (Auto) 93.7 H 37.0-80.0 % Lymphocytes (%) (Auto) 2.2 L 10.0-50.0 % Monocytes (%) (Auto) 4.0 0.0-12.0 % Eosinophils (%) (Auto) 0.0 0.0-7.0 % Basophils (%) (Auto) 0.1 0.0-2.0 % Neutrophils # (Auto) 18.9 H 1.6-8.6 10 ^3/uL Lymphocytes # (Auto) 0.4 0.4-5.4 10 ^3/uL Monocytes # (Auto) 0.8 0-1.3 10 ^3/uL Eosinophils # (Auto) 0 0-0.8 10 ^3/uL Basophils # (Auto) 0 0-0.2 10 ^3/uL Nucleated Red Blood Cells 0.0 % Sodium Level 142 136-145 mmol/L Potassium Level 4.2 3.5-5.1 mmol/L Chloride Level 112 H 98-107 mmol/L Carbon Dioxide Level 21 20-31 mmol/L Anion Gap 9 5-15 Blood Urea Nitrogen 22 9-23 mg/dL Creatinine 1.03 0.700-1.30 mg/dL Glomerular Filtration Rate Calc 85 >90 mL/min BUN/Creatinine Ratio 21.4 H 10.0-20.0 Serum Glucose 178 H 74-106 mg/dL Calcium Level 8.6 L 8.7-10.4 mg/dL Total Bilirubin 0.5 0.2-1.0 mg/dL Aspartate Amino Transferase (AST) 27 13-40 U/L Alanine Aminotransferase (ALT) 27 7-40 U/L Alkaline Phosphatase 65 46-116 U/L Total Protein 6.2 5.7-8.2 g/dL Albumin 3.4 3.2-4.8 g/dL POC Glucose 178 H 70-106 mg/dl Test 11/10/24 18:36 11/10/24 12:11 11/10/24 10:02 11/10/24 09:57 Range/Units Blood Gas Critical Value Read Back yes Blood Gas Notified Whom Dr. link Blood Gas Notified Time [id number] Blood Gas Notified By Erythrocyte Sedimentation Rate 17 0-20 mm/hr C-Reactive Protein High Sensitivity 1.38 H <1.0 mg/dL Lipase 58 H 12-53 U/L Lactic Acid Level 2.0 0.4-2.0 mmol/L Influenza Type A Antigen Negative Negative Influenza Type B Antigen Negative Negative Group A Streptococcus Rapid Negative Test 11/10/24 09:00 11/10/24 08:00 11/10/24 07:51 11/10/24 00:00 Range/Units Urine Color Yellow Yellow Urine Clarity Clear Clear Urine pH 5.5 5.0-9.0 Urine Specific [place] 1.019 1.001-1.035 Urine Protein 2+ H Negative Urine Ketones Negative Negative Urine Blood Trace H Negative /uL Urine Nitrite Negative Negative Urine Bilirubin Negative Negative Urine Urobilinogen Normal Negative mg/dL Urine Leukocyte Esterase Negative Negative /uL Urine RBC 1 0 - 3 /hpf Urine WBC 1 0 - 3 /hpf Urine Squamous Epithelial Cells None seen <5 /hpf Urine Bacteria None seen None Seen /hpf Urine Glucose Normal Normal mg/dL Urine Opiates Screen Neg NEGATIVE Urine Fentanyl Screen Neg NEGATIVE Urine Barbiturates Screen Neg NEGATIVE Urine Phencyclidine Screen Neg NEGATIVE Urine Amphetamines Screen Neg NEGATIVE Urine Benzodiazepines Screen Neg NEGATIVE Urine Cocaine Screen Neg NEGATIVE Urine Cannabinoids Screen Neg NEGATIVE Plasma/Serum Blood Alcohol 129.5 H <10 mg/dL Prothrombin Time 10.4 9.3-11.8 sec Prothrombin Time INR 0.98 0.9-1.15 Activated Partial Thromboplast Time 26.0 24.5-34.5 SEC SARS-CoV-2 Antigen (Rapid) Negative NEGATIVE Microbiology Date/Time Source Procedure Growth Status 11/10/24 10:03 Sputum Gram Stain - Final Resulted 11/10/24 10:03 Sputum Respiratory Culture - Preliminary Resulted 11/10/24 07:51 Blood Blood Culture - Preliminary NO GROWTH AFTER 24 HOURS OF INCUBATION. Resulted Assessment Type 2 PR Acute hypoxic and hypercapnic respiratory failure in setting of multifocal pneumonia Septic shock Severe aortic stenosis Acute on chronic HFpEF History of polysubstance abuse Plan/Recommendation * Likely demand ischemia in setting of respiratory failure * Continue on vasopressor support * IV antibiotics * On bronchodilators and steroids, pulmonology on board * Continue diuresing. Strict I&Os * Monitor for signs of withdrawal, continue with magnesium 2 g daily x, thiamine. * Echo shows EF 65% with moderate LV diastolic dysfunction. Heavily calcified aortic leaflets with severe aortic stenosis, aortic valve area 0.7 cm squared, severe pulmonary hypertension with RVSP 57 mmHg. Case Discussed with Dr Bell. Continue blood pressure support with vasopressors. Diuresis as tolerated. Monitor strict I&Os. On IV antibiotics. Echo showing severe aortic stenosis. Monitor for alcohol withdrawal. Follow up pulmonology recs. Close monitoring in ICU. Overall appropriate analysis. Critical care, time spent: 45 minutes This medical document was created using an electronic medical record system with voice recognition software and computerized dictation system. Although this document has been carefully reviewed, there might still be some phonetic and typographical errors. Occasional wrong-word or ``sound-alike substitutions may have occurred due to the inherent limitations of voice recognition software. These areas are purely typographical due to imperfections of the software programs and do not reflect any compromise in the patient's medical care. Please read the chart carefully and recognize, using context, where these substitutions have occurred. Thank you for allowing me to participate in the management of this patient. The treatment plan was discussed with and agreed upon by patient/family including requesting consultants and ordering of imaging/procedures. Plan discussed with: Other NYHA Physical activity limitations: Class4(Severe)discomfort Date of Service: Nov 11, 2024 Billing Provider: EDGAR OROZCO Cardiology Common Codes: 22460-HHIJBKN INP/OBS CARE (High), 26045-FUTKCIMP CARE 30-74 MIN EDGAR OROZCO Nov 11, 2024 16:14
--- NOTE | 2024-11-11 18:53 | DVHINCON2 ---
Date Seen: Nov 11, 2024 Referring Physician Alvino Reason for Consultation Elevated Troponin History of Present Illness This is a 59-year-old male with a PMH of HTN, HLD, CVA with no reported episodes, PUD, ETOH abuse, previous substance abuse with marijuana and amphetamines, HFpEF and severe aortic stenosis presented to the ED with c/o shortness of breath. Per chart review the patient was becoming more tachypneic in the ED with CXR showing multilobar infiltrates and patient was subsequently intubated. Currently intubated on vasopressor support. Patient found to have troponins trending 31, 45, 127, 232, 149. Lactate 2.3. WBC initially 10.3 now up to 20.1. UDS negative. Serum alcohol 129. COVID and influenza a/B negative. CXR showing worsening bilateral interstitial opacities with new ill-defined airspace opacities bilaterally. May reflect pulmonary edema or multifocal pneumonia. EKG reviewed negative for acute ischemic changes. Family History: Patient reports no known family medical history. Allergies: Coded Allergies: NO KNOWN ALLERGIES (Unverified , 12/18/23) Home Meds Active Scripts Aspirin (Aspir-81) 81 Mg Tab, 1 TAB PO DAILY, #90 TAB 1 Refill Prov:BLAKE HORN MD 06/14/23 Atorvastatin Calcium (Lipitor) 40 Mg Tab, 1 TAB PO DAILY, #30 TAB 5 Refills Prov:BLAKE HORN MD 06/14/23 Reported Medications Tamsulosin Hcl (Tamsulosin Hcl) 0.4 Mg Cap, 0.4 MG PO QPM for 31 Days, #31 MG 09/21/24 Allopurinol (Allopurinol) 300 Mg Tab, 300 MG PO DAILY for 31 Days, #31 MG 09/21/24 Current Medications Current Medications Medications (Trade) Dose Ordered Sig/Carl Route PRN Reason Start Time Stop Time Status Last Admin Piperacillin Sod/ Tazobactam Sod 100 ml @ 25 mls/hr Q8HR IV 11/10/24 18:00 11/11/24 13:36 Furosemide (Lasix Injection) 40 mg BIDD IV 11/10/24 18:00 11/11/24 06:03 Enoxaparin Sodium (Lovenox) 40 mg DAILY SC 11/11/24 10:00 11/11/24 09:56 Pantoprazole Sodium (Protonix) 40 mg DAILY IV 11/11/24 10:00 11/11/24 09:56 Vancomycin HCl 250 ml @ 250 mls/hr Q12H IV 11/11/24 04:00 Hold 11/11/24 04:02 Magnesium Sulfate/ Dextrose 100 ml @ 100 mls/hr Q1HR IV 11/11/24 12:00 11/11/24 15:25 DC 11/11/24 13:15 Thiamine HCl 200 mg DAILY IV 11/12/24 10:00 Magnesium Sulfate/ Dextrose 100 ml @ 100 mls/hr 1000,1100 IV 11/12/24 10:00 11/13/24 11:59 Review of Systems Unable to be obtained: patient is intubated and sedated. Vital Signs Vital Signs Date Time Temp Pulse Resp B/P (MAP) Pulse Ox O2 Delivery O2 Flow Rate FiO2 11/11/24 15:46 80 24 103/67 (79) 100 40 11/11/24 15:00 99.0 99.0 11/11/24 14:05 Mechanical Ventilator+ 11/10/24 08:25 7 Physical Exam GENERAL: Intubated on ventilator. Ill appearing. LUNGS: Decreased breath sounds. CARDIOVASCULAR: Heart sounds are good. ABDOMEN: Soft. Labs/Diagnostic Data Labs Test 11/11/24 07:46 11/11/24 06:36 11/11/24 03:50 11/10/24 22:33 Range/Units Troponin I High Sensitivity 149 *H </=54 ng/L Blood Gas Specimen Type Arterial Blood Gas Sample Site Left radial Blood Gas Patient Temperature 37.0 Arterial Blood Date Drawn [id number] Arterial Blood pH 7.358 7.350-7.450 Arterial Blood Partial Pressure CO2 38.7 35.0-48.0 mmHg Arterial Blood Partial Pressure O2 134.1 H 83.0-108.0 mmHg Arterial Blood HCO3 21.3 21.0-28.0 mmol/L Arterial Blood Oxygen Saturation 98.7 H 94.0-98.0 % Arterial Blood Base Excess -3.8 L -2.0-3.0 mmol/L Arterial Blood Oxyhemoglobin 97.6 94.0-98.0 % Arterial Blood Carboxyhemoglobin 0.4 L 0.5-1.5 % Arterial Blood Methemoglobin 0.7 0.0-1.5 % Rudolph Test Modified Blood Gas Total Hemoglobin 13.90 13.5-17.5 g/dL Blood Gas Set Respiration Rate 24.0 Blood Gas Modality Vent - ac Blood Gas Spontaneous Rate 24 FiO2 % 50.0 Blood Gas Tidal Volume 600.0 Blood Gas PEEP or CPAP 10.0 White Blood Count 20.1 #H 4.4-10.8 10^3/uL Red Blood Count 3.74 L 4.5-5.90 10^6/uL Hemoglobin 12.5 #L 13.5-17.5 g/dL Hematocrit 37.5 #L 41.0-53.0 % Mean Corpuscular Volume 100.3 H 80.0-100.0 fL Mean Corpuscular Hemoglobin 33.4 H 28.0-32.0 pg Mean Corpuscular Hemoglobin Concent 33.3 32.0-36.0 g/dL Red Cell Distribution Width 15.0 H 11.8-14.3 % Platelet Count 236 140-450 10^3/uL Mean Platelet Volume 7.6 6.9-10.8 fL Neutrophils (%) (Auto) 93.7 H 37.0-80.0 % Lymphocytes (%) (Auto) 2.2 L 10.0-50.0 % Monocytes (%) (Auto) 4.0 0.0-12.0 % Eosinophils (%) (Auto) 0.0 0.0-7.0 % Basophils (%) (Auto) 0.1 0.0-2.0 % Neutrophils # (Auto) 18.9 H 1.6-8.6 10 ^3/uL Lymphocytes # (Auto) 0.4 0.4-5.4 10 ^3/uL Monocytes # (Auto) 0.8 0-1.3 10 ^3/uL Eosinophils # (Auto) 0 0-0.8 10 ^3/uL Basophils # (Auto) 0 0-0.2 10 ^3/uL Nucleated Red Blood Cells 0.0 % Sodium Level 142 136-145 mmol/L Potassium Level 4.2 3.5-5.1 mmol/L Chloride Level 112 H 98-107 mmol/L Carbon Dioxide Level 21 20-31 mmol/L Anion Gap 9 5-15 Blood Urea Nitrogen 22 9-23 mg/dL Creatinine 1.03 0.700-1.30 mg/dL Glomerular Filtration Rate Calc 85 >90 mL/min BUN/Creatinine Ratio 21.4 H 10.0-20.0 Serum Glucose 178 H 74-106 mg/dL Calcium Level 8.6 L 8.7-10.4 mg/dL Total Bilirubin 0.5 0.2-1.0 mg/dL Aspartate Amino Transferase (AST) 27 13-40 U/L Alanine Aminotransferase (ALT) 27 7-40 U/L Alkaline Phosphatase 65 46-116 U/L Total Protein 6.2 5.7-8.2 g/dL Albumin 3.4 3.2-4.8 g/dL POC Glucose 178 H 70-106 mg/dl Test 11/10/24 18:36 11/10/24 12:11 11/10/24 10:02 11/10/24 09:57 Range/Units Blood Gas Critical Value Read Back yes Blood Gas Notified Whom Dr. link Blood Gas Notified Time [id number] Blood Gas Notified By Erythrocyte Sedimentation Rate 17 0-20 mm/hr C-Reactive Protein High Sensitivity 1.38 H <1.0 mg/dL Lipase 58 H 12-53 U/L Lactic Acid Level 2.0 0.4-2.0 mmol/L Influenza Type A Antigen Negative Negative Influenza Type B Antigen Negative Negative Group A Streptococcus Rapid Negative Test 11/10/24 09:00 11/10/24 08:00 11/10/24 07:51 11/10/24 00:00 Range/Units Urine Color Yellow Yellow Urine Clarity Clear Clear Urine pH 5.5 5.0-9.0 Urine Specific [place] 1.019 1.001-1.035 Urine Protein 2+ H Negative Urine Ketones Negative Negative Urine Blood Trace H Negative /uL Urine Nitrite Negative Negative Urine Bilirubin Negative Negative Urine Urobilinogen Normal Negative mg/dL Urine Leukocyte Esterase Negative Negative /uL Urine RBC 1 0 - 3 /hpf Urine WBC 1 0 - 3 /hpf Urine Squamous Epithelial Cells None seen <5 /hpf Urine Bacteria None seen None Seen /hpf Urine Glucose Normal Normal mg/dL Urine Opiates Screen Neg NEGATIVE Urine Fentanyl Screen Neg NEGATIVE Urine Barbiturates Screen Neg NEGATIVE Urine Phencyclidine Screen Neg NEGATIVE Urine Amphetamines Screen Neg NEGATIVE Urine Benzodiazepines Screen Neg NEGATIVE Urine Cocaine Screen Neg NEGATIVE Urine Cannabinoids Screen Neg NEGATIVE Plasma/Serum Blood Alcohol 129.5 H <10 mg/dL Prothrombin Time 10.4 9.3-11.8 sec Prothrombin Time INR 0.98 0.9-1.15 Activated Partial Thromboplast Time 26.0 24.5-34.5 SEC SARS-CoV-2 Antigen (Rapid) Negative NEGATIVE Microbiology Date/Time Source Procedure Growth Status 11/10/24 10:03 Sputum Gram Stain - Final Resulted 11/10/24 10:03 Sputum Respiratory Culture - Preliminary Resulted 11/10/24 07:51 Blood Blood Culture - Preliminary NO GROWTH AFTER 24 HOURS OF INCUBATION. Resulted Assessment Type 2 VT. Acute hypoxic and hypercapnic respiratory failure in setting of multifocal pneumonia. Septic shock. Severe aortic stenosis. Acute on chronic HFpEF. History of polysubstance abuse. Plan/Recommendation I agree with your ongoing assessment and care of plan. Patient has been seen by Luca Nur NP on my behalf, him and I discussed the plan with the patient. IV antibiotics as ordered. Bronchodilators and steroids. Monitor for signs of withdrawal, continue with magnesium 2 g daily x, thiamine. Continue blood pressure support with vasopressors. Diuresis as tolerated. Monitor strict I&Os. Echo shows EF of 65% with severe aortic stenosis. Follow up pulmonology recs. Close monitoring in ICU. Overall appropriate analysis. Additional plan as per the hospital course. Mechanical ventilator parameters, treatment and adjustments have personally been reviewed by me and treatment plan by tube knitter has also been reviewed. Plan discussed with: Other NYHA Physical activity limitations: Class4(Severe)discomfort Date of Service: Nov 11, 2024 Billing Provider: NINA HAND MD Cardiology Common Codes: 46212-[id number] INP/OBS CARE (High), [id number] CARE 30-74 MIN NINA HAND MD Nov 11, 2024 16:21
--- NOTE | 2024-11-11 21:14 | DVHPN2 ---
Assessment/Plan Assessment/Plan Progress note seen during rounds, intubated, on mechanical ventilation, on pressor, RAAS 0. Physical exam intubated and sedated on mechanical ventilation RAAS 0 follows commands s1 s2 RRR systolic murmur mechanical breath sounds, crackles abdomen soft b/l LE edema labs ekg iimaging echo reviewed assessment and plan acute metabolic encephalopathy 2/2 alcohol intox? acute hypoxic hypercapnic respiratory failure multifocal pna GP GN septic shock acute on chronic diastolic heart failure heart failure with preserved ejection fraction severe aortic stenosis macrocytic anemia type 2 mi iso sepsis brain lesion c/w mechanical ventilator c/w sedation maintain raas -2 c/w pressor support maintain map >65 c/w vanc and zosyn brain MRI lasix keep negative 500-1L cardio pulm recs appreciated watch for withdrawal strict i/o diet hold, start tf tomorrow dvt ppx lovenox gi ppx protonix condition critical prognosis poor critical care time 45 minutes Plan discussed with: Patient Date of Service: Nov 11, 2024 Billing Provider: VITA QUEZADA MD Common Visit Codes: [id number] CARE 30-74 MIN VITA QUEZADA MD Nov 11, 2024 21:14
--- NOTE | 2024-11-11 21:34 | DVHPN2 ---
Progress Note - Dictate Date Seen: Nov 11, 2024 Medical Necessity Reason Pt with a Central, PICC or Fol: Yes The following are medically ne: Escobedo Catheter Reason for escobedo catheter: Strict I&O Subjective Patient seen and examined at bedside. Sedated, intubated on mechanical ventilator. Overnight events reviewed. vital signs Vital Sign Date Time Temp Pulse Resp B/P (MAP) Pulse Ox O2 Delivery O2 Flow Rate FiO2 11/11/24 21:00 99.0 92 24 109/58 (75) 100 210.2 11/11/24 20:28 35 11/11/24 20:00 Mechanical Ventilator+ 11/10/24 08:25 7 Total Intake and Output 11/10/24 11/10/24 11/11/24 15:00 23:00 07:00 Intake Total 2700 ml 1090.0 ml 1387.056 ml Output Total 1200 ml Balance 2700 ml 1090.0 ml 187.056 ml medications Current Medications Medications Dose Ordered Sig/Carl Route Start Time Stop Time Status Last Admin Dose Admin Albuterol 2.5 mg Q3HP PRN NEB 11/10/24 09:45 Propofol 100 ml @ 2.454 mls/ hr Q24H IV 11/10/24 09:45 UNV Propofol 100 ml @ 2.454 mls/ hr Q24H IV 11/10/24 09:45 11/11/24 17:54 19.632 MLS/HR Fentanyl Citrate 250 ml @ 2.5 mls/hr Q24H IV 11/10/24 09:45 11/11/24 17:08 20 MLS/HR Albuterol 2.5 mg Q4HR NEB 11/10/24 14:00 11/11/24 18:08 2.5 MG Ipratropium [place] 0.5 mg Q4HR NEB 11/10/24 14:00 11/11/24 18:08 0.5 MG Vancomycin HCl 0 ml @ 0 mls/hr UD IV 11/10/24 12:15 Piperacillin Sod/ Tazobactam Sod 100 ml @ 25 mls/hr Q8HR IV 11/10/24 18:00 11/11/24 13:36 25 MLS/HR Furosemide 40 mg BIDD IV 11/10/24 18:00 11/11/24 17:51 40 MG Enoxaparin Sodium 40 mg DAILY SC 11/11/24 10:00 11/11/24 09:56 40 MG Pantoprazole Sodium 40 mg DAILY IV 11/11/24 10:00 11/11/24 09:56 40 MG Norepinephrine Bitartrate 250 ml @ 3.75 mls/hr Q24H IV 11/10/24 13:30 11/11/24 17:53 7.5 MLS/HR Vancomycin HCl 250 ml @ 250 mls/hr Q12H IV 11/11/24 04:00 11/11/24 04:02 250 MLS/HR Thiamine HCl 200 mg DAILY IV 11/12/24 10:00 Magnesium Sulfate/ Dextrose 100 ml @ 100 mls/hr 1000,1100 IV 11/12/24 10:00 11/13/24 11:59 objective Gen.: Patient lying in bed in medical ICU. Sedated, intubated on mechanical ventilator. Head: Normocephalic, atraumatic. Eyes: PERRLA. Ears: Normal external anatomy. Throat: Endotracheal tube and orogastric tube in place. Neck: Supple, trachea midline. Chest: Transmitted breath sounds bilaterally. Decreased air entry bilaterally. No wheezing. Bibasilar crackles. Cardiovascular: Positive S1, positive S2. Regular rate and rhythm. Abdomen: Positive bowel sounds in all 4 quadrants. Soft, nontender, nondistended. : Escobedo in place. Normal external genitalia. Rectal: Deferred. Skin: Warm, dry. Intact. Extremities: 2+ radial pulses bilaterally. No lower extremity edema. Neuro: Sedated. laboratory and microbiology Laboratory Tests 11/11/24 03:50 Test 11/11/24 03:50 Range/Units Serum Glucose 178 H 74-106 mg/dL Assessment/Plan Impression: Acute hypercarbic respiratory failure Acute hypoxic respiratory failure On mechanical ventilator Metabolic acidosis Elevated troponin Alcohol abuse Pulmonary edema Shock Nicotine dependence Marijuana, Methamphetamine use Events: Remains on vent support On AC mode; RR 24, VT 600, PEEP 12 -->8, FiO2 90 -->40% Sedated on Propofol, Fentanyl On pressors for hemodynamic support Levophed 4 mcg/min Titrate to keep mean arterial pressure greater than 65 mmHg. ABG reviewed, compensated. CXR reviewed, demonstrates bilateral airspace opacities have increased compared to examination from earlier the same day, suspected pulmonary edema. No pneumothorax. Taper sedation OK for Precedex Plan for CPAP in AM with PS 8, PEEP of 5. Continue antibiotics F/u cultures Diurese w/ Lasix Monitor renal function Monitor electrolytes. Supplement as necessary. Labs and imaging reviewed. Rest of plan as noted below. Plan: s/p intubation on mechanical ventilator. On AC mode; RR 24, VT 600, PEEP 8, FiO2 40% Titrate FIO2 to keep O2 saturation above 90%. VAP bundle. Daily ABG and CXR while intubated Sedate for ventilator synchrony Continue bronchodilators. Continue antibiotics. F/u cultures. On pressors for hemodynamic support Titrate to keep mean arterial pressure greater than 65 mmHg. Monitor renal function Monitor electrolytes. Supplement as necessary. Monitor ins and outs. Maintain euvolemia. GI prophylaxis. DVT prophylaxis. Prognosis: Poor given patient's multiple co-morbidities. Condition: Critical Rest of plan per hospitalist and other consultants. A total of 35 minutes of critical care time was spent reviewing the patient record, examining the patient, making a diagnostic and therapeutic plan, discussing this plan with the medical personnel, following up on diagnostic studies and following the patient for clinical stability excluding any and all procedures. At least 50% of this time was spent in direct, [id number] contact. Thank you, AMADOR De Oliveira, for allowing me to participate in this patient's care. Further recommendations will depend on the patient's clinical course. Please do not hesitate to contact me if you have any questions or concerns. This medical document was created using an electronic medical record system with [employer] dictation system. Although these documentations are being carefully reviewed, there may still be some phonetic and typographical changes. The errors are purely typographical, due to imperfection on the software program, and do not reflect any compromise in the patient's medical care. Plan discussed with: Other (EDNA Zhong/Lulu) Critical Care Time(min): 35 AMMY QUINTANILLA MD Nov 11, 2024 21:34
[2024-11-12] VITALS (98 sets, daily range): BP systolic 88–139; BP diastolic 48–96; PULSE 71–116; RESP 10–24; TEMP 98.2–99.3; O2SAT 88–100
[2024-11-12 04:25] LABS: Basophils # (auto) 0.1 10 ^3/uL (0-0.2); Basophils % (auto) 0.9 % (0.0-2.0); Eosinophils # (auto) 0.1 10 ^3/uL (0-0.8); Eosinophils % (auto) 0.5 % (0.0-7.0); Hematocrit 37.5 % (41.0-53.0); Hemoglobin 12.4 g/dL (13.5-17.5); Lymphocytes # (auto) 1.5 10 ^3/uL (0.4-5.4); Lymphocytes % (auto) 13.2 % (10.0-50.0); Mean Corpuscular Hemoglobin 33.4 pg (28.0-32.0); Mean Corpuscular Hgb Conc. 33.1 g/dL (32.0-36.0); Mean Corpuscular Volume 100.9 fL (80.0-100.0); Monocytes # (auto) 0.7 10 ^3/uL (0-1.3); Monocytes % (auto) 5.7 % (0.0-12.0); Neutrophils # (auto) 9.3 10 ^3/uL (1.6-8.6); Neutrophils % (auto) 79.7 % (37.0-80.0); Nucleated Red Blood Cells % 0.2 %; Platelet Count (auto) 223 10^3/uL (140-450); Red Blood Cells 3.72 10^6/uL (4.5-5.90); Red Cell Distribution Width 15.4 % (11.8-14.3); White Blood Cell 11.6 10^3/uL (4.4-10.8)
[2024-11-12 04:34] LABS: Anion Gap 10 (5-15); Carbon Dioxide 22 mmol/L (20-31); Potassium 3.8 mmol/L (3.5-5.1); Sodium 144 mmol/L (136-145)
[2024-11-12 04:35] LABS: Calcium 8.7 mg/dL (8.7-10.4)
[2024-11-12 04:40] LABS: Blood Urea Nitrogen 20 mg/dL (9-23); Glucose 104 mg/dL (74-106); Magnesium 1.8 mg/dL (1.6-2.6)
[2024-11-12 04:42] LABS: Phosphorus 2.9 mg/dL (2.4-5.1)
[2024-11-12 04:52] LABS: Chloride 112 mmol/L (98-107)
--- NOTE | 2024-11-12 05:25 | DVH ---
CHEST RADIOGRAPH Indication: intubated Technique: Single frontal view of the chest was obtained COMPARISON: XY CHEST PORTABLE on DOS: 11/11/24, XY CHEST XRAY 1 VIEW on DOS: 11/10/24, XY CHEST PORTABL E on DOS: 11/10/24, XY CHEST PORTABLE on DOS: 11/09/24, XY CHEST PORTABLE on DOS: 09/20/24 FINDINGS: Lines and Tubes: Endotracheal tube, enteric catheter in satisfactory position. Lungs: Congestion Pleura: No effusion. No pneumothorax. Cardiomediastinal contours: Cardiomegaly Bones: Unremarkable IMPRESSION: Lines and tubes in satisfactory position. No significant interval change.
[2024-11-12 08:35] LABS: Base Excess 1.3 mmol/L (-2.0-3.0)
[2024-11-12] MEDS: MAGNESIUM SULFATE 1GM/100ML 100 ML IV SCH (09:58)
[2024-11-12] MEDS: THIAMINE 100mg/ml INJ (200mg/2ml VIAL) IV SCH (09:58)
--- NOTE | 2024-11-12 12:31 | DVH ---
BILATERAL LOWER EXTREMITY VENOUS DOPPLER CLINICAL HISTORY: SOB PER MD Technique: Duplex Doppler evaluation of the deep venous systems of both lower extremities from the co mmon femoral veins to the popliteal veins including color Doppler and spectral/pulsed waveform analys is was performed. COMPARISON: US RT LOWER DVT on DOS: 09/03/23, US BILAT LOWER DVT on DOS: 06/16/23 FINDINGS: The right and left common femoral, superficial femoral, popliteal, posterior tibial and peroneal vei ns appear patent with normal augmentation, phasicity, compressibility and color-flow. IMPRESSION: 1. There is no sonographic evidence for DVT in the lower extremities. HS:Y
--- NOTE | 2024-11-12 12:58 | DVHPNRES ---
Progress Note Date Seen: Nov 12, 2024 Resident Creating Document: AUTUMN MALAVE RESIDENT Medical Necessity Reason Pt with a Central, PICC or Fol: Yes The following are medically ne: Escobedo Catheter Reason for escobedo catheter: Strict I&O Subjective Review of Systems Moiz Ochoa is a 59-year-old male with PMH of HTN, HLD, HFpEF, hepatitis-C virus, CVA, gout, PUD, pneumonia presented to the ED with the chief complaints of shortness of breaths. Initially the patient was treated under discharged from ED but 1 hour later patient was presented with the increased shortness of breath, which required intubation. Before intubation patient was reported history of polysubstance abuse including methamphetamines, marijuana and the alcohol abuse, admits drinking of half gallon of alcohol per day. Patient denies recent travel, sick contact, chest pain, palpitations, fever, cough, chills, or other associated symptoms. Patient had multiple admissions in this facility for recurrent pneumonia, palpitations, alcohol intoxications, hepatic encephalopathy. Patient was was intubated in 2022 due to acute hypoxic respiratory failure secondary to pneumonia and sepsis. Patient was seen and examined at the bedside. Sedated and intubated with mechanical ventilation. Unable to obtain complete ROS due to patient's clinical status. Despite of patient was on propofol and fentanyl, patient was still under sedated, expressing lower extremity pain. CPAP trail today. Extubated patient. Objective vital signs Vital Sign Date Time Temp Pulse Resp B/P (MAP) Pulse Ox O2 Delivery O2 Flow Rate FiO2 11/12/24 12:00 30 11/12/24 10:00 99.3 89 24 121/68 (85) 96 99.3 11/12/24 06:00 Mechanical Ventilator+ 11/10/24 08:25 7 Total Intake and Output 11/11/24 11/11/24 11/12/24 15:00 23:00 07:00 Intake Total 1160.166 ml 1143.746 ml 664.589 ml Output Total 1600 ml 2550 ml Balance 1160.166 ml -456.254 ml -1885.411 ml medications Current Medications Medications Dose Ordered Sig/Carl Route Start Time Stop Time Status Last Admin Dose Admin Albuterol 2.5 mg Q3HP PRN NEB 11/10/24 09:45 Propofol 100 ml @ 2.454 mls/ hr Q24H IV 11/10/24 09:45 UNV Propofol 100 ml @ 2.454 mls/ hr Q24H IV 11/10/24 09:45 11/12/24 07:32 12.27 MLS/HR Fentanyl Citrate 250 ml @ 2.5 mls/hr Q24H IV 11/10/24 09:45 11/12/24 04:58 12.5 MLS/HR Albuterol 2.5 mg Q4HR NEB 11/10/24 14:00 11/12/24 09:40 2.5 MG Ipratropium [place] 0.5 mg Q4HR NEB 11/10/24 14:00 11/12/24 09:40 0.5 MG Vancomycin HCl 0 ml @ 0 mls/hr UD IV 11/10/24 12:15 Piperacillin Sod/ Tazobactam Sod 100 ml @ 25 mls/hr Q8HR IV 11/10/24 18:00 11/12/24 06:07 25 MLS/HR Furosemide 40 mg BIDD IV 11/10/24 18:00 11/12/24 06:07 40 MG Enoxaparin Sodium 40 mg DAILY SC 11/11/24 10:00 11/11/24 09:56 40 MG Pantoprazole Sodium 40 mg DAILY IV 11/11/24 10:00 11/12/24 09:58 40 MG Norepinephrine Bitartrate 250 ml @ 3.75 mls/hr Q24H IV 11/10/24 13:30 11/11/24 17:53 7.5 MLS/HR Vancomycin HCl 250 ml @ 250 mls/hr Q12H IV 11/11/24 04:00 11/12/24 03:42 250 MLS/HR Thiamine HCl 200 mg DAILY IV 11/12/24 10:00 11/12/24 09:58 200 MG Magnesium Sulfate/ Dextrose 100 ml @ 100 mls/hr 1000,1100 IV 11/12/24 10:00 11/13/24 11:59 11/12/24 11:29 100 MLS/HR Examination General: lying on bed, currently intubated, mildly awake and able to follow commands. HEENT: Small laceration on right frontal head. Normocephalic, atraumatic, PERRLA, EOMI Cardiovascular: Normal S1, Normal S2, No murmurs Respiratory: Intubated, decreased breath sounds Abdominal: Soft, nontender, no hepatosplenomegaly no distention Genitourinary: Patient on Escobedo catheter Extremities: Left knee warmth, tender, erythematous. Toe deformities. No cyanosis, Normal pulses, Skin: No significant lesion Neurological : Intubated and sedated laboratory and microbiology Laboratory Tests 11/12/24 03:17 Test 11/12/24 03:17 Range/Units Serum Glucose 104 74-106 mg/dL Microbiology Date/Time Source Procedure Growth Status 11/12/24 00:30 Nose MRSA Screen - Final Complete 11/10/24 10:03 Sputum Gram Stain - Final Resulted 11/10/24 10:03 Sputum Respiratory Culture - Preliminary Resulted 11/10/24 07:51 Blood Blood Culture - Preliminary NO GROWTH AFTER 48 HOURS OF INCUBATION. Resulted Labs and/or images reviewed: Labs reviewed by me, Image(s) reviewed by me Problem List/Assessment/Plan Problem List/Assessment/Plan NEUROLOGY # Mechanical fall without LOC # ?Acute metabolic encephalopathy secondary to alcohol vs ? Sepsis # Alcohol intoxication # History of CVA # Possible brain lesion # Rule out acute CVA # Uses cane for ambulation # Abrasion/lacerated wound on frontal head right sided - head CT showed three hypoattenuated lesions in right parietal lobe, recommended MRI - intubated on 11/10, mechanically ventilated and under sedation with the fentanyl and propofol, Extubated today. - UDS positive for alcohol - currently on thiamine injection - ordered MRI, pending CARDIOVASCULAR # Acute on chronic HFpEF with a EF 65% # severe aortic stenosis # History of polysubstance abuse(Nicotine dependence,Marijuana, Methamphetamine use) # Type 2 NSTEMI # Septic shock # Severe pulmonary hypertension with RVSP 57 mmHg # Rule out DVT/PE # HTN # HLD - echocardiogram showed LVEF 65% with gallops. Aortic leaflets and mitral annulus and severe pulmonary hypertension - elevated troponins - patient was on Levophed - IV antibiotics Zosyn and vancomycin - On bronchodilators and steroids, pulmonology on board - intubated on 11/10, mechanically ventilated and under sedation with the fentanyl and propofol, Extubated today. - Continue diuresing with lasix. Strict I&Os - Monitor for signs of withdrawal, continue with magnesium 2 g daily x, thiamine. - Pending lower extremity venous Doppler lower - solar sales consultant advised to follow current recommendations RESPIRATORY # Acute hypoxic and hypercapnic respiratory failure in setting of pneumonia # ? acute Gram-positive/negative bacterial PNA # Pulmonary edema - continuously monitoring daily ABGs and CXR - CXR showed worsening bilateral interstitial opacities may presents pulmonary edema or pneumonia - Vent settings RR 24, VT 600, PEEP 8, CPAP trail today - intubated on 11/10, mechanically ventilated and under sedation with the fentanyl and propofol, Extubated today with post extubation BiPAP. - ABG reviewed, compensated - Diurese w/ Lasix, monitor renal function and electrolytes - pulmonology consulted advised to follow current recommendations - ordered respiratory and blood culture, preliminary showed no growth GI # PUD - currently on pantoprazole /KIDNEY - Diurese w/ Lasix, monitor renal function and electrolytes - patient is on Escobedo's catheter since 11/10 ENDO MUSCULOSKELETAL # Gout # ?Gouty arthritis - Ordered left knee x-ray which showed no acute changes - Started Colchicine 1.2 followed by 0.6 HEME-ONC # macrocytic anemia # Rule out DVT/PE - monitor lab - venous Doppler showed no signs of dvt LINES Intubated on 11/10, and Extubated today DRIPS Levophed 0 Fentanyl 0 Propofol 0 PUD prophylaxis: Protonix DVT PPX: Hold Lovenox until MRI, resume in the evening once MRI done Goals of care discussed with the family for more than 27 minutes, full code status Critical care time spent with patient discussing and cpap trial and formulating plan of care: 81 minutes. This does not include time spent performing procedures. Did not update patient's clinical status with the family as per patient request. Case discussed with Dr. Ryder Plan discussed with: Patient My Orders My Orders Orders - AUTUMN MALAVE Procedure Category Date Status Time Bilat Lower Dvt US 11/12/24 Resulted 11:42 L Knee 2v Xray XY 11/12/24 Logged 11:42 Date of Service: Nov 12, 2024 Billing Provider: JEANCARLOS RYDER MD Common Visit Codes: 59855-[id number] CARE 30-74 MIN, [id number] CARE-EACH +30MIN AUTUMN MALAVE Nov 12, 2024 12:58 JEANCARLOS RYDER MD Nov 13, 2024 13:17
[2024-11-12 15:22] LABS: Base Excess -0.8 mmol/L (-2.0-3.0)
--- NOTE | 2024-11-12 15:42 | DVH ---
EXAM: XY L KNEE 2V XRAY CLINICAL HISTORY: pain and tender COMPARISON: XY L KNEE 3V XRAY on DOS: 08/23/24, XY L KNEE 4V XRAY on DOS: 12/18/23 TECHNIQUE: XY L KNEE 2V XRAY Findings/Impression: 2 views of the left knee. There is no evidence of an acute fracture, dislocation, blastic, or lytic lesions. No radiopaque foreign bodies. No joint effusion or superficial soft tissue abnormalities.
[2024-11-12] MEDS: COLCHICINE 0.6 MG CAP PO ONE ×2 (18:52→18:54)
[2024-11-12] MEDS: HYDROcodone-ACET 5/325MG TAB PO ONE (18:56)
[2024-11-12] MEDS: ACETAMINOPHEN 325 MG TAB PO PRN (20:08)
--- NOTE | 2024-11-12 23:55 | DVHPN2 ---
Progress Note - Dictate Date Seen: Nov 12, 2024 Medical Necessity Reason Pt with a Central, PICC or Fol: Yes The following are medically ne: Escobedo Catheter Reason for escobedo catheter: Strict I&O Subjective Patient was seen and evaluated in follow up in the ICU. Patient underwent CPAP trial and was successfully extubated to [facility]. Patient currently on 4 LPM NC. WBC 11.6. Prelim blood culture show no growth. BLE Venous US is negative for DVT. Echocardiogram is pending. vital signs Vital Sign Date Time Temp Pulse Resp B/P (MAP) Pulse Ox O2 Delivery O2 Flow Rate FiO2 11/12/24 22:14 100 16 97 11/12/24 22:08 Nasal Cannula 2.0 11/12/24 22:08 28 11/12/24 22:00 112/74 (87) 11/12/24 20:00 98.6 98.6 Total Intake and Output 11/11/24 11/11/24 11/12/24 15:00 23:00 07:00 Intake Total 1160.166 ml 1143.746 ml 664.589 ml Output Total 1600 ml 2550 ml Balance 1160.166 ml -456.254 ml -1885.411 ml medications Current Medications Medications Dose Ordered Sig/Carl Route Start Time Stop Time Status Last Admin Dose Admin Albuterol 2.5 mg Q3HP PRN NEB 11/10/24 09:45 Propofol 100 ml @ 2.454 mls/ hr Q24H IV 11/10/24 09:45 UNV Albuterol 2.5 mg Q4HR NEB 11/10/24 14:00 11/12/24 22:08 2.5 MG Ipratropium [place] 0.5 mg Q4HR NEB 11/10/24 14:00 11/12/24 22:08 0.5 MG Vancomycin HCl 0 ml @ 0 mls/hr UD IV 11/10/24 12:15 Piperacillin Sod/ Tazobactam Sod 100 ml @ 25 mls/hr Q8HR IV 11/10/24 18:00 11/12/24 21:35 25 MLS/HR Furosemide 40 mg BIDD IV 11/10/24 18:00 11/12/24 17:12 40 MG Enoxaparin Sodium 40 mg DAILY SC 11/11/24 10:00 11/11/24 09:56 40 MG Pantoprazole Sodium 40 mg DAILY IV 11/11/24 10:00 11/12/24 09:58 40 MG Norepinephrine Bitartrate 250 ml @ 3.75 mls/hr Q24H IV 11/10/24 13:30 11/11/24 17:53 7.5 MLS/HR Vancomycin HCl 250 ml @ 250 mls/hr Q12H IV 11/11/24 04:00 11/12/24 17:11 250 MLS/HR Thiamine HCl 200 mg DAILY IV 11/12/24 10:00 11/12/24 09:58 200 MG Magnesium Sulfate/ Dextrose 100 ml @ 100 mls/hr 1000,1100 IV 11/12/24 10:00 11/13/24 11:59 11/12/24 11:29 100 MLS/HR Colchicine 0.6 mg DAILY PO 11/13/24 10:00 Acetaminophen 650 mg Q6HP PRN PO 11/12/24 18:15 11/12/24 20:08 650 MG objective GENERAL: Awake, alert, oriented. LUNGS: Decreased breath sounds. CARDIOVASCULAR: Heart sounds are good. ABDOMEN: Soft. laboratory and microbiology Laboratory Tests 11/12/24 03:17 Test 11/12/24 03:17 Range/Units Serum Glucose 104 74-106 mg/dL Problem List Type 2 MT. Acute hypoxic and hypercapnic respiratory failure in setting of multifocal pneumonia. Septic shock. Severe aortic stenosis. Acute on chronic HFpEF. History of polysubstance abuse. Assessment/Plan Continued all current supportive medical care. DVT and GI prophylactics. Diuretics with Lasix. Vasopressors for hemodynamic support. IV antibiotics as ordered. Additional plan as per the hospital course. Critical care time of 45 minutes provided to include time spent evaluation of patient at bedside, when appropriate patient/family education for diagnosis, treatment plan, review of pertinent medical information and discussion of care with specialty providers and PCP. Plan discussed with: Patient NINA HAND MD Nov 12, 2024 23:55
[2024-11-13] VITALS (43 sets, daily range): BP systolic 104–124; BP diastolic 73–87; PULSE 90–116; RESP 11–19; TEMP 98.2–99.3; O2SAT 91–99
[2024-11-13 04:14] LABS: Basophils # (auto) 0.1 10 ^3/uL (0-0.2); Eosinophils # (auto) 0.1 10 ^3/uL (0-0.8); Monocytes # (auto) 0.6 10 ^3/uL (0-1.3)
[2024-11-13 04:17] LABS: Eosinophils % (auto) 1.4 % (0.0-7.0); Hematocrit 34.9 % (41.0-53.0); Hemoglobin 11.9 g/dL (13.5-17.5); Lymphocytes # (auto) 0.9 10 ^3/uL (0.4-5.4); Lymphocytes % (auto) 11.6 % (10.0-50.0); Mean Corpuscular Hgb Conc. 34.1 g/dL (32.0-36.0); Mean Corpuscular Volume 99.6 fL (80.0-100.0); Monocytes % (auto) 7.6 % (0.0-12.0); Neutrophils # (auto) 5.9 10 ^3/uL (1.6-8.6); Neutrophils % (auto) 78.4 % (37.0-80.0); Platelet Count (auto) 193 10^3/uL (140-450); Red Cell Distribution Width 14.8 % (11.8-14.3); White Blood Cell 7.5 10^3/uL (4.4-10.8)
[2024-11-13 04:21] LABS: Anion Gap 7 (5-15); Carbon Dioxide 28 mmol/L (20-31); Chloride 106 mmol/L (98-107); Potassium 3.9 mmol/L (3.5-5.1); Sodium 141 mmol/L (136-145)
[2024-11-13 04:22] LABS: Calcium 9.1 mg/dL (8.7-10.4)
[2024-11-13 04:27] LABS: BUN/Creatinine Ratio 23.1 (10.0-20.0); Blood Urea Nitrogen 18 mg/dL (9-23); Glucose 89 mg/dL (74-106)
[2024-11-13 04:28] LABS: Magnesium 1.9 mg/dL (1.6-2.6)
--- NOTE | 2024-11-13 04:51 | DVH ---
CHEST RADIOGRAPH Indication: sob Technique: Single frontal view of the chest was obtained COMPARISON: XY CHEST PORTABLE on DOS: 11/12/24, XY CHEST PORTABLE on DOS: 11/12/24, XY CHEST PORTABLE o n DOS: 11/11/24, XY CHEST XRAY 1 VIEW on DOS: 11/10/24, XY CHEST PORTABLE on DOS: 11/10/24 FINDINGS: Lines and Tubes: None Lungs: Congestion Pleura: No effusion. No pneumothorax. Cardiomediastinal contours: Cardiomegaly Bones: Unremarkable IMPRESSION: Increased pulmonary vascular congestion
--- NOTE | 2024-11-13 08:36 | DVHPNRES ---
Progress Note Date Seen: Nov 13, 2024 Resident Creating Document: AUTUMN MALAVE RESIDENT Medical Necessity Reason Pt with a Central, PICC or Fol: Yes The following are medically ne: Escobedo Catheter Reason for escobedo catheter: Strict I&O Subjective Review of Systems Moiz Ochoa is a 59-year-old male with PMH of HTN, HLD, HFpEF, hepatitis-C virus, CVA, gout, PUD, pneumonia presented to the ED with the chief complaints of shortness of breaths. Initially the patient was treated and discharged from ED but 1 hour later patient was presented with the increased shortness of breath, which required intubation. Patient reported mechanical fall without LOC was seen and due to tripping while walking with a cane, hit his head. Before intubation patient was reported history of polysubstance abuse including methamphetamines, marijuana and the alcohol abuse, admits drinking of half gallon of alcohol per day. Patient denies recent travel, sick contact, chest pain, palpitations, fever, cough, chills, or other associated symptoms. Patient had multiple admissions in this facility for recurrent pneumonia, palpitations, alcohol intoxications, hepatic encephalopathy. Patient was was intubated in 2022 due to acute hypoxic respiratory failure secondary to pneumonia and sepsis. Patient was seen and examined at the bedside. Patient reported no new complaints. Mild improvement in his leg pain. Extubated patient yesterday 11/12. Downgraded to telemetry unit. Objective vital signs Vital Sign Date Time Temp Pulse Resp B/P (MAP) Pulse Ox O2 Delivery O2 Flow Rate FiO2 11/13/24 06:52 96 16 97 11/13/24 06:46 Nasal Cannula 3.0 11/13/24 06:46 32 11/13/24 06:00 111/73 (86) 11/13/24 04:00 98.6 98.6 Total Intake and Output 11/12/24 11/12/24 11/13/24 14:59 22:59 06:59 Intake Total 430.46 ml 425 ml 750 ml Output Total 4050 ml 2100 ml Balance 430.46 ml -3625 ml -1350 ml medications Current Medications Medications Dose Ordered Sig/Carl Route Start Time Stop Time Status Last Admin Dose Admin Albuterol 2.5 mg Q3HP PRN NEB 11/10/24 09:45 Propofol 100 ml @ 2.454 mls/ hr Q24H IV 11/10/24 09:45 UNV Albuterol 2.5 mg Q4HR NEB 11/10/24 14:00 11/13/24 06:46 2.5 MG Ipratropium [place] 0.5 mg Q4HR NEB 11/10/24 14:00 11/13/24 06:46 0.5 MG Vancomycin HCl 0 ml @ 0 mls/hr UD IV 11/10/24 12:15 Piperacillin Sod/ Tazobactam Sod 100 ml @ 25 mls/hr Q8HR IV 11/10/24 18:00 11/13/24 05:23 25 MLS/HR Furosemide 40 mg BIDD IV 11/10/24 18:00 11/13/24 05:23 40 MG Enoxaparin Sodium 40 mg DAILY SC 11/11/24 10:00 11/11/24 09:56 40 MG Pantoprazole Sodium 40 mg DAILY IV 11/11/24 10:00 11/12/24 09:58 40 MG Norepinephrine Bitartrate 250 ml @ 3.75 mls/hr Q24H IV 11/10/24 13:30 11/11/24 17:53 7.5 MLS/HR Vancomycin HCl 250 ml @ 250 mls/hr Q12H IV 11/11/24 04:00 11/13/24 03:48 250 MLS/HR Thiamine HCl 200 mg DAILY IV 11/12/24 10:00 11/12/24 09:58 200 MG Magnesium Sulfate/ Dextrose 100 ml @ 100 mls/hr 1000,1100 IV 11/12/24 10:00 11/13/24 11:59 11/12/24 11:29 100 MLS/HR Colchicine 0.6 mg DAILY PO 11/13/24 10:00 Acetaminophen 650 mg Q6HP PRN PO 11/12/24 18:15 11/12/24 20:08 650 MG Examination General: lying on bed, alert, oriented 3 spheres and able to follow commands. HEENT: Small laceration on right frontal head. Normocephalic, atraumatic, PERRLA, EOMI Cardiovascular: Normal S1, Normal S2, systolic murmur Respiratory: Decreased breath sounds Abdominal: Soft, nontender, no hepatosplenomegaly no distention Genitourinary: Patient on Escobedo catheter Extremities: Left knee warmth, tender, erythematous. Toe deformities. No cyanosis, Normal pulses, Skin: No significant lesion Neurological : left-sided upper and lower extremity weakness due to past CVA. Normal speech laboratory and microbiology Laboratory Tests 11/13/24 03:20 Test 11/13/24 03:20 Range/Units Serum Glucose 89 74-106 mg/dL Microbiology Date/Time Source Procedure Growth Status 11/12/24 00:30 Nose MRSA Screen - Final Complete 11/10/24 10:03 Sputum Gram Stain - Final Complete 11/10/24 10:03 Sputum Respiratory Culture - Final Complete 11/10/24 07:51 Blood Blood Culture - Preliminary NO GROWTH AFTER 72 HOURS OF INCUBATION. Resulted Labs and/or images reviewed: Labs reviewed by me, Image(s) reviewed by me Problem List/Assessment/Plan Problem List/Assessment/Plan NEUROLOGY # Mechanical fall without LOC # ?Acute metabolic encephalopathy secondary to alcohol vs ? Sepsis # Alcohol intoxication # History of CVA # Possible brain lesion # Rule out acute CVA # Small chronic lacunar infarct # Uses cane for ambulation # Abrasion/lacerated wound on frontal head right sided - head CT showed three hypoattenuated lesions in right parietal lobe, recommended MRI - intubated on 11/10, mechanically ventilated and under sedation with the fentanyl and propofol, Extubated yesterday 11/12. - UDS positive for alcohol - currently on thiamine injection - ordered MRI, showing small chronic infarct in the deep white matter of the right parietal lobe. Additional small chronic lacunar infarct in the right centrum semiovale and Small foci of blooming artifact in the right basal ganglia and right cerebellum may represent chronic microhemorrhages CARDIOVASCULAR # Acute on chronic HFpEF with a EF 65% # severe aortic stenosis # History of polysubstance abuse(Nicotine dependence,Marijuana, Methamphetamine use) # Type 2 NSTEMI # Septic shock # Severe pulmonary hypertension with RVSP 57 mmHg # Rule out DVT/PE # HTN # HLD - echocardiogram showed LVEF 65% with gallops. Aortic leaflets and mitral annulus and severe pulmonary hypertension - elevated troponins - Levophed, discontinued and last dose given on 11/10 - IV antibiotics Zosyn and vancomycin - On bronchodilators and steroids, pulmonology on board - intubated on 11/10, mechanically ventilated and under sedation with the fentanyl and propofol, Extubated yesterday 11/12. - discontinued fentanyl and propofol - Continue diuresing with lasix. Strict I&Os - Monitor for signs of withdrawal, continue with magnesium 2 g daily x, thiamine. - Lower extremity venous Doppler negative for DVT - hospice care consultant advised to follow current recommendations - consulted social services technician to transfer to [facility] for possible TAVR RESPIRATORY # Acute hypoxic and hypercapnic respiratory failure in setting of pneumonia # ? acute Gram-positive/negative bacterial PNA # Pulmonary edema - continuously monitoring daily ABGs and CXR - CXR showed worsening bilateral interstitial opacities may presents pulmonary edema or pneumonia - intubated on 11/10, mechanically ventilated and under sedation with the fentanyl and propofol, Extubated yesterday 11/12 with flushed extubation BiPAP. - discontinued fentanyl and propofol - ABG reviewed, compensated - Diurese w/ Lasix, monitor renal function and electrolytes - pulmonology consulted advised to follow current recommendations - ordered respiratory and blood culture, preliminary showed no growth GI # PUD - currently on pantoprazole - Clear liquid diet /KIDNEY - Diurese w/ Lasix, monitor renal function and electrolytes - patient is on Escobedo's catheter since 11/10 ENDO MUSCULOSKELETAL # Gout # ?Gouty arthritis - Ordered left knee x-ray which showed no acute changes - Started Colchicine HEME-ONC # macrocytic anemia # Rule out DVT/PE - monitor lab -venous Doppler showed no signs of dvt LINES Intubated on 11/10, and Extubated today DRIPS Levophed 0 Fentanyl 0 Propofol 0 PUD prophylaxis: Protonix DVT PPX: Hold Lovenox until MRI, resume in the evening once MRI done Goals of care discussed with the family for more than 27 minutes, full code status Critical care time spent with patient discussing and formulating plan of care: 40 minutes. This does not include time spent performing procedures. Did not update patient's clinical status with the family as per patient request. Case discussed with Dr. Ryder. consulted social services technician to transfer to [facility] for possible TAVR Plan discussed with: Patient My Orders My Orders Orders - AUTUMN MALAVE RESIDENT Procedure Category Date Status Time Bilat Lower Dvt US 11/12/24 Resulted 11:42 L Knee 2v Xray XY 11/12/24 Resulted 11:42 Chest Xray 1 View XY 11/13/24 Resulted 04:00 Transfer Orders XFER 11/13/24 Transmitted 08:16 Date of Service: Nov 13, 2024 Billing Provider: JEANCARLOS RYDER MD Common Visit Codes: [id number] CARE 30-74 MIN AUTUMN MALAVE RESIDENT Nov 13, 2024 08:35 JEANCARLOS RYDER MD Nov 14, 2024 16:50
[2024-11-13] MEDS: COLCHICINE 0.6 MG CAP PO SCH (09:41)
--- NOTE | 2024-11-13 11:57 | DVH ---
EXAMINATION: MRI BRAIN HEAD WO CONTRAST INDICATION: r/o bleed COMPARISON: CT head 11/10/2024 TECHNIQUE: Multiplanar, multisequence magnetic resonance imaging of the brain was performed without the use of i ntravenous contrast. FINDINGS: There is no restricted diffusion. There is a small chronic infarct in the deep white matter of the ri ght parietal lobe. Additional small chronic lacunar infarct is seen in the right centrum semiovale. T here are foci of blooming artifact in the right basal ganglia and in the right cerebellum which may r epresent chronic microhemorrhages. There are mild chronic small-vessel white matter ischemic changes. There is no evidence of acute hemorrhage, mass, mass effect or midline shift. There is no hydrocepha ray or extra-axial fluid collection. The visualized intracranial vasculature demonstrates appropriate flow-voids. The sagittal midline structures appear unremarkable. The craniocervical junction is with in normal limits. The calvarium demonstrates normal marrow signal. There is small amount of fluid in the bilateral mastoid air cells. The paranasal sinuses are clear. IMPRESSION: 1. There is no acute intracranial process. 2. Small chronic infarct in the deep white matter of the right parietal lobe. Additional small chroni c lacunar infarct in the right centrum semiovale. 3. Small foci of blooming artifact in the right basal ganglia and right cerebellum may represent pastry artist jazmyn microhemorrhages. HS:Y
[2024-11-13] MEDS: PANTOPRAZOLE 40 MG TAB PO ONE (16:51)
[2024-11-13] MEDS: THIAMINE HCL 100 MG TAB PO ONE (16:51)
--- NOTE | 2024-11-13 16:52 | MEDREC ---
[facility] Intervention Section I [facility] Intervention: Deescalate AB based on CS (PLEASE CONSIDER DE ESCALATING ANTIBIOTIC ACCORDING TO CULTURE RESULTS) SIMONE SALINAS PHARMACIST Nov 13, 2024 16:52
--- NOTE | 2024-11-13 21:54 | DVHPN2 ---
Progress Note - Dictate Date Seen: Nov 13, 2024 Medical Necessity Reason Pt with a Central, PICC or Fol: Yes The following are medically ne: Escobedo Catheter Reason for escobedo catheter: Strict I&O Subjective Patient was seen and evaluated in follow up. Patient has been downgraded. Patient is now on 4 LPM NC. He does report feeling SOB. Chest x-ray shows increased pulmonary vascular congestion. MRI brain shows no acute intracranial process. Small chronic infarct in the deep white matter of the right parietal lobe. Additional small chronic lacunar infarct in the right centrum semiovale. Small foci of blooming artifact in the right basal ganglia and right cerebellum may represent chronic microhemorrhages. Telemetry reviewed. vital signs Vital Sign Date Time Temp Pulse Resp B/P (MAP) Pulse Ox O2 Delivery O2 Flow Rate FiO2 11/13/24 20:00 16 Nasal Cannula* 4 36 11/13/24 19:27 91 99 11/13/24 17:47 120/89 11/13/24 15:06 98.2 98.2 Total Intake and Output 11/12/24 11/12/24 11/13/24 15:00 23:00 07:00 Intake Total 439.21 ml 425 ml 750 ml Output Total 4050 ml 2100 ml Balance 439.21 ml -3625 ml -1350 ml medications Current Medications Medications Dose Ordered Sig/Carl Route Start Time Stop Time Status Last Admin Dose Admin Albuterol 2.5 mg Q3HP PRN NEB 11/10/24 09:45 Propofol 100 ml @ 2.454 mls/ hr Q24H IV 11/10/24 09:45 UNV Albuterol 2.5 mg Q4HR NEB 11/10/24 14:00 11/13/24 19:18 2.5 MG Ipratropium Heath 0.5 mg Q4HR NEB 11/10/24 14:00 11/13/24 19:17 0.5 MG Vancomycin HCl 0 ml @ 0 mls/hr UD IV 11/10/24 12:15 Piperacillin Sod/ Tazobactam Sod 100 ml @ 25 mls/hr Q8HR IV 11/10/24 18:00 11/13/24 21:24 25 MLS/HR Furosemide 40 mg BIDD IV 11/10/24 18:00 11/13/24 17:47 40 MG Enoxaparin Sodium 40 mg DAILY SC 11/11/24 10:00 11/13/24 09:41 40 MG Vancomycin HCl 250 ml @ 250 mls/hr Q12H IV 11/11/24 04:00 11/13/24 16:51 250 MLS/HR Colchicine 0.6 mg DAILY PO 11/13/24 10:00 11/13/24 09:41 0.6 MG Acetaminophen 650 mg Q6HP PRN PO 11/12/24 18:15 11/13/24 09:47 650 MG Pantoprazole Sodium 40 mg DAILY@0600 PO 11/14/24 06:00 Thiamine HCl 100 mg DAILY PO 11/14/24 10:00 objective GENERAL: Awake, alert, oriented. LUNGS: Decreased breath sounds. CARDIOVASCULAR: Heart sounds are good. ABDOMEN: Soft. laboratory and microbiology Laboratory Tests 11/13/24 03:20 Test 11/13/24 03:20 Range/Units Serum Glucose 89 74-106 mg/dL Problem List Type 2 OK. Acute hypoxic and hypercapnic respiratory failure in setting of multifocal pneumonia. Septic shock. Severe aortic stenosis. Acute on chronic HFpEF. History of polysubstance abuse. Assessment/Plan Continued all current supportive medical care. DVT and GI prophylactics. Diuretics with Lasix. IV antibiotics as ordered. Additional plan as per the hospital course. Dietary Evaluation Review Comments: 1) Advance pt diet when medically feasible to a Cardiac diet modified per SECURE SOFTWARE ASSESSOR recommendations Expected Outcomes/Goals: F/U in 2-3 days Plan discussed with: Patient NINA HAND MD Nov 13, 2024 21:54
[2024-11-14] VITALS (17 sets, daily range): BP systolic 111–126; BP diastolic 78–88; PULSE 82–101; RESP 16–20; TEMP 97.5–98.6; O2SAT 92–100
[2024-11-14] MEDS: PANTOPRAZOLE 40 MG TAB PO SCH (05:39)
[2024-11-14 07:13] LABS: Basophils # (auto) 0.1 10 ^3/uL (0-0.2); Basophils % (auto) 1.1 % (0.0-2.0); Eosinophils # (auto) 0.3 10 ^3/uL (0-0.8); Eosinophils % (auto) 5.3 % (0.0-7.0); Hemoglobin 13.5 g/dL (13.5-17.5); Lymphocytes % (auto) 17.8 % (10.0-50.0); Mean Corpuscular Hemoglobin 34.2 pg (28.0-32.0); Mean Corpuscular Hgb Conc. 34.6 g/dL (32.0-36.0); Mean Corpuscular Volume 98.8 fL (80.0-100.0); Monocytes # (auto) 0.4 10 ^3/uL (0-1.3); Neutrophils # (auto) 3.7 10 ^3/uL (1.6-8.6); Neutrophils % (auto) 67.8 % (37.0-80.0); Nucleated Red Blood Cells % 0.3 %; Platelet Count (auto) 211 10^3/uL (140-450); Red Blood Cells 3.95 10^6/uL (4.5-5.90); Red Cell Distribution Width 14.5 % (11.8-14.3); White Blood Cell 5.5 10^3/uL (4.4-10.8)
[2024-11-14 07:17] LABS: Chloride 104 mmol/L (98-107); Sodium 139 mmol/L (136-145)
[2024-11-14 07:18] LABS: Anion Gap 5 (5-15); Calcium 9.5 mg/dL (8.7-10.4); Carbon Dioxide 30 mmol/L (20-31)
[2024-11-14 07:22] LABS: Potassium 3.3 mmol/L (3.5-5.1)
[2024-11-14 07:23] LABS: BUN/Creatinine Ratio 16.4 (10.0-20.0); Blood Urea Nitrogen 12 mg/dL (9-23); Glucose 98 mg/dL (74-106)
[2024-11-14 07:24] LABS: Magnesium 1.8 mg/dL (1.6-2.6)
[2024-11-14] MEDS: THIAMINE HCL 100 MG TAB PO SCH (09:28)
--- NOTE | 2024-11-14 10:05 | DVHDSRES ---
Discharge Summary Date of Admission Resident Creating Document: AUTUMN MALAVE RESIDENT Nov 10, 2024 at 12:11 Date of Discharge: Nov 13, 2024 Admitting Diagnosis ACUTE HYPOXIC RESPIRATORY FAILURE Labs/Diagnostic Data: Laboratory Results Test 11/14/24 06:29 11/13/24 15:08 11/12/24 12:58 11/12/24 08:24 White Blood Count 5.5 10^3/uL (4.4-10.8) Red Blood Count 3.95 10^6/uL (4.5-5.90) Hemoglobin 13.5 g/dL (13.5-17.5) Hematocrit 39.0 % (41.0-53.0) Mean Corpuscular Volume 98.8 fL (80.0-100.0) Mean Corpuscular Hemoglobin 34.2 pg (28.0-32.0) Mean Corpuscular Hemoglobin Concent 34.6 g/dL (32.0-36.0) Red Cell Distribution Width 14.5 % (11.8-14.3) Platelet Count 211 10^3/uL (140-450) Mean Platelet Volume 7.8 fL (6.9-10.8) Neutrophils (%) (Auto) 67.8 % (37.0-80.0) Lymphocytes (%) (Auto) 17.8 % (10.0-50.0) Monocytes (%) (Auto) 8.0 % (0.0-12.0) Eosinophils (%) (Auto) 5.3 % (0.0-7.0) Basophils (%) (Auto) 1.1 % (0.0-2.0) Neutrophils # (Auto) 3.7 10 ^3/uL (1.6-8.6) Lymphocytes # (Auto) 1.0 10 ^3/uL (0.4-5.4) Monocytes # (Auto) 0.4 10 ^3/uL (0-1.3) Eosinophils # (Auto) 0.3 10 ^3/uL (0-0.8) Basophils # (Auto) 0.1 10 ^3/uL (0-0.2) Nucleated Red Blood Cells 0.3 % Sodium Level 139 mmol/L (136-145) Potassium Level 3.3 mmol/L (3.5-5.1) Chloride Level 104 mmol/L (98-107) Carbon Dioxide Level 30 mmol/L (20-31) Anion Gap 5 (5-15) Blood Urea Nitrogen 12 mg/dL (9-23) Creatinine 0.73 mg/dL (0.700-1.30) Glomerular Filtration Rate Calc 106 mL/min (>90) BUN/Creatinine Ratio 16.4 (10.0-20.0) Serum Glucose 98 mg/dL (74-106) Calcium Level 9.5 mg/dL (8.7-10.4) Magnesium Level 1.8 mg/dL (1.6-2.6) Vancomycin Level Trough 13.4 ug/mL (5-10) Blood Gas Specimen Type Arterial Blood Gas Sample Site Right brachial Blood Gas Patient Temperature 37.0 Arterial Blood Date Drawn [id number] Arterial Blood pH 7.350 (7.350-7.450) Arterial Blood Partial Pressure CO2 46.5 mmHg (35.0-48.0) Arterial Blood Partial Pressure O2 79.4 mmHg (83.0-108.0) Arterial Blood HCO3 25.1 mmol/L (21.0-28.0) Arterial Blood Oxygen Saturation 94.0 % (94.0-98.0) Arterial Blood Base Excess -0.8 mmol/L (-2.0-3.0) Arterial Blood Oxyhemoglobin 93.8 % (94.0-98.0) Arterial Blood Carboxyhemoglobin 0.1 % (0.5-1.5) Arterial Blood Methemoglobin 0.1 % (0.0-1.5) Rudolph Test Modified Blood Gas Total Hemoglobin 13.30 g/dL (13.5-17.5) Blood Gas Modality Vent - cpap FiO2 % 30.0 Blood Gas Pressure Support 8 Blood Gas PEEP or CPAP 5.0 Blood Gas Set Respiration Rate 24.0 Blood Gas Tidal Volume 600.0 Test 11/12/24 03:17 11/11/24 19:47 11/11/24 07:46 11/11/24 06:36 Phosphorus Level 2.9 mg/dL (2.4-5.1) Uric Acid 7.2 mg/dL (3.7-9.2) Troponin I High Sensitivity 149 ng/L (</=54) Blood Gas Spontaneous Rate 24 Test 11/11/24 03:50 11/10/24 22:33 11/10/24 18:36 11/10/24 12:11 Total Bilirubin 0.5 mg/dL (0.2-1.0) Aspartate Amino Transferase (AST) 27 U/L (13-40) Alanine Aminotransferase (ALT) 27 U/L (7-40) Alkaline Phosphatase 65 U/L (46-116) Total Protein 6.2 g/dL (5.7-8.2) Albumin 3.4 g/dL (3.2-4.8) POC Glucose 178 mg/dl (70-106) Blood Gas Critical Value Read Back yes Blood Gas Notified Whom Dr. link Blood Gas Notified Time [id number] Blood Gas Notified By Erythrocyte Sedimentation Rate 17 mm/hr (0-20) C-Reactive Protein High Sensitivity 1.38 mg/dL (<1.0) Lipase 58 U/L (12-53) Test 11/10/24 10:02 11/10/24 09:57 11/10/24 09:00 11/10/24 08:00 Lactic Acid Level 2.0 mmol/L (0.4-2.0) Influenza Type A Antigen Negative (Negative) Influenza Type B Antigen Negative (Negative) Group A Streptococcus Rapid Negative Urine Color Yellow (Yellow) Urine Clarity Clear (Clear) Urine pH 5.5 (5.0-9.0) Urine Specific Sharon 1.019 (1.001-1.035) Urine Protein 2+ (Negative) Urine Ketones Negative (Negative) Urine Blood Trace /uL (Negative) Urine Nitrite Negative (Negative) Urine Bilirubin Negative (Negative) Urine Urobilinogen Normal mg/dL (Negative) Urine Leukocyte Esterase Negative /uL (Negative) Urine RBC 1 /hpf (0 - 3) Urine WBC 1 /hpf (0 - 3) Urine Squamous Epithelial Cells None seen /hpf (<5) Urine Bacteria None seen /hpf (None Seen) Urine Glucose Normal mg/dL (Normal) Urine Opiates Screen Neg (NEGATIVE) Urine Fentanyl Screen Neg (NEGATIVE) Urine Barbiturates Screen Neg (NEGATIVE) Urine Phencyclidine Screen Neg (NEGATIVE) Urine Amphetamines Screen Neg (NEGATIVE) Urine Benzodiazepines Screen Neg (NEGATIVE) Urine Cocaine Screen Neg (NEGATIVE) Urine Cannabinoids Screen Neg (NEGATIVE) Plasma/Serum Blood Alcohol 129.5 mg/dL (<10) Test 11/10/24 07:51 11/10/24 00:00 Prothrombin Time 10.4 sec (9.3-11.8) Prothrombin Time INR 0.98 (0.9-1.15) Activated Partial Thromboplast Time 26.0 SEC (24.5-34.5) SARS-CoV-2 Antigen (Rapid) Negative (NEGATIVE) Other Laboratory Tests 11/14/24 06:29 Brief Hx & Hospital Course: Moiz Ochoa is a 59-year-old male with PMH of HTN, HLD, HFpEF, hepatitis-C virus, CVA, gout, PUD, pneumonia presented to the ED with the chief complaints of shortness of breaths. Initially the patient was treated and discharged from ED but 1 hour later patient was presented with the increased shortness of breath, which required intubation. Patient reported mechanical fall without LOC was seen and due to tripping while walking with a cane, hit his head. Before intubation patient was reported history of polysubstance abuse including methamphetamines, marijuana and the alcohol abuse, admits drinking of half gallon of alcohol per day. Patient denies recent travel, sick contact, chest pain, palpitations, fever, cough, chills, or other associated symptoms. Patient required hospital admission for further evaluation and management. Due to acute hypoxic and hypercapnic respiratory failure secondary to pneumonia and pulmonary edema which required intubation on 11/10, mechanically ventilated and under sedation with the fentanyl and propofol, Extubated 11/12 with post extubation BiPAP. CXR showed worsened bilateral interstitial opacities. Patient was initially on Levophed, discontinued on 11/10 and given Zosyn and vancomycin along with bronchodilators and steroids.patient was continuously monitored with ABG, given diuretics. [facility] is also continuously monitoring patient. Patient was alcohol intoxicated while presentation, continuously monitored for withdrawal, given magnesium 2 g daily, thiamine. Head CT showed three hypoattenuated lesions in right parietal lobe, recommended MRI, showing small chronic infarct in the deep white matter of the right parietal lobe. Additional small chronic lacunar infarct in the right centrum semiovale and Small foci of blooming artifact in the right basal ganglia and right cerebellum may represent chronic microhemorrhages. Started colchicine for gout.Due to acute on chronic HFpEF with the EF 65%, tour consultant evaluated the patient and advised echocardiogram which showed severe aortic stenosis along with severe pulmonary hypertension and NSTEMI type 2, planned to transfer higher level of care for possible TAVR, Patient is transferring to [facility] for further. Patient was advised about healthy lifestyle modifications including diet and exercise and to avoid polysubstance abuse. General: lying on bed, alert, oriented 3 spheres and able to follow commands. HEENT: Small laceration on right frontal head. Normocephalic, atraumatic, PERRLA, EOMI Cardiovascular: Normal S1, Normal S2, systolic murmur Respiratory: Decreased breath sounds Abdominal: Soft, nontender, no hepatosplenomegaly no distention Genitourinary: Patient on Richey catheter Extremities: Left knee warmth, tender, erythematous. Toe deformities. No cyanosis, Normal pulses, Skin: No significant lesion Neurological : left-sided upper and lower extremity weakness due to past CVA. Normal speech time spent in discharge planning was 46 mins Operations or Procedures TECHNIQUE: Single AP portable chest radiograph was obtained. COMPARISON: XY CHEST PORTABLE on DOS: 11/09/24, XY CHEST PORTABLE on DOS: 09/20/24, XY CHEST PORTABLE on DOS: 12/15/23 IMPRESSION: Worsening bilateral interstitial opacities and new ill-defined airspace opacities bilaterally, may be due to pulmonary edema or multifocal pneumonia in the appropriate clinical setting. Correlate with clinical findings. TECHNIQUE: Single AP portable chest radiograph was obtained. COMPARISON: XY CHEST PORTABLE on DOS: 11/10/24, XY CHEST PORTABLE on DOS: 11/09/24, XY CHEST PORTABLE on DOS: 09/20/24 IMPRESSION: 1. Endotracheal tube and enteric tube as described above. 2. Bilateral airspace opacities have increased, likely pulmonary edema. EXAM: CT HEAD WITHOUT CONTRAST IMPRESSION: 1. 3 round areas of decreased attenuation in the deep white matter of the right parietal lobe. May represent deep white matter ischemia or neoplasm. Consider MRI or contrast CT for further evaluation. 2. Soft tissue swelling over the right frontal skull. No underlying fracture or intracranial hemorrhage. 3. Tubes in the right and left nostrils. CRITICAL FINDINGS Critical Result: 3 LOW-DENSITY AREAS IN THE DEEP WHITE MATTER Findings discussed with , at 11/10/2024 04:02 PM, and acknowledged receipt and understanding of the findings. EXAM: CT HEAD CONTRAST ONLY TECHNIQUE: CT of the head without intravenous contrast. COMPARISON: CT HEAD WITHOUT CONTRAST on DOS: 11/10/24 IMPRESSION: 1. 3 stable hypoattenuated lesion in the deep white matter of the right parietal lobe are unchanged. Recommend MRI brain for further characterization 2. Chronic microvascular ischemic changes. Technique:Single AP portable chest radiograph was obtained. Comparison: XY CHEST XRAY 1 VIEW on DOS: 11/10/24, XY CHEST PORTABLE on DOS: 11/10/24, XY CHEST PORTABLE on DOS: 11/09/24, XY CHEST PORTABLE on DOS: 09/20/24, XY CHEST PORTABLE on DOS: 12/15/23, XY CHEST XRAY 1 VIEW on DOS: 11/10/24 IMPRESSION: 1. No change. BILATERAL LOWER EXTREMITY VENOUS DOPPLER IMPRESSION: 1. There is no sonographic evidence for DVT in the lower extremities. EXAM: XY L KNEE 2V XRAY Findings/Impression: 2 views of the left knee. There is no evidence of an acute fracture, dislocation, blastic, or lytic lesions. No radiopaque foreign bodies. No joint effusion or superficial soft tissue abnormalities. CHEST RADIOGRAPH COMPARISON: XY CHEST PORTABLE on DOS: 11/12/24, XY CHEST PORTABLE on DOS: 11/12/24, XY CHEST PORTABLE on DOS: 11/11/24, XY CHEST XRAY 1 VIEW on DOS: 11/10/24, XY CHEST PORTABLE on DOS: 11/10/24 IMPRESSION: Increased pulmonary vascular congestion EXAMINATION: MRI BRAIN HEAD WO CONTRAST IMPRESSION: 1. There is no acute intracranial process. 2. Small chronic infarct in the deep white matter of the right parietal lobe. Additional small chronic lacunar infarct in the right centrum semiovale. 3. Small foci of blooming artifact in the right basal ganglia and right cerebellum may represent chronic microhemorrhages. ECHO Conclusion 1. MODERATE DEGREE LVH AND MODERATE DEGREE LV DIASTOLIC DYSFUNCTION LV EJECTION FRACTION IS 65% 2. VERY HEAVILY CALCIFIED AORTIC LEAFLETS WITH REMARKABLE DECREASED EXCURSION 3. PEAK GRADIENT ACROSS AORTIC VALVE IS 58 MM OF HG AND MEAN GRADIENT IS 37 MM OF HG 4.IT IS CRITICAL AORTIC STENOSIS AORTIC VALVE AREA IS ONLY 0.7 CM SQUARE 5. VERY HEAVILY CALCIFIED MITRAL ANNULUS AND POSTERIOR MITRAL LEAFLET NO MITRAL STENOSIS 6. SEVERE PULMONARY HYPERTENSION RVSP IS 57 MM OF HG AND IS VERY HIGH 7. SLIGHTLY DILATED RV BUT NORMAL FUNCTION 8. NO EFFUSION SIGNED BY: NINA BELL MD SIGNED DATE/TIME: 11/11/24 1225 Condition at Discharge: Guarded Final Diagnosis/Problems List # Mechanical fall without LOC # ?Acute metabolic encephalopathy secondary to alcohol vs ? Sepsis # Alcohol intoxication # Acute hypoxic and hypercapnic respiratory failure in setting of pneumonia # ? acute Gram-positive/negative bacterial PNA # Acute on chronic HFpEF with a EF 65% # severe aortic stenosis # History of polysubstance abuse(Nicotine dependence,Marijuana, Methamphetamine use) # Type 2 NSTEMI # Septic shock # Pulmonary edema # History of CVA # Possible brain lesion # Ruled out acute CVA # Small chronic lacunar infarct # Uses cane for ambulation # Abrasion/lacerated wound on frontal head right sided # Severe pulmonary hypertension with RVSP 57 mmHg # Rule out DVT/PE # HTN # HLD # PUD # Gout # ?Gouty arthritis # macrocytic anemia # Ruled out DVT/PE Discharge Disposition: Acute Care Facility Discharge Instruct/Medications Diet: Cardiac 2g Na,low cholest Activity: No Restrictions, As Tolerated Follow Up/Referral: PCP Medications: per emr Discharge Statement: "Patient was advised to return to the ER or call 911 if any headaches, dizziness, shortness of breath, chest pain, abdominal pain, bleeding, fevers, or worsening of medical condition. Patient was counseled about treatment plan, medications, possible side effects, patientverbalized understanding. All questions were answered to the best of my ability. This discharge took greater then 30 minutes in planning, reviewing documentation, counseling the patient, and discussing with other team members." ASSESSMENT ASSESSMENT Assessment Acute hypoxic respiratory failure due to pneumonia Severe aortic stenosis Date of Service: Nov 13, 2024 Billing Provider: JEANCARLOS RYDER MD Common Visit Codes: 12645-FEG/OBS DISCH DAY >30min AUTUMN MALAVE RESIDENT Nov 14, 2024 10:05 JEANCARLOS RYDER MD Nov 18, 2024 16:42
--- NOTE | 2024-11-14 17:23 | DVHPNRES ---
Progress Note Date Seen: Nov 14, 2024 Resident Creating Document: AUTUMN MALAVE RESIDENT Medical Necessity Reason Pt with a Central, PICC or Fol: Yes The following are medically ne: Escobedo Catheter Reason for escobedo catheter: Strict I&O Subjective Review of Systems Moiz Ochoa is a 59-year-old male with PMH of HTN, HLD, HFpEF, hepatitis-C virus, CVA, gout, PUD, pneumonia presented to the ED with the chief complaints of shortness of breaths. Initially the patient was treated and discharged from ED but 1 hour later patient was presented with the increased shortness of breath, which required intubation. Patient reported mechanical fall without LOC was seen and due to tripping while walking with a cane, hit his head. Before intubation patient was reported history of polysubstance abuse including methamphetamines, marijuana and the alcohol abuse, admits drinking of half gallon of alcohol per day. Patient denies recent travel, sick contact, chest pain, palpitations, fever, cough, chills, or other associated symptoms. Patient had multiple admissions in this facility for recurrent pneumonia, palpitations, alcohol intoxications, hepatic encephalopathy. Patient was was intubated in 2022 due to acute hypoxic respiratory failure secondary to pneumonia and sepsis. Patient was seen and examined at the bedside. Patient reported no new complaints. Mild improvement in his leg pain. Extubated patient on 11/12. Downgraded to telemetry unit. Objective vital signs Vital Sign Date Time Temp Pulse Resp B/P (MAP) Pulse Ox O2 Delivery O2 Flow Rate FiO2 11/14/24 17:00 97.8 89 19 111/79 (90) 96 97.8 11/14/24 13:24 Nasal Cannula* 2 28 Total Intake and Output 11/13/24 11/13/24 11/14/24 15:00 23:00 07:00 Intake Total 1650 ml 600 ml 550 ml Output Total 550 ml 2700 ml 800 ml Balance 1100 ml -2100 ml -250 ml medications Current Medications Medications Dose Ordered Sig/Carl Route Start Time Stop Time Status Last Admin Dose Admin Albuterol 2.5 mg Q3HP PRN NEB 11/10/24 09:45 Propofol 100 ml @ 2.454 mls/ hr Q24H IV 11/10/24 09:45 UNV Albuterol 2.5 mg Q4HR NEB 11/10/24 14:00 11/14/24 13:24 2.5 MG Ipratropium [place] 0.5 mg Q4HR NEB 11/10/24 14:00 11/14/24 13:24 0.5 MG Piperacillin Sod/ Tazobactam Sod 100 ml @ 25 mls/hr Q8HR IV 11/10/24 18:00 11/14/24 15:02 25 MLS/HR Enoxaparin Sodium 40 mg DAILY SC 11/11/24 10:00 11/14/24 09:29 40 MG Colchicine 0.6 mg DAILY PO 11/13/24 10:00 11/14/24 09:28 0.6 MG Acetaminophen 650 mg Q6HP PRN PO 11/12/24 18:15 11/13/24 09:47 650 MG Pantoprazole Sodium 40 mg DAILY@0600 PO 11/14/24 06:00 11/14/24 05:39 40 MG Thiamine HCl 100 mg DAILY PO 11/14/24 10:00 11/14/24 09:28 100 MG Furosemide 40 mg DAILY IV 11/15/24 10:00 Examination General: lying on bed, alert, oriented 3 spheres and able to follow commands. HEENT: Small laceration on right frontal head. Normocephalic, atraumatic, PERRLA, EOMI Cardiovascular: Normal S1, Normal S2, systolic murmur Respiratory: Decreased breath sounds Abdominal: Soft, nontender, no hepatosplenomegaly no distention Genitourinary: Patient on Escobedo catheter Extremities: Left knee warmth, tender, erythematous. Toe deformities. No cyanosis, Normal pulses, Skin: No significant lesion Neurological : left-sided upper and lower extremity weakness due to past CVA. Normal speech laboratory and microbiology Laboratory Tests 11/14/24 06:29 Test 11/14/24 06:29 Range/Units Serum Glucose 98 74-106 mg/dL Microbiology Date/Time Source Procedure Growth Status 11/12/24 00:30 Nose MRSA Screen - Final Complete 11/10/24 10:03 Sputum Gram Stain - Final Complete 11/10/24 10:03 Sputum Respiratory Culture - Final Complete 11/10/24 07:51 Blood Blood Culture - Preliminary NO GROWTH AFTER 72 HOURS OF INCUBATION. Resulted Labs and/or images reviewed: Labs reviewed by me, Image(s) reviewed by me Problem List/Assessment/Plan Problem List/Assessment/Plan NEUROLOGY # Mechanical fall without LOC # ?Acute metabolic encephalopathy secondary to alcohol vs ? Sepsis # Alcohol intoxication # History of CVA # Possible brain lesion # Rule out acute CVA # Small chronic lacunar infarct # Uses cane for ambulation # Abrasion/lacerated wound on frontal head right sided - head CT showed three hypoattenuated lesions in right parietal lobe, recommended MRI - intubated on 11/10, mechanically ventilated and under sedation with the fentanyl and propofol, Extubated yesterday 11/12. - UDS positive for alcohol - currently on thiamine injection - ordered MRI, showing small chronic infarct in the deep white matter of the right parietal lobe. Additional small chronic lacunar infarct in the right centrum semiovale and Small foci of blooming artifact in the right basal ganglia and right cerebellum may represent chronic microhemorrhages CARDIOVASCULAR # Acute on chronic HFpEF with a EF 65% # severe aortic stenosis # History of polysubstance abuse(Nicotine dependence,Marijuana, Methamphetamine use) # Type 2 NSTEMI # Septic shock # Severe pulmonary hypertension with RVSP 57 mmHg # Rule out DVT/PE # HTN # HLD - Currently on NC 2 L - echocardiogram showed LVEF 65% with gallops. Aortic leaflets and mitral annulus and severe pulmonary hypertension - elevated troponins - Levophed, discontinued and last dose given on 11/10 - IV antibiotics Zosyn and vancomycin - On bronchodilators and steroids, pulmonology on board - intubated on 11/10, mechanically ventilated and under sedation with the fentanyl and propofol, Extubated yesterday 11/12. - discontinued fentanyl and propofol - Continue diuresing with lasix. Strict I&Os - Monitor for signs of withdrawal, continue with magnesium 2 g daily x, thiamine. - Lower extremity venous Doppler negative for DVT - marketing consultant advised to follow current recommendations - consulted social and political studies professor to transfer to [facility] for possible TAVR - CXR tomorrow RESPIRATORY # Acute hypoxic and hypercapnic respiratory failure in setting of pneumonia # ? acute Gram-positive/negative bacterial PNA # Pulmonary edema - Currently on NC 2 L - continuously monitoring daily ABGs and CXR - CXR showed worsening bilateral interstitial opacities may presents pulmonary edema or pneumonia - intubated on 11/10, mechanically ventilated and under sedation with the fentanyl and propofol, Extubated on 11/12 with flushed extubation BiPAP. - discontinued fentanyl and propofol - ABG reviewed, compensated - Diurese w/ Lasix, monitor renal function and electrolytes - pulmonology consulted advised to follow current recommendations - ordered respiratory and blood culture, preliminary showed no growth GI # PUD - currently on pantoprazole - Clear liquid diet /KIDNEY - Diurese w/ Lasix, monitor renal function and electrolytes - patient is on Escobedo's catheter since 11/10 -remove Escobedo tomorrow ENDO MUSCULOSKELETAL # Gout # ?Gouty arthritis - Ordered left knee x-ray which showed no acute changes - Started Colchicine HEME-ONC # macrocytic anemia # Rule out DVT/PE - monitor lab -venous Doppler showed no signs of dvt LINES Intubated on 11/10, and Extubated 11/12 DRIPS Levophed 0 Fentanyl 0 Propofol 0 PUD prophylaxis: Protonix DVT PPX: Hold Lovenox until MRI, resume in the evening once MRI done Goals of care discussed with the family for more than 27 minutes, full code status Critical care time spent with patient discussing and formulating plan of care: 40 minutes. This does not include time spent performing procedures. Did not update patient's clinical status with the family as per patient request. Case discussed with Dr. Ryder. consulted social and political studies professor to transfer to [facility] for possible TAVR Plan discussed with: Patient My Orders My Orders Orders - AUTUMN MALAVE Procedure Category Date Status Time Discharge DISCHARGE 11/13/24 Transmitted 17:37 Mechanical Soft Diet DIET 11/14/24 Transmitted Lunch Furosemide Injection PHA 11/15/24 In Process (Lasix Injection) 10:00 Chest Xray 1 View XY 11/14/24 Logged 17:03 Communication Order ORDERS 11/14/24 Transmitted 17:03 Basic Metabolic Panel LAB 11/15/24 Verified 04:00 Complete Blood Count LAB 11/15/24 Verified 04:00 Magnesium LAB 11/15/24 Verified 04:00 Dietary Evaluation Review Comments: 1) Advance pt diet when medically feasible to a Cardiac diet modified per GRAVITY METER OPERATOR recommendations Expected Outcomes/Goals: F/U in 2-3 days Date of Service: Nov 14, 2024 Billing Provider: JEANCARLOS RYDER MD Common Visit Codes: [id number] CARE 30-74 MIN AUTUMN MALAVE Nov 14, 2024 17:23 JEANCARLOS RYDER MD Nov 15, 2024 15:36
--- NOTE | 2024-11-14 18:03 | DVH ---
EXAM: XY CHEST XRAY 1 VIEW TECHNIQUE: Single frontal chest radiograph CLINICAL HISTORY: sob COMPARISON: XY CHEST XRAY 1 VIEW on DOS: 11/13/24, XY CHEST PORTABLE on DOS: 11/12/24, XY CHEST PORTABL E on DOS: 11/12/24 Findings/Impression: Frontal chest radiograph demonstrates no acute osseous or superficial soft tissue abnormalities. The trachea is midline. Cardiomegaly with pulmonary vascular congestion. No pneumothorax, pleural effusions, or consolidations.
--- NOTE | 2024-11-14 19:13 | DVHPN2 ---
Progress Note - Dictate Date Seen: Nov 14, 2024 Medical Necessity Reason Pt with a Central, PICC or Fol: Yes The following are medically ne: Escobedo Catheter Reason for escobedo catheter: Strict I&O Subjective Patient was seen and evaluated in follow up. Patient's shortness of breath is improving. Patient's O2 was decreased to 2 LPM. CM is working on HLOC transfer. K 3.3. Telemetry reviewed. vital signs Vital Sign Date Time Temp Pulse Resp B/P (MAP) Pulse Ox O2 Delivery O2 Flow Rate FiO2 11/14/24 13:32 92 18 100 11/14/24 13:24 Nasal Cannula* 2 28 11/14/24 12:50 97.5 125/84 (98) 97.5 Total Intake and Output 11/13/24 11/13/24 11/14/24 15:00 23:00 07:00 Intake Total 1650 ml 600 ml 550 ml Output Total 550 ml 2700 ml 800 ml Balance 1100 ml -2100 ml -250 ml medications Current Medications Medications Dose Ordered Sig/Carl Route Start Time Stop Time Status Last Admin Dose Admin Albuterol 2.5 mg Q3HP PRN NEB 11/10/24 09:45 Propofol 100 ml @ 2.454 mls/ hr Q24H IV 11/10/24 09:45 UNV Albuterol 2.5 mg Q4HR NEB 11/10/24 14:00 11/14/24 13:24 2.5 MG Ipratropium [place] 0.5 mg Q4HR NEB 11/10/24 14:00 11/14/24 13:24 0.5 MG Vancomycin HCl 0 ml @ 0 mls/hr UD IV 11/10/24 12:15 Piperacillin Sod/ Tazobactam Sod 100 ml @ 25 mls/hr Q8HR IV 11/10/24 18:00 11/14/24 05:38 25 MLS/HR Furosemide 40 mg BIDD IV 11/10/24 18:00 11/14/24 05:39 40 MG Enoxaparin Sodium 40 mg DAILY SC 11/11/24 10:00 11/14/24 09:29 40 MG Vancomycin HCl 250 ml @ 250 mls/hr Q12H IV 11/11/24 04:00 11/14/24 04:02 250 MLS/HR Colchicine 0.6 mg DAILY PO 11/13/24 10:00 11/14/24 09:28 0.6 MG Acetaminophen 650 mg Q6HP PRN PO 11/12/24 18:15 11/13/24 09:47 650 MG Pantoprazole Sodium 40 mg DAILY@0600 PO 11/14/24 06:00 11/14/24 05:39 40 MG Thiamine HCl 100 mg DAILY PO 11/14/24 10:00 11/14/24 09:28 100 MG objective GENERAL: Awake, alert, oriented. LUNGS: Decreased breath sounds. CARDIOVASCULAR: Heart sounds are good. ABDOMEN: Soft. laboratory and microbiology Laboratory Tests 11/14/24 06:29 Test 11/14/24 06:29 Range/Units Serum Glucose 98 74-106 mg/dL Problem List Type 2 [place]. Acute hypoxic and hypercapnic respiratory failure in setting of multifocal pneumonia. Septic shock. Severe aortic stenosis. Acute on chronic HFpEF. History of polysubstance abuse. Assessment/Plan Continued all current supportive medical care. DVT and GI prophylactics. Diuretics with Lasix. IV antibiotics as ordered. Additional plan as per the hospital course. Dietary Evaluation Review Comments: 1) Advance pt diet when medically feasible to a Cardiac diet modified per PROFESSOR/NURSE ANESTHETIST recommendations Expected Outcomes/Goals: F/U in 2-3 days Plan discussed with: Patient NINA HAND MD Nov 14, 2024 13:57
[2024-11-15] VITALS (20 sets, daily range): BP systolic 111–142; BP diastolic 73–92; PULSE 80–107; RESP 16–20; TEMP 96.6–98.5; O2SAT 87–100
[2024-11-15 05:44] LABS: Basophils # (auto) 0.1 10 ^3/uL (0-0.2); Basophils % (auto) 1.5 % (0.0-2.0); Eosinophils # (auto) 0.3 10 ^3/uL (0-0.8); Eosinophils % (auto) 4.8 % (0.0-7.0); Hematocrit 39.3 % (41.0-53.0); Hemoglobin 13.4 g/dL (13.5-17.5); Lymphocytes # (auto) 1.1 10 ^3/uL (0.4-5.4); Lymphocytes % (auto) 18.5 % (10.0-50.0); Mean Corpuscular Hemoglobin 33.5 pg (28.0-32.0); Mean Corpuscular Hgb Conc. 34.1 g/dL (32.0-36.0); Mean Corpuscular Volume 98.2 fL (80.0-100.0); Monocytes # (auto) 0.8 10 ^3/uL (0-1.3); Monocytes % (auto) 13.4 % (0.0-12.0); Neutrophils # (auto) 3.7 10 ^3/uL (1.6-8.6); Neutrophils % (auto) 61.8 % (37.0-80.0); Nucleated Red Blood Cells % 0.1 %; Platelet Count (auto) 234 10^3/uL (140-450); Red Blood Cells 4.01 10^6/uL (4.5-5.90); Red Cell Distribution Width 14.1 % (11.8-14.3); White Blood Cell 5.9 10^3/uL (4.4-10.8)
[2024-11-15 05:50] LABS: Anion Gap 6 (5-15); Carbon Dioxide 29 mmol/L (20-31); Chloride 107 mmol/L (98-107); Sodium 142 mmol/L (136-145)
[2024-11-15 05:51] LABS: Calcium 9.4 mg/dL (8.7-10.4)
[2024-11-15 05:56] LABS: BUN/Creatinine Ratio 18.9 (10.0-20.0); Blood Urea Nitrogen 17 mg/dL (9-23); Glucose 101 mg/dL (74-106); Magnesium 1.6 mg/dL (1.6-2.6)
[2024-11-15 06:15] LABS: Potassium 3.3 mmol/L (3.5-5.1)
--- NOTE | 2024-11-15 11:19 | DVHPNRES ---
Progress Note Date Seen: Nov 15, 2024 Resident Creating Document: AUTUMN MALAVE RESIDENT Medical Necessity Reason Pt with a Central, PICC or Fol: Yes The following are medically ne: Escobedo Catheter Reason for escobedo catheter: Strict I&O Subjective Review of Systems Patient was seen and examined at the bedside. Patient reported no new complaints, overnight events reviewed. Extubated patient on 11/12. Downgraded to telemetry unit. Patient is currently NC 2 L. pending transfer. Switched to PO Lasix 40. Patient reports: Feels better Objective vital signs Vital Sign Date Time Temp Pulse Resp B/P (MAP) Pulse Ox O2 Delivery O2 Flow Rate FiO2 11/15/24 10:47 98 18 100 11/15/24 10:41 Room Air* 0 21 11/15/24 09:00 98.4 142/92 (109) 98.4 Total Intake and Output 11/14/24 11/14/24 11/15/24 14:59 22:59 06:59 Intake Total 1230 ml 250 ml 575 ml Output Total 150 ml 600 ml Balance 1230 ml 100 ml -25 ml medications Current Medications Medications Dose Ordered Sig/Carl Route Start Time Stop Time Status Last Admin Dose Admin Albuterol 2.5 mg Q3HP PRN NEB 11/10/24 09:45 Propofol 100 ml @ 2.454 mls/ hr Q24H IV 11/10/24 09:45 UNV Albuterol 2.5 mg Q4HR NEB 11/10/24 14:00 11/15/24 10:41 2.5 MG Ipratropium [place] 0.5 mg Q4HR NEB 11/10/24 14:00 11/15/24 10:40 0.5 MG Piperacillin Sod/ Tazobactam Sod 100 ml @ 25 mls/hr Q8HR IV 11/10/24 18:00 11/15/24 05:30 25 MLS/HR Enoxaparin Sodium 40 mg DAILY SC 11/11/24 10:00 11/15/24 09:19 40 MG Colchicine 0.6 mg DAILY PO 11/13/24 10:00 11/15/24 09:18 0.6 MG Acetaminophen 650 mg Q6HP PRN PO 11/12/24 18:15 11/13/24 09:47 650 MG Pantoprazole Sodium 40 mg DAILY@0600 PO 11/14/24 06:00 11/15/24 05:29 40 MG Thiamine HCl 100 mg DAILY PO 11/14/24 10:00 11/15/24 09:18 100 MG Furosemide 40 mg DAILY IV 11/15/24 10:00 Magnesium Sulfate/ Dextrose 100 ml @ 100 mls/hr Q1HR IV 11/15/24 11:00 11/15/24 12:59 Examination General: lying on bed, alert, oriented 3 spheres and able to follow commands. HEENT: Small laceration on right frontal head. Normocephalic, atraumatic, PERRLA, EOMI Cardiovascular: Normal S1, Normal S2, systolic murmur Respiratory: Decreased breath sounds Abdominal: Soft, nontender, no hepatosplenomegaly no distention Genitourinary: Patient on Escobedo catheter Extremities: Left knee warmth, tender, erythematous. Toe deformities. No cyanosis, Normal pulses, Skin: No significant lesion Neurological : left-sided upper and lower extremity weakness due to past CVA. Normal speech laboratory and microbiology Laboratory Tests 11/15/24 05:26 Test 11/15/24 05:26 Range/Units Serum Glucose 101 74-106 mg/dL Microbiology Date/Time Source Procedure Growth Status 11/12/24 00:30 Nose MRSA Screen - Final Complete 11/10/24 10:03 Sputum Gram Stain - Final Complete 11/10/24 10:03 Sputum Respiratory Culture - Final Complete 11/10/24 07:51 Blood Blood Culture - Final NO GROWTH AFTER 5 DAYS OF INCUBATION. Complete Labs and/or images reviewed: Labs reviewed by me, Image(s) reviewed by me Problem List/Assessment/Plan Problem List/Assessment/Plan NEUROLOGY # Mechanical fall without LOC # ?Acute metabolic encephalopathy secondary to alcohol vs ? Sepsis # Alcohol intoxication # History of CVA # Possible brain lesion # Rule out acute CVA # Small chronic lacunar infarct # Uses cane for ambulation # Abrasion/lacerated wound on frontal head right sided - head CT showed three hypoattenuated lesions in right parietal lobe, recommended MRI - intubated on 11/10, mechanically ventilated and under sedation with the fentanyl and propofol, Extubated yesterday 11/12. - UDS positive for alcohol - currently on thiamine injection - ordered MRI, showing small chronic infarct in the deep white matter of the right parietal lobe. Additional small chronic lacunar infarct in the right centrum semiovale and Small foci of blooming artifact in the right basal ganglia and right cerebellum may represent chronic microhemorrhages CARDIOVASCULAR # Acute on chronic HFpEF with a EF 65% # severe aortic stenosis # History of polysubstance abuse(Nicotine dependence,Marijuana, Methamphetamine use) # Type 2 NSTEMI # Septic shock # Severe pulmonary hypertension with RVSP 57 mmHg # Rule out DVT/PE # HTN # HLD - Currently on NC 2 L - echocardiogram showed LVEF 65% with gallops. Aortic leaflets and mitral annulus and severe pulmonary hypertension - elevated troponins - Levophed, discontinued and last dose given on 11/10 - currently only on Zosyn, discontinued vancomycin - On bronchodilators and steroids, pulmonology on board - intubated on 11/10, mechanically ventilated and under sedation with the fentanyl and propofol, Extubated yesterday 11/12. - discontinued fentanyl and propofol - Continue diuresing with lasix. Strict I&Os, Switched to PO Lasix 40 today - Monitor for signs of withdrawal, continue with magnesium 2 g daily x, thiamine. - Lower extremity venous Doppler negative for DVT - human performance consultant advised to follow current recommendations - consulted health and social care teacher to transfer to [facility] for possible TAVR - CXR tomorrow RESPIRATORY # Acute hypoxic and hypercapnic respiratory failure in setting of pneumonia # ? acute Gram-positive/negative bacterial PNA # Pulmonary edema - Currently on NC 2 L - continuously monitoring daily ABGs and CXR - CXR showed worsening bilateral interstitial opacities may presents pulmonary edema or pneumonia - intubated on 11/10, mechanically ventilated and under sedation with the fentanyl and propofol, Extubated on 11/12 with flushed extubation BiPAP. - discontinued fentanyl and propofol - ABG reviewed, compensated - Diurese w/ Lasix, monitor renal function and electrolytes - pulmonology consulted advised to follow current recommendations - ordered respiratory and blood culture, preliminary showed no growth - Switched to PO Lasix 40. GI # PUD - currently on pantoprazole - Clear liquid diet /KIDNEY - Diurese w/ Lasix, monitor renal function and electrolytes - patient is on Escobedo's catheter since 11/10 - removed Escobedo ENDO MUSCULOSKELETAL # Gout # ?Gouty arthritis - Ordered left knee x-ray which showed no acute changes - Started Colchicine HEME-ONC # macrocytic anemia # Rule out DVT/PE - monitor lab -venous Doppler showed no signs of dvt LINES Intubated on 11/10, and Extubated 11/12 DRIPS Levophed 0 Fentanyl 0 Propofol 0 PUD prophylaxis: Protonix DVT PPX: Lovenox Goals of care discussed with the family for more than 27 minutes, full code status Did not update patient's clinical status with the family as per patient request. Case discussed with Dr. Ryder. consulted health and social care teacher to transfer to [facility] for possible TAVR Plan discussed with: Patient My Orders My Orders Orders - AUTUMN MALAVE Procedure Category Date Status Time Furosemide Injection PHA 11/15/24 In Process (Lasix Injection) 10:00 Chest Xray 1 View XY 11/14/24 Resulted 17:03 Communication Order ORDERS 11/14/24 Transmitted 17:03 Chest Xray 1 View XY 11/15/24 Taken 10:41 Magnesium Sulfate PHA 11/15/24 In Process 1gm/100ml 11:00 Dietary Evaluation Review Comments: 1) Advance pt diet when medically feasible to a Cardiac diet modified per ASPHALT DISTRIBUTOR TENDER recommendations Expected Outcomes/Goals: F/U in 2-3 days Date of Service: Nov 15, 2024 Billing Provider: JEANCARLOS RYDER MD Common Visit Codes: [id number] INP/OBS CARE(HIGH) Secondary Visit Codes: [id number] CARE PLAN 30 MINUTES AUTUMN MALAVE Nov 15, 2024 11:19 JEANCARLOS RYDER MD Nov 18, 2024 16:47
--- NOTE | 2024-11-15 11:33 | DVH ---
EXAM: XY CHEST XRAY 1 VIEW Indication: PNA Technique: Single frontal view of the chest was obtained Comparison: XY CHEST XRAY 1 VIEW on DOS: 11/14/24, XY CHEST XRAY 1 VIEW on DOS: 11/13/24, XY CHEST PORT ABLE on DOS: 11/12/24, XY CHEST PORTABLE on DOS: 11/12/24, XY CHEST PORTABLE on DOS: 11/11/24 FINDINGS: Lines and Tubes: None Lungs: No focal consolidation. Mild pulmonary vascular congestion. Pleura: No effusion. No pneumothorax. Cardiomediastinal contours: Unchanged. Bones: No acute osseous abnormality. IMPRESSION: Mild pulmonary vascular congestion.
[2024-11-15] MEDS: MAGNESIUM SULFATE 1GM/100ML 100 ML IV SCH (12:44)
[2024-11-15] MEDS: FUROSEMIDE 40 MG/4 ML VIAL IV SCH (12:45)
[2024-11-15] MEDS: POTASSIUM EFFERVESENT TAB 25 MEQ PO ONE (12:45)
--- NOTE | 2024-11-15 23:28 | DVHPN2 ---
Progress Note - Dictate Date Seen: Nov 15, 2024 Medical Necessity Reason Pt with a Central, PICC or Fol: Yes The following are medically ne: Escobedo Catheter Reason for escobedo catheter: Strict I&O Subjective Patient was seen and evaluated in follow up. Overnight, had episodes of A-fib on the server assistant. Patient asymptomatic. Patient reports feeling much better today, denies any further SOB. Patient transitioned over to room air. K 3.3. Chest x-ray shows mild pulmonary vascular congestion. Telemetry reviewed. vital signs Vital Sign Date Time Temp Pulse Resp B/P (MAP) Pulse Ox O2 Delivery O2 Flow Rate FiO2 11/15/24 10:47 98 18 100 11/15/24 10:41 Room Air* 0 21 11/15/24 09:00 98.4 142/92 (109) 98.4 Total Intake and Output 11/14/24 11/14/24 11/15/24 15:00 23:00 07:00 Intake Total 1230 ml 250 ml 575 ml Output Total 150 ml 600 ml Balance 1230 ml 100 ml -25 ml medications Current Medications Medications Dose Ordered Sig/Carl Route Start Time Stop Time Status Last Admin Dose Admin Albuterol 2.5 mg Q3HP PRN NEB 11/10/24 09:45 Propofol 100 ml @ 2.454 mls/ hr Q24H IV 11/10/24 09:45 UNV Albuterol 2.5 mg Q4HR NEB 11/10/24 14:00 11/15/24 10:41 2.5 MG Ipratropium [place] 0.5 mg Q4HR NEB 11/10/24 14:00 11/15/24 10:40 0.5 MG Piperacillin Sod/ Tazobactam Sod 100 ml @ 25 mls/hr Q8HR IV 11/10/24 18:00 11/15/24 05:30 25 MLS/HR Enoxaparin Sodium 40 mg DAILY SC 11/11/24 10:00 11/15/24 09:19 40 MG Colchicine 0.6 mg DAILY PO 11/13/24 10:00 11/15/24 09:18 0.6 MG Acetaminophen 650 mg Q6HP PRN PO 11/12/24 18:15 11/13/24 09:47 650 MG Pantoprazole Sodium 40 mg DAILY@0600 PO 11/14/24 06:00 11/15/24 05:29 40 MG Thiamine HCl 100 mg DAILY PO 11/14/24 10:00 11/15/24 09:18 100 MG Furosemide 40 mg DAILY IV 11/15/24 10:00 Magnesium Sulfate/ Dextrose 100 ml @ 100 mls/hr Q1HR IV 11/15/24 11:00 11/15/24 12:59 objective GENERAL: Awake, alert, oriented. LUNGS: Decreased breath sounds. CARDIOVASCULAR: Heart sounds are good. ABDOMEN: Soft. laboratory and microbiology Laboratory Tests 11/15/24 05:26 Test 11/15/24 05:26 Range/Units Serum Glucose 101 74-106 mg/dL Problem List Type 2 [place]. Acute hypoxic and hypercapnic respiratory failure in setting of multifocal pneumonia. Septic shock. Severe aortic stenosis. Acute on chronic HFpEF. History of polysubstance abuse. Assessment/Plan Continued all current supportive medical care. DVT and GI prophylactics. Diuretics with Lasix. IV antibiotics as ordered. Additional plan as per the hospital course. Dietary Evaluation Review Comments: 1) Advance pt diet when medically feasible to a Cardiac diet modified per DENTAL DETAIL REPRESENTATIVE recommendations Expected Outcomes/Goals: F/U in 2-3 days Plan discussed with: Patient NINA HAND MD Nov 15, 2024 12:23
[2024-11-16] VITALS (11 sets, daily range): BP systolic 119–145; BP diastolic 68–97; PULSE 65–102; RESP 16–20; TEMP 97.7–98.3; O2SAT 92–98
[2024-11-16] MEDS ORDERED: ALBUTEROL SULF 2.5 MG/0.5ML(0.5%) NEB SOLN NEB PRN
[2024-11-16] MEDS ORDERED: IPRATROPIUM BROM 0.5 MG/2.5ML INH SOL NEB PRN
[2024-11-16 06:18] LABS: Basophils # (auto) 0.1 10 ^3/uL (0-0.2); Basophils % (auto) 1.4 % (0.0-2.0); Eosinophils # (auto) 0.3 10 ^3/uL (0-0.8); Eosinophils % (auto) 5.9 % (0.0-7.0); Hematocrit 40.5 % (41.0-53.0); Hemoglobin 13.8 g/dL (13.5-17.5); Lymphocytes # (auto) 1.4 10 ^3/uL (0.4-5.4); Lymphocytes % (auto) 25.8 % (10.0-50.0); Mean Corpuscular Hemoglobin 33.2 pg (28.0-32.0); Mean Corpuscular Hgb Conc. 33.9 g/dL (32.0-36.0); Mean Corpuscular Volume 97.7 fL (80.0-100.0); Monocytes # (auto) 0.8 10 ^3/uL (0-1.3); Monocytes % (auto) 14.2 % (0.0-12.0); Neutrophils # (auto) 2.9 10 ^3/uL (1.6-8.6); Neutrophils % (auto) 52.7 % (37.0-80.0); Nucleated Red Blood Cells % 0.1 %; Platelet Count (auto) 274 10^3/uL (140-450); Red Blood Cells 4.15 10^6/uL (4.5-5.90); Red Cell Distribution Width 14.1 % (11.8-14.3); White Blood Cell 5.5 10^3/uL (4.4-10.8)
[2024-11-16 06:38] LABS: Chloride 103 mmol/L (98-107); Potassium 3.5 mmol/L (3.5-5.1); Sodium 138 mmol/L (136-145)
[2024-11-16 06:39] LABS: Anion Gap 8 (5-15); Calcium 9.8 mg/dL (8.7-10.4); Carbon Dioxide 27 mmol/L (20-31)
[2024-11-16 06:44] LABS: BUN/Creatinine Ratio 18.1 (10.0-20.0); Blood Urea Nitrogen 15 mg/dL (9-23); Glucose 98 mg/dL (74-106)
[2024-11-16 06:45] LABS: Magnesium 1.8 mg/dL (1.6-2.6)
[2024-11-16] MEDS: FUROSEMIDE 40 MG TAB PO SCH (09:10)
--- NOTE | 2024-11-16 09:14 | DVHPNRES ---
Progress Note Date Seen: Nov 16, 2024 Resident Creating Document: AUTUMN MALAVE RESIDENT Medical Necessity Reason Pt with a Central, PICC or Fol: Yes The following are medically ne: Escobedo Catheter Reason for escobedo catheter: Strict I&O Subjective Review of Systems Patient was seen and examined at the bedside. Patient reported no new complaints, overnight events reviewed. Extubated patient on 11/12. Currently on telemetry unit. Patient is currently room air. pending transfer. Switched to PO Lasix 40. Patient reports: No new complaints, Feels better Objective vital signs Vital Sign Date Time Temp Pulse Resp B/P (MAP) Pulse Ox O2 Delivery O2 Flow Rate FiO2 11/16/24 05:00 97.7 87 18 137/88 (104) 94 97.7 11/15/24 19:53 Nasal Cannula* 4 36 Total Intake and Output 11/15/24 11/15/24 11/16/24 15:00 23:00 07:00 Intake Total 1700 ml 400 ml Output Total 3100 ml 700 ml Balance -1400 ml -300 ml medications Current Medications Medications Dose Ordered Sig/Carl Route Start Time Stop Time Status Last Admin Dose Admin Propofol 100 ml @ 2.454 mls/ hr Q24H IV 11/10/24 09:45 UNV Piperacillin Sod/ Tazobactam Sod 100 ml @ 25 mls/hr Q8HR IV 11/10/24 18:00 11/16/24 05:42 25 MLS/HR Enoxaparin Sodium 40 mg DAILY SC 11/11/24 10:00 11/15/24 09:19 40 MG Colchicine 0.6 mg DAILY PO 11/13/24 10:00 11/15/24 09:18 0.6 MG Acetaminophen 650 mg Q6HP PRN PO 11/12/24 18:15 11/13/24 09:47 650 MG Pantoprazole Sodium 40 mg DAILY@0600 PO 11/14/24 06:00 11/16/24 05:42 40 MG Thiamine HCl 100 mg DAILY PO 11/14/24 10:00 11/15/24 09:18 100 MG Furosemide 40 mg DAILY PO 11/16/24 10:00 Ipratropium [place] 0.5 mg Q4HPRN PRN NEB 11/16/24 00:00 Albuterol 2.5 mg Q4HPRN PRN NEB 11/16/24 00:00 Examination General: lying on bed, alert, oriented 3 spheres and able to follow commands. HEENT: Small laceration on right frontal head. Normocephalic, atraumatic, PERRLA, EOMI Cardiovascular: Normal S1, Normal S2, systolic murmur Respiratory: Decreased breath sounds- improving Abdominal: Soft, nontender, no hepatosplenomegaly no distention Genitourinary: Deferred Extremities: Toe deformities. No cyanosis, Normal pulses,no edema Skin: No significant lesion Neurological : left-sided upper and lower extremity weakness due to past CVA. Normal speech laboratory and microbiology Laboratory Tests 11/16/24 05:47 Test 11/16/24 05:47 Range/Units Serum Glucose 98 74-106 mg/dL Microbiology Date/Time Source Procedure Growth Status 11/12/24 00:30 Nose MRSA Screen - Final Complete 11/10/24 10:03 Sputum Gram Stain - Final Complete 11/10/24 10:03 Sputum Respiratory Culture - Final Complete 11/10/24 07:51 Blood Blood Culture - Final NO GROWTH AFTER 5 DAYS OF INCUBATION. Complete Labs and/or images reviewed: Labs reviewed by me, Image(s) reviewed by me Problem List/Assessment/Plan Problem List/Assessment/Plan NEUROLOGY # Mechanical fall without LOC # ?Acute metabolic encephalopathy secondary to alcohol vs ? Sepsis # Alcohol intoxication # History of CVA # Possible brain lesion # Rule out acute CVA # Small chronic lacunar infarct # Uses cane for ambulation # Abrasion/lacerated wound on frontal head right sided - head CT showed three hypoattenuated lesions in right parietal lobe, recommended MRI - intubated on 11/10, mechanically ventilated and under sedation with the fentanyl and propofol, Extubated yesterday 11/12. - UDS positive for alcohol - currently on thiamine injection - ordered MRI, showing small chronic infarct in the deep white matter of the right parietal lobe. Additional small chronic lacunar infarct in the right centrum semiovale and Small foci of blooming artifact in the right basal ganglia and right cerebellum may represent chronic microhemorrhages CARDIOVASCULAR # Acute on chronic HFpEF with a EF 65% # severe aortic stenosis # History of polysubstance abuse(Nicotine dependence,Marijuana, Methamphetamine use) # Type 2 NSTEMI # Septic shock # Severe pulmonary hypertension with RVSP 57 mmHg # Rule out DVT/PE # HTN # HLD - Currently on Room air - echocardiogram showed LVEF 65% with gallops. Aortic leaflets and mitral annulus and severe pulmonary hypertension - elevated troponins - Levophed, discontinued and last dose given on 11/10 - currently only on Zosyn, discontinued vancomycin - On bronchodilators and steroids, pulmonology on board - intubated on 11/10, mechanically ventilated and under sedation with the fentanyl and propofol, Extubated yesterday 11/12. - discontinued fentanyl and propofol - Continue diuresing with lasix. Strict I&Os, Switched to PO Lasix 40 today - Monitor for signs of withdrawal, continue with magnesium 2 g daily x, thiamine. - Lower extremity venous Doppler negative for DVT - director of cardiology service line advised to follow current recommendations - consulted psychiatric social worker supervisor to transfer to [facility] for possible TAVR RESPIRATORY # Acute hypoxic and hypercapnic respiratory failure in setting of pneumonia # ? acute Gram-positive/negative bacterial PNA # Pulmonary edema - Currently on Room air - continuously monitoring daily ABGs and CXR - CXR showed worsening bilateral interstitial opacities may presents pulmonary edema or pneumonia - intubated on 11/10, mechanically ventilated and under sedation with the fentanyl and propofol, Extubated on 11/12 with flushed extubation BiPAP. - discontinued fentanyl and propofol - ABG reviewed, compensated - Diurese w/ Lasix, monitor renal function and electrolytes - pulmonology consulted advised to follow current recommendations - ordered respiratory and blood culture, preliminary showed no growth - Switched to PO Lasix 40. GI # PUD - currently on pantoprazole - Clear liquid diet /KIDNEY - Diurese w/ Lasix, monitor renal function and electrolytes - patient is on Escobedo's catheter since 11/10 - removed Escobedo ENDO MUSCULOSKELETAL # Gout # ?Gouty arthritis - Ordered left knee x-ray which showed no acute changes - Started Colchicine HEME-ONC # macrocytic anemia # Rule out DVT/PE - monitor lab -venous Doppler showed no signs of dvt LINES Intubated on 11/10, and Extubated 11/12 DRIPS Levophed 0 Fentanyl 0 Propofol 0 PUD prophylaxis: Protonix DVT PPX: Lovenox Goals of care discussed with the family for more than 27 minutes, full code status Critical care time spent with patient discussing and formulating plan of care: 40 minutes. This does not include time spent performing procedures. Did not update patient's clinical status with the family as per patient request. Case discussed with Dr. Venegas. Pending transfer to [facility] for possible TAVR Plan discussed with: Patient My Orders My Orders Orders - AUTUMN MALAVE Procedure Category Date Status Time Chest Xray 1 View XY 11/15/24 Resulted 10:41 Furosemide Tablet PHA 11/16/24 In Process (Lasix Tablet) 10:00 Dietary Evaluation Review Comments: 1) Advance pt diet when medically feasible to a Cardiac diet modified per [employer] recommendations Expected Outcomes/Goals: F/U in 2-3 days Date of Service: Nov 16, 2024 Billing Provider: LANE VENEGAS DO Common Visit Codes: [id number] INP/OBS CARE(HIGH) AUTUMN MALAVE RESIDENT Nov 16, 2024 09:[address] VENEGAS DO Nov 16, 2024 17:15
--- NOTE | 2024-11-16 21:55 | DVHPN2 ---
Progress Note - Dictate Date Seen: Nov 16, 2024 Medical Necessity Reason Pt with a Central, PICC or Fol: Yes The following are medically ne: Escobedo Catheter Reason for escobedo catheter: Strict I&O Subjective Patient was seen and evaluated in follow up. Patient reports feeling better since admission. Patient was switched to po Lasix. Chemistry panel is WNL. Per CM, patient is awaiting bed availability at [facility]. Telemetry reviewed. vital signs Vital Sign Date Time Temp Pulse Resp B/P (MAP) Pulse Ox O2 Delivery O2 Flow Rate FiO2 11/16/24 10:16 95 Room Air* 0 21 11/16/24 09:10 145/97 11/16/24 09:00 98.0 87 20 98.0 Total Intake and Output 11/15/24 11/15/24 11/16/24 15:00 23:00 07:00 Intake Total 1700 ml 400 ml Output Total 3100 ml 700 ml Balance -1400 ml -300 ml medications Current Medications Medications Dose Ordered Sig/Carl Route Start Time Stop Time Status Last Admin Dose Admin Propofol 100 ml @ 2.454 mls/ hr Q24H IV 11/10/24 09:45 UNV Piperacillin Sod/ Tazobactam Sod 100 ml @ 25 mls/hr Q8HR IV 11/10/24 18:00 11/16/24 05:42 25 MLS/HR Enoxaparin Sodium 40 mg DAILY SC 11/11/24 10:00 11/16/24 09:10 40 MG Colchicine 0.6 mg DAILY PO 11/13/24 10:00 11/16/24 09:10 0.6 MG Acetaminophen 650 mg Q6HP PRN PO 11/12/24 18:15 11/13/24 09:47 650 MG Pantoprazole Sodium 40 mg DAILY@0600 PO 11/14/24 06:00 11/16/24 05:42 40 MG Thiamine HCl 100 mg DAILY PO 11/14/24 10:00 11/16/24 09:10 100 MG Furosemide 40 mg DAILY PO 11/16/24 10:00 11/16/24 09:10 40 MG Ipratropium [place] 0.5 mg Q4HPRN PRN NEB 11/16/24 00:00 Albuterol 2.5 mg Q4HPRN PRN NEB 11/16/24 00:00 objective GENERAL: Awake, alert, oriented. LUNGS: Decreased breath sounds. CARDIOVASCULAR: Heart sounds are good. ABDOMEN: Soft. laboratory and microbiology Laboratory Tests 11/16/24 05:47 Test 11/16/24 05:47 Range/Units Serum Glucose 98 74-106 mg/dL Problem List Type 2 CO. Acute hypoxic and hypercapnic respiratory failure in setting of multifocal pneumonia. Septic shock. Severe aortic stenosis. Acute on chronic HFpEF. History of polysubstance abuse. Assessment/Plan Continued all current supportive medical care. DVT and GI prophylactics. Diuretics with Lasix. IV antibiotics as ordered. Additional plan as per the hospital course. Dietary Evaluation Review Comments: 1) Advance pt diet when medically feasible to a Cardiac diet modified per [employer] recommendations Expected Outcomes/Goals: F/U in 2-3 days Plan discussed with: Patient NINA HAND MD Nov 16, 2024 11:45
== END 2024-11-16 21:57 | disposition short-term general hospital (02) | DRG 720 ==
LOC: ER 07:33 → EDBD 07:33 → TELE 12:11 → ICU WEST 11-11 23:25 → TELE-EAST 11-13 14:58
PROVIDERS: ADMIT Internal Medicine; ATTEND Internal Medicine
PROC: 5A1945Z Respiratory Ventilation, 24-96 Consecutive Hours (ICD-10-PCS; principal; 2024-11-10)
PROC: 0BH17EZ Insertion of Endotracheal Airway into Trachea, Via Natural or Artificial Opening (ICD-10-PCS; 2024-11-10)
PROC: 5A09357 Assistance with Respiratory Ventilation, Less than 24 Consecutive Hours, Continuous Positive Airway Pressure (ICD-10-PCS; 2024-11-12)
DX: A41.9 Sepsis, unspecified organism (principal); J96.01 Acute respiratory failure with hypoxia; R65.21 Severe sepsis with septic shock; I50.33 Acute on chronic diastolic (congestive) heart failure; G92.8 Other toxic encephalopathy; J15.69 Pneumonia due to other Gram-negative bacteria; I11.0 Hypertensive heart disease with heart failure; T51.91XA Toxic effect of unspecified alcohol, accidental (unintentional), initial encounter; E87.29 Other acidosis; J96.02 Acute respiratory failure with hypercapnia; Z20.822 Contact with and (suspected) exposure to COVID-19; J15.9 Unspecified bacterial pneumonia; I21.A1 Myocardial infarction type 2; G93.9 Disorder of brain, unspecified; I27.20 Pulmonary hypertension, unspecified; I35.0 Nonrheumatic aortic (valve) stenosis; D53.9 Nutritional anemia, unspecified; M10.9 Gout, unspecified; E78.5 Hyperlipidemia, unspecified; F15.10 Other stimulant abuse, uncomplicated; F10.129 Alcohol abuse with intoxication, unspecified; Y90.9 Presence of alcohol in blood, level not specified; Z86.73 Personal history of transient ischemic attack (TIA), and cerebral infarction without residual deficits; Z87.11 Personal history of peptic ulcer disease; Z87.891 Personal history of nicotine dependence; Z75.1 Person awaiting admission to adequate facility elsewhere
CPT/HCPCS: 31500; 36415; 36600; 70450; 70460; 70551; 71045; 73560; 80048; 80053; 80202; 80307; 80320; 81001; 82805; 82962; 83605; 83690; 83735; 84100; 84484; 84550; 85025; 85610; 85652; 85730; 86141; 87040; 87070; 87081; 87205; 87426; 87804; 87880; 93005; 93306; 93970; 94002; 94003; 94640; 94660; 97110; 97116; 97163; 97530; 99291; 99292; G0378; J0131; J2470; J2543; J2704

== ENCOUNTER 2024-12-24 16:39 | Emergency (ER) | payer MEDICAID ==
[~2024-12-24] VITALS: Ht 167.6 cm; Wt 72.5 kg
[2024-12-24 19:05] VITALS: BP 122/72; PULSE 65; RESP 18; TEMP 99; O2SAT 93
[2024-12-24 19:19] LABS: Basophils # (auto) 0.1 10 ^3/uL (0-0.2); Basophils % (auto) 0.8 % (0.0-2.0); Eosinophils # (auto) 0.1 10 ^3/uL (0-0.8); Eosinophils % (auto) 1.1 % (0.0-7.0); Hemoglobin 12.7 g/dL (13.5-17.5); Lymphocytes # (auto) 1.2 10 ^3/uL (0.4-5.4); Mean Corpuscular Hemoglobin 33.1 pg (28.0-32.0); Mean Corpuscular Hgb Conc. 34.2 g/dL (32.0-36.0); Mean Corpuscular Volume 96.7 fL (80.0-100.0); Monocytes # (auto) 0.9 10 ^3/uL (0-1.3); Monocytes % (auto) 11.4 % (0.0-12.0); Neutrophils % (auto) 72.7 % (37.0-80.0); Nucleated Red Blood Cells % 0.1 %; Platelet Count (auto) 459 10^3/uL (140-450); Red Blood Cells 3.83 10^6/uL (4.5-5.90); Red Cell Distribution Width 14.3 % (11.8-14.3); White Blood Cell 8.3 10^3/uL (4.4-10.8)
[2024-12-24 19:25] LABS: Anion Gap 10 (5-15); Carbon Dioxide 29 mmol/L (20-31); Chloride 100 mmol/L (98-107); Potassium 3.6 mmol/L (3.5-5.1); Sodium 139 mmol/L (136-145)
[2024-12-24 19:26] LABS: Calcium 9.4 mg/dL (8.7-10.4)
[2024-12-24 19:30] LABS: Glucose 95 mg/dL (74-106)
[2024-12-24 19:31] LABS: BUN/Creatinine Ratio 16.3 (10.0-20.0); Blood Urea Nitrogen 13 mg/dL (9-23)
[2024-12-24] MEDS ORDERED: INDO50CA82 PO (20:01)
[2024-12-24] MEDS ORDERED: METH4PAK PO (20:01)
--- NOTE | 2024-12-24 20:01 | ED.PDOC ---
Back pain HPI HPI Comments 59-year-old male presents to ER with complaints of right hand pain x1 week. Patient's past medical history significant for gout reports he has been experiencing 6/10 pain/swelling to right hand and right elbow x1 week. States he has had similar symptoms related to gout in the past and reports that he was heavily drinking alcohol before his symptoms started. Denies use of medications for current symptoms. Denies fever, body aches, chills, trauma/injury or any further symptoms/complaints Chief Complaint: Body Pain Time Seen by MD: 18:13 Primary Care Provider: UNKNOWN Reviewed Notes: Nurses Notes, Medications, Allergies Allergies: Coded Allergies: NO KNOWN ALLERGIES (Unverified , 12/18/23) Home Meds Active Scripts Indomethacin (Indomethacin) 50 Mg Cap, 1 CAP PO TID PRN, #30 CAP 0 Refills Prov:KENYA SAMUEL 12/24/24 Methylprednisolone (Medrol Dosepak) 4 Mg Tyrel, 4 MG PO UD, #21 TAB UAD Prov:KENYA SAMUEL 12/24/24 Aspirin (Aspir-81) 81 Mg Tab, 1 TAB PO DAILY, #90 TAB 1 Refill Prov:BLAKE HORN MD 06/14/23 Atorvastatin Calcium (Lipitor) 40 Mg Tab, 1 TAB PO DAILY, #30 TAB 5 Refills Prov:BLAKE HORN MD 06/14/23 Reported Medications Tamsulosin Hcl (Tamsulosin Hcl) 0.4 Mg Cap, 0.4 MG PO QPM for 31 Days, #31 MG 09/21/24 Allopurinol (Allopurinol) 300 Mg Tab, 300 MG PO DAILY for 31 Days, #31 MG 09/21/24 Information Source: Patient Mode of Arrival: EMS Past Medical History PAST MEDICAL HISTORY: CHF, CVA, Gout, High Lipids, HTN, PUD Surgical History: Hernia Repair Family History Family History: Unknown Social History Smoker: Quit Less Than 1 Year, Cigarettes Alcohol: Occasionally Drugs: Marijuana, Methamphetamine Lives In: Home Constitutional: denies: chills, diaphoresis, fatigue, fever, malaise, sweats, weakness, others EENTM: denies: blurred vision, double vision, ear bleeding, ear discharge, ear drainage, ear pain, ear ringing, eye pain, eye redness, hearing loss, mouth pain, mouth swelling, nasal discharge, nose bleeding, nose congestion, nose pain, photophobia, tearing, throat pain, throat swelling, voice changes, others Respiratory: denies: cough, hemoptysis, orthopnea, SOB at rest, shortness of breath, SOB with excertion, stridor, wheezing, others Cardiovascular: denies: chest pain, dizzy spells, diaphoresis, Dyspnea on exertion, edema, irregular heart beat, left arm pain, lightheadedness, palpitations, PND, syncope, others Gastrointestinal: denies: abdomen distended, abdominal pain, blood streaked bowels, constipated, diarrhea, dysphagia, difficulty swallowing, hematemesis, melena, nausea, poor appetite, poor fluid intake, rectal bleeding, rectal pain, vomiting, others Genitourinary: denies: burning, dysuria, flank pain, frequency, hematuria, incontinence, penile discharge, penile sore, pain, testicle pain, testicle swelling, urgency, others Neurological: denies: dizziness, fainting, headache, left sided numbness, left sided weakness, numbness, paresthesia, pre-existing deficit, right sided numbness, right sided weakness, seizure, speech problems, tingling, tremors, weakness, others Musculoskeletal: reports: others (As stated in HPI) Integumetry: denies: bruises, change in color, change in hair/nails, dryness, laceration, lesions, lumps, rash, wounds, others Allergic/Immunocompromised: denies: Difficulty Healing, Frequent Infections, Hives, Itching, others Hematologic/Lymphatic: denies: anemia, blood clots, easy bleeding, easy bruising, swollen glands, others Endocrine: denies: excessive hunger, excessive sweating, excessive thirst, excessive urination, flushing, intolerance to cold, intolerance to heat, unexplained weight gain, unexplained weight loss, others Psychiatric: denies: anxiety, bipolar disorder, depression, hopeless, panic disorder, schizophrenia, sleepless, suicidal, others Physical Exam General Appearance: No Apparent Distress HEENT: PERRL/EOMI Neck: Full Range of Motion, Non-Tender, Normal Respiratory: Chest Non-Tender, Lungs Clear, No Accessory Muscle Use, No Respiratory Distress, Normal Breath Sounds Cardiovascular: No Murmur, No Gallop, Regular Rate/Rhythm Breast Exam: Deferred Gastrointestinal: NOT DONE Genitalia: Deferred Pelvic: Deferred Rectal: Deferred Extremities: Normal capillary refill, Normal range of motion Musculoskeletal : Extremity Location: Hand (TTP/mild swelling noted diffuse to dorsal surface of right hand and to right elbow. No bony tenderness/deformity/erythema/further skin changes noted. Patient able to fully move all fingers right hand and right elbow. Pulses intact ) Neurologic: Alert, stitch rubber II-XII nml as Tested, No Motor Deficits, Normal Affect, Normal Mood, No Sensory Deficits Cerebellar Function: Normal Reflexes: Normal Skin: Dry, Normal Color, Warm Peripheral Pulses: 2+ Radial (R), 2+ Radial (L), 2+ Brachial (R), 2+ Brachial (L) Lymphatic: No Adenopathy Was a procedure done? Was a procedure done?: No Sedation Sedation?: No Back Pain Differential Dx Differential Diagnosis: Fracture, Other (Neurovascular injury, cellulitis) X-Ray, Labs, Meds, VS Vital Signs Date Time Temp Pulse Resp B/P (MAP) Pulse Ox O2 Delivery O2 Flow Rate FiO2 12/24/24 19:05 65 18 93 Room Air 12/24/24 19:05 99.0 65 18 122/72 (89) 93 99.0 12/24/24 18:03 97.5 99 22 144/82 (102) 95 97.5 12/24/24 16:43 98.0 104 18 140/70 (93) 95 Lab Test 12/24/24 18:30 Range/Units White Blood Count 8.3 4.4-10.8 10^3/uL Red Blood Count 3.83 L 4.5-5.90 10^6/uL Hemoglobin 12.7 L 13.5-17.5 g/dL Hematocrit 37.0 L 41.0-53.0 % Mean Corpuscular Volume 96.7 80.0-100.0 fL Mean Corpuscular Hemoglobin 33.1 H 28.0-32.0 pg Mean Corpuscular Hemoglobin Concent 34.2 32.0-36.0 g/dL Red Cell Distribution Width 14.3 11.8-14.3 % Platelet Count 459 H 140-450 10^3/uL Mean Platelet Volume 6.8 L 6.9-10.8 fL Neutrophils (%) (Auto) 72.7 37.0-80.0 % Lymphocytes (%) (Auto) 14.0 10.0-50.0 % Monocytes (%) (Auto) 11.4 0.0-12.0 % Eosinophils (%) (Auto) 1.1 0.0-7.0 % Basophils (%) (Auto) 0.8 0.0-2.0 % Neutrophils # (Auto) 6.0 1.6-8.6 10 ^3/uL Lymphocytes # (Auto) 1.2 0.4-5.4 10 ^3/uL Monocytes # (Auto) 0.9 0-1.3 10 ^3/uL Eosinophils # (Auto) 0.1 0-0.8 10 ^3/uL Basophils # (Auto) 0.1 0-0.2 10 ^3/uL Nucleated Red Blood Cells 0.1 % Sodium Level 139 136-145 mmol/L Potassium Level 3.6 3.5-5.1 mmol/L Chloride Level 100 98-107 mmol/L Carbon Dioxide Level 29 20-31 mmol/L Anion Gap 10 5-15 Blood Urea Nitrogen 13 9-23 mg/dL Creatinine 0.80 0.700-1.30 mg/dL Glomerular Filtration Rate Calc 103 >90 mL/min BUN/Creatinine Ratio 16.3 10.0-20.0 Serum Glucose 95 74-106 mg/dL Uric Acid 10.0 H 3.7-9.2 mg/dL Calcium Level 9.4 8.7-10.4 mg/dL CBC and BMP reviewed without any significant abnormalities Uric acid reviewed -10.0 Toradol 60 mg IM ordered Solu-Medrol 125 mg IM ordered Patient neurovascularly intact and reported improvement in symptoms prior to discharge ETOH/methamphetamine/cannabis cessation discussed and advised Advised to follow up with PCP in 1-2 days Patient verbalized understanding and agreeable with current plan of care Advised to return to ER immediately if symptoms worsen Time of 1ST Reevaluation: 19:44 Reevaluation 1ST: N/A Patient Education/Counseling: Diagnosis, Treatment, Prognosis, Need For Follow Up Family Education/Counseling: No Family Present Departure 1 Departure Time of Disposition: 19:52 Impression: Primary Impression: Acute gout Qualified Codes: M10.9 - Gout, unspecified Disposition: HOME / SELF CARE / HOMELESS Condition: Stable e-Prescriptions Indomethacin (Indomethacin) 50 Mg Cap 1 CAP PO TID PRN, #30 CAP 0 Refills Prov: KENYA SAMUEL 12/24/24 Methylprednisolone (Medrol Dosepak) 4 Mg Tyrel 4 MG PO UD, #21 TAB UAD Prov: KENYA SAMUEL 12/24/24 Discharged With: Self Critical Care Note Critical Care Time?: No Stability Stability form required: No Heart Score Heart Score: Heart Score Response (Comments) Value History N/A 0 EKG N/A 0 Age N/A 0 Risk Factors N/A 0 Troponin N/A 0 Total 0 KENYA SAMUEL Dec 24, 2024 20:01
[2024-12-24] MEDS: KETOROLAC TROMETH 60MG/2ML VIAL IM ONE (20:17)
[2024-12-24] MEDS: methylPREDNISolone SOD SUCC 125 MG/2 ML VL IM ONE (20:17)
== END 2024-12-24 20:21 | disposition home or self-care (01) ==
LOC: EDBD 16:39 → ER 16:39
DX: M10.9 Gout, unspecified (principal); E78.5 Hyperlipidemia, unspecified; I11.0 Hypertensive heart disease with heart failure; I50.89 Other heart failure; F12.90 Cannabis use, unspecified, uncomplicated; F15.90 Other stimulant use, unspecified, uncomplicated; Z98.890 Other specified postprocedural states; Z79.899 Other long term (current) drug therapy
CPT/HCPCS: 36415; 80048; 84550; 85025; 96372; 99284; J1885; J2919

== ENCOUNTER 2025-02-21 06:52 | Emergency (ER) | payer MEDICAID ==
[~2025-02-21] VITALS: Ht 167.6 cm; Wt 72.7 kg
[~2025-02-21 06:52] MED LIST changes: +INDO50CA82 PO; +METH4PAK PO
--- NOTE | 2025-02-21 07:37 | ED.PDOC ---
Musculoskeletal HPI Comments 59 y/o M, BIBA, with PMHx of CVA, CHF, HLD, HTN and PUD presents to the ED for CC of left ankle pain. Patient states, that he has been experiencing left ankle pain. He has left sided weakness following a stroke. Patient denies trauma, injury, or fall. No other associated symptoms, modifiers, recent injuries present at this time. Pain is moderate Chief Complaint: Lower Extremity Time Seen by MD: 07:15 Primary Care Provider: UNKNOWN Reviewed Notes: Nurses Notes, Medications, Allergies Allergies: Coded Allergies: NO KNOWN ALLERGIES (Unverified , 12/18/23) Home Meds Active Scripts Indomethacin (Indomethacin) 50 Mg Cap, 1 CAP PO TID PRN, #30 CAP 0 Refills Prov:KENYA SAMUEL 12/24/24 Methylprednisolone (Medrol Dosepak) 4 Mg Tyrel, 4 MG PO UD, #21 TAB UAD Prov:KENYA SAMUEL 12/24/24 Aspirin (Aspir-81) 81 Mg Tab, 1 TAB PO DAILY, #90 TAB 1 Refill Prov:BLAKE HORN MD 06/14/23 Atorvastatin Calcium (Lipitor) 40 Mg Tab, 1 TAB PO DAILY, #30 TAB 5 Refills Prov:BLAKE HORN MD 06/14/23 Reported Medications Tamsulosin Hcl (Tamsulosin Hcl) 0.4 Mg Cap, 0.4 MG PO QPM for 31 Days, #31 MG 09/21/24 Allopurinol (Allopurinol) 300 Mg Tab, 300 MG PO DAILY for 31 Days, #31 MG 09/21/24 Information Source: Patient, Emergency Med Personnel Mode of Arrival: Ambulatory Location: Left Extremity Location: Ankle Timing: Hours Prehospital treatment: None Severity: Moderate Able to Move Extremity: Yes Bear Weight: Limited Pain: Moderate Circumstances: Spontaneous Onset of Symptoms: Spontaneous Symptoms: Pain DVT Risk Factors: NONE Last Tetanus: Unknown Associated signs and symptoms: Ankle pain Past Medical History PAST MEDICAL HISTORY: CHF, CVA, Gout, High Lipids, HTN, PUD Surgical History: Hernia Repair Family History Family History: Unknown Social History Smoker: Quit Less Than 1 Year, Cigarettes Alcohol: Occasionally Drugs: Marijuana, Methamphetamine Lives In: Home Constitutional: denies: chills, diaphoresis, fatigue, fever, malaise, sweats, weakness, others EENTM: denies: blurred vision, double vision, ear bleeding, ear discharge, ear drainage, ear pain, ear ringing, eye pain, eye redness, hearing loss, mouth pain, mouth swelling, nasal discharge, nose bleeding, nose congestion, nose pain, photophobia, tearing, throat pain, throat swelling, voice changes, others Respiratory: denies: cough, hemoptysis, orthopnea, SOB at rest, shortness of breath, SOB with excertion, stridor, wheezing, others Cardiovascular: denies: chest pain, dizzy spells, diaphoresis, Dyspnea on exertion, edema, irregular heart beat, left arm pain, lightheadedness, palpitations, PND, syncope, others Gastrointestinal: denies: abdomen distended, abdominal pain, blood streaked bowels, constipated, diarrhea, dysphagia, difficulty swallowing, hematemesis, melena, nausea, poor appetite, poor fluid intake, rectal bleeding, rectal pain, vomiting, others Genitourinary: denies: burning, dysuria, flank pain, frequency, hematuria, incontinence, penile discharge, penile sore, pain, testicle pain, testicle swelling, urgency, others Neurological: reports: left sided weakness; denies: dizziness, fainting, headache, left sided numbness, numbness, paresthesia, pre-existing deficit, right sided numbness, right sided weakness, seizure, speech problems, tingling, tremors, weakness, others Musculoskeletal: reports: joint swelling, others (left ankle tenderness); denies: back pain, gout, joint pain, muscle pain, muscle stiffness, neck pain Integumetry: denies: bruises, change in color, change in hair/nails, dryness, laceration, lesions, lumps, rash, wounds, others Allergic/Immunocompromised: denies: Difficulty Healing, Frequent Infections, Hives, Itching, others Hematologic/Lymphatic: denies: anemia, blood clots, easy bleeding, easy br uising, swollen glands, others Endocrine: denies: excessive hunger, excessive sweating, excessive thirst, excessive urination, flushing, intolerance to cold, intolerance to heat, unexplained weight gain, unexplained weight loss, others Psychiatric: denies: anxiety, bipolar disorder, depression, hopeless, panic disorder, schizophrenia, sleepless, suicidal, others All Other Systems: Reviewed and Negative Physical Exam General Appearance: No Apparent Distress, Normal HEENT: Normal ENT Inspection, Pharynx Normal Neck: Full Range of Motion, Non-Tender, Normal, Normal Inspection Respiratory: Chest Non-Tender, Lungs Clear, No Accessory Muscle Use, No Respiratory Distress, Normal Breath Sounds Cardiovascular: No Edema, No Murmur, No Gallop, Normal Peripheral Pulses, Regular Rate/Rhythm Breast Exam: Deferred Gastrointestinal: No Organomegaly, Non Tender, No Pulsatile Mass, Normal Bowel Sounds, Soft Genitalia: Deferred Pelvic: Deferred Rectal: Deferred Extremities: Tender (left ankle tenderness) Musculoskeletal : Apperance: Normal Neurologic: Alert, No Motor Deficits, Normal Affect, Normal Mood Cerebellar Function: Normal Reflexes: Normal Skin: Dry, Normal Color, Warm Lymphatic: No Adenopathy Was a procedure done? Was a procedure done?: No Differential Diagnosis EXT Differential Diagnosis: Cellulitis, CHF, Deep Vein Thrombosis, Sprain, Dislocation, Laceration, Strain X-Ray, Labs, Meds, VS Vital Signs Date Time Temp Pulse Resp B/P (MAP) Pulse Ox O2 Delivery O2 Flow Rate FiO2 02/21/25 07:02 97.9 93 18 147/89 (108) 98 97.9 [place] [address] Ph: [phone] DIAGNOSTIC IMAGING Diagnostic Imaging Report : [id number] Signed PATIENT: LIDIA VINES ACCT: [id number] UNIT: [id number] : 1965 LOC: ER ROOM / BED: / AGE / SEX: 59 / M ADM STATUS: REG ER SERVICE 5 ORDERING PHYSICIAN: JUAN JOSE CONN MD PROCEDURE(s): LANKL - L ANKLE 3 VIEW REASON: left ankle pain ORDER NUMBER(s): [id number], ACCESSION NUMBER(s): [id number] EXAM: XY L ANKLE 3 VIEW CLINICAL INDICATION: left ankle pain TECHNIQUE: XY L ANKLE 3 VIEW Comparison: None FINDINGS/IMPRESSION: There is no evidence of acute fracture or dislocation. The visualized joint space is well maintained. The alignment is anatomical. There is no radiopaque foreign body. ATED BY: DUNG SWAN MD DICTATED DATE/TIME: 02/21/25803 SIGNED BY: DUNG SWAN MD SIGNED DATE/TIME: 02/21/25803 CC: X-Ray, Labs, Meds, VS Comment This 59-year-old male presents secondary to left ankle pain. On my preliminary interpretation of the x-ray, I see a possible fibula fracture. The final read was negative. However, for fibula fracture, it was weight-bearing as tolerated. As such, discharge the patient home with requested a follow up with the PCP with a copy of his images for referral to Orthopedics. Should return to the ER for any new/worse/worsening symptoms. He states his understanding Time of 1ST Reevaluation: 17:45 Reevaluation 1ST: Unchanged Patient Education/Counseling: Diagnosis, Treatment Family Education/Counseling: No Family Present Departure 1 Departure Time of Disposition: 10:23 Impression: Primary Impression: Left ankle pain Additional Impression: Left ankle strain Disposition: 01 HOME / SELF CARE / HOMELESS Condition: Good Discharged With: Self Critical Care Note Critical Care Time?: No Stability Stability form required: No Heart Score Heart Score: Heart Score Response (Comments) Value History N/A 0 EKG N/A 0 Age N/A 0 Risk Factors N/A 0 Troponin N/A 0 Total 0 I personally scribed for JUAN JOSE CONN MD ([email or web address]) on 02/21/25 at 07:37. Electronically submitted by Bhakti Buchanan ([email or web address]). I personally scribed for JUAN JOSE CONN MD ([email or web address]) on 02/21/25 at 08:10. Electronically submitted by Bhakti Buchanan ([email or web address]). JUAN JOSE CONN MD Feb 21, 2025 07:37
--- NOTE | 2025-02-21 08:07 | DVH ---
EXAM: XY L ANKLE 3 VIEW CLINICAL INDICATION: left ankle pain TECHNIQUE: XY L ANKLE 3 VIEW Comparison: None FINDINGS/IMPRESSION: There is no evidence of acute fracture or dislocation. The visualized joint space is well maintained. The alignment is anatomical. There is no radiopaque foreign body.
[2025-02-21 10:56] VITALS: BP 146/91; PULSE 85; RESP 16; TEMP 97.7; O2SAT 95
== END 2025-02-21 10:58 | disposition home or self-care (01) ==
LOC: EDUNIT# 06:52 → EDBD 06:52 → ER 06:52
DX: S96.912A Strain of unspecified muscle and tendon at ankle and foot level, left foot, initial encounter (principal); I11.0 Hypertensive heart disease with heart failure; I50.9 Heart failure, unspecified; E78.5 Hyperlipidemia, unspecified; M10.9 Gout, unspecified; Z79.82 Long term (current) use of aspirin; Z79.899 Other long term (current) drug therapy; F12.90 Cannabis use, unspecified, uncomplicated; Z98.890 Other specified postprocedural states; X58.XXXA Exposure to other specified factors, initial encounter; Y93.89 Activity, other specified; Y92.89 Other specified places as the place of occurrence of the external cause; Y99.8 Other external cause status
CPT/HCPCS: 73610

== ENCOUNTER 2025-04-13 21:41 | Emergency (ER) | payer MEDICAID ==
[~2025-04-13] VITALS: Ht 167.6 cm; Wt 180.0 kg
--- NOTE | 2025-04-13 21:53 | ED.PDOC ---
Alannah. trauma (HPI) HPI Comments Patient is a 59-year-old homeless male who was brought in by ambulance today with PMHx of CVA with left-sided deficits presents to the ED for CC of s/p fall. 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 Patient relays, he did drink [id number] today (04/13/25). Patie nt did sustain a abrasion to the lateral aspect in his left eyebrow region. No active bleed. Patient denies any LOC, back pain, or cervical pain. No other symptoms or modifying factors present at this time. Patient does ambulate with a cane. I asked the patient if he wanted any assistance with housing and he stated he is comfortable with his lifestyle. Chief Complaint: Fall Injury Time Seen by MD: 21:50 Primary Care Provider: UNKNOWN Reviewed notes: Nurses Notes, Control Area Operator Notes, Medications, Allergies Allergies: Coded Allergies: NO KNOWN ALLERGIES (Unverified , 12/18/23) Home Meds Active Scripts Indomethacin (Indomethacin) 50 Mg Cap, 1 CAP PO TID PRN, #30 CAP 0 Refills Prov:KENAY SAMUEL 12/24/24 Methylprednisolone (Medrol Dosepak) 4 Mg Tyrel, 4 MG PO UD, #21 TAB UAD Prov:KENYA SAMUEL 12/24/24 Aspirin (Aspir-81) 81 Mg Tab, 1 TAB PO DAILY, #90 TAB 1 Refill Prov:BLAKE HORN MD 06/14/23 Atorvastatin Calcium (Lipitor) 40 Mg Tab, 1 TAB PO DAILY, #30 TAB 5 Refills Prov:BLAKE HORN MD 06/14/23 Reported Medications Tamsulosin Hcl (Tamsulosin Hcl) 0.4 Mg Cap, 0.4 MG PO QPM for 31 Days, #31 MG 09/21/24 Allopurinol (Allopurinol) 300 Mg Tab, 300 MG PO DAILY for 31 Days, #31 MG 09/21/24 Information Source: Patient, Emergency Med Personnel Mode of Arrival: EMS Severity: Moderate Timing: Minutes Duration: Since onset Prehospital treatment: None Location: (L) Knee, (L) Leg Mechanism: Fall Associated signs and symtoms: None Past Medical History PAST MEDICAL HISTORY: CHF, CVA, Gout, High Lipids, HTN, PUD Past Medical History (Other): History of bilateral knee concerns Surgical History: Hernia Repair Family History Family History: Unknown Social History Smoker: Quit Less Than 1 Year, Cigarettes Alcohol: Occasionally Drugs: Marijuana, Methamphetamine Lives In: Homeless Constitutional: denies: chills, diaphoresis, fatigue, fever, malaise, sweats, weakness, others EENTM: denies: blurred vision, double vision, ear bleeding, ear discharge, ear drainage, ear pain, ear ringing, eye pain, eye redness, hearing loss, mouth pain, mouth swelling, nasal discharge, nose bleeding, nose congestion, nose pain, photophobia, tearing, throat pain, throat swelling, voice changes, others Respiratory: denies: cough, hemoptysis, orthopnea, SOB at rest, shortness of breath, SOB with excertion, stridor, wheezing, others Cardiovascular: denies: chest pain, dizzy spells, diaphoresis, Dyspnea on exertion, edema, irregular heart beat, left arm pain, lightheadedness, palpitations, PND, syncope, others Gastrointestinal: denies: abdomen distended, abdominal pain, blood streaked bowels, constipated, diarrhea, dysphagia, difficulty swallowing, hematemesis, melena, nausea, poor appetite, poor fluid intake, rectal bleeding, rectal pain, vomiting, others Genitourinary: denies: burning, dysuria, flank pain, frequency, hematuria, incontinence, penile discharge, penile sore, pain, testicle pain, testicle swelling, urgency, others Neurological: denies: dizziness, fainting, headache, left sided numbness, left sided weakness, numbness, paresthesia, pre-existing deficit, right sided numbness, right sided weakness, seizure, speech problems, tingling, tremors, weakness, others Musculoskeletal: reports: others (left leg pain, left knee pain); denies: back pain, gout, joint pain, joint swelling, muscle pain, muscle stiffness, neck pain Integumetry: denies: bruises, change in color, change in hair/nails, dryness, laceration, lesions, lumps, rash, wounds, others Allergic/Immunocompromised: denies: Difficulty Healing, Frequent Infections, Hives, Itching, others Hematologic/Lymphatic: denies: anemia, blood clots, easy bleeding, easy bruising, swollen glands, others Endocrine: denies: excessive hunger, excessive sweating, excessive thirst, excessive urination, flushing, intolerance to cold, intolerance to heat, unexplained weight gain, unexplained weight loss, others Psychiatric: denies: anxiety, bipolar disorder, depression, hopeless, panic disorder, schizophrenia, sleepless, suicidal, others All Other Systems: Reviewed and Negative Physical Exam General Appearance: Moderate Distress ([id number] distress due to left knee pain concerns.), Normal HEENT: Normal ENT Inspection, Pharynx Normal, TMs Normal Neck: Full Range of Motion, Non-Tender, Normal, Normal Inspection Respiratory: Chest Non-Tender, Lungs Clear, No Accessory Muscle Use, No Respiratory Distress, Normal Breath Sounds Cardiovascular: No Edema, No JVD, No Murmur, No Gallop, Normal Peripheral Pulses, Regular Rate/Rhythm Breast Exam: Deferred Gastrointestinal: No Organomegaly, Non Tender, No Pulsatile Mass, Normal Bowel Sounds, Soft Genitalia: Deferred Pelvic: Deferred Rectal: Deferred Extremities: Other (Diffuse superior left knee tenderness to palpation throughout. No definitive edema noted. Moderate reduced range of motion.) Neurologic: Alert, No Motor Deficits, Normal Affect, Normal Mood, No Sensory Deficits Cerebellar Function: Normal Reflexes: Normal Skin: Dry, Normal Color, Warm, Wounds (Silver dollar sized abrasion noted to lateral aspect of left eyebrow region. No active bleed. No change in vision.) Lymphatic: No Adenopathy Was a procedure done? Was a procedure done?: No Differential Diagnosis Multiple Trauma: Fractures, Abrasions, Laceration, Other (Degenerative joint disease) X-Ray, Labs, Meds, VS Vital Signs Date Time Temp Pulse Resp B/P (MAP) Pulse Ox O2 Delivery O2 Flow Rate FiO2 04/13/25 22:15 66 18 90 Room Air* 0 21 04/13/25 22:13 97.9 107 18 115/63 (80) 91 97.9 04/13/25 22:10 97.9 18 115/63 (80) 97.9 04/13/25 21:41 98.6 89 18 118/76 (90) 99 98.6 Current Medications Medications (Trade) Dose Ordered Sig/Carl Route Start Time Stop Time Status Last Admin Diphtheria/ Tetanus/Acell Pertussis (Boostrix T-Dap) 0.5 ml ONCE ONCE IM 04/13/25 22:00 04/13/25 22:01 DC 04/13/25 22:25 Neomycin/ Polymyxin/ Bacitracin (Triple Antibiotic) 1 applic ONCE ONCE TOP 04/13/25 22:00 04/13/25 22:01 DC 04/13/25 22:24 Ibuprofen (Motrin Tablet) 800 mg ONCE ONCE PO 04/13/25 22:00 04/13/25 22:01 DC 04/13/25 22:24 X-Ray, Labs, Meds, VS Comment All studies performed the ED were evaluated by me personally. Imaging studies of the left knee were remarkable for degenerative joint disease concerns. Patient has significant internal knee issues. No fractures noted. Patient will be sent home with anti-inflammatory meds and advised him to follow up with a primary care provider for possible orthopedic referral. Advise utilizing antibiotics as directed as well as pain medication Time of 1ST Reevaluation: 00:11 Reevaluation 1ST: Improved Consultation: PCP, Other (Orthopedist) Patient Education/Counseling: Diagnosis, Treatment Family Education/Counseling: Diagnosis, Treatment, No Family Present Departure 1 Departure Time of Disposition: 00:11 Impression: Primary Impression: Degenerative joint disease of knee, left Additional Impression: Abrasion Disposition: HOME / SELF CARE / HOMELESS Condition: Stable Additional Instructions: Advise utilizing antibiotics as directed as well as pain medication as needed. Patient needs to follow up with the primary care provider for orthopedic referral and evaluation. e-Prescriptions Ibuprofen Micronized (Ibuprofen) 800 Mg Tab 800 MG PO Q8HP PRN, #20 TAB Prov: COLT NAVARRETE PAC 04/14/25 Cephalexin (KEFLEX CAPSULE) 250 Mg Cp 1 CAP PO QID for 5 Days, #20 CAP Prov: COLT NAVARRETE PAC 04/14/25 Discharged With: Self Critical Care Note Critical Care Time?: No Stability Stability form required: No Heart Score Heart Score: Heart Score Response (Comments) Value History N/A 0 EKG N/A 0 Age N/A 0 Risk Factors N/A 0 Troponin N/A 0 Total 0 I personally scribed for COLT NAVARRETE PAC ([email or web address]) on 04/13/25 at 21:53. Electronically submitted by Bhakti Buchanan [email or web address]). COLT NAVARRETE PAC Apr 13, 2025 21:53
[2025-04-13 22:15] VITALS: PULSE 66; RESP 18; O2SAT 90
[2025-04-13] MEDS: NEOMYCIN-BACITRACIN-POLYM UNITDOSE PKG TOP OINT TOP ONE (22:24)
[2025-04-13] MEDS: IBUPROFEN 800 MG TAB PO ONE (22:24)
[2025-04-13] MEDS: TETANUS-DIPTH-ACEL PERTUSSIS 0.5ML SYR Tdap IM ONE (22:25)
--- NOTE | 2025-04-13 23:15 | DVH ---
CLINICAL INDICATION: Trauma/falls TECHNIQUE: XY L KNEE 3V XRAY Comparison: XY L KNEE 2V XRAY on DOS: 11/12/24, XY L KNEE 3V XRAY on DOS: 08/23/24, XY L KNEE 4V XRAY on DOS: 12/18/23 FINDINGS/IMPRESSION: : There is no evidence of acute fracture or dislocation. Moderate medial and [id number] lateral tibiofemoral and moderate to severe patellofemoral patsy rtment narrowing with associated osteophytosis, consistent with osteoarthritic degenerative change. Soft tissues are unremarkable.
[2025-04-14] MEDS ORDERED: IBUP-1455 PO (00:12)
[2025-04-14] MEDS ORDERED: CEPH250C PO (00:12)
[2025-04-14 00:17] VITALS: BP 110/74; PULSE 89; RESP 20; TEMP 98.3; O2SAT 95
== END 2025-04-14 00:22 | disposition home or self-care (01) ==
LOC: EDBD 21:41 → ER 21:41 → EDUNIT# 21:41 → ER 04-14 00:20
DX: S00.212A Abrasion of left eyelid and periocular area, initial encounter (principal); M17.12 Unilateral primary osteoarthritis, left knee; I11.0 Hypertensive heart disease with heart failure; I50.9 Heart failure, unspecified; M10.9 Gout, unspecified; Z59.00 Homelessness unspecified; Z79.899 Other long term (current) drug therapy; Z86.73 Personal history of transient ischemic attack (TIA), and cerebral infarction without residual deficits; Z98.890 Other specified postprocedural states; W19.XXXA Unspecified fall, initial encounter; Y93.89 Activity, other specified; Y92.89 Other specified places as the place of occurrence of the external cause; Y99.8 Other external cause status
CPT/HCPCS: 73562; 90471; 90715

== ENCOUNTER 2025-06-22 15:41 | Emergency (ER) | payer MEDICAID ==
[~2025-06-22] VITALS: Ht 167.6 cm; Wt 75.0 kg
[~2025-06-22 15:41] MED LIST changes: +CEPH250C PO; +IBUP-1455 PO
--- NOTE | 2025-06-22 16:25 | ED.PDOC ---
Musculoskeletal HPI Comments A 60-YEAR-OLD MALE BROUGHT IN BY EMS PRESENTS WITH A CHIEF COMPLAINT OF LEFT ANKLE PAIN X 4 DAYS. PATIENT STATES THAT HE STEPPED IN A HOLE AND TWISTED HIS FOOT IN IT. PATIENT IS STATING THAT NOW HE IS HAVING 10/10 PAIN. PATIENT IS KNOW TO THIS ER FOR DRUG SEEKING BEHAVIOR AND KNOWN USE OF METHAMPHETAMINES. PATIENT IS HOMELESS. NO OTHER SYMPTOMS OR MODIFYING FACTORS PRESENT AT THIS TIME. Chief Complaint: Lower Extremity Time Seen by MD: 16:15 Primary Care Provider: UNKNOWN Reviewed Notes: Nurses Notes, Medications, Allergies Allergies: Coded Allergies: NO KNOWN ALLERGIES (Unverified , 12/18/23) Home Meds Active Scripts Ibuprofen Micronized (Ibuprofen) 800 Mg Tab, 800 MG PO Q8HP PRN, #20 TAB Prov:COLT NAVARRETE PAC 04/14/25 Cephalexin (KEFLEX CAPSULE) 250 Mg Cp, 1 CAP PO QID for 5 Days, #20 CAP Prov:COLT NAVARRETE PAC 04/14/25 Indomethacin (Indomethacin) 50 Mg Cap, 1 CAP PO TID PRN, #30 CAP 0 Refills Prov:KENYA SAMUEL 12/24/24 Methylprednisolone (Medrol Dosepak) 4 Mg Tyrel, 4 MG PO UD, #21 TAB UAD Prov:KENYA SAMUEL 12/24/24 Aspirin (Aspir-81) 81 Mg Tab, 1 TAB PO DAILY, #90 TAB 1 Refill Prov:BLAKE HORN MD 06/14/23 Atorvastatin Calcium (Lipitor) 40 Mg Tab, 1 TAB PO DAILY, #30 TAB 5 Refills Prov:BLAKE HORN MD 06/14/23 Reported Medications Tamsulosin Hcl (Tamsulosin Hcl) 0.4 Mg Cap, 0.4 MG PO QPM for 31 Days, #31 MG 09/21/24 Allopurinol (Allopurinol) 300 Mg Tab, 300 MG PO DAILY for 31 Days, #31 MG 09/21/24 Information Source: Patient Mode of Arrival: EMS Location: Left Extremity Location: Ankle Timing: Days Prehospital treatment: Amusement [employer] Enter[employer]ainer Severity: Moderate Able to Move Extremity: Yes Bear Weight: Limited Pain: Moderate Hand Dominance: Right Mechanism: Twisting Circumstances: Accident Onset of Symptoms: After Trauma Symptoms: Pain DVT Risk Factors: NONE Last Tetanus: UTD Associated signs and symptoms: None Past Medical History PAST MEDICAL HISTORY: CHF, CVA, Gout, High Lipids, HTN, PUD Surgical History: Hernia Repair Family History Family History: Unknown Social History Smoker: Quit Less Than 1 Year, Cigarettes Alcohol: Occasionally Drugs: Marijuana, Methamphetamine Lives In: Homeless Constitutional: denies: chills, diaphoresis, fatigue, fever, malaise, sweats, weakness, others EENTM: denies: blurred vision, double vision, ear bleeding, ear discharge, ear drainage, ear pain, ear ringing, eye pain, eye redness, hearing loss, mouth pain, mouth swelling, nasal discharge, nose bleeding, nose congestion, nose pain, photophobia, tearing, throat pain, throat swelling, voice changes, others Respiratory: denies: cough, hemoptysis, orthopnea, SOB at rest, shortness of breath, SOB with excertion, stridor, wheezing, others Cardiovascular: denies: chest pain, dizzy spells, diaphoresis, Dyspnea on exertion, edema, irregular heart beat, left arm pain, lightheadedness, palpitations, PND, syncope, others Gastrointestinal: denies: abdomen distended, abdominal pain, blood streaked bowels, constipated, diarrhea, dysphagia, difficulty swallowing, hematemesis, melena, nausea, poor appetite, poor fluid intake, rectal bleeding, rectal pain, vomiting, others Genitourinary: denies: burning, dysuria, flank pain, frequency, hematuria, incontinence, penile discharge, penile sore, pain, testicle pain, testicle swelling, urgency, others Neurological: denies: dizziness, fainting, headache, left sided numbness, left sided weakness, numbness, paresthesia, pre-existing deficit, right sided numbness, right sided weakness, seizure, speech problems, tingling, tremors, weakness, others Musculoskeletal: reports: joint pain, joint swelling; denies: back pain, gout, muscle pain, muscle stiffness, neck pain, others Integumetry: denies: bruises, change in color, change in hair/nails, dryness, laceration, lesions, lumps, rash, wounds, others Allergic/Immunocompromised: denies: Difficulty Healing, Frequent Infections, Hives, Itching, others Hematologic/Lymphatic: denies: anemia, blood clots, easy bleeding, easy bruising, swollen glands, others Endocrine: denies: excessive hunger, excessive sweating, excessive thirst, excessive urination, flushing, intolerance to cold, intolerance to heat, unexplained weight gain, unexplained weight loss, others Psychiatric: denies: anxiety, bipolar disorder, depression, hopeless, panic disorder, schizophrenia, sleepless, suicidal, others All Other Systems: Reviewed and Negative Physical Exam General Appearance: No Apparent Distress, Normal HEENT: Normal ENT Inspection, PERRL/EOMI, Pharynx Normal, TMs Normal Neck: Full Range of Motion, Non-Tender, Normal, Normal Inspection Respiratory: Chest Non-Tender, Lungs Clear, No Accessory Muscle Use, No Respiratory Distress, Normal Breath Sounds Cardiovascular: No Edema, No JVD, No Murmur, No Gallop, Normal Peripheral Pul ses, Regular Rate/Rhythm Breast Exam: Deferred Gastrointestinal: No Organomegaly, Non Tender, No Pulsatile Mass, Normal Bowel Sounds, Soft Genitalia: Deferred Pelvic: Deferred Rectal: Deferred Extremities: Decreased range of motion, No calf tenderness, Normal capillary refill, No pedal edema, Swelling, Tender (AND SWELLING ON LEFT ANKLE, NO BONY TENDERNESS AND DEFORMITY. 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 Was a procedure done?: No Differential Diagnosis EXT Differential Diagnosis: Fracture, Sprain, Contusion, Strain, Arthritis, Bursitis X-Ray, Labs, Meds, VS Vital Signs Date Time Temp Pulse Resp B/P (MAP) Pulse Ox O2 Delivery O2 Flow Rate FiO2 06/22/25 15:45 98.2 107 14 124/78 96 98.2 PATIENT: LIDIA VINES MACCT: [id number]: [id number] : 1965 LOC: ER ROOM / BED: / AGE / SEX: 60 / M ADM STATUS: REG ER SERVICE 0420 ORDERING PHYSICIAN: MAGDA ANDERSON PROCEDURE(s): LKNE3 - L KNEE 3V XRAY REASON: PAIN, POSSIBLE INJURY ORDER NUMBER(s): [id number], ACCESSION NUMBER(s): [id number] CLINICAL INDICATION: PAIN, POSSIBLE INJURY TECHNIQUE: XY L KNEE 3V XRAY Comparison: XY L KNEE 3V XRAY on DOS: 04/13/25, XY L KNEE 2V XRAY on DOS: 11/12/24, XY L KNEE 3V XRAY on DOS: 08/23/24, XY L KNEE 4V XRAY on DOS: 12/18/23 FINDINGS/IMPRESSION: : There is no evidence of acute fracture or dislocation. Soft tissues are unremarkable. Moderate medial degenerative joint space narrowing. ATED BY: WALKER TA MD DICTATED DATE/TIME: 06/22/251644 SIGNED BY: WALKER TA MD SIGNED DATE/TIME: 06/22/251644 X-Ray, Labs, Meds, VS Comment EXTERNAL MEDICAL RECORDS REVIEWED: [NONE] INDEPENDENT HISTORIANS: [NONE] SOCIAL DETERMINANTS OF HEALTH: [NONE] LABS ORDERED: NONE REVIEWED AND INTERPRETED RESULTS: NONE IMAGING ORDERED: LEFT ANKLE TREATMENTS ORDERED: TORADOL 30MG IVP PROCEDURES PERFORMED: NONE CRITICAL CARE TIME: NONE I HAVE DISCUSSED THE PATIENT WITH THE ATTENDING PHYSICIAN, DR. DEEJAY MUNGUIA, AND SHE AGREES WITH THE PATIENT'S PLAN OF CARE AND DISPOSITION. BASED ON HISTORY OF PRESENT ILLNESS, AND PHYSICAL EXAM, PATIENT WILL BE DISCHARGED HOME. DISCUSSED PLAN FOR DISCHARGE HOME WITH RX [NAPROXEN 500MG]. MEDICATION WARNINGS GIVEN. SHARED DECISION MAKING: DISCUSSED WITH PATIENT THAT THEIR WORKUP WAS NORMAL. PATIENT INSTRUCTED TO FOLLOW UP WITH PRIMARY CARE PROVIDER IN 1-2 DAYS FOR RE- EVALUATION OF SYMPTOMS. PATIENT VERBALIZES UNDERSTANDING TO RETURN TO ED FOR NEW OR WORSENING SYMPTOMS OR IF FOLLOW UP WITH PCP CANNOT BE OBTAINED. PATIENT FEELS COMFORTABLE GOING HOME AT THIS TIME. ALL QUESTIONS ADDRESSED AT TIME OF DISCHARG E. Images Reviewed?: Images reviewed and evaluated by me Time of 1ST Reevaluation: 18:00 Reevaluation 1ST: Improved Patient Education/Counseling: Diagnosis, Treatment, Need For Follow Up Family Education/Counseling: Diagnosis, Treatment, Need For Follow Up Medical Screening: No EMC Exist At This Time Departure 1 Departure Time of Disposition: 18:20 Impression: Primary Impression: Sprain of left ankle Qualified Codes: S93.402A - Sprain of unspecified ligament of left ankle, initial encounter Additional Impression: Degenerative joint disease of left ankle Qualified Codes: M19.072 - Primary osteoarthritis, left ankle and foot Disposition: HOME / SELF CARE / HOMELESS Condition: Stable Additional Instructions: F/U PCP IN 2 DAYS RECHECK. IF CONDITION BECOME WORSE, RETURN TO ED MUNIR. e-Prescriptions Naproxen (Naproxen) 500 Mg Tab 500 MG PO BID, #30 TAB Prov: MAGDA ANDERSON 06/22/25 Discharged With: Self Critical Care Note Critical Care Time?: No Stability Stability form required: No Heart Score Heart Score: Heart Score Response (Comments) Value History N/A 0 EKG N/A 0 Age N/A 0 Risk Factors N/A 0 Troponin N/A 0 Total 0 I personally scribed for MAGDA ANDERSON ([email or web address]) on 06/22/25 at 16:25. Electronically submitted by Miguel Gutierrez ([email or web address]). I personally scribed for MAGDA ANDERSON ([email or web address]) on 06/22/25 at 16:56. Electronically submitted by Miguel Gutierrez ([email or web address]). MAGDA ANDERSON Jun 22, 2025 16:25
--- NOTE | 2025-06-22 16:48 | DVH ---
CLINICAL INDICATION: PAIN, POSSIBLE INJURY TECHNIQUE: XY L KNEE 3V XRAY Comparison: XY L KNEE 3V XRAY on DOS: 04/13/25, XY L KNEE 2V XRAY on DOS: 11/12/24, XY L KNEE 3V XRAY o n DOS: 08/23/24, XY L KNEE 4V XRAY on DOS: 12/18/23 FINDINGS/IMPRESSION: : There is no evidence of acute fracture or dislocation. Soft tissues are unremarkable. Moderate medial degenerative joint space narrowing.
[2025-06-22] MEDS ORDERED: NAPR-746 PO (17:53)
[2025-06-22] MEDS: KETOROLAC TROMETH 30 MG/ML 1ML VIAL IV ONE (17:56)
[2025-06-22 18:14] VITALS: BP 136/83; PULSE 100; RESP 18; TEMP 98.2; O2SAT 97
== END 2025-06-22 18:24 | disposition home or self-care (01) ==
LOC: ER 15:41 → EDBD 15:41 → ER 18:22
DX: S93.402A Sprain of unspecified ligament of left ankle, initial encounter (principal); M19.072 Primary osteoarthritis, left ankle and foot; I11.0 Hypertensive heart disease with heart failure; I50.9 Heart failure, unspecified; M10.9 Gout, unspecified; E78.5 Hyperlipidemia, unspecified; Z79.899 Other long term (current) drug therapy; Z79.82 Long term (current) use of aspirin; Z59.00 Homelessness unspecified; Z86.73 Personal history of transient ischemic attack (TIA), and cerebral infarction without residual deficits; Z87.11 Personal history of peptic ulcer disease; Z98.890 Other specified postprocedural states; X50.1XXA Overexertion from prolonged static or awkward postures, initial encounter; Y93.89 Activity, other specified; Y92.89 Other specified places as the place of occurrence of the external cause; Y99.8 Other external cause status
CPT/HCPCS: 73562; J1885

== ENCOUNTER 2025-08-28 21:11 | Emergency (ER) | payer MEDICAID ==
[~2025-08-28] VITALS: Ht 167.6 cm; Wt 77.2 kg
[~2025-08-28 21:11] MED LIST changes: +NAPR-746 PO
--- NOTE | 2025-08-28 22:07 | DVH ---
CLINICAL INDICATION: LEFT ANKLE PAIN TECHNIQUE: 3 views XY L ANKLE 3 VIEW Comparison: XY L ANKLE 3 VIEW on DOS: 02/21/25 FINDINGS: No acute fracture or dislocation. Diffuse osteopenia. Unchanged subcentimeter cortical lucency of th e distal fibular diaphysis [id number] ankle osteoarthrosis. Chronic malalignment of the 1st toe is again suggested. Circumferential soft tissue prominence about the ankle and dorsal midfoot. Ankle joint effusion. Den se peripheral atherosclerosis. IMPRESSION: Soft tissue swelling and joint effusion without acute osseous abnormality of the left ankle.
[2025-08-28 22:57] VITALS: BP 123/79; PULSE 102; RESP 16; TEMP 97.5; O2SAT 98
[2025-08-28] MEDS ORDERED: NAP500T PO (22:57)
--- NOTE | 2025-08-28 22:58 | ED.PDOC ---
Musculoskeletal HPI Comments 60-year-old male presents to ER with complaints of right knee pain x1 day. 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 He rates his current pain a 10/10 denies use of medications for current symptoms. Patient presents to ER ambulatory, in no distress. Denies trauma/falls and endorses no further symptoms/complaints Chief Complaint: Lower Extremity Time Seen by MD: 21:25 Primary Care Provider: UNKNOWN Reviewed Notes: Nurses Notes, Medications, Allergies Allergies: Coded Allergies: NO KNOWN ALLERGIES (Unverified , 12/18/23) Home Meds Active Scripts Acetaminophen (Acetaminophen) 500 Mg Tab, 500 MG PO Q4HPRN, #30 TAB 0 Refills Prov:KENYA SAMUEL 08/28/25 Naproxen (Naproxen) 500 Mg Tab, 500 MG PO BID, #30 TAB Prov:MAGDA ANDERSON 06/22/25 Ibuprofen Micronized (Ibuprofen) 800 Mg Tab, 800 MG PO Q8HP PRN, #20 TAB Prov:COLT NAVARRETE PAC 04/14/25 Cephalexin (KEFLEX CAPSULE) 250 Mg Cp, 1 CAP PO QID for 5 Days, #20 CAP Prov:COLT NAVARRETE PAC 04/14/25 Indomethacin (Indomethacin) 50 Mg Cap, 1 CAP PO TID PRN, #30 CAP 0 Refills Prov:KENYA SAMUEL 12/24/24 Methylprednisolone (Medrol Dosepak) 4 Mg Tyrel, 4 MG PO UD, #21 TAB UAD Prov:KENYA SAMUEL 12/24/24 Aspirin (Aspir-81) 81 Mg Tab, 1 TAB PO DAILY, #90 TAB 1 Refill Prov:BLAKE HORN MD 06/14/23 Atorvastatin Calcium (Lipitor) 40 Mg Tab, 1 TAB PO DAILY, #30 TAB 5 Refills Prov:BLAKE HORN MD 06/14/23 Reported Medications Tamsulosin Hcl (Tamsulosin Hcl) 0.4 Mg Cap, 0.4 MG PO QPM for 31 Days, #31 MG 09/21/24 Allopurinol (Allopurinol) 300 Mg Tab, 300 MG PO DAILY for 31 Days, #31 MG 09/21/24 Discontinued Scripts Naproxen (NAPROSYN TABLET) 500 Mg Tb, 1 TAB PO BID PRN, #30 TAB 0 Refills Prov:KENYA SAMUEL 08/28/25 Information Source: Patient Mode of Arrival: Ambulatory Past Medical History PAST MEDICAL HISTORY: CHF, CVA, Gout, High Lipids, HTN, PUD Past Medical History (Other): Chronic right knee pain Chronic left ankle pain Surgical History: Hernia Repair Family History Family History: Unknown Social History Smoker: Quit Less Than 1 Year, Cigarettes Alcohol: Occasionally Drugs: Marijuana, Methamphetamine Lives In: Homeless Constitutional: denies: chills, diaphoresis, fatigue, fever, malaise, sweats, weakness, others EENTM: denies: blurred vision, double vision, ear bleeding, ear discharge, ear drainage, ear pain, ear ringing, eye pain, eye redness, hearing loss, mouth pain, mouth swelling, nasal discharge, nose bleeding, nose congestion, nose pain, photophobia, tearing, throat pain, throat swelling, voice changes, others Respiratory: denies: cough, hemoptysis, orthopnea, SOB at rest, shortness of breath, SOB with excertion, stridor, wheezing, others Cardiovascular: denies: chest pain, dizzy spells, diaphoresis, Dyspnea on exertion, edema, irregular heart beat, left arm pain, lightheadedness, palpitations, PND, syncope, others Gastrointestinal: denies: abdomen distended, abdominal pain, blood streaked bowels, constipated, diarrhea, dysphagia, difficulty swallowing, hematemesis, melena, nausea, poor appetite, poor fluid intake, rectal bleeding, rectal pain, vomiting, others Genitourinary: denies: burning, dysuria, flank pain, frequency, hematuria, incontinence, penile discharge, penile sore, pain, testicle pain, testicle swell ing, urgency, others Neurological: denies: dizziness, fainting, headache, left sided numbness, left sided weakness, numbness, paresthesia, pre-existing deficit, right sided numbness, right sided weakness, seizure, speech problems, tingling, tremors, weakness, others Musculoskeletal: reports: others (As stated in HPI) Integumetry: denies: bruises, change in color, change in hair/nails, dryness, laceration, lesions, lumps, rash, wounds, others Allergic/Immunocompromised: denies: Difficulty Healing, Frequent Infections, Hives, Itching, others Hematologic/Lymphatic: denies: anemia, blood clots, easy bleeding, easy bruising, swollen glands, others Endocrine: denies: excessive hunger, excessive sweating, excessive thirst, excessive urination, flushing, intolerance to cold, intolerance to heat, unexplained weight gain, unexplained weight loss, others Psychiatric: denies: anxiety, bipolar disorder, depression, hopeless, panic disorder, schizophrenia, sleepless, suicidal, others Physical Exam General Appearance: No Apparent Distress HEENT: PERRL/EOMI Neck: Full Range of Motion, Non-Tender, Normal Respiratory: Chest Non-Tender, Lungs Clear, No Accessory Muscle Use, No Respiratory Distress, Normal Breath Sounds Cardiovascular: No Murmur, No Gallop, Regular Rate/Rhythm Breast Exam: Deferred Gastrointestinal: NOT DONE Genitalia: Deferred Pelvic: Deferred Rectal: Deferred Extremities: Normal capillary refill, Normal range of motion Musculoskeletal : Extremity Location: Ankle (TTP noted diffuse to left ankle. Mild swelling also noted to left ankle that patient reports is chronic. No erythema/further skin changes noted. Slowed gait noted), Knee (TTP to right anterior knee noted. No skin changes noted. Negative anterior drawer test right knee. Negative Jerome's test right knee. Pulses intact) Neurologic: Alert, No Motor Deficits, Normal Affect, Normal Mood, No Sensory Deficits Cerebellar Function: Normal Reflexes: Normal Skin: Dry, Normal Color, Warm Peripheral Pulses: 2+ Radial (R), 2+ Radial (L), 2+ Brachial (R), 2+ Brachial (L) Lymphatic: No Adenopathy Was a procedure done? Was a procedure done?: No Sedation Sedation?: No Differential Diagnosis EXT Differential Diagnosis: Fracture, Dislocation, Neurovascular injury X-Ray, Labs, Meds, VS Vital Signs Date Time Temp Pulse Resp B/P (MAP) Pulse Ox O2 Delivery O2 Flow Rate FiO2 08/28/25 22:57 97.5 102 16 123/79 (94) 98 97.5 08/28/25 22:57 Room Air* 0 21 08/28/25 21:11 97.5 102 16 123/79 98 97.5 Current Medications Medications (Trade) Dose Ordered Sig/Carl Route Start Time Stop Time Status Last Admin Naproxen (Naprosyn Tablet) 500 mg ONCE ONCE PO 08/28/25 23:00 08/28/25 23:01 DC 08/28/25 23:06 PATIENT: LIDIA VINES MACCT: [id number]: [id number] : 1965 LOC: ER ROOM / BED: / AGE / SEX: 60 / M ADM STATUS: [facility] ER SERVICE 24 ORDERING PHYSICIAN: KENYA SAMUEL PROCEDURE(s): LANKL - L ANKLE 3 VIEW REASON: LEFT ANKLE PAIN ORDER NUMBER(s): [id number], ACCESSION NUMBER(s): [id number] CLINICAL INDICATION: LEFT ANKLE PAIN TECHNIQUE: 3 views XY L ANKLE 3 VIEW Comparison: XY L ANKLE 3 VIEW on DOS: 02/21/25 FINDINGS: No acute fracture or dislocation. Diffuse osteopenia. Unchanged subcentimeter cortical lucency of the distal fibular diaphysis [id number]-[id number] ankle osteoarthrosis. Chronic malalignment of the 1st toe is again suggested. Circumferential soft tissue prominence about the ankle and dorsal midfoot. Ankle joint effusion. Dense peripheral atherosclerosis. IMPRESSION: Soft tissue swelling and joint effusion without acute osseous abnormality of the left ankle. ATED BY: KYAW TA MD DICTATED DATE/TIME: 08/28/252203 SIGNED BY: KYAW TA MD SIGNED DATE/TIME: 08/28/252203 CC: PATIENT: LIDIA VINES ACCT: [id number] UNIT: [id number] : 1965 LOC: ER ROOM / BED: / AGE / SEX: 60 / M ADM STATUS: [facility] ER SERVICE 24 ORDERING PHYSICIAN: KENYA SAMUEL PROCEDURE(s): RKN3 - R KNEE 3V XRAY REASON: RIGHT KNEE PAIN ORDER NUMBER(s): [id number], ACCESSION NUMBER(s): [id number] CLINICAL INDICATION: RIGHT KNEE PAIN TECHNIQUE: XY R KNEE 3V XRAY Comparison: XY L ANKLE 3 VIEW on DOS: 08/28/25, XY L KNEE 3V XRAY on DOS: 06/22/25, XY L KNEE 3V XRAY on DOS: 04/13/25, XY L ANKLE 3 VIEW on DOS: 02/21/25, XY L KNEE 2V XRAY on DOS: 11/12/24 FINDINGS/IMPRESSION: : There is no evidence of acute fracture or dislocation. Moderate osteoarthritic medial and lateral tibiofemoral and patellofemoral compartment narrowing with associated osteophytosis. Soft tissues are unremarkable. ATED BY: MACK DUVALL MD DICTATED DATE/TIME: 08/28/252326 SIGNED BY: MACK DUVALL MD SIGNED DATE/TIME: 08/28/252326 CC: Left ankle x-ray reviewed Right knee x-ray reviewed Naproxen 500 mg p.o. ordered Patient neurovascularly intact and in no distress during ER visit/prior to discharge Advised on elevation and alternate ice on/off as needed for pain/swelling Methamphetamine/cannabis cessation discussed and advised Advised to follow up with PCP in 1-2 days Patient verbalized understanding and agreeable with current plan of care Advised to return to ER immediately if symptoms worsen Images Reviewed?: Images reviewed and evaluated by me Time of 1ST Reevaluation: 22:34 Reevaluation 1ST: N/A Patient Education/Counseling: Diagnosis, Treatment, Prognosis, Need For Follow Up Family Education/Counseling: No Family Present Departure 1 Departure Time of Disposition: 22:56 Impression: Primary Impression: Chronic pain of right knee Additional Impressions: Chronic pain of left ankle Polysubstance abuse Arthritis of knee, right Disposition: 01 HOME / SELF CARE / HOMELESS Condition: Stable e-Prescriptions Acetaminophen (Acetaminophen) 500 Mg Tab 500 MG PO Q4HPRN, #30 TAB 0 Refills Prov: KENYA SAMUEL 08/28/25 Discharged With: Friend Critical Care Note Critical Care Time?: No Stability Stability form required: No Heart Score Heart Score: Heart Score Response (Comments) Value History N/A 0 EKG N/A 0 Age N/A 0 Risk Factors N/A 0 Troponin N/A 0 Total 0 KENYA SAMUEL Aug 28, 2025 22:57
[2025-08-28] MEDS: NAPROXEN 500 MG TAB PO ONE (23:06)
[2025-08-28] MEDS ORDERED: ACET500T58 PO (23:09)
--- NOTE | 2025-08-28 23:30 | DVH ---
CLINICAL INDICATION: RIGHT KNEE PAIN TECHNIQUE: XY R KNEE 3V XRAY Comparison: XY L ANKLE 3 VIEW on DOS: 08/28/25, XY L KNEE 3V XRAY on DOS: 06/22/25, XY L KNEE 3V XRAY on DOS: 04/13/25, XY L ANKLE 3 VIEW on DOS: 02/21/25, XY L KNEE 2V XRAY on DOS: 11/12/24 FINDINGS/IMPRESSION: : There is no evidence of acute fracture or dislocation. Moderate osteoarthritic medial and lateral tibiofemoral and patellofemoral compartment narrowing with associated osteophytosis. Soft tissues are unremarkable.
== END 2025-08-28 23:06 | disposition home or self-care (01) ==
LOC: EDBD 21:11 → ER 21:11
DX: M17.11 Unilateral primary osteoarthritis, right knee (principal); M25.561 Pain in right knee; M25.572 Pain in left ankle and joints of left foot; F19.10 Other psychoactive substance abuse, uncomplicated; I11.0 Hypertensive heart disease with heart failure; I50.9 Heart failure, unspecified; Z79.899 Other long term (current) drug therapy; Z86.73 Personal history of transient ischemic attack (TIA), and cerebral infarction without residual deficits; Z98.890 Other specified postprocedural states
CPT/HCPCS: 73562; 73610

== ENCOUNTER 2025-10-08 08:05 | Inpatient (IN) | payer MEDICAID ==
[~2025-10-08] VITALS: Ht 167.6 cm; Wt 92.0 kg
[2025-10-08] VITALS (7 sets, daily range): BP systolic 150; BP diastolic 95; PULSE 77–112; RESP 16–34; TEMP 97.5; O2SAT 94–100
[~2025-10-08 08:05] MED LIST changes: +ACET500T58 PO
[2025-10-08] MEDS: SODIUM CHLORIDE 0.9% 250 ML IV ONE (08:30)
[2025-10-08] MEDS ORDERED: VANCOMYCIN PER PHARMACY 0 MG IV SCH (08:30)
--- NOTE | 2025-10-08 08:47 | ECG ---
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
[2025-10-08] MEDS: PIPERACILLIN-TAZOB 3.375GM 100 ML IV ONE (09:02)
[2025-10-08] MEDS: methylPREDNISolone SOD SUCC 125 MG/2 ML VL IV ONE (09:02)
--- NOTE | 2025-10-08 09:06 | ED.PDOC ---
SOB-HPI HPI Comments 60-year-old male with a history of hypertension, hyperlipidemia, CHF, CVA, pneumonia, respiratory failure, additional medical history here today with complaints of shortness of breath that started 2 days ago. Patient also reports generalized weakness. Endorses a productive cough. No fevers. No vomiting or diarrhea. No chest pain. No new numbness or weakness. No other pain or symptoms. Chief Complaint: Shortness of Breath Time Seen by MD: 08:08 Primary Care Provider: UNKNOWN Mode of Arrival: Ambulatory Past Medical History PAST MEDICAL HISTORY: CHF, CVA, Gout, High Lipids, HTN, PUD Surgical History: Hernia Repair Family History Family History: Unknown Social History Smoker: Quit Less Than 1 Year, Cigarettes Alcohol: Occasionally Drugs: Marijuana, Methamphetamine Lives In: Homeless All Other Systems: Reviewed and Negative (Review of symptoms negative except as per HPI) Physical Exam General Appearance: Moderate Distress, Normal HEENT: Normal ENT Inspection, Pharynx Normal, TMs Normal Neck: Full Range of Motion, Non-Tender, Normal, Normal Inspection Respiratory: Chest Non-Tender, No Accessory Muscle Use, Other (Bilateral expiratory wheezing with scattered rhonchi, moderate respiratory distress, fair air flow, no retractions) Cardiovascular: No Murmur, No Gallop, Normal Peripheral Pulses, Tachycardia, Other (1+ bilateral lower extremity edema) Breast Exam: Deferred Gastrointestinal: No Organomegaly, Non Tender, No Pulsatile Mass, Normal Bowel Sounds, Soft Genitalia: Deferred Pelvic: Deferred Rectal: Deferred Extremities: No calf tenderness, Normal capillary refill, Normal inspection, Normal range of motion, Non-tender, Other (1+ bilateral lower extremity edema) Musculoskeletal : Apperance: Normal Neurologic: Alert, manager requirements II-XII nml as Tested, No Motor Deficits (Except left- sided chronic deficits due to prior stroke), Normal Affect, Normal Mood, No Sensory Deficits Cerebellar Function: Normal Reflexes: Normal Skin: Dry, Normal Color, Warm Lymphatic: No Adenopathy EKG EKG : Pulse Rate (adult): 106 Cardiac Rhythm: ST Block: RBBB Comments Ventricular bigeminy. No STEMI. Was a procedure done? Was a procedure done?: No Differential Dx Differential Diagnosis: Asthma, Bronchitis, Cardiogenic Shock, CHF, COPD, Pneumothorax, PSVT, Pulmonary Embolism, Respiratory Distress, URI X-Ray, Labs, Meds, VS Vital Signs Date Time Temp Pulse Resp B/P (MAP) Pulse Ox O2 Delivery O2 Flow Rate FiO2 10/08/25 09:30 107 34 100 Non-Rebreather 15 N/A 10/08/25 09:16 18 100 Non-Rebreather 15 N/A 10/08/25 09:06 106 10/08/25 08:40 97.5 107 34 100/38 (58) 100 97.5 10/08/25 08:17 106 10/08/25 08:09 96.2 120 28 139/95 78 96.2 Lab Test 10/08/25 09:52 10/08/25 08:49 Range/Units Troponin I High Sensitivity 42 41 </=54 ng/L White Blood Count 11.4 H 4.4-10.8 10^3/uL Red Blood Count 4.00 L 4.5-5.90 10^6/uL Hemoglobin 13.3 L 13.5-17.5 g/dL Hematocrit 39.6 L 41.0-53.0 % Mean Corpuscular Volume 99.0 80.0-100.0 fL Mean Corpuscular Hemoglobin 33.3 H 28.0-32.0 pg Mean Corpuscular Hemoglobin Concent 33.6 32.0-36.0 g/dL Red Cell Distribution Width 14.0 11.8-14.3 % Platelet Count 284 140-450 10^3/uL Mean Platelet Volume 7.0 6.9-10.8 fL Neutrophils (%) (Auto) 76.6 37.0-80.0 % Lymphocytes (%) (Auto) 10.7 10.0-50.0 % Monocytes (%) (Auto) 10.3 0.0-12.0 % Eosinophils (%) (Auto) 1.7 0.0-7.0 % Basophils (%) (Auto) 0.7 0.0-2.0 % Neutrophils # (Auto) 8.7 H 1.6-8.6 10 ^3/uL Lymphocytes # (Auto) 1.2 0.4-5.4 10 ^3/uL Monocytes # (Auto) 1.2 0-1.3 10 ^3/uL Eosinophils # (Auto) 0.2 0-0.8 10 ^3/uL Basophils # (Auto) 0.1 0-0.2 10 ^3/uL Nucleated Red Blood Cells 0.1 % Sodium Level 140 136-145 mmol/L Potassium Level 3.9 3.5-5.1 mmol/L Chloride Level 104 98-107 mmol/L Carbon Dioxide Level 26 20-31 mmol/L Anion Gap 10 5-15 Blood Urea Nitrogen 11 9-23 mg/dL Creatinine 0.75 0.700-1.30 mg/dL Glomerular Filtration Rate Calc 105 >90 mL/min BUN/Creatinine Ratio 14.7 10.0-20.0 Serum Glucose 96 74-106 mg/dL Lactic Acid Level 2.2 *H 0.4-2.0 mmol/L Calcium Level 8.6 L 8.7-10.4 mg/dL Total Bilirubin 0.4 0.2-1.0 mg/dL Direct Bilirubin 0.2 <0.3 mg/dL Aspartate Amino Transferase (AST) 54 H 13-40 U/L Alanine Aminotransferase (ALT) 42 H 7-40 U/L Alkaline Phosphatase 94 46-116 U/L B-Type Natriuretic Peptide 776.56 0-100 pg/mL Total Protein 7.2 5.7-8.2 g/dL Albumin 3.5 3.2-4.8 g/dL Lipase 27 12-53 U/L Current Medications Medications (Trade) Dose Ordered Sig/Carl Route Start Time Stop Time Status Last Admin Albuterol (Ventolin Medneb) 20 mg ONCE ONCE [facility] 10/08/25 08:30 10/08/25 08:31 DC 10/08/25 09:12 Ipratropium [place] (Atrovent Medneb) 1 mg ONCE ONCE N 10/08/25 08:30 10/08/25 08:31 DC 10/08/25 09:12 Methylprednisolone Sodium Succinate (Solu Medrol) 125 mg ONCE ONCE IV 10/08/25 08:30 10/08/25 08:31 DC 10/08/25 09:02 Sodium Chloride 250 ml @ 1,000 mls/hr Q15M ONCE IV 10/08/25 08:30 10/08/25 08:44 DC 10/08/25 08:30 Piperacillin Sod/ Tazobactam Sod 100 ml @ 100 mls/hr ONCE ONCE IV 10/08/25 08:45 10/08/25 09:44 DC 10/08/25 09:02 Vancomycin HCl 250 ml @ 200 mls/hr ONCE ONCE IV 10/08/25 09:15 10/08/25 10:29 DC 10/08/25 11:19 X-Ray, Labs, Meds, VS Comment 60-year-old male here today with presentation consistent with COPD exacerbation and likely pneumonia. Patient was started on DuoNebs, steroids, and broad- spectrum antibiotics. Patient is not require intubation at this time. Patient will be admitted for further management and care. Sepsis or possible sepsis Management: CRITICAL CARE TIME Critical care time in minutes exclusive of separately billable procedures = 35. 30 ml/kg NS or LR bolus ordered unless reason is noted below. Amount of fluid ordered in ml if less than 30 ml/k 30 ml/kg bolus not ordered due to: Concern for iatrogenic volume overload The patient is over BMI of 30 and ideal body weight was used to calculate with the fluid bolus. Time sepsis or possible sepsis was diagnosed if not upon arrival: 0830 Perfusion Reassessment within 6 hours: Time of reassessment which must be after the IV fluid administration time: 902 Temp 98.4 F (36.9 C), Pulse 67, RR 21, BP 130/76 Heart Exam: + tachycardic Lung Exam: + Crackling Capillary Refill: Not delayed Peripheral Pulses: Radially present Skin: Not mottled, pale Images Reviewed?: Images reviewed and evaluated by me Time of 1ST Reevaluation: 09:03 Reevaluation 1ST: Improved Patient Education/Counseling: Diagnosis, Treatment Family Education/Counseling: No Family Present SEPSIS Sepsis Screen Date sepsis recognized/suspect: Oct 08, 2025 Time Sepsis recognized/suspect: 08 Recent Procedure: No On Antibiotic Therapy: No Respiratory Rate >20: Yes Heart Rate >90: Yes Temp<36 C (96.8 F) or >38.3 C: Yes SBP <90 or MAP <65 mmHG: No New Acute Mental Status Change: No Is the patient on CPAP, BIPAP,: No IV fluid challenge completed?: Yes Physician Orders Urinalysis (10/08/25 08:21) Rapid Influenza A&B (10/08/25 08:21) Covid19 Antigen Tamia (10/08/25 ) Chest Portable (10/08/25 08:21) Med Neb Initial Treatment (10/08/25 08:21) Blood Culture (10/08/25 08:21) Urine Bacterial Culture (10/08/25 08:21) Vancomycin Per Pharmacy (10/08/25 08:30) Vital Signs Date Time Temp Pulse Resp B/P (MAP) Pulse Ox O2 Delivery O2 Flow Rate FiO2 10/08/25 09:30 107 34 100 Non-Rebreather 15 N/A 10/08/25 09:16 18 100 Non-Rebreather 15 N/A 10/08/25 09:06 106 10/08/25 08:40 97.5 107 34 100/38 (58) 100 97.5 10/08/25 08:17 106 10/08/25 08:09 96.2 120 28 139/95 78 96.2 Laboratory Tests Test 10/08/25 08:49 Lactic Acid Level 2.2 mmol/L (0.4-2.0) *H White Blood Count 11.4 10^3/uL (4.4-10.8) H Medications Medications Dose Ordered Sig/Carl Route Start Time Stop Time Status Last Admin Dose Admin Albuterol 20 mg ONCE ONCE [facility] 10/08/25 08:30 10/08/25 08:31 DC 10/08/25 09:12 Ipratropium [place] 1 mg ONCE ONCE [facility] 10/08/25 08:30 10/08/25 08:31 DC 10/08/25 09:12 Methylprednisolone Sodium Succinate 125 mg ONCE ONCE IV 10/08/25 08:30 10/08/25 08:31 DC 10/08/25 09:02 Piperacillin Sod/ Tazobactam Sod 100 ml @ 100 mls/hr ONCE ONCE IV 10/08/25 08:45 10/08/25 09:44 DC 10/08/25 09:02 Sodium Chloride 250 ml @ 1,000 mls/hr Q15M ONCE IV 10/08/25 08:30 10/08/25 08:44 DC 10/08/25 08:30 Vancomycin HCl 250 ml @ 200 mls/hr ONCE ONCE IV 10/08/25 09:15 10/08/25 10:29 DC 10/08/25 11:19 Reassessment Post Fluid Time of Reassessment: 09:04 Pulse Location: Radial Pulse Strength: Normal Capillary Refill Exam: < 3 seconds Skin Temperature: Warm Skin Moisture: Dry Skin Tugor: WNL Skin Color: WNL Departure 1 Departure Time of Disposition: 09:06 Impression: Primary Impression: Acute hypoxemic respiratory failure Additional Impressions: COPD (chronic obstructive pulmonary disease) Pneumonia Disposition: 09 ADMITTED INPATIENT Admit to: Tele Condition: Guarded Critical Care Note Critical Care Time?: Yes (35 min-critical care time only) Stability Stability form required: No Heart Score Heart Score: Heart Score Response (Comments) Value History N/A 0 EKG N/A 0 Age N/A 0 Risk Factors N/A 0 Troponin N/A 0 Total 0 MCKAYLA DEAN MD Oct 08, 2025 09:06
--- NOTE | 2025-10-08 09:10 | DVH ---
EXAM: XY CHEST PORTABLE HISTORY: sob COMPARISON: XY CHEST XRAY 1 VIEW on DOS: 11/15/24, XY CHEST XRAY 1 VIEW on DOS: 11/14/24, XY CHEST XRAY 1 VIEW on DOS: 11/13/24, XY CHEST PORTABLE on DOS: 11/12/24, XY CHEST PORTABLE on DOS: 11/12/24 TECHNIQUE: Portable AP view of the chest was performed with apical lordotic technique. FINDINGS: There are interstitial infiltrates throughout the right lung, increased versus prior chest x-ray. The left lung is clear. No pneumothorax or consolidative infiltrates. The heart is enlarged. IMPRESSION: 1. Interstitial infiltrates in the right lung may be due to interstitial pneumonia or asymmetric pulmonary edema. 2. Cardiomegaly.
[2025-10-08] MEDS: IPRATROPIUM BROM 0.5 MG/2.5ML INH SOL HHN ONE (09:12)
[2025-10-08] MEDS: ALBUTEROL SULF 2.5 MG/0.5ML(0.5%) NEB SOLN HHN ONE (09:12)
[2025-10-08 09:18] LABS: Hematocrit 39.6 % (41.0-53.0); Hemoglobin 13.3 g/dL (13.5-17.5); Mean Corpuscular Hemoglobin 33.3 pg (28.0-32.0); Mean Corpuscular Volume 99.0 fL (80.0-100.0); Nucleated Red Blood Cells % 0.1 %
[2025-10-08 09:37] LABS: Lactic Acid w/Reflex 2.2 mmol/L (0.4-2.0)
[2025-10-08 09:48] LABS: Albumin 3.5 g/dL (3.2-4.8); Alkaline Phosphatase 94 U/L (46-116); Anion Gap 10 (5-15); BUN/Creatinine Ratio 14.7 (10.0-20.0); Bilirubin, Direct 0.2 mg/dL (<0.3); Bilirubin, Total 0.4 mg/dL (0.2-1.0); Blood Urea Nitrogen 11 mg/dL (9-23); Carbon Dioxide 26 mmol/L (20-31); Chloride 104 mmol/L (98-107); Glucose 96 mg/dL (74-106); Potassium 3.9 mmol/L (3.5-5.1); Sodium 140 mmol/L (136-145); Total Protein 7.2 g/dL (5.7-8.2)
[2025-10-08 09:50] LABS: Alanine Aminotransferase 42 U/L (7-40); Calcium 8.6 mg/dL (8.7-10.4)
[2025-10-08] MEDS: SODIUM CHLORIDE 0.9% 1,000 ML IV ONE ×2 (10:00→13:04)
[2025-10-08] MEDS ORDERED: ONDANSETRON HCL 4 MG/2 ML VIAL IV PRN (10:00)
[2025-10-08] MEDS ORDERED: MORPHINE SULFATE INJ 2 MG/ml SYRG IV PRN (10:00)
[2025-10-08] MEDS ORDERED: NITROGLYCERIN 0.4 MG SL TAB SL PRN (10:00)
[2025-10-08] MEDS ORDERED: DOCUSATE SOD 100 MG CAP PO PRN (10:00)
[2025-10-08] MEDS ORDERED: ACETAMINOPHEN 325 MG TAB PO PRN (10:00)
[2025-10-08] MEDS: VANCOMYCIN 1.25GM/250ML 250 ML IV ONE (11:19)
[2025-10-08] MEDS: ALBUTEROL SULF 2.5 MG/0.5ML(0.5%) NEB SOLN ONE (11:37)
--- NOTE | 2025-10-08 11:47 | DVHHP2 ---
History of Present Illness Reason for Visit: Shortnes of breath History of Present Illness Moiz Ochoa is a 60-year-old male with past medical history of CVA, hypertension, hyperlipidemia, gout, pulmonary hypertension, and severe aortic stenosis, who came to the hospital for shortness of breath. Patient states his shortness of breath began about 3 days ago, and he has had a productive cough with green phlegm for about 2 weeks. He came in this morning due to the shortness of breath worsening. When patient arrived in ER he was placed on 15L nonrebreather mask due to hypoxia and shortness of breath. He was given a breathing treatment and able to be titrated down to 4L N/C. Patient had an ECHO completed here in October 2024 that showed EF of 65%, severe pulmonary hypertension, critical aortic stenosis, and calcified mitral annulus and posterior mitral leaflet. Patient states he threw his medications in the trash because it was too much of a hassle to take them. Patient admits to daily smoking tobacco, drinking alcohol, and methamphetamine use. Cardiovascular: CAD, CHF, HTN, hyperipidemia, Other (PTCA) [employer]ESS[employer]: CVA Rheumatologic: Gout Past Surgical History: Other (PTCA) Smoke: <1 pack per day ALCOHOL: heavy (750 ml/day) Drugs: Other (Methamphetamines) Lives: with Family Domestic Violence: Neg Review of Systems Constitutional: No: Fever, Chills, Sweats, Weakness, Malaise, Other Eyes: No: Pain, Vision change, Conjunctivae inflammation, Eyelid inflammation, Other, Redness ENT: No: Ear pain, Ear discharge, Nose pain, Nose discharge, Nose congestion, Mouth pain, Mouth swelling, Throat pain, Throat swelling, Other Respiratory: Cough, Shortness of breath, SOB with excertion, Wheezing, Sputum; No: Dry, Hemoptysis, Pleuritic Pain, Wheezing, Other Cardiovascular: No: Chest Pain, Palpitations, Orthopnea, Paroxysmal Noc. Dyspnea, Edema, Lt Headedness, Other Gastrointestinal: No: Nausea, Vomiting, Abdominal Pain, Diarrhea, Constipation, Melena, Hematochezia, Other Genitourinary: No Dysuria, No Frequency, No Incontinence, No Hematuria, No R etention, No Other Musculoskeletal: No: other, neck pain, shoulder pain, arm pain, back pain, hand pain, leg pain, foot pain Skin: No: Rash, Lesions, Jaundice, Bruising, Other Neurological: No: Weakness, Numbness, Incoordination, Change in speech, Confusion, Seizures, Other Allergies: Coded Allergies: NO KNOWN ALLERGIES (Unverified , 12/18/23) Medications Current Medications Medications Dose Ordered Sig/Carl Route Start Time Stop Time Status Last Admin Dose Admin Vancomycin HCl 0 ml @ 0 mls/hr UD IV 10/08/25 08:30 Piperacillin Sod/ Tazobactam Sod 100 ml @ 25 mls/hr Q6HR IV 10/08/25 12:00 UNV Exam Vital Signs Vital Signs Date Time Temp Pulse Resp B/P (MAP) Pulse Ox O2 Delivery O2 Flow Rate FiO2 10/08/25 09:30 97.5 107 34 100/38 (58) 100 97.5 10/08/25 09:30 Non-Rebreather 15 N/A General Appearance: Alert, Oriented X3, Cooperative, moderate distress HEENT: Atraumatic, PERRLA Respiratory: Other (Diminished, crackles, wheezing) Cardiovascular: Normal S1, Normal S2, Other (ST) Abdominal: Normal bowel sounds, Soft, No tenderness Extremities: No clubbing, No cyanosis, No edema, Normal pulses Skin: No rashes (Rash/redness to waist band) Neuro: Normal gait, Normal speech, Strength at 5/5 X4 ext Psych/Mental Status: Mental status NL, Mood NL Labs/Xrays Labs Test 10/08/25 09:52 10/08/25 08:49 Range/Units Troponin I High Sensitivity 42 </=54 ng/L White Blood Count 11.4 H 4.4-10.8 10^3/uL Red Blood Count 4.00 L 4.5-5.90 10^6/uL Hemoglobin 13.3 L 13.5-17.5 g/dL Hematocrit 39.6 L 41.0-53.0 % Mean Corpuscular Volume 99.0 80.0-100.0 fL Mean Corpuscular Hemoglobin 33.3 H 28.0-32.0 pg Mean Corpuscular Hemoglobin Concent 33.6 32.0-36.0 g/dL Red Cell Distribution Width 14.0 11.8-14.3 % Platelet Count 284 140-450 10^3/uL Mean Platelet Volume 7.0 6.9-10.8 fL Neutrophils (%) (Auto) 76.6 37.0-80.0 % Lymphocytes (%) (Auto) 10.7 10.0-50.0 % Monocytes (%) (Auto) 10.3 0.0-12.0 % Eosinophils (%) (Auto) 1.7 0.0-7.0 % Basophils (%) (Auto) 0.7 0.0-2.0 % Neutrophils # (Auto) 8.7 H 1.6-8.6 10 ^3/uL Lymphocytes # (Auto) 1.2 0.4-5.4 10 ^3/uL Monocytes # (Auto) 1.2 0-1.3 10 ^3/uL Eosinophils # (Auto) 0.2 0-0.8 10 ^3/uL Basophils # (Auto) 0.1 0-0.2 10 ^3/uL Nucleated Red Blood Cells 0.1 % Sodium Level 140 136-145 mmol/L Potassium Level 3.9 3.5-5.1 mmol/L Chloride Level 104 98-107 mmol/L Carbon Dioxide Level 26 20-31 mmol/L Anion Gap 10 5-15 Blood Urea Nitrogen 11 9-23 mg/dL Creatinine 0.75 0.700-1.30 mg/dL Glomerular Filtration Rate Calc 105 >90 mL/min BUN/Creatinine Ratio 14.7 10.0-20.0 Serum Glucose 96 74-106 mg/dL Lactic Acid Level 2.2 *H 0.4-2.0 mmol/L Calcium Level 8.6 L 8.7-10.4 mg/dL Total Bilirubin 0.4 0.2-1.0 mg/dL Direct Bilirubin 0.2 <0.3 mg/dL Aspartate Amino Transferase (AST) 54 H 13-40 U/L Alanine Aminotransferase (ALT) 42 H 7-40 U/L Alkaline Phosphatase 94 46-116 U/L B-Type Natriuretic Peptide 776.56 0-100 pg/mL Total Protein 7.2 5.7-8.2 g/dL Albumin 3.5 3.2-4.8 g/dL Lipase 27 12-53 U/L EXAM: XY CHEST PORTABLE FINDINGS: There are interstitial infiltrates throughout the right lung, increased versus prior chest x-ray. The left lung is clear. No pneumothorax or consolidative infiltrates. The heart is enlarged. IMPRESSION: 1. Interstitial infiltrates in the right lung may be due to interstitial pneumonia or asymmetric pulmonary edema. 2. Cardiomegaly. SEPSIS Sepsis Screen Date sepsis recognized/suspect: Oct 08, 2025 Time Sepsis recognized/suspect: 929 Recent Procedure: No On Antibiotic Therapy: No Respiratory Rate >20: Yes Heart Rate >90: Yes Temp<36 C (96.8 F) or >38.3 C: No SBP <90 or MAP <65 mmHG: No New Acute Mental Status Change: No Is the patient on CPAP, BIPAP,: No IV fluid challenge completed?: Yes Physician Orders Urinalysis (10/08/25 08:21) Rapid Influenza A&B (10/08/25 08:21) Covid19 Antigen Tamia (10/08/25 ) Chest Portable (10/08/25 08:21) Med Neb Initial Treatment (10/08/25 08:21) Blood Culture (10/08/25 08:21) Urine Bacterial Culture (10/08/25 08:21) Troponin-I Hs (10/08/25 11:21) Vancomycin Per Pharmacy (10/08/25 08:30) Piperacillin-Tazob 3.375gm (Zosyn 3.375g (10/08/25 12:00) Initiate Sepsis Protocol (10/08/25 ) Admit (10/08/25 09:54) Code Status (10/08/25 09:54) Sodium Chloride Lock (Saline Lock Ns) (10/08/25 14:00) Hydrocodone-Acet 5/325mg Tab ([place] 5/32 (10/08/25 10:00) Ondansetron Hcl (Zofran) (10/08/25 10:00) Docusate Sodium Capsule (Colace Capsule) (10/08/25 10:00) Enoxaparin Sodium (Lovenox) (10/08/25 10:00) Complete Blood Count (10/09/25 04:00) Comprehensive Metabolic Panel (10/09/25 04:00) Cardiac Diet-2gna,Lofat,Lochol (10/08/25 Lunch) Echo 2d Mode Cardiac Dop (10/08/25 09:54) Condition: Serious (10/08/25 09:54) Acetaminophen Tablet (Tylenol Tablet) (10/08/25 10:00) Nitroglycerin Sublingual (Ntrostat Subli (10/08/25 10:00) Morphine Sulfate Injection (10/08/25 10:00) Stat Ekg For Chest Pain (10/08/25 09:54) Notify Md Of Changes From Base (10/08/25 09:54) Dry Finisher For 24 Hours (10/08/25 09:54) Emergency Dysrhythmia Protocol (10/08/25 09:54) Rhythm Strips Once Every Shift (10/08/25 09:54) Oxygen By Nasal Cannula (10/08/25 09:54) Ceftriaxone Ivpb Rocephin (10/09/25 09:00) Azithromycin 500mg/250ml (Zithromax 500m (10/08/25 10:00) Methylprednisolone Sod Succ (Solu Medrol (10/08/25 10:00) Ipratropium Medneb (Atrovent Medneb) (10/08/25 12:00) Albuterol Medneb (Ventolin Medneb) (10/08/25 12:00) Vital Signs Date Time Temp Pulse Resp B/P (MAP) Pulse Ox O2 Delivery O2 Flow Rate FiO2 10/08/25 09:30 97.5 107 34 100/38 (58) 100 97.5 10/08/25 09:30 107 34 100 Non-Rebreather 15 N/A 10/08/25 09:16 18 100 Non-Rebreather 15 N/A 10/08/25 09:06 106 10/08/25 08:17 106 10/08/25 08:09 96.2 120 28 139/95 78 96.2 Laboratory Tests Test 10/08/25 08:49 Lactic Acid Level 2.2 mmol/L (0.4-2.0) *H White Blood Count 11.4 10^3/uL (4.4-10.8) H Medications Medications Dose Ordered Sig/Carl Route Start Time Stop Time Status Last Admin Dose Admin Albuterol 20 mg ONCE ONCE [facility] 10/08/25 08:30 10/08/25 08:31 DC 10/08/25 09:12 20 MG Ipratropium [place] 1 mg ONCE ONCE N 10/08/25 08:30 12 08:31 DC 10/08/25 09:12 1 MG Methylprednisolone Sodium Succinate 125 mg ONCE ONCE IV 10/08/25 08:30 10/08/25 08:31 DC 10/08/25 09:02 125 MG Piperacillin Sod/ Tazobactam Sod 100 ml @ 100 mls/hr ONCE ONCE IV 10/08/25 08:45 10/08/25 09:44 DC 10/08/25 09:02 100 MLS/HR Sodium Chloride 250 ml @ 1,000 mls/hr Q15M ONCE IV 10/08/25 08:30 10/08/25 08:44 DC 10/08/25 08:30 1,000 MLS/HR Reassessment Post Fluid Time of Reassessment: 09:04 Pulse Location: Radial Pulse Strength: Normal Capillary Refill Exam: < 3 seconds Skin Temperature: Warm Skin Moisture: Dry Skin Tugor: WNL Skin Color: WNL Assessment/Plan Assessment/Plan Assessment: Acute hypoxemic respiratory failure, Pneumonia, Cardiomegaly, Polysubstance abuse, Lactic acidosis, Possible sepsis, Pulmonary hypertension, Hypertension, Hyperlipidemia, Plan: Admit to Tele, ECHO, Strict I&O's, Daily weight, IV antibiotics, IV steroids, Breathing treatments, Supplemental oxygen as needed, Plan discussed with: Patient My Orders Orders - TERRENCE REAVES Procedure Category Date Status Time Admit ADMIT 10/08/25 Verified 09:54 Code Status CODE 10/08/25 Verified 09:54 Sodium Chloride Lock PHA 10/08/25 Verified (Saline Lock Ns) 14:00 Hydrocodone-Acet PHA 10/08/25 Verified 5/325mg Tab ([place] 10:00 Ondansetron Hcl PHA 10/08/25 Verified (Zofran) 10:00 Docusate Sodium PHA 10/08/25 Verified Capsule (Colace 10:00 Enoxaparin Sodium PHA 10/08/25 Verified (Lovenox) 10:00 Complete Blood Count LAB 10/09/25 Verified 04:00 Comprehensive LAB 10/09/25 Verified Metabolic Panel 04:00 Cardiac DIET 10/08/25 Verified Diet-2gna,Lofat,Lochol Lunch Echo 2d Mode Cardiac US 10/08/25 Verified DOP 09:54 Condition: Serious [place] 10/08/25 Verified 09:54 Acetaminophen Tablet PHA 10/08/25 Verified (Tylenol Tablet) 10:00 Nitroglycerin PHA 10/08/25 Verified Sublingual (Ntrostat 10:00 Morphine Sulfate PHA 10/08/25 Verified Injection 10:00 Stat Ekg For Chest [facility] 10/08/25 Verified Pain 09:54 Notify Md Of Changes [facility] 10/08/25 Verified From Base 09:54 Dry Finisher For [facility] 10/08/25 Verified 24 Hours 09:54 Emergency Dysrhythmia [facility] 10/08/25 Verified Protocol 09:54 Rhythm Strips Once [facility] 10/08/25 Verified Every Shift 09:54 Oxygen By Nasal RT 10/08/25 Verified Cannula 09:54 Ceftriaxone Ivpb [facility] 10/09/25 Verified Rocephin 09:00 Azithromycin [facility] 10/08/25 Verified 500mg/250ml 10:00 Methylprednisolone [facility] 10/08/25 Verified Sod Succ (Solu Medrol 10:00 Ipratropium Medneb [facility] 10/08/25 Verified (Atrovent Medneb) 12:00 Albuterol Medneb [facility] 10/08/25 Verified (Ventolin Medneb) 12:00 Date of Service: Oct 08, 2025 Billing Provider: TERRENCE REAVES Common Visit Codes: [id number] INP/OBS CARE (HIGH) TERRENCE REAVES Oct 08, 2025 11:47
[2025-10-08] MEDS: ALBUTEROL SULF 2.5 MG/0.5ML(0.5%) NEB SOLN NEB SCH (12:00)
[2025-10-08] MEDS: IPRATROPIUM BROM 0.5 MG/2.5ML INH SOL NEB SCH (12:00)
[2025-10-08] MEDS ORDERED: PIPERACILLIN-TAZOB 3.375GM 100 ML IV SCH (12:00)
[2025-10-08] MEDS: methylPREDNISolone SOD SUCC 40 MG/ML VL IV SCH (12:44)
[2025-10-08] MEDS: ASPirin-EC 81 mg tab PO SCH (12:44)
[2025-10-08] MEDS: AZITHROMYCIN 500MG/250ML 250 ML IV SCH (12:45)
[2025-10-08] MEDS: ENOXAPARIN SOD 40 MG/0.4 ML SYRINGE SC SCH (12:45)
[2025-10-08] MEDS: SODIUM CHLOR 0.9% PF (SALINE LOCK) 10ML VIAL/SYR IV SCH (14:23)
[2025-10-08 16:06] LABS: COVID19 ANTIGEN SOFIA FIA NEGATIVE (NEGATIVE)
[2025-10-08 16:36] LABS: Urine Protein, UAD 2+ (Negative)
[2025-10-08] MEDS: TAMSULOSIN HYDROCHLORIDE 0.4 MG CAP PO SCH (18:26)
[2025-10-08] MEDS: VANCOMYCIN 1GM/250ML KIT 250 ML IV SCH (20:44)
[2025-10-08] MEDS: ATORVASTATIN 20 MG TAB PO SCH (22:07)
[2025-10-08] MEDS: PIPERACILLIN-TAZOB 3.375GM 100 ML IV SCH (22:07)
[2025-10-09] VITALS (15 sets, daily range): BP systolic 114–149; BP diastolic 72–99; PULSE 14–106; RESP 16–20; TEMP 97.1–98; O2SAT 90–98
[2025-10-09] MEDS: ALLOPURINOL 100 MG TAB PO SCH (09:19)
[2025-10-09] MEDS: HYDROcodone-ACET 5/325MG TAB PO PRN (10:25)
[2025-10-09 11:41] LABS: Hematocrit 38.8 % (41.0-53.0); Hemoglobin 13.4 g/dL (13.5-17.5); Mean Corpuscular Hemoglobin 33.9 pg (28.0-32.0); Mean Corpuscular Volume 98.1 fL (80.0-100.0); Nucleated Red Blood Cells % 0.1 %
[2025-10-09 11:55] LABS: Alanine Aminotransferase 33 U/L (7-40); Alkaline Phosphatase 82 U/L (46-116); Anion Gap 6 (5-15); BUN/Creatinine Ratio 26.0 (10.0-20.0); Blood Urea Nitrogen 19 mg/dL (9-23); Carbon Dioxide 27 mmol/L (20-31); Chloride 106 mmol/L (98-107); Potassium 4.1 mmol/L (3.5-5.1); Sodium 139 mmol/L (136-145); Total Protein 6.9 g/dL (5.7-8.2)
[2025-10-09 11:56] LABS: Albumin 3.4 g/dL (3.2-4.8); Bilirubin, Total 0.4 mg/dL (0.2-1.0)
[2025-10-09 11:57] LABS: Calcium 8.7 mg/dL (8.7-10.4); Glucose 182 mg/dL (74-106)
--- NOTE | 2025-10-09 14:47 | DVHPN2 ---
Subjective Patient continues to report having shortness of breath with green sputum. Reviewed: Care Plan, H&P, Labs, Medications Changes from previous H/P or p: No Changes General: Per HPI Eyes: No Pain, No Vision change, No Conjunctivae inflammation, No Eyelid inflammation, No Other, No Redness ENT: No Ear pain, No Ear discharge, No Nose pain, No Nose discharge, No Nose congestion, No Mouth pain, No Mouth swelling, No Throat pain, No Throat swelling, No Other Cardiovascular: No Chest Pain, No Palpitations, No Orthopnea, No Paroxysmal Noc. Dyspnea, No Edema, No Lt Headedness, No Other Respiratory: Cough; No Dry; Shortness of breath, SOB with excertion, Wheezing; No Hemoptysis, No Pleuritic Pain; Sputum; No Other Gastrointestinal: No Nausea, No Vomiting, No Abdominal Pain, No Diarrhea, No Constipation, No Melena, No Hematochezia, No Other Genitourinary: No Dysuria, No Frequency, No Incontinence, No Hematuria, No Retention, No Other Musculoskeletal: No other, No neck pain, No shoulder pain, No arm pain, No back pain, No hand pain, No leg pain, No foot pain Skin: No Rash, No Lesions, No Jaundice, No Bruising, No Other Objective Vitals Vital Signs Date Time Temp Pulse Resp B/P (MAP) Pulse Ox O2 Delivery O2 Flow Rate FiO2 10/09/25 13:00 97.3 99 20 149/99 (116) 90 97.3 10/09/25 06:43 Room Air* 0 21 Intake/Output Intake and Output 10/09/25 07:00 Intake Total 3640 ml Output Total 800 ml Balance 2840 ml Intake Oral 440 ml IV Total 3200 ml Output Urine Total 800 ml General Appearance: Alert, Oriented X3, Cooperative HEENT: Atraumatic, PERRLA Lungs: Clear to auscultation, Normal air movement Cardiovascular: Normal S1, Normal S2 Genitourinary: No Apparent Abnormalities Musculoskeletal: Normal sensory function, Normal motor function Neuro: Cranial nerves 3-12 NL Skin: Dry, Intact Psych/Mental Status: Mental status NL, Mood NL Medications Current Medications Medications Dose Ordered Sig/Carl Route Start Time Stop Time Status Last Admin Dose Admin Vancomycin HCl 0 ml @ 0 mls/hr UD IV 10/08/25 08:30 Sodium Chloride 10 ml Q8HR IV 10/08/25 14:00 10/09/25 05:27 10 ML Acetaminophen/ Hydrocodone Bitart 1 tab Q4HP PRN PO 10/08/25 10:00 10/09/25 10:25 1 TAB Ondansetron HCl 4 mg Q4HP PRN IV 10/08/25 10:00 Docusate Sodium 100 mg BIDPRN PRN PO 10/08/25 10:00 Enoxaparin Sodium 40 mg DAILY SC 10/08/25 10:00 10/08/25 12:45 40 MG Acetaminophen 650 mg Q6HP PRN PO 10/08/25 10:00 Nitroglycerin 0.4 mg Q5MINP PRN SL 10/08/25 10:00 Morphine Sulfate 2 mg Q30M PRN IV 10/08/25 10:00 Ceftriaxone Sodium 50 ml @ 100 mls/hr DAILY@09 IV 10/09/25 09:00 UNV Azithromycin 250 ml @ 125 mls/hr DAILY IV 10/08/25 10:00 10/09/25 10:26 125 MLS/HR Methylprednisolone Sodium Succinate 40 mg BID IV 10/08/25 10:00 10/09/25 09:19 40 MG Ipratropium [place] 0.5 mg Q6HWA NEB 10/08/25 12:00 10/09/25 12:17 0.5 MG Albuterol 2.5 mg Q6HWA NEB 10/08/25 12:00 10/09/25 12:17 2.5 MG Lorazepam 1 mg Q1HP PRN IV 10/08/25 10:00 Chlordiazepoxide HCl 50 mg Q12HR PO 10/09/25 10:00 10/09/25 22:01 10/09/25 09:20 50 MG Chlordiazepoxide HCl 25 mg Q12HR PO 10/10/25 10:00 10/10/25 22:01 Chlordiazepoxide HCl 25 mg QAM PO 10/11/25 07:00 10/11/25 07:01 Aspirin 81 mg DAILY PO 10/08/25 10:00 10/09/25 09:20 81 MG Tamsulosin HCl 0.4 mg QPM PO 10/08/25 18:00 10/08/25 18:26 0.4 MG Allopurinol 300 mg DAILY PO 10/09/25 10:00 10/09/25 09:19 300 MG Atorvastatin Calcium 40 mg HS PO 10/08/25 22:00 10/08/25 22:07 40 MG Piperacillin Sod/ Tazobactam Sod 100 ml @ 25 mls/hr Q8HR IV 10/08/25 22:00 10/09/25 05:17 25 MLS/HR Vancomycin HCl 250 ml @ 250 mls/hr Q8H IV 10/08/25 20:00 10/09/25 03:37 250 MLS/HR Laboratory Results Laboratory Tests 10/09/25 11:23 Chemistry Test 10/09/25 11:23 Albumin 3.4 g/dL (3.2-4.8) Calcium Level 8.7 mg/dL (8.7-10.4) Total Protein 6.9 g/dL (5.7-8.2) LFT Test 10/09/25 11:23 Alanine Aminotransferase (ALT) 33 U/L (7-40) Alkaline Phosphatase 82 U/L (46-116) Aspartate Amino Transferase (AST) 31 U/L (13-40) Total Bilirubin 0.4 mg/dL (0.2-1.0) Urinalysis Test 10/08/25 15:36 Urine Color Light-yellow (Yellow) Urine Clarity Clear (Clear) Urine pH 6.0 (5.0-9.0) Urine Specific [place] 1.012 (1.001-1.035) Urine Protein 2+ (Negative) H Urine Ketones Negative (Negative) Urine Blood 1+ /uL (Negative) H Urine Nitrite Negative (Negative) Urine Bilirubin Negative (Negative) Urine Urobilinogen Normal mg/dL (Negative) Urine Leukocyte Esterase Negative /uL (Negative) Urine RBC 1 /hpf (0 - 3) Urine Microscopic WBC < 1 /HPF (0-3) Urine Squamous Epithelial Cells Few /hpf (<5) Urine Bacteria Few /hpf (None Seen) H Urine Glucose Normal mg/dL (Normal) Microbiology Microbiology Date/Time Source Procedure Growth Status 10/08/25 15:36 Voided Urine Urine Culture - Preliminary No growth Resulted 10/08/25 08:49 Blood Blood Culture - Preliminary NO GROWTH AFTER 24 HOURS OF INCUBATION. Resulted Labs and/or images reviewed: Labs reviewed by me, Image(s) reviewed by me Assessment/Plan Assessment/Plan Impression: -acute hypoxic respiratory failure -community-acquired pneumonia, Gram-positive/Gram-negative etiology -sepsis -history of aortic valve stenosis with recent aortic valve repair -obesity -nicotine dependence -probable acute diastolic heart failure Course of hospitalization: -continue antibiotic therapy with Rocephin and azithromycin -bronchodilators -Pulmicort -consider CT scan if symptoms do not improve -trial of IV diuresis -echocardiogram pending -repeat labs and chest x-ray in a.m. Total time spent with patient discussing and formulating plan of care: 35 minutes. This medical document was created using an electronic medical record system with [employer] dictation system. Although this document has been carefully reviewed, there may still be some phonetic and typographical errors. These areas are purely typographical due to imperfections of the software programs, and do not reflect any compromise in the patient's medical care. Plan discussed with: Patient, Other (RN) Date of Service: Oct 09, 2025 Billing Provider: BENJIE RODRIGUEZ NP Common Visit Codes: [id number] INP/OBS CARE(HIGH) BENJIE RODRIGUEZ NP Oct 09, 2025 14:47
[2025-10-09] MEDS ORDERED: VANCOMYCIN 1.25GM/250ML 250 ML IV SCH (15:00)
--- NOTE | 2025-10-09 17:48 | DVHSR ---
APPROVED REPORT EXAM: Two-dimensional and M-mode echocardiogram with Doppler and color Doppler. Blood Pressure: 154/86 mmHg INDICATION Dyspnea Heart Failure CHF exacerbation, tachycardia, SOB Surgery/Intervention Valve Replacement: Type: TAVR RISK FACTORS Height: 67, Weight: 193 DIMENSIONS LVDd 4.5 (3.8-5.7cm) LA (2D) 5.0 (1.9-4.0cm) Aortic Root 3.9 (2.0-3.7cm) LVDs 3.1 (2.5-4.0cm) LA (MM) (1.9-4.0cm) Aortic Cusp Exc (1.5-2.0cm) EF (%) 60.0 (55-70%) Rt. Atrium 5.3 (1.9-4.0cm) Asc. Aorta cm Mitral Valve Mitral Mitral Stenosis E wave 1.76m/s MV Mean GR. 9mmHg A wave 1.49m/s MV Peak GR. 108mmHg E/A ratio 1.2 2D MVA cm2 DECEL Time 235ms PRESS 1/2 Time 58ms IVRT ms Dop MVA 3.81cm2 Aortic Valve Aortic Valve Aortic Stenosis V1 0.96m/s AO Mean GR. 10mmHg V2 2.13m/s AO Peak GR. 18mmHg Tricuspid Valve TR Velocity 3.51m/s RVSP 67mmHg Other Information Quality : Technically Limited Rhythm : Technically limited study due to patient was non compliant and kept trying to inappropriately touch tech. Conclusion LVEF normal at 50-55%, severe diastolic dysfunction Right ventricle [id number] dilated, normal function Left atrium moderately dilated Mitral valve calcified, moderate mitral stenosis Severe pulmonary hypertension with rvsp at 60-65mmgh aortic valve not well visualized
[2025-10-09] MEDS: VANCOMYCIN 1.25GM/250ML 250 ML IV SCH (20:10)
[2025-10-10] VITALS (17 sets, daily range): BP systolic 126–137; BP diastolic 74–95; PULSE 79–109; RESP 18–20; TEMP 96.7–98.9; O2SAT 90–100
[2025-10-10 07:44] LABS: Hematocrit 38.8 % (41.0-53.0); Hemoglobin 13.0 g/dL (13.5-17.5); Mean Corpuscular Hemoglobin 33.4 pg (28.0-32.0); Mean Corpuscular Volume 99.5 fL (80.0-100.0); Nucleated Red Blood Cells % 0.0 %
--- NOTE | 2025-10-10 12:48 | DVHPN2 ---
Subjective Patient denies any symptoms. Reviewed: Care Plan, H&P, Labs, Medications Changes from previous H/P or p: No Changes General: Per HPI Eyes: No Pain, No Vision change, No Conjunctivae inflammation, No Eyelid inflammation, No Other, No Redness ENT: No Ear pain, No Ear discharge, No Nose pain, No Nose discharge, No Nose congestion, No Mouth pain, No Mouth swelling, No Throat pain, No Throat swelling, No Other Cardiovascular: No Chest Pain, No Palpitations, No Orthopnea, No Paroxysmal Noc. Dyspnea, No Edema, No Lt Headedness, No Other Respiratory: Cough; No Dry; Shortness of breath, SOB with excertion, Wheezing; No Hemoptysis, No Pleuritic Pain; Sputum; No Other Gastrointestinal: No Nausea, No Vomiting, No Abdominal Pain, No Diarrhea, No Constipation, No Melena, No Hematochezia, No Other Genitourinary: No Dysuria, No Frequency, No Incontinence, No Hematuria, No Retention, No Other Musculoskeletal: No other, No neck pain, No shoulder pain, No arm pain, No back pain, No hand pain, No leg pain, No foot pain Skin: No Rash, No Lesions, No Jaundice, No Bruising, No Other Objective Vitals Vital Signs Date Time Temp Pulse Resp B/P (MAP) Pulse Ox O2 Delivery O2 Flow Rate FiO2 10/10/25 12:19 79 20 100 10/10/25 09:00 98.2 134/90 (105) 98.2 10/10/25 07:53 Room Air 10/10/25 07:53 0 21 Intake/Output Intake and Output 10/10/25 06:59 Intake Total 1340 ml Balance 1340 ml Intake Oral 740 ml IV Total 600 ml # Voids 3 General Appearance: Alert, Oriented X3, Cooperative HEENT: Atraumatic, PERRLA Lungs: Clear to auscultation, Normal air movement Cardiovascular: Normal S1, Normal S2 Genitourinary: No Apparent Abnormalities Musculoskeletal: Normal sensory function, Normal motor function Neuro: Cranial nerves 3-12 NL Skin: Dry, Intact Psych/Mental Status: Mental status NL, Mood NL Medications Current Medications Medications Dose Ordered Sig/Carl Route Start Time Stop Time Status Last Admin Dose Admin Vancomycin HCl 0 ml @ 0 mls/hr UD IV 10/08/25 08:30 Sodium Chloride 10 ml Q8HR IV 10/08/25 14:00 10/10/25 05:55 10 ML Acetaminophen/ Hydrocodone Bitart 1 tab Q4HP PRN PO 10/08/25 10:00 10/09/25 22:31 1 TAB Ondansetron HCl 4 mg Q4HP PRN IV 10/08/25 10:00 Docusate Sodium 100 mg BIDPRN PRN PO 10/08/25 10:00 Enoxaparin Sodium 40 mg DAILY SC 10/08/25 10:00 10/08/25 12:45 40 MG Acetaminophen 650 mg Q6HP PRN PO 10/08/25 10:00 Nitroglycerin 0.4 mg Q5MINP PRN SL 10/08/25 10:00 Morphine Sulfate 2 mg Q30M PRN IV 10/08/25 10:00 Ceftriaxone Sodium 50 ml @ 100 mls/hr DAILY@09 IV 10/09/25 09:00 UNV Azithromycin 250 ml @ 125 mls/hr DAILY IV 10/08/25 10:00 10/10/25 09:46 125 MLS/HR Methylprednisolone Sodium Succinate 40 mg BID IV 10/08/25 10:00 10/10/25 09:47 40 MG Ipratropium [place] 0.5 mg Q6HWA NEB 10/08/25 12:00 10/10/25 12:13 0.5 MG Albuterol 2.5 mg Q6HWA NEB 10/08/25 12:00 10/10/25 12:13 2.5 MG Lorazepam 1 mg Q1HP PRN IV 10/08/25 10:00 Chlordiazepoxide HCl 25 mg Q12HR PO 10/10/25 10:00 10/10/25 22:01 10/10/25 09:47 25 MG Chlordiazepoxide HCl 25 mg QAM PO 10/11/25 07:00 10/11/25 07:01 Aspirin 81 mg DAILY PO 10/08/25 10:00 10/10/25 09:47 81 MG Tamsulosin HCl 0.4 mg QPM PO 10/08/25 18:00 10/09/25 18:31 0.4 MG Allopurinol 300 mg DAILY PO 10/09/25 10:00 10/10/25 09:47 300 MG Atorvastatin Calcium 40 mg HS PO 10/08/25 22:00 10/09/25 22:10 40 MG Piperacillin Sod/ Tazobactam Sod 100 ml @ 25 mls/hr Q8HR IV 10/08/25 22:00 10/10/25 06:02 25 MLS/HR Vancomycin HCl 250 ml @ 200 mls/hr Q8H IV 10/09/25 20:00 10/10/25 11:48 200 MLS/HR Laboratory Results Laboratory Tests 10/09/25 11:23 10/10/25 07:00 Urinalysis Test 10/08/25 15:36 Urine Color Light-yellow (Yellow) Urine Clarity Clear (Clear) Urine pH 6.0 (5.0-9.0) Urine Specific [place] 1.012 (1.001-1.035) Urine Protein 2+ (Negative) H Urine Ketones Negative (Negative) Urine Blood 1+ /uL (Negative) H Urine Nitrite Negative (Negative) Urine Bilirubin Negative (Negative) Urine Urobilinogen Normal mg/dL (Negative) Urine Leukocyte Esterase Negative /uL (Negative) Urine RBC 1 /hpf (0 - 3) Urine Microscopic WBC < 1 /HPF (0-3) Urine Squamous Epithelial Cells Few /hpf (<5) Urine Bacteria Few /hpf (None Seen) H Urine Glucose Normal mg/dL (Normal) Microbiology Microbiology Date/Time Source Procedure Growth Status 10/08/25 15:36 Voided Urine Urine Culture - Preliminary No growth Resulted 10/08/25 08:49 Blood Blood Culture - Preliminary NO GROWTH AFTER 48 HOURS OF INCUBATION. Resulted Labs and/or images reviewed: Labs reviewed by me, Image(s) reviewed by me Assessment/Plan Assessment/Plan Impression: -acute hypoxic respiratory failure -community-acquired pneumonia, Gram-positive/Gram-negative etiology -sepsis -history of aortic valve stenosis with recent aortic valve repair -obesity -nicotine dependence -probable acute diastolic heart failure Pulmonary hypertension Plan: Events: No events overnight. Patient did report that consumes alcohol daily, for which she was placed on Librium by night hospitalist. Somewhat lethargic today. Wheezing resolved. -decrease Solu-Medrol to 40 mg IV daily -check ammonia level -continue antibiotic therapy with Rocephin and azithromycin -bronchodilators -Pulmicort -chest x-ray reviewed. Hold CT at this time -trial of IV diuresis -echocardiogram: Noted pulmonary hypertension with RVSP between 60-65 mmhg -repeat labs and chest x-ray in a.m. Total time spent with patient discussing and formulating plan of care: 35 minutes. This medical document was created using an electronic medical record system with [employer] dictation system. Although this document has been carefully reviewed, there may still be some phonetic and typographical errors. These areas are purely typographical due to imperfections of the software programs, and do not reflect any compromise in the patient's medical care. Plan discussed with: Patient, Other (RN) My Orders Orders - BENJIE RODRIGUEZ NP Procedure Category Date Status Time Basic Metabolic Panel LAB 10/11/25 Verified 05:00 Basic Metabolic Panel LAB 10/12/25 Verified 05:00 Basic Metabolic Panel LAB 10/13/25 Verified 05:00 Complete Blood Count LAB 10/11/25 Verified 05:00 Complete Blood Count LAB 10/12/25 Verified 05:00 Complete Blood Count LAB 10/13/25 Verified 05:00 Chest Xray 1 View XY 10/10/25 Taken 08:21 Drug Screen LAB 10/10/25 Logged 11:03 Methylprednisolone PHA 10/11/25 Verified Sod Succ (Solu Medrol 10:00 Ammonia LAB 10/10/25 Verified 12:28 Date of Service: Oct 10, 2025 Billing Provider: BENJIE RODRIGUEZ NP Common Visit Codes: [id number] INP/OBS CARE(HIGH) BENJIE RODRIGUEZ NP Oct 10, 2025 12:48
--- NOTE | 2025-10-10 13:05 | DVH ---
CHEST RADIOGRAPH INDICATION: pna TECHNIQUE: Portable AP view of the chest was performed with apical lordotic technique. COMPARISON: XY CHEST PORTABLE on DOS: 10/08/25, XY CHEST XRAY 1 VIEW on DOS: 11/15/24, XY CHEST XRAY 1 VIEW on DOS: 11/14/24, XY CHEST XRAY 1 VIEW on DOS: 11/13/24, XY CHEST PORTABLE on DOS: 11/12/24, XY CHEST PORTABLE on DOS: 10/08/25 FINDINGS: There are interstitial infiltrates throughout the right lung, increased versus prior chest x-ray. The left lung is clear. No pneumothorax or consolidative infiltrates. The heart is enlarged. IMPRESSION: 1. No interval change.
[2025-10-10] MEDS: LORazepam 2MG/ML-1ML VIAL IV PRN (20:15)
[2025-10-11] VITALS (10 sets, daily range): BP systolic 129–143; BP diastolic 88–98; PULSE 71–99; RESP 16–20; TEMP 97.9–98.8; O2SAT 91–99
[2025-10-11] MEDS: VANCOMYCIN 1GM/250ML KIT 250 ML IV SCH (05:20)
[2025-10-11 05:41] LABS: Hematocrit 39.4 % (41.0-53.0); Hemoglobin 13.1 g/dL (13.5-17.5); Mean Corpuscular Hemoglobin 33.3 pg (28.0-32.0); Mean Corpuscular Volume 100.3 fL (80.0-100.0); Nucleated Red Blood Cells % 0.1 %
[2025-10-11 05:54] LABS: Potassium 4.3 mmol/L (3.5-5.1); Sodium 143 mmol/L (136-145)
[2025-10-11 05:55] LABS: Anion Gap 6 (5-15); Carbon Dioxide 28 mmol/L (20-31)
[2025-10-11 05:56] LABS: Calcium 8.7 mg/dL (8.7-10.4)
[2025-10-11 06:00] LABS: BUN/Creatinine Ratio 28.9 (10.0-20.0)
[2025-10-11 06:19] LABS: Blood Urea Nitrogen 26 mg/dL (9-23); Chloride 109 mmol/L (98-107); Glucose 138 mg/dL (74-106)
[2025-10-11] MEDS: methylPREDNISolone SOD SUCC 40 MG/ML VL IV SCH (10:52)
--- NOTE | 2025-10-11 12:15 | DVHPN2 ---
Subjective Patient denies any symptoms. Reviewed: Care Plan, H&P, Labs, Medications Changes from previous H/P or p: No Changes General: Per HPI Eyes: No Pain, No Vision change, No Conjunctivae inflammation, No Eyelid inflammation, No Other, No Redness ENT: No Ear pain, No Ear discharge, No Nose pain, No Nose discharge, No Nose congestion, No Mouth pain, No Mouth swelling, No Throat pain, No Throat swelling, No Other Cardiovascular: No Chest Pain, No Palpitations, No Orthopnea, No Paroxysmal Noc. Dyspnea, No Edema, No Lt Headedness, No Other Respiratory: Cough; No Dry; Shortness of breath, SOB with excertion, Wheezing; No Hemoptysis, No Pleuritic Pain; Sputum; No Other Gastrointestinal: No Nausea, No Vomiting, No Abdominal Pain, No Diarrhea, No Constipation, No Melena, No Hematochezia, No Other Genitourinary: No Dysuria, No Frequency, No Incontinence, No Hematuria, No Retention, No Other Musculoskeletal: No other, No neck pain, No shoulder pain, No arm pain, No back pain, No hand pain, No leg pain, No foot pain Skin: No Rash, No Lesions, No Jaundice, No Bruising, No Other Objective Vitals Vital Signs Date Time Temp Pulse Resp B/P (MAP) Pulse Ox O2 Delivery O2 Flow Rate FiO2 10/11/25 09:00 97.9 90 20 143/97 (112) 97 97.9 10/11/25 06:12 Room Air* 0 21 Intake/Output Intake and Output 10/11/25 07:00 Intake Total 2160 ml Output Total 1300 ml Balance 860 ml Intake Oral 1360 ml IV Total 800 ml Output Urine Total 1300 ml # Voids 1 # Bowel Movements 1 General Appearance: Alert, Oriented X3, Cooperative HEENT: Atraumatic, PERRLA Lungs: Normal air movement, Other (Bilateral expiratory wheezing) Cardiovascular: Normal S1, Normal S2 Genitourinary: No Apparent Abnormalities Musculoskeletal: Normal sensory function, Normal motor function Neuro: Cranial nerves 3-12 NL Skin: Dry, Intact Psych/Mental Status: Mental status NL, Mood NL Medications Current Medications Medications Dose Ordered Sig/Carl Route Start Time Stop Time Status Last Admin Dose Admin Vancomycin HCl 0 ml @ 0 mls/hr UD IV 10/08/25 08:30 Sodium Chloride 10 ml Q8HR IV 10/08/25 14:00 10/11/25 06:00 10 ML Acetaminophen/ Hydrocodone Bitart 1 tab Q4HP PRN PO 10/08/25 10:00 10/10/25 20:15 1 TAB Ondansetron HCl 4 mg Q4HP PRN IV 10/08/25 10:00 Docusate Sodium 100 mg BIDPRN PRN PO 10/08/25 10:00 Enoxaparin Sodium 40 mg DAILY SC 10/08/25 10:00 10/11/25 10:52 40 MG Acetaminophen 650 mg Q6HP PRN PO 10/08/25 10:00 Nitroglycerin 0.4 mg Q5MINP PRN SL 10/08/25 10:00 Morphine Sulfate 2 mg Q30M PRN IV 10/08/25 10:00 Ceftriaxone Sodium 50 ml @ 100 mls/hr DAILY@09 IV 10/09/25 09:00 UNV Azithromycin 250 ml @ 125 mls/hr DAILY IV 10/08/25 10:00 10/11/25 10:52 125 MLS/HR Ipratropium [place] 0.5 mg Q6HWA NEB 10/08/25 12:00 10/11/25 06:12 0.5 MG Albuterol 2.5 mg Q6HWA NEB 10/08/25 12:00 10/11/25 06:12 2.5 MG Lorazepam 1 mg Q1HP PRN IV 10/08/25 10:00 10/10/25 20:15 1 MG Aspirin 81 mg DAILY PO 10/08/25 10:00 10/11/25 10:50 81 MG Tamsulosin HCl 0.4 mg QPM PO 10/08/25 18:00 10/10/25 17:21 0.4 MG Allopurinol 300 mg DAILY PO 10/09/25 10:00 10/11/25 10:50 300 MG Atorvastatin Calcium 40 mg HS PO 10/08/25 22:00 10/10/25 21:55 40 MG Piperacillin Sod/ Tazobactam Sod 100 ml @ 25 mls/hr Q8HR IV 10/08/25 22:00 10/11/25 06:47 25 MLS/HR Methylprednisolone Sodium Succinate 40 mg DAILY IV 10/11/25 10:00 10/11/25 10:52 40 MG Vancomycin HCl 250 ml @ 200 mls/hr Q8H IV 10/11/25 04:00 10/11/25 05:20 200 MLS/HR Laboratory Results Laboratory Tests 10/11/25 05:09 Chemistry Test 10/11/25 05:09 Calcium Level 8.7 mg/dL (8.7-10.4) Urinalysis Test 10/08/25 15:36 Urine Color Light-yellow (Yellow) Urine Clarity Clear (Clear) Urine pH 6.0 (5.0-9.0) Urine Specific [place] 1.012 (1.001-1.035) Urine Protein 2+ (Negative) H Urine Ketones Negative (Negative) Urine Blood 1+ /uL (Negative) H Urine Nitrite Negative (Negative) Urine Bilirubin Negative (Negative) Urine Urobilinogen Normal mg/dL (Negative) Urine Leukocyte Esterase Negative /uL (Negative) Urine RBC 1 /hpf (0 - 3) Urine Microscopic WBC < 1 /HPF (0-3) Urine Squamous Epithelial Cells Few /hpf (<5) Urine Bacteria Few /hpf (None Seen) H Urine Glucose Normal mg/dL (Normal) Microbiology Microbiology Date/Time Source Procedure Growth Status 10/08/25 15:36 Voided Urine Urine Culture - Final Complete 10/08/25 08:49 Blood Blood Culture - Preliminary NO GROWTH AFTER 72 HOURS OF INCUBATION. Resulted Labs and/or images reviewed: Labs reviewed by me, Image(s) reviewed by me Assessment/Plan Assessment/Plan Impression: -acute hypoxic respiratory failure -community-acquired pneumonia, Gram-positive/Gram-negative etiology -sepsis -history of aortic valve stenosis with recent aortic valve repair -obesity -nicotine dependence -probable acute diastolic heart failure -Pulmonary hypertension Plan: Events: No events overnight. Continues to be somewhat lethargic, more alert than yesterday. Wheezing has returned. White blood cell count normal. -transitioned Solu-Medrol to prednisone 40 mg daily -continue antibiotic therapy with Zosyn and vancomycin -bronchodilators -Pulmicort -trial of IV diuresis -echocardiogram: Noted pulmonary hypertension with RVSP between 60-65 mmhg -repeat labs and chest x-ray in a.m. Total time spent with patient discussing and formulating plan of care: 35 minutes. This medical document was created using an electronic medical record system with [employer] dictation system. Although this document has been carefully reviewed, there may still be some phonetic and typographical errors. These areas are purely typographical due to imperfections of the software programs, and do not reflect any compromise in the patient's medical care. Plan discussed with: Patient, Spouse, Other (RN) My Orders Orders - BENJIE RODRIGUEZ NP Procedure Category Date Status Time Methylprednisolone [facility] 10/11/25 In Process Sod Succ (Solu Medrol 10:00 Date of Service: Oct 11, 2025 Billing Provider: BENJIE RODRIGUEZ NP Common Visit Codes: [id number] INP/OBS CARE(HIGH) BENJIE RODRIGUEZ NP Oct 11, 2025 12:15
[2025-10-11] MEDS: predniSONE 20 MG TAB PO SCH (13:15)
[2025-10-11] MEDS: BUDESONIDE (INHALATION) 0.5 MG/2 ML NEB NEB SCH (21:22)
[2025-10-12] VITALS (8 sets, daily range): BP systolic 109–144; BP diastolic 73–97; PULSE 92–106; RESP 18–19; TEMP 97.6–98.1; O2SAT 90–95
[2025-10-12 03:07] LABS: Hematocrit 40.8 % (41.0-53.0); Hemoglobin 13.8 g/dL (13.5-17.5); Mean Corpuscular Hemoglobin 33.7 pg (28.0-32.0); Mean Corpuscular Volume 99.7 fL (80.0-100.0); Nucleated Red Blood Cells % 0.0 %
[2025-10-12 03:14] LABS: Chloride 106 mmol/L (98-107); Sodium 139 mmol/L (136-145)
[2025-10-12 03:15] LABS: Anion Gap 5 (5-15); Carbon Dioxide 28 mmol/L (20-31)
[2025-10-12 03:21] LABS: BUN/Creatinine Ratio 35.7 (10.0-20.0)
[2025-10-12 03:27] LABS: Blood Urea Nitrogen 30 mg/dL (9-23); Calcium 8.6 mg/dL (8.7-10.4); Glucose 210 mg/dL (74-106); Potassium 5.1 mmol/L (3.5-5.1)
[2025-10-12] MEDS: ALBUTEROL SULF 2.5 MG/0.5ML(0.5%) NEB SOLN NEB PRN (09:28)
[2025-10-12] MEDS: IPRATROPIUM BROM 0.5 MG/2.5ML INH SOL NEB PRN (09:28)
--- NOTE | 2025-10-12 12:52 | DVHPN2 ---
Reviewed: Care Plan, H&P, Labs, Medications Changes from previous H/P or p: No Changes General: Per HPI Eyes: No Pain, No Vision change, No Conjunctivae inflammation, No Eyelid inflammation, No Other, No Redness ENT: No Ear pain, No Ear discharge, No Nose pain, No Nose discharge, No Nose congestion, No Mouth pain, No Mouth swelling, No Throat pain, No Throat swelling, No Other Cardiovascular: No Chest Pain, No Palpitations, No Orthopnea, No Paroxysmal Noc. Dyspnea, No Edema, No Lt Headedness, No Other Respiratory: Cough; No Dry; Shortness of breath, SOB with excertion, Wheezing; No Hemoptysis, No Pleuritic Pain; Sputum; No Other Gastrointestinal: No Nausea, No Vomiting, No Abdominal Pain, No Diarrhea, No Constipation, No Melena, No Hematochezia, No Other Genitourinary: No Dysuria, No Frequency, No Incontinence, No Hematuria, No Retention, No Other Musculoskeletal: No other, No neck pain, No shoulder pain, No arm pain, No back pain, No hand pain, No leg pain, No foot pain Skin: No Rash, No Lesions, No Jaundice, No Bruising, No Other Objective Vitals Vital Signs Date Time Temp Pulse Resp B/P (MAP) Pulse Ox O2 Delivery O2 Flow Rate FiO2 10/12/25 09:35 95 Nasal Cannula* 2 28 10/12/25 09:34 103 18 10/12/25 08:31 98.1 119/86 (97) 98.1 Intake/Output Intake and Output 10/12/25 07:00 Intake Total 2266 ml Output Total 525 ml Balance 1741 ml Intake Oral 1316 ml IV Total 950 ml Output Urine Total 525 ml # Voids 6 # Bowel Movements 1 General Appearance: Alert, Oriented X3, Cooperative HEENT: Atraumatic, PERRLA Lungs: Normal air movement, Other (Bilateral expiratory wheezing) Cardiovascular: Normal S1, Normal S2 Genitourinary: No Apparent Abnormalities Musculoskeletal: Normal sensory function, Normal motor function Neuro: Cranial nerves 3-12 NL Skin: Dry, Intact Psych/Mental Status: Mental status NL, Mood NL Medications Current Medications Medications Dose Ordered Sig/Carl Route Start Time Stop Time Status Last Admin Dose Admin Vancomycin HCl 0 ml @ 0 mls/hr UD IV 10/08/25 08:30 Sodium Chloride 10 ml Q8HR IV 10/08/25 14:00 10/12/25 06:15 10 ML Acetaminophen/ Hydrocodone Bitart 1 tab Q4HP PRN PO 10/08/25 10:00 10/11/25 21:12 1 TAB Ondansetron HCl 4 mg Q4HP PRN IV 10/08/25 10:00 Docusate Sodium 100 mg BIDPRN PRN PO 10/08/25 10:00 Enoxaparin Sodium 40 mg DAILY SC 10/08/25 10:00 10/12/25 10:53 40 MG Acetaminophen 650 mg Q6HP PRN PO 10/08/25 10:00 Nitroglycerin 0.4 mg Q5MINP PRN SL 10/08/25 10:00 Morphine Sulfate 2 mg Q30M PRN IV 10/08/25 10:00 Ceftriaxone Sodium 50 ml @ 100 mls/hr DAILY@09 IV 10/09/25 09:00 UNV Lorazepam 1 mg Q1HP PRN IV 10/08/25 10:00 10/10/25 20:15 1 MG Aspirin 81 mg DAILY PO 10/08/25 10:00 10/12/25 10:52 81 MG Tamsulosin HCl 0.4 mg QPM PO 10/08/25 18:00 10/11/25 18:14 0.4 MG Allopurinol 300 mg DAILY PO 10/09/25 10:00 10/12/25 10:52 300 MG Atorvastatin Calcium 40 mg HS PO 10/08/25 22:00 10/11/25 23:07 40 MG Piperacillin Sod/ Tazobactam Sod 100 ml @ 25 mls/hr Q8HR IV 10/08/25 22:00 10/12/25 06:46 25 MLS/HR Budesonide 0.5 mg BID NEB 10/11/25 22:00 10/12/25 09:28 0.5 MG Albuterol 2.5 mg Q3HPRN PRN NEB 10/11/25 12:15 10/12/25 09:28 2.5 MG Ipratropium [place] 0.5 mg Q3HPRN PRN NEB 10/11/25 12:15 10/12/25 09:28 0.5 MG Prednisone 40 mg DAILY PO 10/11/25 12:15 10/12/25 10:52 40 MG Laboratory Results Laboratory Tests 10/12/25 02:57 Chemistry Test 10/12/25 02:57 Calcium Level 8.6 mg/dL (8.7-10.4) L Urinalysis Test 10/08/25 15:36 Urine Color Light-yellow (Yellow) Urine Clarity Clear (Clear) Urine pH 6.0 (5.0-9.0) Urine Specific [place] 1.012 (1.001-1.035) Urine Protein 2+ (Negative) H Urine Ketones Negative (Negative) Urine Blood 1+ /uL (Negative) H Urine Nitrite Negative (Negative) Urine Bilirubin Negative (Negative) Urine Urobilinogen Normal mg/dL (Negative) Urine Leukocyte Esterase Negative /uL (Negative) Urine RBC 1 /hpf (0 - 3) Urine Microscopic WBC < 1 /HPF (0-3) Urine Squamous Epithelial Cells Few /hpf (<5) Urine Bacteria Few /hpf (None Seen) H Urine Glucose Normal mg/dL (Normal) Microbiology Microbiology Date/Time Source Procedure Growth Status 10/08/25 15:36 Voided Urine Urine Culture - Final Complete 10/08/25 08:49 Blood Blood Culture - Preliminary NO GROWTH AFTER 72 HOURS OF INCUBATION. Resulted Labs and/or images reviewed: Labs reviewed by me, Image(s) reviewed by me Assessment/Plan Assessment/Plan Covering for nurse practitioner Carlos Enrique Jain -acute hypoxic respiratory failure: Oxygen by nasal care -community-acquired pneumonia, Gram-positive/Gram-negative etiology: Continue vancomycin and Zosyn -sepsis -history of aortic valve stenosis with recent aortic valve repair -obesity -nicotine dependence -probable acute diastolic heart failure -Pulmonary hypertension Time Spent 50 minutes Plan discussed with: Patient Date of Service: Oct 12, 2025 Billing Provider: JS SEPULVEDA MD Common Visit Codes: [id number] INP/OBS CARE(HIGH) JS SEPULVEDA MD Oct 12, 2025 12:52
--- NOTE | 2025-10-13 08:00 | DVHDS2 ---
Discharge Summary Date of Admission Oct 08, 2025 at 09:54 Date of Discharge: Oct 12, 2025 Admitting Diagnosis Shortness of breath Wounds: None Labs/Diagnostic Data: Laboratory Results Test 10/12/25 02:57 10/11/25 02:55 10/10/25 13:35 10/09/25 11:23 White Blood Count 9.5 10^3/uL (4.4-10.8) Red Blood Count 4.10 10^6/uL (4.5-5.90) Hemoglobin 13.8 g/dL (13.5-17.5) Hematocrit 40.8 % (41.0-53.0) Mean Corpuscular Volume 99.7 fL (80.0-100.0) Mean Corpuscular Hemoglobin 33.7 pg (28.0-32.0) Mean Corpuscular Hemoglobin Concent 33.8 g/dL (32.0-36.0) Red Cell Distribution Width 13.7 % (11.8-14.3) Platelet Count 363 10^3/uL (140-450) Mean Platelet Volume 6.5 fL (6.9-10.8) Neutrophils (%) (Auto) 89.4 % (37.0-80.0) Lymphocytes (%) (Auto) 6.3 % (10.0-50.0) Monocytes (%) (Auto) 4.2 % (0.0-12.0) Eosinophils (%) (Auto) 0.0 % (0.0-7.0) Basophils (%) (Auto) 0.1 % (0.0-2.0) Neutrophils # (Auto) 8.5 10 ^3/uL (1.6-8.6) Lymphocytes # (Auto) 0.6 10 ^3/uL (0.4-5.4) Monocytes # (Auto) 0.4 10 ^3/uL (0-1.3) Eosinophils # (Auto) 0 10 ^3/uL (0-0.8) Basophils # (Auto) 0 10 ^3/uL (0-0.2) Nucleated Red Blood Cells 0.0 % Sodium Level 139 mmol/L (136-145) Potassium Level 5.1 mmol/L (3.5-5.1) Chloride Level 106 mmol/L (98-107) Carbon Dioxide Level 28 mmol/L (20-31) Anion Gap 5 (5-15) Blood Urea Nitrogen 30 mg/dL (9-23) Creatinine 0.84 mg/dL (0.700-1.30) Glomerular Filtration Rate Calc 101 mL/min (>90) BUN/Creatinine Ratio 35.7 (10.0-20.0) Serum Glucose 210 mg/dL (74-106) Calcium Level 8.6 mg/dL (8.7-10.4) Vancomycin Level Trough 22.6 ug/mL (5-10) Random Vancomycin Level 14.4 ug/mL (5-10) Ammonia 27 umol/L (11-32) Total Bilirubin 0.4 mg/dL (0.2-1.0) Aspartate Amino Transferase (AST) 31 U/L (13-40) Alanine Aminotransferase (ALT) 33 U/L (7-40) Alkaline Phosphatase 82 U/L (46-116) Total Protein 6.9 g/dL (5.7-8.2) Albumin 3.4 g/dL (3.2-4.8) Test 10/08/25 15:36 10/08/25 15:33 10/08/25 11:43 10/08/25 09:52 Urine Color Light-yellow (Yellow) Urine Clarity Clear (Clear) Urine pH 6.0 (5.0-9.0) Urine Specific [place] 1.012 (1.001-1.035) Urine Protein 2+ (Negative) Urine Ketones Negative (Negative) Urine Blood 1+ /uL (Negative) Urine Nitrite Negative (Negative) Urine Bilirubin Negative (Negative) Urine Urobilinogen Normal mg/dL (Negative) Urine Leukocyte Esterase Negative /uL (Negative) Urine RBC 1 /hpf (0 - 3) Urine Microscopic WBC < 1 /HPF (0-3) Urine Squamous Epithelial Cells Few /hpf (<5) Urine Bacteria Few /hpf (None Seen) Urine Glucose Normal mg/dL (Normal) Influenza Type A Antigen Negative (Negative) Influenza Type B Antigen Negative (Negative) SARS-CoV-2 Antigen (Rapid) Negative (NEGATIVE) Lactic Acid Level 3.1 mmol/L (0.4-2.0) Troponin I High Sensitivity 42 ng/L (</=54) Test 10/08/25 08:49 Direct Bilirubin 0.2 mg/dL (<0.3) B-Type Natriuretic Peptide 776.56 pg/mL (0-100) Lipase 27 U/L (12-53) Other Laboratory Tests 10/12/25 02:57 Brief Hx & Hospital Course: Patient was originally seen by nurse practitioner Carlos Enrique Jain 60-year-old male with a history of smoking chronic diastolic heart failure pulmonary hypertension aortic valve stenosis with recent aortic valve repair came in for shortness of breaths found to have community-acquired pneumonia treated with the vancomycin and Zosyn. Comorbid conditions appropriately treated while awaiting further stabilization patient decided to leave AMA and left AMA consequences complications explained to the patient and he verbalized understanding General condition satisfactory at the time of leaving AMA per nurse's notes Consults/Reason for consult None Operations or Procedures Chest x-ray Condition at Discharge: Fair Final Diagnosis/Problems List -acute hypoxic respiratory failure: Oxygen by nasal care -community-acquired pneumonia, Gram-positive/Gram-negative etiology: Continue vancomycin and Zosyn -sepsis -history of aortic valve stenosis with recent aortic valve repair -obesity -nicotine dependence -probable acute diastolic heart failure -Pulmonary hypertension Time Spent 50 minute Discharge Disposition: AMA Discharge Instruct/Medications Diet comment: Not applicable Patient left AMA Activity comment: Not applicable Patient left AMA Follow Up/Referral: Not applicable Patient left AMA Medications: Not applicable Patient left AMA Scheduled Acetaminophen (Acetaminophen), 500 MG PO Q4HPRN Allopurinol (Allopurinol), 300 MG PO DAILY, (Reported) Aspirin (Aspir-81), 1 TAB PO DAILY Atorvastatin Calcium (Lipitor), 1 TAB PO DAILY Methylprednisolone (Medrol Dosepak), 4 MG PO UD Naproxen (Naproxen), 500 MG PO BID Tamsulosin Hcl (Tamsulosin Hcl), 0.4 MG PO QPM, (Reported) Scheduled PRN Ibuprofen Micronized (Ibuprofen), 800 MG PO Q8HP PRN Indomethacin (Indomethacin), 1 CAP PO TID PRN Discontinued Medications Cephalexin (Keflex Capsule), 1 CAP PO QID 39 (Time taken for discharge summary 39 minutes) Discharge Statement: "Patient was advised to return to the ER or call 911 if any headaches, dizziness, shortness of breath, chest pain, abdominal pain, bleeding, fevers, or worsening of medical condition. Patient was counseled about treatment plan, medications, possible side effects, patientverbalized understanding. All questions were answered to the best of my ability. This discharge took greater then 30 minutes in planning, reviewing documentation, counseling the patient, and discussing with other team members." ASSESSMENT ASSESSMENT Hospital Course Left AMA Assessment Date of Service: Oct 13, 2025 Billing Provider: JS SEPULVEDA MD Common Visit Codes: [id number] INP/OBS CARE(HIGH) JS SEPULVEDA MD Oct 13, 2025 08:00
== END 2025-10-12 15:19 | disposition left against medical advice (07) | DRG 720 ==
LOC: ER 08:05 → OVERFLOW 09:54 → ER 11:00 → TELE-WESTW 21:28
PROVIDERS: ADMIT Nurse Practitioner Acute Care; ATTEND Nurse Practitioner Acute Care
DX: A41.50 Gram-negative sepsis, unspecified (principal); J96.01 Acute respiratory failure with hypoxia; J15.69 Pneumonia due to other Gram-negative bacteria; I50.33 Acute on chronic diastolic (congestive) heart failure; I27.20 Pulmonary hypertension, unspecified; E87.20 Acidosis, unspecified; J15.9 Unspecified bacterial pneumonia; J44.0 Chronic obstructive pulmonary disease with (acute) lower respiratory infection; I11.0 Hypertensive heart disease with heart failure; F19.10 Other psychoactive substance abuse, uncomplicated; E66.9 Obesity, unspecified; I35.0 Nonrheumatic aortic (valve) stenosis; Z59.00 Homelessness unspecified; Z20.822 Contact with and (suspected) exposure to COVID-19; E78.5 Hyperlipidemia, unspecified; Z53.29 Procedure and treatment not carried out because of patient's decision for other reasons; M10.9 Gout, unspecified; F17.200 Nicotine dependence, unspecified, uncomplicated; I25.10 Atherosclerotic heart disease of native coronary artery without angina pectoris; Z86.73 Personal history of transient ischemic attack (TIA), and cerebral infarction without residual deficits; Z68.32 Body mass index [BMI] 32.0-32.9, adult; Z87.11 Personal history of peptic ulcer disease
CPT/HCPCS: 36415; 71045; 80048; 80053; 80076; 80202; 81001; 82140; 82565; 83605; 83690; 83880; 84484; 85025; 87040; 87086; 87426; 87804; 93005; 93306; 94640; 99291; G0378; J2543